=== PATIENT | male | born 1945 | race Caucasian/White ===

== ENCOUNTER 2016-09-12 12:54 | Inpatient (IN) | payer MEDICARE, OTHER ==
[~2016-09-12] VITALS: Ht 167.6 cm; Wt 75.3 kg
[~2016-09-12 12:54] MED LIST: AUGM500T7 PO; CHLO100T2 PO; CHLO50TA2 PO; CLOZ100 PO; CLOZ25 PO; DEPA500T3 PO; DIVA500T PO; FLUTI220I INH; IPRASOL NEB; OMEP20TA PO; SENN8.6T15 PO; SERT-129 PO
[2016-09-12 13:05] VITALS: BP 128/76; PULSE 91; PULSE 92; RESP 16; TEMP 97.9; O2SAT 95; O2SAT 96
[2016-09-12] MEDS ORDERED: RESP: ALBUTEROL 2.5 MG/IPRATROPIUM 0.5 MG NEB (SCH) INH ONE (13:30)
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
[2016-09-12 14:13] LABS: AUTOMATED NEUTROPHIL # 4.7 TH/MM3 (1.8-7.7); BASOPHIL % 0.6 % (0.0-2.0); EOSINOPHIL % 0.4 % (0.0-4.0); HEMATOCRIT 36.3 % (39.0-51.0); HEMO FLAGS DIFF FINAL; LYMPH % 24.7 % (9.0-44.0); LYMPHOCYTE # 1.7 TH/MM3 (1.0-4.8); MEAN CELL VOLUME 87.8 FL (80.0-100.0); MEAN CORPUSCULAR HEMOGLOBIN 29.3 PG (27.0-34.0); MEAN CORPUSCULAR HGB CONC 33.4 % (32.0-36.0); MONO % 6.7 % (0.0-8.0); NEUT % 67.6 % (16.0-70.0); PLATELET COUNT 219 TH/MM3 (150-450); RED BLOOD COUNT 4.13 MIL/MM3 (4.50-5.90); RED CELL DISTRIBUTION WIDTH 13.9 % (11.6-17.2); WHITE BLOOD COUNT 6.9 TH/MM3 (4.0-11.0)
--- NOTE | 2016-09-12 14:26 | RADRPT ---
EXAM DATE/TIME: 09/12/2016 13:21 [place] COMPARISON: CHEST PA & LAT, July 31, 2016, 15:48. CHEST SINGLE AP, July 21, 2016, 0:11. INDICATIONS : Cough, congestion. MEDICAL HISTORY : None. SURGICAL HISTORY : None. ENCOUNTER: Initial ACUITY: 1 day PAIN SCORE: Non-responsive. LOCATION: Bilateral chest FINDINGS: Portable AP view of the chest demonstrates a normal-sized cardiac silhouette. Lungs are underinflated and there is mild bibasilar opacity. No pleural effusion or pneumothorax is identified. Bones and so ft tissues demonstrate no acute finding. 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 CONCLUSION: 1. Underinflation with mild bibasilar airspace opacity representing either atelectasis or airspace co nsolidation. 2. 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 Derrick Almeida MD on September 12, 2016 at 14:23 Board Certified Radiologist. This report was verified electronically.
[2016-09-12 14:31] LABS: ALT (GPT) 14 U/L (12-78); ANION GAP 8 MEQ/L (5-15); AST (GOT) 13 U/L (15-37); BICARBONATE 29.2 MEQ/L (21.0-32.0); BLOOD UREA NITROGEN 20 MG/DL (7-18); CHLORIDE 104 MEQ/L (98-107); GLOMERULAR FILTRATION RATE 107 ML/MIN (>89); POTASSIUM 3.6 MEQ/L (3.5-5.1); SODIUM (NA) 141 MEQ/L (136-145)
[2016-09-12 14:33] LABS: ALKALINE PHOSPHATASE 64 U/L (45-117); TOTAL BILIRUBIN ADULT 0.2 MG/DL (0.2-1.0)
[2016-09-12] MEDS ORDERED: LORazepam 2 MG/ML VIAL IM ONE (15:30)
[2016-09-12] MEDS ORDERED: HALOPERIDOL LACTATE 5 MG/ML AMP IM ONE (15:30)
[2016-09-12 19:00] VITALS: BP 140/78; PULSE 75; RESP 14; O2SAT 95
[2016-09-12 22:35] VITALS: BP 121/57; PULSE 82; RESP 18; TEMP 97.4; O2SAT 96
[2016-09-13 02:18] VITALS: BP 144/70; PULSE 81; RESP 19; O2SAT 99
[2016-09-13] MEDS ORDERED: ACETAMINOPHEN 325 MG TAB PO PRN ×2 (02:45→12:00)
[2016-09-13] MEDS ORDERED: MAGNESIUM HYDROXIDE SUSP 30 ML CUP PO PRN (02:45)
[2016-09-13] MEDS ORDERED: ALUMINUM/MAGNESIUM/SIMETH 30 ML CUP PO PRN ×2 (02:45→12:00)
[2016-09-13] MEDS: RESP: ALBUTEROL 2.5 MG/IPRATROPIUM 0.5 MG NEB (SCH) NEB ×7 (04:00→20:28)
[2016-09-13 04:19] VITALS: BP 158/82; PULSE 86; RESP 18; TEMP 98.6; O2SAT 96
[2016-09-13] MEDS: FLUTICASONE PROPIONATE 220 MCG/ACT 12 GM INHALER INH SCH ×2 (09:00→20:53)
[2016-09-13] MEDS ORDERED: cloZAPine 25 MG TAB PO SCH (09:00)
[2016-09-13] MEDS ORDERED: SERTRALINE HCL 100 MG TAB PO SCH (09:00)
[2016-09-13] MEDS ORDERED: PANTOPRAZOLE SOD 20 MG DELAYED RELEASE TAB PO SCH (09:00)
[2016-09-13] MEDS: DIVALPROEX SODIUM E.R. 500 MG TAB PO SCH ×2 (09:00→20:53)
[2016-09-13] MEDS: NICOTINE 21 MG/24 HR PATCH T-DERMAL SCH (12:00)
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
[2016-09-13 13:40] LABS: AUTOMATED NEUTROPHIL # 3.4 TH/MM3 (1.8-7.7); BASOPHIL % 0.5 % (0.0-2.0); EOSINOPHIL % 0.6 % (0.0-4.0); HEMATOCRIT 33.3 % (39.0-51.0); HEMO FLAGS DIFF FINAL; LYMPHOCYTE # 1.8 TH/MM3 (1.0-4.8); MEAN CELL VOLUME 88.3 FL (80.0-100.0); MEAN CORPUSCULAR HEMOGLOBIN 29.3 PG (27.0-34.0); MEAN CORPUSCULAR HGB CONC 33.1 % (32.0-36.0); MONO % 9.7 % (0.0-8.0); NEUT % 58.2 % (16.0-70.0); PLATELET COUNT 194 TH/MM3 (150-450); RED BLOOD COUNT 3.77 MIL/MM3 (4.50-5.90); RED CELL DISTRIBUTION WIDTH 13.8 % (11.6-17.2); WHITE BLOOD COUNT 5.9 TH/MM3 (4.0-11.0)
--- NOTE | 2016-09-13 17:39 | PD.CONS ---
History of Present Illness Service FP Consult Requested By DR CRAIG Reason for Consult MED [facility] Primary Care Physician DR SANDOVAL Diagnoses: (1) GERD (gastroesophageal reflux disease) (2) Nutrition, metabolism, and development symptoms (3) DVT prophylaxis (4) Smoking history (5) Periaortic lymphadenopathy (6) Unexplained weight loss (7) Tobacco abuse (8) Acute psychosis (9) Schizoaffective disorder (10) Encephalopathy (11) Altered mental status (12) Medication side effect (13) Intellectual disability History of Present Illness 71 Y CM, OUTPATIENT OF [facility]. RECENT DISCHARGE FROM [facility]. PT READMITTED WITH PSYCHOTIC EXACERBATION, VEGA ACT. PT C/O SOB AND NOW RECEIVING NEB TREATMENT. COUGH AND CONGESTION PER PATIENT AND STAFF. PT COMBATIVE AND AGITATED. Review of Systems ROS Limitations: Uncooperative Constitutional: DENIES: Fever, Chills, Change in appetite Endocrine: DENIES: Heat/cold intolerance Eyes: DENIES: Blurred vision, Eye pain Ears, nose, mouth, throat: DENIES: Tinnitus, Hearing loss, Vertigo, Nasal discharge, Oral lesions, Throat pain, Hoarseness, Ear Pain, Running Nose, Epistaxis, Sinus Pain, Toothache, Odynophagia Respiratory: COMPLAINS OF: Cough, Wheezing, Sputum production, Shortness of breath Cardiovascular: COMPLAINS OF: Dyspnea on Exertion, DENIES: Chest pain, Palpitations, Syncope, PND, Lower Extremity Edema, Orthopnea, Claudication Gastrointestinal: DENIES: Abdominal pain, Black stools, Bloody stools, Constipation, Diarrhea, Nausea, Vomiting, Difficulty Swallowing, Anorexia Genitourinary: DENIES: Sexual dysfunction, Urinary frequency, Urinary incontinence, Urgency, Hematuria, Dysuria, Nocturia, Penile Discharge, Testicular Pain, Testicular Swelling Musculoskeletal: DENIES: Joint pain, Muscle aches, Stiffness, Joint Swelling, Back pain, Neck pain Integumentary: DENIES: Abnormal pigmentation, Nail changes, Pruritus, Rash Hematologic/lymphatic: DENIES: Bruising, Lymphadenopathy Immunologic/allergic: DENIES: Eczema, Urticaria Neurologic: COMPLAINS OF: Poor Balance, DENIES: Abnormal gait, Headache, Localized weakness, Paresthesias, Seizures, Speech Problems, Tremor Psychiatric: COMPLAINS OF: Anxiety, Confusion, Mood changes, Hallucinations, Agitation, Delusions Past Family Social History Allergies: Coded Allergies: No Known Allergies (Verified , 09/12/16) Past Medical History DYSPHAGIA BRONCHITIS, RECURRENT HCAP. RESOLVED. NEG REPEAT CXR. ASPIRATION COPD TACHYCARDIA/ARRHYTHMIA R OTITIS L HUMERUS FX, OLD HTN, URGENT SCHIZOAFFECTIVE SMOKER PERIAORTIC LYMPHADENOPATHY METABOLIC ENCEPHALOPATHY ETOH ABUSE Past Surgical History NC Reported Medications Current Medications Medications (Trade) Dose Ordered Sig/Alpesh Route Start Time Stop Time Status Last Admin (Ativan) 0.5 mg Q12H PRN PO 09/13/16 02:45 (Ativan Inj) 0.5 mg Q12H PRN IM 09/13/16 02:45 (Flovent Hfa 220 Mcg Inh) 1 puff BID INH 09/13/16 09:00 (Depakote Er) 500 mg DAILY PO 09/13/16 09:00 09/13/16 09:00 (Depakote Er) 1,500 mg HS PO 09/13/16 21:00 (Benadryl) 50 mg HS PRN PO 09/13/16 12:00 (Tylenol) 650 mg Q4H PRN PO 09/13/16 12:00 (Milk Of Magnesia Liq) 30 ml DAILY PRN PO 09/13/16 12:00 (Mag-Al Plus Susp Liq) 30 ml Q6H PRN PO 09/13/16 12:00 (Habitrol 21 Mg Patch.24 Hr) 1 patch DAILY T-DERMAL 09/13/16 12:00 09/13/16 12:00 (Thorazine) 100 mg QID PO 09/13/16 13:00 09/13/16 13:24 (Clozaril) 100 mg DAILY PO 09/14/16 09:00 (Protonix) 20 mg DAILY PO 09/14/16 09:00 (Senokot) 8.6 mg HS PO 09/13/16 21:00 (Zoloft) 100 mg DAILY PO 09/14/16 09:00 (Clozaril) 150 mg HS PO 09/13/16 21:00 Miscellaneous Information 1 DAILY TD 09/14/16 09:00 Family History NC Social History DISABLE, HX E/T/D, Physical Exam Vital Signs Vital Signs Date Time Temp Pulse Resp B/P Pulse Ox O2 Delivery O2 Flow Rate FiO2 09/13/16 04:19 98.6 86 18 158/82 96 09/13/16 02:18 81 19 144/70 99 Room Air 09/12/16 22:35 97.4 82 18 121/57 96 09/12/16 19:00 75 14 140/78 95 Room Air Physical Exam GENERAL: desheveled, coughing, short of breath, in moderate distress SKIN: No rashes, ecchymoses or lesions. Cool and dry. HEAD: Atraumatic. Normocephalic. No temporal or scalp tenderness. EYES: Pupils equal round and reactive. Extraocular motions intact. No scleral icterus. No injection or drainage. ENT: Nose without bleeding, purulent drainage or septal hematoma. Throat without erythema, tonsillar hypertrophy or exudate. Uvula midline. Airway patent. NECK: Trachea midline. No JVD or lymphadenopathy. Supple, nontender, no meningeal signs. CARDIOVASCULAR: Regular rate and rhythm without murmurs, gallops, or rubs. RESPIRATORY: B ronchi to apices, harsh congested cough GASTROINTESTINAL: Abdomen soft, non-tender, nondistended. No hepato-splenomegaly , or palpable masses. No guarding. MUSCULOSKELETAL: Extremities without clubbing, cyanosis, or edema. No joint tenderness, effusion, or edema noted. No calf tenderness. Negative Homans sign bilaterally. NEUROLOGICAL: Awake and alert. Cranial nerves II through XII intact. Motor and sensory grossly within normal limits. 2 out of 5 muscle strength in all muscle groups. Normal speech. Laboratory Laboratory Tests Test 09/12/16 09/13/16 17:45 13:19 Valproic Acid (Depakene) Level 85 White Blood Count 5.9 Red Blood Count 3.77 Hemoglobin 11.0 Hematocrit 33.3 Mean Corpuscular Volume 88.3 Mean Corpuscular Hemoglobin 29.3 Mean Corpuscular Hemoglobin 33.1 Concent Red Cell Distribution Width 13.8 Platelet Count 194 Mean Platelet Volume 7.6 Neutrophils (%) (Auto) 58.2 Lymphocytes (%) (Auto) 31.0 Monocytes (%) (Auto) 9.7 Eosinophils (%) (Auto) 0.6 Basophils (%) (Auto) 0.5 Neutrophils # (Auto) 3.4 Lymphocytes # (Auto) 1.8 Monocytes # (Auto) 0.6 Eosinophils # (Auto) 0.0 Basophils # (Auto) 0.0 CBC Comment DIFF FINAL Differential Comment Result Diagram: 09/13/16 1319 09/12/16 1400 Imaging Last 48 hours Impressions Chest X-Ray 09/12/16 0000 Signed Impressions: Service Date/Time: August 13:21 - CONCLUSION: 1. Underinflation with mild bibasilar airspace opacity representing either atelectasis or airspace consolidation. 2. 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 Derrick Almeida MD Assessment and Plan Assessment and Plan ACUTE PSYCHOSIS PNA VS BRONCHITIS DYSPHAGIA ASPIRATION COPD TACHYCARDIA/ARRHYTHMIA R OTITIS L HUMERUS FX, OLD HTN, URGENT SCHIZOAFFECTIVE SMOKER PERIAORTIC LYMPHADENOPATHY METABOLIC ENCEPHALOPATHY ETOH ABUSE PLAN- DUONEB BID DOXYCYCLINE BID UNTIL SEP 20 MONITOR HTN. MEDS OTHERWISE ABOVE. MEDICALLY CLEARED FOR INPATIENT PSYCHIATRY ADMISSION. Min Sandoval MD Sep 13, 2016 17:39
[2016-09-13 19:17] VITALS: BP 109/61; PULSE 79; RESP 16; TEMP 97.9; O2SAT 95
[2016-09-13] MEDS: cloZAPine 100 MG TAB PO SCH (20:54)
[2016-09-13] MEDS: DOXYCYCLINE HYCLATE 100 MG CAP PO SCH (20:54)
[2016-09-13] MEDS: SENNOSIDES 8.6 MG TAB PO SCH (20:55)
[2016-09-13] MEDS ORDERED: FLUTICASONE PROPIONATE 220 MCG/ACT 12 GM INHALER INH SCH (21:00)
[2016-09-13] MEDS ORDERED: cloZAPine 100 MG TAB PO SCH (21:00)
[2016-09-13] MEDS ORDERED: SENNOSIDES 8.6 MG TAB PO SCH (21:00)
[2016-09-14 06:42] VITALS: BP 153/92; PULSE 92; RESP 16; TEMP 98.3; O2SAT 95
[2016-09-14] MEDS: RESP: ALBUTEROL 2.5 MG/IPRATROPIUM 0.5 MG NEB (SCH) NEB ×2 (08:00→19:47)
[2016-09-14 08:46] LABS: ANION GAP 8 MEQ/L (5-15); BICARBONATE 31.3 MEQ/L (21.0-32.0); BLOOD UREA NITROGEN 15 MG/DL (7-18); CHLORIDE 103 MEQ/L (98-107); GLOMERULAR FILTRATION RATE 123 ML/MIN (>89); LDL CHOLESTEROL 66 MG/DL (0-99); POTASSIUM 3.9 MEQ/L (3.5-5.1); SODIUM (NA) 142 MEQ/L (136-145)
[2016-09-14] MEDS: REMOVE OLD PATCH TD SCH (09:00)
[2016-09-14] MEDS: DOXYCYCLINE HYCLATE 100 MG CAP PO SCH ×2 (09:29→21:23)
[2016-09-14] MEDS: SERTRALINE HCL 100 MG TAB PO SCH (09:29)
[2016-09-14] MEDS: cloZAPine 100 MG TAB PO SCH ×2 (09:29→21:23)
[2016-09-14] MEDS: DIVALPROEX SODIUM E.R. 500 MG TAB PO SCH ×2 (09:29→21:23)
[2016-09-14] MEDS: FLUTICASONE PROPIONATE 220 MCG/ACT 12 GM INHALER INH SCH ×2 (09:30→21:25)
[2016-09-14] MEDS: PANTOPRAZOLE SOD 20 MG DELAYED RELEASE TAB PO SCH (09:30)
[2016-09-14] MEDS: NICOTINE 21 MG/24 HR PATCH T-DERMAL SCH (09:30)
--- NOTE | 2016-09-14 09:50 | HHI.FPPN ---
Subjective Remarks AGITATED CURSING COUGHING WHEN TALKS Objective Vitals Vital Signs Date Time Temp Pulse Resp B/P Pulse Ox O2 Delivery O2 Flow Rate FiO2 09/14/16 06:42 98.3 92 16 153/92 95 09/13/16 19:17 97.9 79 16 109/61 95 I/O 09/13/16 09/13/16 09/13/16 09/14/16 09/14/16 09/14/16 07:00 15:00 23:00 07:00 15:00 23:00 Intake Total 360 ml 240 ml Balance 360 ml 240 ml Intake Oral 360 ml 240 ml # Voids 3 Result Diagram: 09/13/16 1319 09/14/16 0711 Objective Remarks GENERAL: SKIN: Warm and dry. HEAD: Atraumatic. Normocephalic. EYES: Pupils equal and round. No scleral icterus. No injection or drainage. ENT: No nasal bleeding or discharge. Mucous membranes pink and moist. NECK: Trachea midline. No JVD. CARDIOVASCULAR: Regular rate and rhythm. RESPIRATORY: No accessory muscle use. CENTRAL AND BASILAR RONCHI GASTROINTESTINAL: Abdomen soft, non-tender, nondistended. Hepatic and splenic margins not palpable. MUSCULOSKELETAL: Extremities without clubbing, cyanosis, or edema. No obvious deformities. NEUROLOGICAL: Awake and alert. No obvious cranial nerve deficits. Motor grossly within normal limits. 3 out of 5 muscle strength in the arms and legs. Normal speech. PSYCHIATRIC: PSYCHOTIC Medications and IVs Current Medications Medications (Trade) Dose Ordered Sig/Alpesh Route Start Time Stop Time Status Last Admin (Ativan) 0.5 mg Q12H PRN PO 09/13/16 02:45 (Ativan Inj) 0.5 mg Q12H PRN IM 09/13/16 02:45 (Flovent Hfa 220 Mcg Inh) 1 puff BID INH 09/13/16 09:00 09/14/16 09:30 (Depakote Er) 500 mg DAILY PO 09/13/16 09:00 09/14/16 09:29 (Depakote Er) 1,500 mg HS PO 09/13/16 21:00 09/13/16 20:53 (Benadryl) 50 mg HS PRN PO 09/13/16 12:00 (Tylenol) 650 mg Q4H PRN PO 12/16/16 12:00 (Milk Of Magnesia Liq) 30 ml DAILY PRN PO 09/13/16 12:00 (Mag-Al Plus Susp Liq) 30 ml Q6H PRN PO 09/13/16 12:00 (Habitrol 21 Mg Patch.24 Hr) 1 patch DAILY T-DERMAL 09/13/16 12:00 09/14/16 09:30 (Thorazine) 100 mg QID PO 09/13/16 13:00 09/14/16 09:29 (Clozaril) 100 mg DAILY PO 09/14/16 09:00 09/14/16 09:29 (Protonix) 20 mg DAILY PO 09/14/16 09:00 09/14/16 09:30 (Senokot) 8.6 mg HS PO 09/13/16 21:00 09/13/16 20:55 (Zoloft) 100 mg DAILY PO 09/14/16 09:00 09/14/16 09:29 (Clozaril) 150 mg HS PO 09/13/16 21:00 09/13/16 20:54 Miscellaneous Information 1 DAILY TD 09/14/16 09:00 09/14/16 09:00 (Vibramycin) 100 mg BID PO 09/13/16 21:00 09/20/16 20:59 09/14/16 09:29 A/P Assessment and Plan ACUTE PSYCHOSIS PNA VS BRONCHITIS DYSPHAGIA ASPIRATION COPD TACHYCARDIA/ARRHYTHMIA R OTITIS L HUMERUS FX, OLD HTN, URGENT SCHIZOAFFECTIVE SMOKER PERIAORTIC LYMPHADENOPATHY METABOLIC ENCEPHALOPATHY ETOH ABUSE PLAN- DUONEB BID DOXYCYCLINE BID UNTIL SEP 20 MONITOR HTN. MEDS OTHERWISE ABOVE. MEDICALLY CLEARED FOR INPATIENT PSYCHIATRY ADMISSION. Min Hebert MD Sep 14, 2016 09:50
--- NOTE | 2016-09-14 11:54 | HHI.PYPN ---
Subjective Remarks Patient was seen and case discussed with nursing. Patient is in behaving well on the unit. He has not been labile and aggressive. Thought process remains largely loose and nonsensical. Poor insight into his admission. His compliant with his medications. Denies auditory or visual hallucinations Objective Alert: Yes [place]: Person, Place Mood: Anxious Affect: Blunted Memory Intact: Remote (impaired) Hallucinations: Other (denies) Delusions: No Delusion Type: Paranoid Suicidal: Ideation (denies) Homicidal: Ideation (denies) Insight/Judgement poor Labs Test 09/13/16 09/14/16 13:19 07:11 White Blood Count 5.9 TH/MM3 Red Blood Count 3.77 MIL/MM3 Hemoglobin 11.0 GM/DL Hematocrit 33.3 % Mean Corpuscular Volume 88.3 FL Mean Corpuscular Hemoglobin 29.3 PG Mean Corpuscular Hemoglobin 33.1 % Concent Red Cell Distribution Width 13.8 % Platelet Count 194 TH/MM3 Mean Platelet Volume 7.6 FL Neutrophils (%) (Auto) 58.2 % Lymphocytes (%) (Auto) 31.0 % Monocytes (%) (Auto) 9.7 % Eosinophils (%) (Auto) 0.6 % Basophils (%) (Auto) 0.5 % Neutrophils # (Auto) 3.4 TH/MM3 Lymphocytes # (Auto) 1.8 TH/MM3 Monocytes # (Auto) 0.6 TH/MM3 Eosinophils # (Auto) 0.0 TH/MM3 Basophils # (Auto) 0.0 TH/MM3 CBC Comment DIFF FINAL Differential Comment Sodium Level 142 MEQ/L Potassium Level 3.9 MEQ/L Chloride Level 103 MEQ/L Carbon Dioxide Level 31.3 MEQ/L Anion Gap 8 MEQ/L Blood Urea Nitrogen 15 MG/DL Creatinine 0.64 MG/DL Estimat Glomerular Filtration 123 ML/MIN Rate Random Glucose 93 MG/DL Calcium Level 8.7 MG/DL Triglycerides Level 93 MG/DL Cholesterol Level 145 MG/DL LDL Cholesterol 66 MG/DL HDL Cholesterol 60.0 MG/DL Cholesterol/HDL Ratio 2.41 RATIO Vitals/IOs Vital Signs Date Time Temp Pulse Resp B/P Pulse Ox O2 Delivery O2 Flow Rate FiO2 09/14/16 06:42 98.3 92 16 153/92 95 09/13/16 02:18 Room Air Intake and Output 09/13/16 09/13/16 09/13/16 07:59 15:59 23:59 Intake Total 360 ml Balance 360 ml Assessment & Plan Problem List: (1) Schizoaffective disorder, bipolar type ICD Code: F25.0 Assessment & Plan Continue current treatment plan Justification for Cont. Inpt. Patient will decompensate in a less restrictive setting Request HC Surrog/Guard Advoc?: Yes Roge Rosario DO Sep 14, 2016 11:54
[2016-09-14] MEDS: LORazepam 2 MG/ML VIAL - age > 65 yrs IM PRN (11:59)
[2016-09-14 18:00] VITALS: BP 132/59; PULSE 79; RESP 22; TEMP 99.2; O2SAT 96
[2016-09-14] MEDS: SENNOSIDES 8.6 MG TAB PO SCH (21:24)
[2016-09-15 06:13] VITALS: BP 121/75; PULSE 89; RESP 16; TEMP 97.1; O2SAT 92
[2016-09-15] MEDS: RESP: ALBUTEROL 2.5 MG/IPRATROPIUM 0.5 MG NEB (SCH) NEB ×2 (08:00→21:25)
[2016-09-15] MEDS: DOXYCYCLINE HYCLATE 100 MG CAP PO SCH ×2 (08:30→21:06)
[2016-09-15] MEDS: FLUTICASONE PROPIONATE 220 MCG/ACT 12 GM INHALER INH SCH ×2 (08:30→21:04)
[2016-09-15] MEDS: PANTOPRAZOLE SOD 20 MG DELAYED RELEASE TAB PO SCH (08:30)
[2016-09-15] MEDS: SERTRALINE HCL 100 MG TAB PO SCH (08:31)
[2016-09-15] MEDS: cloZAPine 100 MG TAB PO SCH ×2 (08:31→21:04)
[2016-09-15] MEDS: NICOTINE 21 MG/24 HR PATCH T-DERMAL SCH (09:00)
[2016-09-15] MEDS: REMOVE OLD PATCH TD SCH (09:00)
[2016-09-15] MEDS: DIVALPROEX SODIUM E.R. 500 MG TAB PO SCH ×2 (09:00→21:05)
[2016-09-15 10:34] LABS: HEMOGLOBIN A1a 1.2 %; HEMOGLOBIN A1b 0.9 %; HEMOGLOBIN Ao 84.3 %; HEMOGLOBIN P3 5.6 %
--- NOTE | 2016-09-15 12:16 | HHI.PYPN ---
Subjective Remarks This is a request for second opinion for Dr. Hernandez. Patient was seen and case discussed with nursing. Patient remains disorganized with poor insight into his admission. Patient was agitated yesterday afternoon. However his behaviors improved today. His compliant with his medications. Says he wants to get a job here. Denies auditory visual hallucinations Objective Alert: Yes [place]: Person, Place Mood: Anxious Affect: Blunted Memory Intact: Remote (impaired) Hallucinations: Other (denies) Delusions: No Delusion Type: Paranoid Suicidal: Ideation (denies) Homicidal: Ideation (denies) Insight/Judgement Poor Labs Test 09/15/16 06:00 Valproic Acid (Depakene) Level 87 MCG/ML Vitals/IOs Vital Signs Date Time Temp Pulse Resp B/P Pulse Ox O2 Delivery O2 Flow Rate FiO2 09/15/16 06:13 97.1 89 16 121/75 92 09/13/16 02:18 Room Air Intake and Output 09/14/16 09/14/16 09/15/16 08:00 16:00 00:00 Intake Total 240 ml 840 ml 300 ml Balance 240 ml 840 ml 300 ml Assessment & Plan Problem List: (1) Schizoaffective disorder, bipolar type ICD Code: F25.0 Assessment & Plan I agree with the first opinion to continue his petition. Criteria include psychotic and disorganized behavior Justification for Cont. Inpt. Patient would decompensate in a less restrictive setting Request HC Surrog/Guard Advoc?: Yes Roge Rosario DO Sep 15, 2016 12:16
[2016-09-15] MEDS: LORazepam 2 MG/ML VIAL - age > 65 yrs IM PRN (13:32)
[2016-09-15 17:51] VITALS: BP 163/85; PULSE 92; RESP 17; TEMP 98; O2SAT 96
[2016-09-15] MEDS: diphenhydrAMINE HCL 50 MG CAP PO PRN (21:04)
[2016-09-15] MEDS: SENNOSIDES 8.6 MG TAB PO SCH (21:05)
[2016-09-16 05:52] VITALS: BP 147/85; PULSE 79; RESP 16; TEMP 97.4; O2SAT 94
[2016-09-16] MEDS: RESP: ALBUTEROL 2.5 MG/IPRATROPIUM 0.5 MG NEB (SCH) NEB ×2 (08:59→19:57)
[2016-09-16] MEDS: REMOVE OLD PATCH TD SCH (09:00)
[2016-09-16] MEDS: FLUTICASONE PROPIONATE 220 MCG/ACT 12 GM INHALER INH SCH ×2 (09:35→21:48)
[2016-09-16] MEDS: DIVALPROEX SODIUM E.R. 500 MG TAB PO SCH ×2 (09:36→21:47)
[2016-09-16] MEDS: DOXYCYCLINE HYCLATE 100 MG CAP PO SCH ×2 (09:37→21:48)
[2016-09-16] MEDS: cloZAPine 100 MG TAB PO SCH ×2 (09:37→21:48)
[2016-09-16] MEDS: PANTOPRAZOLE SOD 20 MG DELAYED RELEASE TAB PO SCH (09:37)
[2016-09-16] MEDS: SERTRALINE HCL 100 MG TAB PO SCH (09:37)
[2016-09-16] MEDS: NICOTINE 21 MG/24 HR PATCH T-DERMAL SCH (09:38)
--- NOTE | 2016-09-16 12:46 | HHI.PYPN ---
Subjective Remarks Patient discussed with treatment team patient's brother and [id number] and fact team compliance representative dealer Basia. We discussed the chronicity, medications, and overall deterioration patient's mental status along with his intellectual disability [place] progressed over many years. We did discuss medication also. Brother states he did fairly well on the Respinol injectable. We also discussed placement issues with it's time to look at some more restrictive safe placement then in the home considering the patient's increased wandering and aggressive behaviors. For now we will increase at bedtime Clazuril to 200 mg, will decrease the scheduled Thorazine from 100 mg 4 times a day to 50 mg 4 times a day in anticipation of admitting Respinol to the regimen in anticipation of perhaps an invega sustena injection Review of Systems Other No change since 09/13 Objective Alert: Yes [place]: Person, Place Mood: Anxious Affect: Blunted Memory Intact: Remote (impaired) Hallucinations: Other (denies) Delusions: No Delusion Type: Paranoid Suicidal: Ideation (denies) Homicidal: Ideation (denies) Insight/Judgement Very poor Vitals/IOs Vital Signs Date Time Temp Pulse Resp B/P Pulse Ox O2 Delivery O2 Flow Rate FiO2 09/16/16 05:52 97.4 79 16 147/85 94 09/13/16 02:18 Room Air Intake and Output 09/15/16 09/15/16 09/16/16 08:00 16:00 00:00 Intake Total 240 ml Balance 240 ml Assessment & Plan Problem List: (1) Schizoaffective disorder, bipolar type ICD Code: F25.0 Assessment & Plan Estimated LOS: days patient continue psychotic intrusive and profane. Compliant medications. See medication adjustments above Justification for Cont. Inpt. At this time the patient was severely decompensated a lower level of care or less restrictive setting Discharge Planning To be determined Request HC Surrog/Guard Advoc?: Yes Derrick Hernandez MD Sep 16, 2016 12:46
[2016-09-16 19:57] VITALS: BP 150/90; PULSE 98; RESP 16; TEMP 97.1; O2SAT 95
[2016-09-16] MEDS: SENNOSIDES 8.6 MG TAB PO SCH (21:47)
[2016-09-17 05:51] VITALS: BP 101/60; PULSE 88; RESP 16; TEMP 98.5; O2SAT 92
[2016-09-17] MEDS: PANTOPRAZOLE SOD 20 MG DELAYED RELEASE TAB PO SCH (08:46)
[2016-09-17] MEDS: DOXYCYCLINE HYCLATE 100 MG CAP PO SCH ×2 (08:46→21:18)
[2016-09-17] MEDS: NICOTINE 21 MG/24 HR PATCH T-DERMAL SCH (08:46)
[2016-09-17] MEDS: SERTRALINE HCL 100 MG TAB PO SCH (08:46)
[2016-09-17] MEDS: DIVALPROEX SODIUM E.R. 500 MG TAB PO SCH ×2 (08:46→21:17)
[2016-09-17] MEDS: cloZAPine 100 MG TAB PO SCH ×2 (08:46→21:18)
[2016-09-17] MEDS: RESP: ALBUTEROL 2.5 MG/IPRATROPIUM 0.5 MG NEB (SCH) NEB ×2 (08:52→19:26)
[2016-09-17] MEDS: REMOVE OLD PATCH TD SCH (09:00)
[2016-09-17] MEDS: FLUTICASONE PROPIONATE 220 MCG/ACT 12 GM INHALER INH SCH ×2 (09:00→21:18)
--- NOTE | 2016-09-17 12:36 | HHI.PYPN ---
Subjective Remarks Patient seen on unit with nurse Janel, chart reviewed, patient continues intrusive somewhat demanding, also continues somewhat confused silly and childlike. Compliant medications. He denies suicidality, denies voices Review of Systems Other No change since 09/13 Objective Alert: Yes [place]: Person, Place Mood: Anxious Affect: Blunted Memory Intact: Remote (impaired) Hallucinations: Other (denies) Delusions: No Delusion Type: Paranoid Suicidal: Ideation (denies) Homicidal: Ideation (denies) Insight/Judgement Very poor Vitals/IOs Vital Signs Date Time Temp Pulse Resp B/P Pulse Ox O2 Delivery O2 Flow Rate FiO2 09/17/16 05:51 98.5 88 16 101/60 92 Intake and Output 09/16/16 09/16/16 09/16/16 07:59 15:59 23:59 Intake Total 120 ml 1440 ml 1700 ml Balance 120 ml 1440 ml 1700 ml Assessment & Plan Problem List: (1) Schizoaffective disorder, bipolar type ICD Code: F25.0 Assessment & Plan Estimated LOS: days patient continues somewhat intrusive and irritable though redirectable. Compliant medications Justification for Cont. Inpt. At this time the patient with severely decompensated a lower level of care or less restrictive setting Discharge Planning To be determined Request HC Surrog/Guard Advoc?: Yes Derrick Hernandez MD Sep 17, 2016 12:36
[2016-09-17 19:44] VITALS: BP 154/85; PULSE 102; RESP 18; TEMP 98.2
[2016-09-17 19:45] VITALS: BP 154/85; PULSE 102; RESP 18; TEMP 98.2
[2016-09-17] MEDS: SENNOSIDES 8.6 MG TAB PO SCH (21:39)
[2016-09-18 06:08] VITALS: BP 134/75; PULSE 88; RESP 18; TEMP 97.5; O2SAT 94
[2016-09-18] MEDS: cloZAPine 100 MG TAB PO SCH ×2 (09:00→21:29)
[2016-09-18] MEDS: FLUTICASONE PROPIONATE 220 MCG/ACT 12 GM INHALER INH SCH ×2 (09:00→21:27)
[2016-09-18] MEDS: REMOVE OLD PATCH TD SCH (09:00)
[2016-09-18] MEDS: SERTRALINE HCL 100 MG TAB PO SCH (09:06)
[2016-09-18] MEDS: DIVALPROEX SODIUM E.R. 500 MG TAB PO SCH ×2 (09:06→21:29)
[2016-09-18] MEDS: NICOTINE 21 MG/24 HR PATCH T-DERMAL SCH ×2 (09:06→09:51)
[2016-09-18] MEDS: DOXYCYCLINE HYCLATE 100 MG CAP PO SCH ×2 (09:06→21:27)
[2016-09-18] MEDS: PANTOPRAZOLE SOD 20 MG DELAYED RELEASE TAB PO SCH (09:06)
--- NOTE | 2016-09-18 09:12 | HHI.PYPN ---
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 Patient compliant medication. For now continue treatment. Patient scheduled for [place] tomorrow Review of Systems Other No change since 09/13 Objective Alert: Yes [place]: Person, Place Mood: Anxious Affect: Blunted Memory Intact: Remote (impaired) Hallucinations: Other (denies) Delusions: No Delusion Type: Paranoid Suicidal: Ideation (denies) Homicidal: Ideation (denies) Insight/Judgement Very poor Vitals/IOs Vital Signs Date Time Temp Pulse Resp B/P Pulse Ox O2 Delivery O2 Flow Rate FiO2 09/18/16 06:08 97.5 88 18 134/75 94 Intake and Output 09/17/16 09/17/16 09/17/16 07:59 15:59 23:59 Intake Total 0 ml 1200 ml 600 ml Balance 0 ml 1200 ml 600 ml Assessment & Plan Problem List: (1) Schizoaffective disorder, bipolar type ICD Code: F25.0 Assessment & Plan Estimated LOS: days patient remains confused intrusive labile psychotic needing significant redirection Justification for Cont. Inpt. At this time patient was severely decompensate if placed at a lower level of care Discharge Planning To be determined Request HC Surrog/Guard Advoc?: Yes Derrick Hernandez MD Sep 18, 2016 09:12
[2016-09-18 18:00] VITALS: BP 129/63; PULSE 93; RESP 17; TEMP 98.5; O2SAT 94
[2016-09-18] MEDS: SENNOSIDES 8.6 MG TAB PO SCH (21:28)
[2016-09-19 06:00] VITALS: BP 151/92; PULSE 94; RESP 18; TEMP 98; O2SAT 94
[2016-09-19] MEDS: REMOVE OLD PATCH TD SCH (09:00)
[2016-09-19] MEDS: DOXYCYCLINE HYCLATE 100 MG CAP PO SCH ×2 (09:00→20:29)
[2016-09-19] MEDS: cloZAPine 100 MG TAB PO SCH ×2 (09:31→20:29)
[2016-09-19] MEDS: DIVALPROEX SODIUM E.R. 500 MG TAB PO SCH ×2 (09:31→20:29)
[2016-09-19] MEDS: SERTRALINE HCL 100 MG TAB PO SCH (09:32)
[2016-09-19] MEDS: PANTOPRAZOLE SOD 20 MG DELAYED RELEASE TAB PO SCH (09:32)
[2016-09-19] MEDS: NICOTINE 21 MG/24 HR PATCH T-DERMAL SCH (09:33)
[2016-09-19] MEDS: FLUTICASONE PROPIONATE 220 MCG/ACT 12 GM INHALER INH SCH ×2 (09:34→20:29)
--- NOTE | 2016-09-19 11:42 | HHI.FPPN ---
Subjective Remarks INCR BP AGITATED REPORTS PROBLEMS WITH COUGH GRABBING MY ARMS D/W RN Objective Vitals Vital Signs Date Time Temp Pulse Resp B/P Pulse Ox O2 Delivery O2 Flow Rate FiO2 09/19/16 06:00 98.0 94 18 151/92 94 09/18/16 18:00 98.5 93 17 129/63 94 I/O 09/18/16 09/18/16 09/18/16 09/19/16 09/19/16 09/19/16 07:00 15:00 23:00 07:00 15:00 23:00 Intake Total 120 ml 1080 ml 840 ml Balance 120 ml 1080 ml 840 ml Intake Oral 120 ml 1080 ml 840 ml # Voids 3 3 2 2 # Bowel Movements 1 Result Diagram: 09/14/16 07 Objective Remarks GENERAL: SKIN: Warm and dry. HEAD: Atraumatic. Normocephalic. EYES: Pupils equal and round. No scleral icterus. No injection or drainage. ENT: No nasal bleeding or discharge. Mucous membranes pink and moist. NECK: Trachea midline. No JVD. CARDIOVASCULAR: Regular rate and rhythm. RESPIRATORY: No accessory muscle use. CENTRAL AND BASILAR RONCHI GASTROINTESTINAL: Abdomen soft, non-tender, nondistended. Hepatic and splenic margins not palpable. MUSCULOSKELETAL: Extremities without clubbing, cyanosis, or edema. No obvious deformities. NEUROLOGICAL: Awake and alert. No obvious cranial nerve deficits. Motor grossly within normal limits. 3 out of 5 muscle strength in the arms and legs. Normal speech. PSYCHIATRIC: PSYCHOTIC Medications and IVs Current Medications Medications (Trade) Dose Ordered Sig/Alpesh Route Start Time Stop Time Status Last Admin (Ativan) 0.5 mg Q12H PRN PO 09/13/16 02:45 (Ativan Inj) 0.5 mg Q12H PRN IM 09/13/16 02:45 09/15/16 13:32 (Flovent Hfa 220 Mcg Inh) 1 puff BID INH 09/13/16 09:00 09/19/16 09:34 (Depakote Er) 500 mg DAILY PO 09/13/16 09:00 09/19/16 09:31 (Depakote Er) 1,500 mg HS PO 09/13/16 21:00 09/18/16 21:29 (Benadryl) 50 mg HS PRN PO 09/13/16 12:00 09/15/16 21:04 (Tylenol) 650 mg Q4H PRN PO 09/13/16 12:00 (Milk Of Magnesia Liq) 30 ml DAILY PRN PO 09/13/16 12:00 (Mag-Al Plus Susp Liq) 30 ml Q6H PRN PO 09/13/16 12:00 (Habitrol 21 Mg Patch.24 Hr) 1 patch DAILY T-DERMAL 09/13/16 12:00 09/19/16 09:33 (Clozaril) 100 mg DAILY PO 09/14/16 09:00 09/19/16 09:31 (Protonix) 20 mg DAILY PO 09/14/16 09:00 09/19/16 09:32 (Senokot) 8.6 mg HS PO 09/13/16 21:00 09/18/16 21:28 (Zoloft) 100 mg DAILY PO 09/14/16 09:00 09/19/16 09:32 Miscellaneous Information 1 DAILY TD 09/14/16 09:00 09/19/16 09:00 (Vibramycin) 100 mg BID PO 09/13/16 21:00 09/20/16 20:59 09/19/16 09:00 (Thorazine) 50 mg QID PO 09/16/16 14:00 09/19/16 09:32 (Clozaril) 200 mg HS PO 09/16/16 21:00 09/18/16 21:29 A/P Assessment and Plan ACUTE PSYCHOSIS PNA VS BRONCHITIS DYSPHAGIA ASPIRATION COPD TACHYCARDIA/ARRHYTHMIA R OTITIS L HUMERUS FX, OLD HTN, URGENT SCHIZOAFFECTIVE SMOKER PERIAORTIC LYMPHADENOPATHY METABOLIC ENCEPHALOPATHY ETOH ABUSE PLAN- DUONEB BID DOXYCYCLINE BID UNTIL SEP 20 MONITOR HTN. MEDS OTHERWISE ABOVE. MEDICALLY CLEARED FOR INPATIENT PSYCHIATRY ADMISSION. Min Hebert MD Sep 19, 2016 11:42
--- NOTE | 2016-09-19 12:38 | HHI.PYPN ---
Subjective Remarks Patient seen in [address] with brother and [id number], patient retained by Psychosocial Rehabilitation Counselor Shine. Patient continues loud intrusive with markedly disorganized speech, at times somewhat intimidating to other patients, he is compliant with medication. For now continue treatment Review of Systems Other No change since 09/13 Objective Alert: Yes [place]: Person, Place Mood: Anxious Affect: Blunted Memory Intact: Remote (impaired) Hallucinations: Other (denies) Delusions: No Delusion Type: Paranoid Suicidal: Ideation (denies) Homicidal: Ideation (denies) Insight/Judgement very poor Vitals/IOs Vital Signs Date Time Temp Pulse Resp B/P Pulse Ox O2 Delivery O2 Flow Rate FiO2 09/19/16 06:00 98.0 94 18 151/92 94 Intake and Output 09/18/16 09/18/16 09/19/16 08:00 16:00 00:00 Intake Total 120 ml 1080 ml 840 ml Balance 120 ml 1080 ml 840 ml Assessment & Plan Problem List: (1) Schizoaffective disorder, bipolar type ICD Code: F25.0 Assessment & Plan Estimated LOS: days patient continues disorganized loud and intrusive, has been retained by Psychosocial Rehabilitation Counselor Shine. Compliant medications. Justification for Cont. Inpt. At this time the patient would severely decompensated a lower level of care Discharge Planning To be determined Request HC Surrog/Guard Advoc?: Yes Derrick Hernandez MD Sep 19, 2016 12:38
[2016-09-19 18:27] VITALS: BP 149/68; PULSE 99; RESP 18; TEMP 97.8; O2SAT 97
[2016-09-19] MEDS: LORazepam 0.5 MG TAB age > 65 yrs PO PRN (20:28)
[2016-09-19] MEDS: SENNOSIDES 8.6 MG TAB PO SCH (20:29)
[2016-09-19] MEDS: diphenhydrAMINE HCL 50 MG CAP PO PRN (20:29)
[2016-09-20 05:54] VITALS: BP 136/56; PULSE 95; RESP 18; TEMP 97.2; O2SAT 91
[2016-09-20] MEDS: REMOVE OLD PATCH TD SCH (09:00)
[2016-09-20] MEDS: NICOTINE 21 MG/24 HR PATCH T-DERMAL SCH (09:00)
[2016-09-20] MEDS: DOXYCYCLINE HYCLATE 100 MG CAP PO SCH (09:06)
[2016-09-20] MEDS: LORazepam 0.5 MG TAB age > 65 yrs PO PRN (09:06)
[2016-09-20] MEDS: PANTOPRAZOLE SOD 20 MG DELAYED RELEASE TAB PO SCH (09:06)
[2016-09-20] MEDS: FLUTICASONE PROPIONATE 220 MCG/ACT 12 GM INHALER INH SCH ×2 (09:06→21:43)
[2016-09-20] MEDS: SERTRALINE HCL 100 MG TAB PO SCH (09:06)
[2016-09-20] MEDS: DIVALPROEX SODIUM E.R. 500 MG TAB PO SCH ×2 (09:06→21:44)
[2016-09-20] MEDS: cloZAPine 100 MG TAB PO SCH ×2 (09:06→21:44)
--- NOTE | 2016-09-20 14:16 | HHI.PYPN ---
Subjective Remarks Patient seen in day room with nurse Christi, chart review, all patient continues at times to be loud profane and intrusive the intensity frequency and duration have diminished somewhat. He is redirectable flow at times with encouragement. Compliant medications. Will decrease schedule Thorazine from 4 times a day to 3 times a day Review of Systems Other No change since 09/13 Objective Alert: Yes [place]: Person, Place Mood: Anxious Affect: Blunted Memory Intact: Remote (impaired) Hallucinations: Other (denies) Delusions: No Delusion Type: Paranoid Suicidal: Ideation (denies) Homicidal: Ideation (denies) Insight/Judgement Very poor Vitals/IOs Vital Signs Date Time Temp Pulse Resp B/P Pulse Ox O2 Delivery O2 Flow Rate FiO2 09/20/16 05:54 97.2 95 18 136/56 91 Intake and Output 09/19/16 09/19/16 09/20/16 08:00 16:00 00:00 Intake Total 960 ml 1560 ml Balance 960 ml 1560 ml Assessment & Plan Problem List: (1) Schizoaffective disorder, bipolar type ICD Code: F25.0 Assessment & Plan Estimated LOS: days patient continues with episodes of intrusiveness loudness profanity though frequency intensity and duration has somewhat lessened. For now will decrease schedule Thorazine to 3 times a day Justification for Cont. Inpt. At this time patient with severely decompensated a lower level of care Discharge Planning To be determined Request HC Surrog/Guard Advoc?: Yes Derrick Hernandez MD Sep 20, 2016 14:16
[2016-09-20 19:41] VITALS: BP 140/50; PULSE 96; RESP 16; TEMP 97.2; O2SAT 95
[2016-09-20] MEDS: SENNOSIDES 8.6 MG TAB PO SCH (21:43)
[2016-09-21 05:49] VITALS: BP 153/74; PULSE 88; RESP 17; TEMP 97.8; O2SAT 93
[2016-09-21] MEDS: REMOVE OLD PATCH TD SCH (09:00)
[2016-09-21] MEDS: FLUTICASONE PROPIONATE 220 MCG/ACT 12 GM INHALER INH SCH ×2 (09:30→21:02)
[2016-09-21] MEDS: DIVALPROEX SODIUM E.R. 500 MG TAB PO SCH ×2 (09:30→21:03)
[2016-09-21] MEDS: PANTOPRAZOLE SOD 20 MG DELAYED RELEASE TAB PO SCH (09:30)
[2016-09-21] MEDS: NICOTINE 21 MG/24 HR PATCH T-DERMAL SCH (09:30)
[2016-09-21] MEDS: SERTRALINE HCL 100 MG TAB PO SCH (09:31)
[2016-09-21] MEDS: cloZAPine 100 MG TAB PO SCH ×2 (09:31→21:03)
--- NOTE | 2016-09-21 16:53 | HHI.PYPN ---
Subjective Remarks Patient seen in dayroom with floor staff, chart reviewed, patient's intrusiveness loud voice and profanity somewhat diminished. Patient compliant medications. For now continue treatment no change Review of Systems Other No somatic complaints today Objective Alert: Yes [place]: Person, Place Mood: Anxious Affect: Blunted Memory Intact: Remote (impaired) Hallucinations: Other (denies) Delusions: No Delusion Type: Paranoid Suicidal: Ideation (denies) Homicidal: Ideation (denies) Insight/Judgement Poor Vitals/IOs Vital Signs Date Time Temp Pulse Resp B/P Pulse Ox O2 Delivery O2 Flow Rate FiO2 09/21/16 05:49 97.8 88 17 153/74 93 Intake and Output 09/20/16 09/20/16 09/21/16 08:00 16:00 00:00 Intake Total 600 ml 1080 ml 960 ml Balance 600 ml 1080 ml 960 ml Assessment & Plan Problem List: (1) Schizoaffective disorder, bipolar type ICD Code: F25.0 Assessment & Plan Estimated LOS: days patient continues confused intrusive loud, compliant medications. For now continue treatment Justification for Cont. Inpt. At this time patient would severely decompensated placed on a lower level of care Discharge Planning To be determined Request HC Surrog/Guard Advoc?: Yes Derrick Hernandez MD Sep 21, 2016 16:53
[2016-09-21 19:47] VITALS: BP 156/65; PULSE 93; RESP 17; TEMP 96.4; O2SAT 95
[2016-09-21] MEDS: SENNOSIDES 8.6 MG TAB PO SCH (21:03)
[2016-09-22] MEDS: diphenhydrAMINE HCL 50 MG CAP PO PRN ×2 (02:15→21:49)
[2016-09-22 06:30] VITALS: BP 103/57; PULSE 85; RESP 18; TEMP 96.9; O2SAT 94
[2016-09-22] MEDS: REMOVE OLD PATCH TD SCH (09:00)
[2016-09-22] MEDS: cloZAPine 100 MG TAB PO SCH ×2 (09:23→21:49)
[2016-09-22] MEDS: PANTOPRAZOLE SOD 20 MG DELAYED RELEASE TAB PO SCH (09:23)
[2016-09-22] MEDS: SERTRALINE HCL 100 MG TAB PO SCH (09:24)
[2016-09-22] MEDS: DIVALPROEX SODIUM E.R. 500 MG TAB PO SCH ×2 (09:24→21:50)
[2016-09-22] MEDS: NICOTINE 21 MG/24 HR PATCH T-DERMAL SCH (09:24)
[2016-09-22] MEDS: FLUTICASONE PROPIONATE 220 MCG/ACT 12 GM INHALER INH SCH ×2 (09:24→21:49)
--- NOTE | 2016-09-22 13:19 | HHI.PYPN ---
Subjective Remarks Patient was seen and case discussed with nursing. Patient has been behaving well today and the unit. His socializing with others has not been irritable or louder agitated. He is compliant with his medications. Denies auditory visual hallucinations Objective Alert: Yes [place]: Person, Place Mood: Anxious Affect: Blunted Memory Intact: Remote (impaired) Hallucinations: Other (denies) Delusions: No Delusion Type: Paranoid Suicidal: Ideation (denies) Homicidal: Ideation (denies) Insight/Judgement poor Vitals/IOs Vital Signs Date Time Temp Pulse Resp B/P Pulse Ox O2 Delivery O2 Flow Rate FiO2 09/22/16 06:30 96.9 85 18 103/57 94 Intake and Output 09/21/16 09/21/16 09/22/16 08:00 16:00 00:00 Intake Total 120 ml 480 ml 960 ml Output Total 2 ml Balance 118 ml 480 ml 960 ml Assessment & Plan Problem List: (1) Schizoaffective disorder, bipolar type ICD Code: F25.0 Assessment & Plan Continue current treatment plan Justification for Cont. Inpt. Patient will decompensate a less restrictive setting Request HC Surrog/Guard Advoc?: Yes Roge Rosario DO Sep 22, 2016 13:19
[2016-09-22 19:30] VITALS: BP 109/66; PULSE 91; RESP 18; TEMP 96.4
[2016-09-22] MEDS: LORazepam 0.5 MG TAB age > 65 yrs PO PRN (21:49)
[2016-09-22] MEDS: SENNOSIDES 8.6 MG TAB PO SCH (21:50)
[2016-09-23 06:19] VITALS: BP 146/80; PULSE 88; RESP 17; TEMP 97.5; O2SAT 96
[2016-09-23] MEDS: REMOVE OLD PATCH TD SCH (09:00)
[2016-09-23] MEDS: SERTRALINE HCL 100 MG TAB PO SCH ×2 (09:54→09:57)
[2016-09-23] MEDS: NICOTINE 21 MG/24 HR PATCH T-DERMAL SCH (09:54)
[2016-09-23] MEDS: DIVALPROEX SODIUM E.R. 500 MG TAB PO SCH ×2 (09:55→21:45)
[2016-09-23] MEDS: cloZAPine 100 MG TAB PO SCH ×2 (09:56→21:46)
[2016-09-23] MEDS: FLUTICASONE PROPIONATE 220 MCG/ACT 12 GM INHALER INH SCH ×2 (09:57→21:46)
[2016-09-23] MEDS: PANTOPRAZOLE SOD 20 MG DELAYED RELEASE TAB PO SCH (09:57)
--- NOTE | 2016-09-23 15:34 | HHI.PYPN ---
Subjective Remarks Patient discussed with treatment team, seen on unit, patient behaviors have calm down somewhat though still intrusive and loud it is not as intense or frequent, he is somewhat more easily redirected. Compliant medications. For now continue treatment no change Review of Systems Other No somatic complaints today Objective Alert: Yes [place]: Person, Place Mood: Anxious Affect: Blunted Memory Intact: Remote (impaired) Hallucinations: Other (denies) Delusions: No Delusion Type: Paranoid Suicidal: Ideation (denies) Homicidal: Ideation (denies) Insight/Judgement Very poor Vitals/IOs Vital Signs Date Time Temp Pulse Resp B/P Pulse Ox O2 Delivery O2 Flow Rate FiO2 09/23/16 06:19 97.5 88 17 146/80 96 Intake and Output 09/22/16 09/22/16 09/23/16 08:00 16:00 00:00 Intake Total 480 ml 720 ml Balance 480 ml 720 ml Assessment & Plan Problem List: (1) Schizoaffective disorder, bipolar type ICD Code: F25.0 Assessment & Plan Estimated LOS: days patient remains psychotic confused be with behavioral issues, compliant medications. For now continue treatment Justification for Cont. Inpt. At this time patient would severely decompensated placed in a lower level of care Discharge Planning To be determined Request HC Surrog/Guard Advoc?: Yes Derrick Hernandez MD Sep 23, 2016 15:33
[2016-09-23 19:56] VITALS: BP 139/81; PULSE 93; RESP 17; TEMP 97.5; O2SAT 96
[2016-09-23] MEDS: SENNOSIDES 8.6 MG TAB PO SCH (21:46)
[2016-09-24 06:01] VITALS: BP 137/83; PULSE 84; RESP 17; TEMP 97.4; O2SAT 94
[2016-09-24] MEDS: REMOVE OLD PATCH TD SCH (09:00)
[2016-09-24] MEDS: cloZAPine 100 MG TAB PO SCH ×2 (09:00→21:20)
[2016-09-24] MEDS: DIVALPROEX SODIUM E.R. 500 MG TAB PO SCH ×2 (09:00→21:20)
--- NOTE | 2016-09-24 09:14 | HHI.PYPN ---
Subjective Remarks Patient seen in day room with nurse [place], chart review, patient continues intrusive wandering focusing on his brother of returning home. Him marked level of disorganization noted. At times though remains somewhat childish with this. There is less intensity of his behaviors and he showing some decrease in the profanity of his speech. Compliant medications Review of Systems Other No somatic complaints today Objective Alert: Yes [place]: Person, Place Mood: Anxious Affect: Blunted Memory Intact: Remote (impaired) Hallucinations: Other (denies) Delusions: No Delusion Type: Paranoid Suicidal: Ideation (denies) Homicidal: Ideation (denies) Insight/Judgement Very poor Vitals/IOs Vital Signs Date Time Temp Pulse Resp B/P Pulse Ox O2 Delivery O2 Flow Rate FiO2 09/24/16 06:01 97.4 84 17 137/83 94 Intake and Output 09/23/16 09/23/16 09/24/16 08:00 16:00 00:00 Intake Total 120 ml 960 ml 1200 ml Balance 120 ml 960 ml 1200 ml Assessment & Plan Problem List: (1) Schizoaffective disorder, bipolar type ICD Code: F25.0 Assessment & Plan Estimated LOS: days patient remains markedly disorganized confused intrusive. Though compliant medications. Justification for Cont. Inpt. At this time patient would significantly decompensated placed less restrictive level of care Discharge Planning To be determined Request HC Surrog/Guard Advoc?: Yes Derrick Hernandez MD Sep 24, 2016 09:14
[2016-09-24] MEDS: FLUTICASONE PROPIONATE 220 MCG/ACT 12 GM INHALER INH SCH ×2 (09:31→21:19)
[2016-09-24] MEDS: LORazepam 0.5 MG TAB age > 65 yrs PO PRN (09:31)
[2016-09-24] MEDS: NICOTINE 21 MG/24 HR PATCH T-DERMAL SCH (09:31)
[2016-09-24] MEDS: PANTOPRAZOLE SOD 20 MG DELAYED RELEASE TAB PO SCH (09:32)
[2016-09-24 20:16] VITALS: BP 135/79; PULSE 64; RESP 18; TEMP 98.2; O2SAT 98
[2016-09-24] MEDS: SENNOSIDES 8.6 MG TAB PO SCH (21:20)
[2016-09-25 06:27] VITALS: BP 104/63; PULSE 83; RESP 18; TEMP 97.6; O2SAT 94
[2016-09-25] MEDS: NICOTINE 21 MG/24 HR PATCH T-DERMAL SCH (08:57)
[2016-09-25] MEDS: DIVALPROEX SODIUM E.R. 500 MG TAB PO SCH ×2 (08:58→22:34)
[2016-09-25] MEDS: SERTRALINE HCL 100 MG TAB PO SCH (08:58)
[2016-09-25] MEDS: cloZAPine 100 MG TAB PO SCH ×2 (08:58→22:33)
[2016-09-25] MEDS: PANTOPRAZOLE SOD 20 MG DELAYED RELEASE TAB PO SCH (08:59)
[2016-09-25] MEDS: REMOVE OLD PATCH TD SCH (09:00)
[2016-09-25] MEDS: FLUTICASONE PROPIONATE 220 MCG/ACT 12 GM INHALER INH SCH ×2 (09:09→22:33)
--- NOTE | 2016-09-25 09:18 | HHI.PYPN ---
Subjective Remarks Patient seen in day room, while continuing to be intrusive loud at times profane it is softer. However staff is noted 9 noticed also some increased salivation noted. Will add Cogentin 1 mg twice a day to the regimen. Otherwise patient compliant medications. For now continue treatment Review of Systems Other No somatic complaints today Objective Alert: Yes [place]: Person, Place Mood: Anxious Affect: Blunted Memory Intact: Remote (impaired) Hallucinations: Other (denies) Delusions: No Delusion Type: Paranoid Suicidal: Ideation (denies) Homicidal: Ideation (denies) Insight/Judgement Poor Vitals/IOs Vital Signs Date Time Temp Pulse Resp B/P Pulse Ox O2 Delivery O2 Flow Rate FiO2 09/25/16 06:27 97.6 83 18 104/63 94 Intake and Output 09/24/16 09/24/16 09/25/16 08:00 16:00 00:00 Intake Total 120 ml 840 ml 840 ml Balance 120 ml 840 ml 840 ml Assessment & Plan Problem List: (1) Schizoaffective disorder, bipolar type ICD Code: F25.0 Assessment & Plan Estimated LOS: days patient continues intrusive and loud, with psychotic features, also some mild confusion. See medication adjustment above due to patient's increased salivation Justification for Cont. Inpt. At this time patient would severely decompensated placed in a lower level of care Discharge Planning To be determined Request HC Surrog/Guard Advoc?: Yes Derrick Hernandez MD Sep 25, 2016 09:18
[2016-09-25] MEDS: MAGNESIUM HYDROXIDE SUSP 30 ML CUP PO PRN ×2 (11:37→11:39)
[2016-09-25] MEDS: BENZTROPINE MESYLATE 1 MG TAB PO SCH ×2 (12:14→22:33)
[2016-09-25 19:50] VITALS: BP 151/83; PULSE 88; RESP 18; TEMP 97.3; O2SAT 97
[2016-09-25] MEDS: SENNOSIDES 8.6 MG TAB PO SCH (22:33)
[2016-09-26] MEDS: REMOVE OLD PATCH TD SCH (09:00)
[2016-09-26] MEDS: SERTRALINE HCL 100 MG TAB PO SCH (09:15)
[2016-09-26] MEDS: DIVALPROEX SODIUM E.R. 500 MG TAB PO SCH ×2 (09:15→20:40)
[2016-09-26] MEDS: BENZTROPINE MESYLATE 1 MG TAB PO SCH ×2 (09:15→20:40)
[2016-09-26] MEDS: PANTOPRAZOLE SOD 20 MG DELAYED RELEASE TAB PO SCH (09:15)
[2016-09-26] MEDS: FLUTICASONE PROPIONATE 220 MCG/ACT 12 GM INHALER INH SCH ×2 (09:16→20:40)
[2016-09-26] MEDS: NICOTINE 21 MG/24 HR PATCH T-DERMAL SCH (09:16)
[2016-09-26] MEDS: cloZAPine 100 MG TAB PO SCH ×2 (09:17→20:40)
--- NOTE | 2016-09-26 12:49 | HHI.PYPN ---
Subjective Remarks Patient seen in [place] floor staff, patient continues intrusive somewhat disorganized labile but the intensity is softened somewhat. Compliant medications. For now continue treatment Review of Systems Other No somatic complaints today Objective Alert: Yes [place]: Person, Place Mood: Anxious Affect: Blunted Memory Intact: Remote (impaired) Hallucinations: Other (denies) Delusions: No Delusion Type: Paranoid Suicidal: Ideation (denies) Homicidal: Ideation (denies) Insight/Judgement Very poor Vitals/IOs Vital Signs Date Time Temp Pulse Resp B/P Pulse Ox O2 Delivery O2 Flow Rate FiO2 09/25/16 19:50 97.3 88 18 151/83 97 Intake and Output 09/25/16 09/25/16 09/26/16 08:00 16:00 00:00 Intake Total 0 ml 1080 ml 1800 ml Balance 0 ml 1080 ml 1800 ml Assessment & Plan Problem List: (1) Schizoaffective disorder, bipolar type ICD Code: F25.0 Assessment & Plan Estimated LOS: days patient continues disorganized intrusive labile but with decreased affect, compliant medications. Justification for Cont. Inpt. At this time patient would significantly decompensated at a lower level of care Discharge Planning To be determined Request HC Surrog/Guard Advoc?: Yes Derrick Hernandez MD Sep 26, 2016 12:48
[2016-09-26] MEDS: LORazepam 0.5 MG TAB age > 65 yrs PO PRN (17:47)
[2016-09-26] MEDS: SENNOSIDES 8.6 MG TAB PO SCH (20:40)
[2016-09-26 20:47] VITALS: BP 130/66; PULSE 90; RESP 18; TEMP 97.8; O2SAT 98
[2016-09-27 05:52] VITALS: BP 136/62; PULSE 80; RESP 18; TEMP 98.1; O2SAT 99
[2016-09-27] MEDS: REMOVE OLD PATCH TD SCH (09:00)
[2016-09-27] MEDS: SERTRALINE HCL 100 MG TAB PO SCH (10:04)
[2016-09-27] MEDS: DIVALPROEX SODIUM E.R. 500 MG TAB PO SCH ×2 (10:04→20:45)
[2016-09-27] MEDS: BENZTROPINE MESYLATE 1 MG TAB PO SCH ×2 (10:04→20:45)
[2016-09-27] MEDS: PANTOPRAZOLE SOD 20 MG DELAYED RELEASE TAB PO SCH (10:04)
[2016-09-27] MEDS: cloZAPine 100 MG TAB PO SCH ×2 (10:04→20:45)
[2016-09-27] MEDS: FLUTICASONE PROPIONATE 220 MCG/ACT 12 GM INHALER INH SCH ×2 (10:07→20:45)
[2016-09-27] MEDS: NICOTINE 21 MG/24 HR PATCH T-DERMAL SCH (10:08)
--- NOTE | 2016-09-27 14:28 | HHI.PYPN ---
Subjective Remarks Patient seen in day room with forceps, patient walking with walker continues intrusive into my personal face is loud markedly and diffusely confused. Though it appears she is making statements that he is somewhat aware of the fact that he may not be returning home going to some type of a half-way or more restrictive setting Review of Systems Other No somatic complaints today Objective Alert: Yes [place]: Person, Place Mood: Anxious Affect: Blunted Memory Intact: Remote (impaired) Hallucinations: Other (denies) Delusions: No Delusion Type: Paranoid Suicidal: Ideation (denies) Homicidal: Ideation (denies) Insight/Judgement Very poor Vitals/IOs Vital Signs Date Time Temp Pulse Resp B/P Pulse Ox O2 Delivery O2 Flow Rate FiO2 09/27/16 05:52 98.1 80 18 136/62 99 Intake and Output 09/26/16 09/26/16 09/27/16 08:00 16:00 00:00 Intake Total 120 ml 720 ml 240 ml Balance 120 ml 720 ml 240 ml Assessment & Plan Problem List: (1) Schizoaffective disorder, bipolar type ICD Code: F25.0 Assessment & Plan Estimated LOS: days patient continues markedly disorganized confused labile intrusive though he is redirectable Justification for Cont. Inpt. At this time patient would severely decompensate if placed in the lower level of care Discharge Planning To be determined Request HC Surrog/Guard Advoc?: Yes Derrick Hernandez MD Sep 27, 2016 14:28
[2016-09-27 19:41] VITALS: BP 145/93; PULSE 93; RESP 17; TEMP 97.2; O2SAT 98
[2016-09-27] MEDS: SENNOSIDES 8.6 MG TAB PO SCH (20:44)
[2016-09-28 06:04] VITALS: BP 121/73; PULSE 85; RESP 17; TEMP 97.9; O2SAT 98
[2016-09-28] MEDS: REMOVE OLD PATCH TD SCH (09:00)
[2016-09-28] MEDS: DIVALPROEX SODIUM E.R. 500 MG TAB PO SCH ×2 (09:42→21:55)
[2016-09-28] MEDS: NICOTINE 21 MG/24 HR PATCH T-DERMAL SCH (09:42)
[2016-09-28] MEDS: SERTRALINE HCL 100 MG TAB PO SCH (09:42)
[2016-09-28] MEDS: PANTOPRAZOLE SOD 20 MG DELAYED RELEASE TAB PO SCH (09:43)
[2016-09-28] MEDS: BENZTROPINE MESYLATE 1 MG TAB PO SCH ×2 (09:43→21:55)
[2016-09-28] MEDS: cloZAPine 100 MG TAB PO SCH ×2 (09:43→21:55)
[2016-09-28] MEDS: FLUTICASONE PROPIONATE 220 MCG/ACT 12 GM INHALER INH SCH ×2 (09:43→21:55)
--- NOTE | 2016-09-28 10:12 | HHI.PYPN ---
Subjective Remarks Patient seen and examined with nursing staff. Chart reviewed. Case discussed with nursing who reports that the patient has been in good behavioral control. On my examination today, patient is ambulating around the unit with his walker. His speech is garbled as at baseline for this patient. He is calm and pleasant in my interaction with him. No evident side effects from medications. No other issues noted. Review of Systems Other No reported physical complaints Objective Alert: Yes [place]: Person (at least) Mood: Calm Affect: Blunted Memory Intact: Comment (not formally assessed) Hallucinations: Other (no AVH) Delusions: No Delusion Type: Other (no bhupinder delusions) Suicidal: Ideation (no SI voiced) Homicidal: Ideation (no HI voiced) Insight/Judgement Poor Remarks No motoric abnormalities noted Labs Labs reviewed. No new labs. Vitals/IOs Vital Signs Date Time Temp Pulse Resp B/P Pulse Ox O2 Delivery O2 Flow Rate FiO2 09/28/16 06:04 97.9 85 17 121/73 98 Intake and Output 09/27/16 09/27/16 09/28/16 08:00 16:00 00:00 Intake Total 480 ml 1200 ml 720 ml Output Total 1000 ml Balance -520 ml 1200 ml 720 ml Assessment & Plan Problem List: (1) Schizoaffective disorder, bipolar type ICD Code: F25.0 Assessment & Plan Continue current psychotropics as ordered. Continue other medications and care as ordered. Justification for Cont. Inpt. Risk for decompensation Discharge Planning Per Dr. Hernandez Request HC Surrog/Guard Advoc?: Yes Ford Kelly MD Sep 28, 2016 10:12
[2016-09-28 19:11] VITALS: BP 137/82; PULSE 87; RESP 16; TEMP 98.9; O2SAT 98
[2016-09-28] MEDS: SENNOSIDES 8.6 MG TAB PO SCH (21:55)
[2016-09-29 05:26] VITALS: BP 144/88; PULSE 92; RESP 17; TEMP 97.6; O2SAT 100
[2016-09-29] MEDS: cloZAPine 100 MG TAB PO SCH ×2 (09:00→21:00)
[2016-09-29] MEDS: PANTOPRAZOLE SOD 20 MG DELAYED RELEASE TAB PO SCH (09:00)
[2016-09-29] MEDS: FLUTICASONE PROPIONATE 220 MCG/ACT 12 GM INHALER INH SCH ×2 (09:00→21:00)
[2016-09-29] MEDS: REMOVE OLD PATCH TD SCH (09:00)
[2016-09-29] MEDS: DIVALPROEX SODIUM E.R. 500 MG TAB PO SCH ×2 (09:00→21:30)
[2016-09-29] MEDS: SERTRALINE HCL 100 MG TAB PO SCH (09:00)
[2016-09-29] MEDS: BENZTROPINE MESYLATE 1 MG TAB PO SCH ×2 (09:00→21:30)
[2016-09-29] MEDS: NICOTINE 21 MG/24 HR PATCH T-DERMAL SCH (09:00)
--- NOTE | 2016-09-29 11:14 | HHI.PYPN ---
Subjective Remarks Patient seen and examined with nursing staff. Chart reviewed. Case discussed with nursing staff. No behaviors to report. On my examination today, patient is in good spirits. No SI or HI voiced. No evident side effects from medications. Review of Systems ROS Limitations: Poor Historian Other No somatic complaints today. Objective Alert: Yes [place]: Person Mood: Calm Affect: Euthymic Memory Intact: Comment (not formally assessed) Hallucinations: Other (no AVH) Delusions: No Delusion Type: Other (no evident delusions) Suicidal: Ideation (No SI) Homicidal: Ideation (No HI) Insight/Judgement Poor Remarks Thought process somewhat disorganized as at baseline. Labs Labs reviewed. No new labs. Vitals/IOs Vital Signs Date Time Temp Pulse Resp B/P Pulse Ox O2 Delivery O2 Flow Rate FiO2 09/29/16 05:26 97.6 92 17 144/88 100 Intake and Output 09/28/16 09/28/16 09/28/16 07:59 15:59 23:59 Intake Total 360 ml 1080 ml 1460 ml Balance 360 ml 1080 ml 1460 ml Assessment & Plan Problem List: (1) Schizoaffective disorder, bipolar type ICD Code: F25.0 Assessment & Plan Patient appears to be doing well on current regimen. Continue current psychotropics as ordered. Continue other medications and care as ordered. Justification for Cont. Inpt. Risk for decompensation Discharge Planning Per Dr. Hernandez Request HC Surrog/Guard Advoc?: Yes Ford Kelly MD Sep 29, 2016 11:14
[2016-09-29 20:50] VITALS: BP 132/58; PULSE 61; RESP 17; TEMP 98.3; O2SAT 99
[2016-09-29] MEDS: SENNOSIDES 8.6 MG TAB PO SCH (21:30)
[2016-09-30 06:00] VITALS: BP 130/61; PULSE 78; RESP 16; TEMP 98.5; O2SAT 96
[2016-09-30] MEDS: SERTRALINE HCL 100 MG TAB PO SCH (09:00)
[2016-09-30] MEDS: BENZTROPINE MESYLATE 1 MG TAB PO SCH ×2 (09:00→20:47)
[2016-09-30] MEDS: PANTOPRAZOLE SOD 20 MG DELAYED RELEASE TAB PO SCH (09:00)
[2016-09-30] MEDS: cloZAPine 100 MG TAB PO SCH ×2 (09:00→20:48)
[2016-09-30] MEDS: FLUTICASONE PROPIONATE 220 MCG/ACT 12 GM INHALER INH SCH ×2 (09:00→20:48)
[2016-09-30] MEDS: REMOVE OLD PATCH TD SCH (09:00)
[2016-09-30] MEDS: DIVALPROEX SODIUM E.R. 500 MG TAB PO SCH ×2 (09:00→20:48)
[2016-09-30] MEDS: NICOTINE 21 MG/24 HR PATCH T-DERMAL SCH (09:00)
--- NOTE | 2016-09-30 15:57 | HHI.PYPN ---
Subjective Remarks Patient discussed with treatment team, chart reviewed, patient is in any event, patient continues intrusive labile focusing on his brother and not talking about possible placement in a [place] [facility] type setting. Compliant medications. For now continue treatment Review of Systems Except as stated in HPI: all other systems reviewed are Neg Objective Alert: Yes [place]: Person Mood: Calm Affect: Euthymic Memory Intact: Comment (not formally assessed) Hallucinations: Other (no AVH) Delusions: No Delusion Type: Other (no evident delusions) Suicidal: Ideation (No SI) Homicidal: Ideation (No HI) Insight/Judgement Very poor Vitals/IOs Vital Signs Date Time Temp Pulse Resp B/P Pulse Ox O2 Delivery O2 Flow Rate FiO2 09/30/16 06:00 98.5 78 16 130/61 96 Intake and Output 09/29/16 09/29/16 09/30/16 08:00 16:00 00:00 Intake Total 720 ml 960 ml 1040 ml Balance 720 ml 960 ml 1040 ml Assessment & Plan Problem List: (1) Schizoaffective disorder, bipolar type ICD Code: F25.0 Assessment & Plan Estimated LOS: days patient continues intrusive loud at times profane but continues also being redirectable, compliant medications Justification for Cont. Inpt. At this time patient with severely decompensated placed in the lower level of care Discharge Planning To be determined Request HC Surrog/Guard Advoc?: Yes Derrick Hernandez MD Sep 30, 2016 15:57
[2016-09-30 19:31] VITALS: BP 133/66; PULSE 88; RESP 18; TEMP 98.3
[2016-09-30] MEDS: SENNOSIDES 8.6 MG TAB PO SCH (20:47)
[2016-10-01 05:31] VITALS: BP 129/81; PULSE 83; RESP 17; TEMP 98.2; O2SAT 92
[2016-10-01] MEDS: FLUTICASONE PROPIONATE 220 MCG/ACT 12 GM INHALER INH SCH ×2 (09:00→20:13)
[2016-10-01] MEDS: PANTOPRAZOLE SOD 20 MG DELAYED RELEASE TAB PO SCH (09:00)
[2016-10-01] MEDS: BENZTROPINE MESYLATE 1 MG TAB PO SCH ×2 (09:00→20:13)
[2016-10-01] MEDS: cloZAPine 100 MG TAB PO SCH ×2 (09:00→20:13)
[2016-10-01] MEDS: NICOTINE 21 MG/24 HR PATCH T-DERMAL SCH (09:00)
[2016-10-01] MEDS: REMOVE OLD PATCH TD SCH (09:00)
[2016-10-01] MEDS: DIVALPROEX SODIUM E.R. 500 MG TAB PO SCH ×2 (09:00→20:14)
[2016-10-01] MEDS: SERTRALINE HCL 100 MG TAB PO SCH (09:00)
--- NOTE | 2016-10-01 10:27 | HHI.FPPN ---
Subjective Remarks VARIABLE BP'S D/W DR CRAIG PSYCHOSIS CONTINUES APPEARS MORE CALM PT LOOKS BETTER EDEMA OF LEGS AMS NOTED Objective Vitals Vital Signs Date Time Temp Pulse Resp B/P Pulse Ox O2 Delivery O2 Flow Rate FiO2 10/01/16 05:31 98.2 83 17 129/81 92 09/30/16 19:31 98.3 88 18 133/66 I/O 09/30/16 09/30/16 09/30/16 10/01/16 10/01/16 10/01/16 07:00 15:00 23:00 07:00 15:00 23:00 Intake Total 1080 ml 480 ml Balance 1080 ml 480 ml Intake Oral 1080 ml 480 ml # Voids 3 2 6 # Bowel Movements 2 Objective Remarks GENERAL: SKIN: Warm and dry. HEAD: Atraumatic. Normocephalic. EYES: Pupils equal and round. No scleral icterus. No injection or drainage. ENT: No nasal bleeding or discharge. Mucous membranes pink and moist. NECK: Trachea midline. No JVD. CARDIOVASCULAR: Regular rate and rhythm. RESPIRATORY: No accessory muscle use. CTAB GASTROINTESTINAL: Abdomen soft, non-tender, nondistended. Hepatic and splenic margins not palpable. MUSCULOSKELETAL: Extremities without clubbing, cyanosis. 1 edema ANKLES B. NEUROLOGICAL: Awake and alert. No obvious cranial nerve deficits. Motor grossly within normal limits. 3 out of 5 muscle strength in the arms and legs. Normal speech. PSYCHIATRIC: PSYCHOTIC Medications and IVs Current Medications Medications (Trade) Dose Ordered Sig/Alpesh Route Start Time Stop Time Status Last Admin (Ativan) 0.5 mg Q12H PRN PO 09/13/16 02:45 09/26/16 17:47 (Ativan Inj) 0.5 mg Q12H PRN IM 09/13/16 02:45 09/15/16 13:32 (Flovent Hfa 220 Mcg Inh) 1 puff BID INH 09/13/16 09:00 10/01/16 09:00 (Depakote Er) 500 mg DAILY PO 09/13/16 09:00 10/01/16 09:00 (Depakote Er) 1,500 mg HS PO 09/13/16 21:00 09/30/16 20:48 (Benadryl) 50 mg HS PRN PO 09/13/16 12:00 09/22/16 21:49 (Tylenol) 650 mg Q4H PRN PO 09/13/16 12:00 (Milk Of Magnesia Liq) 30 ml DAILY PRN PO 09/13/16 12:00 09/25/16 11:39 (Mag-Al Plus Susp Liq) 30 ml Q6H PRN PO 09/13/16 12:00 (Habitrol 21 Mg Patch.24 Hr) 1 patch DAILY T-DERMAL 09/13/16 12:00 10/01/16 09:00 (Clozaril) 100 mg DAILY PO 09/14/16 09:00 10/01/16 09:00 (Protonix) 20 mg DAILY PO 09/14/16 09:00 10/01/16 09:00 (Senokot) 8.6 mg HS PO 09/13/16 21:00 09/30/16 20:47 (Zoloft) 100 mg DAILY PO 09/14/16 09:00 10/01/16 09:00 Miscellaneous Information 1 DAILY TD 09/14/16 09:00 10/01/16 09:00 (Clozaril) 200 mg HS PO 09/16/16 21:00 09/30/16 20:48 (Thorazine) 50 mg TID PO 09/20/16 18:00 10/01/16 09:00 (Cogentin) 1 mg Q12HR PO 09/25/16 09:15 10/01/16 09:00 Urinary Catheter: No Vascular Central Line Catheter: No A/P Assessment and Plan ACUTE PSYCHOSIS AMS PNA, RESOLVED DYSPHAGIA ASPIRATION COPD EDEMA TACHYCARDIA/ARRHYTHMIA R OTITIS L HUMERUS FX, OLD HTN, URGENT SCHIZOAFFECTIVE SMOKER PERIAORTIC LYMPHADENOPATHY METABOLIC ENCEPHALOPATHY ETOH ABUSE PLAN- MONITOR EDEMA UA C/S MONITOR HTN. MEDS OTHERWISE ABOVE. MEDICALLY CLEARED FOR INPATIENT PSYCHIATRY ADMISSION. Min Hebert MD Oct 01, 2016 10:27
--- NOTE | 2016-10-01 11:33 | HHI.PYPN ---
Subjective Remarks Patient seen in his room with nurse hodan, chart review, patient resting though arousable continues loud and intrusive, focusing on his brother, no appears to be also focusing on wanting a placement and not returning to his room and the [place] which. Review of Systems Except as stated in HPI: all other systems reviewed are Neg Objective Alert: Yes [place]: Person Mood: Calm Affect: Euthymic Memory Intact: Comment (not formally assessed) Hallucinations: Other (no AVH) Delusions: No Delusion Type: Other (no evident delusions) Suicidal: Ideation (No SI) Homicidal: Ideation (No HI) Insight/Judgement Very poor Vitals/IOs Vital Signs Date Time Temp Pulse Resp B/P Pulse Ox O2 Delivery O2 Flow Rate FiO2 10/01/16 05:31 98.2 83 17 129/81 92 Intake and Output 09/30/16 09/30/16 09/30/16 07:59 15:59 23:59 Intake Total 1080 ml Balance 1080 ml Assessment & Plan Problem List: (1) Schizoaffective disorder, bipolar type ICD Code: F25.0 Assessment & Plan Estimated LOS: days patient continues confused and intrusive, compliant medications, Justification for Cont. Inpt. At this time patient was severely decompensate if placed in lower level of care Discharge Planning To be determined Request HC Surrog/Guard Advoc?: Yes Derrick Hernandez MD Oct 01, 2016 11:33
[2016-10-01 11:41] LABS: BASOPHIL % 0.5 % (0.0-2.0); EOSINOPHIL # 0.2 TH/MM3 (0-0.4); EOSINOPHIL % 2.3 % (0.0-4.0); HEMATOCRIT 31.4 % (39.0-51.0); HEMO FLAGS DIFF FINAL; LYMPH % 29.3 % (9.0-44.0); LYMPHOCYTE # 2.3 TH/MM3 (1.0-4.8); MEAN CELL VOLUME 89.1 FL (80.0-100.0); MEAN CORPUSCULAR HEMOGLOBIN 30.1 PG (27.0-34.0); MEAN CORPUSCULAR HGB CONC 33.7 % (32.0-36.0); MONO % 5.2 % (0.0-8.0); NEUT % 62.7 % (16.0-70.0); PLATELET COUNT 155 TH/MM3 (150-450); RED BLOOD COUNT 3.53 MIL/MM3 (4.50-5.90)
[2016-10-01 12:05] LABS: POTASSIUM 4.5 MEQ/L (3.5-5.1)
[2016-10-01] MEDS: LORazepam 0.5 MG TAB age > 65 yrs PO PRN (13:46)
[2016-10-01 18:43] VITALS: BP 144/95; PULSE 82; RESP 18; TEMP 98.8; O2SAT 98
[2016-10-01] MEDS: SENNOSIDES 8.6 MG TAB PO SCH (20:13)
[2016-10-02 05:17] VITALS: BP 139/79; PULSE 90; RESP 16; TEMP 98.4; O2SAT 93
[2016-10-02] MEDS: cloZAPine 100 MG TAB PO SCH ×2 (08:51→20:43)
[2016-10-02] MEDS: SERTRALINE HCL 100 MG TAB PO SCH (08:51)
[2016-10-02] MEDS: FLUTICASONE PROPIONATE 220 MCG/ACT 12 GM INHALER INH SCH ×2 (08:51→20:42)
[2016-10-02] MEDS: DIVALPROEX SODIUM E.R. 500 MG TAB PO SCH ×2 (08:51→20:43)
[2016-10-02] MEDS: PANTOPRAZOLE SOD 20 MG DELAYED RELEASE TAB PO SCH (08:51)
[2016-10-02] MEDS: BENZTROPINE MESYLATE 1 MG TAB PO SCH ×2 (08:51→20:43)
[2016-10-02] MEDS: NICOTINE 21 MG/24 HR PATCH T-DERMAL SCH (08:55)
[2016-10-02] MEDS: REMOVE OLD PATCH TD SCH (09:00)
--- NOTE | 2016-10-02 10:58 | HHI.PYPN ---
Subjective Remarks Patient seen in dayroom with floor staff, patient continues intrusive loud demanding today focusing on whether he should return home go to [place], focusing on the availability of nicotine and caffeine wherever he is placed. He should compliant medications Review of Systems Except as stated in HPI: all other systems reviewed are Neg Objective Alert: Yes [place]: Person Mood: Calm Affect: Euthymic Memory Intact: Comment (not formally assessed) Hallucinations: Other (no AVH) Delusions: No Delusion Type: Other (no evident delusions) Suicidal: Ideation (No SI) Homicidal: Ideation (No HI) Insight/Judgement Very poor Labs Test 10/01/16 11:23 White Blood Count 8.0 TH/MM3 Red Blood Count 3.53 MIL/MM3 Hemoglobin 10.6 GM/DL Hematocrit 31.4 % Mean Corpuscular Volume 89.1 FL Mean Corpuscular Hemoglobin 30.1 PG Mean Corpuscular Hemoglobin 33.7 % Concent Red Cell Distribution Width 15.0 % Platelet Count 155 TH/MM3 Mean Platelet Volume 8.3 FL Neutrophils (%) (Auto) 62.7 % Lymphocytes (%) (Auto) 29.3 % Monocytes (%) (Auto) 5.2 % Eosinophils (%) (Auto) 2.3 % Basophils (%) (Auto) 0.5 % Neutrophils # (Auto) 5.0 TH/MM3 Lymphocytes # (Auto) 2.3 TH/MM3 Monocytes # (Auto) 0.4 TH/MM3 Eosinophils # (Auto) 0.2 TH/MM3 Basophils # (Auto) 0.0 TH/MM3 CBC Comment DIFF FINAL Differential Comment Sodium Level 133 MEQ/L Potassium Level 4.5 MEQ/L Chloride Level 95 MEQ/L Carbon Dioxide Level 31.0 MEQ/L Anion Gap 7 MEQ/L Blood Urea Nitrogen 18 MG/DL Creatinine 0.77 MG/DL Estimat Glomerular Filtration 99 ML/MIN Rate Random Glucose 115 MG/DL Calcium Level 8.4 MG/DL Vitals/IOs Vital Signs Date Time Temp Pulse Resp B/P Pulse Ox O2 Delivery O2 Flow Rate FiO2 10/02/16 05:17 98.4 90 16 139/79 93 Intake and Output 10/01/16 10/01/16 10/01/16 07:59 15:59 23:59 Intake Total 480 ml 1680 ml 600 ml Balance 480 ml 1680 ml 600 ml Assessment & Plan Problem List: (1) Schizoaffective disorder, bipolar type ICD Code: F25.0 Assessment & Plan Estimated LOS: days patient continues intrusive demanding with no insight Justification for Cont. Inpt. At this time patient with severely decompensated placed in the lower level of care Discharge Planning To be determined Request HC Surrog/Guard Advoc?: Yes Derrick Hernandez MD Oct 02, 2016 10:58
[2016-10-02 18:00] VITALS: BP 149/79; PULSE 92; RESP 18; TEMP 98.3; O2SAT 96
[2016-10-02] MEDS: SENNOSIDES 8.6 MG TAB PO SCH (20:45)
[2016-10-03 06:06] VITALS: BP 128/60; PULSE 83; RESP 18; TEMP 97.5
[2016-10-03] MEDS: REMOVE OLD PATCH TD SCH (09:00)
[2016-10-03] MEDS: NICOTINE 21 MG/24 HR PATCH T-DERMAL SCH (09:00)
[2016-10-03] MEDS: BENZTROPINE MESYLATE 1 MG TAB PO SCH ×2 (09:29→20:34)
[2016-10-03] MEDS: DIVALPROEX SODIUM E.R. 500 MG TAB PO SCH ×2 (09:29→20:34)
[2016-10-03] MEDS: cloZAPine 100 MG TAB PO SCH ×2 (09:29→20:34)
[2016-10-03] MEDS: SERTRALINE HCL 100 MG TAB PO SCH (09:29)
[2016-10-03] MEDS: PANTOPRAZOLE SOD 20 MG DELAYED RELEASE TAB PO SCH (09:29)
[2016-10-03] MEDS: FLUTICASONE PROPIONATE 220 MCG/ACT 12 GM INHALER INH SCH ×2 (09:32→20:34)
[2016-10-03] MEDS: LORazepam 0.5 MG TAB age > 65 yrs PO PRN ×2 (09:35→20:34)
--- NOTE | 2016-10-03 10:22 | HHI.PYPN ---
Subjective Remarks Patient seen in [place] with nurse Janel, patient continues loud, intrusive, perseverating on placement mother be with his brother on an [place] and the accessibility of the containing caffeine. Otherwise compliant medications no other behavioral problems Review of Systems Except as stated in HPI: all other systems reviewed are Neg Objective Alert: Yes [place]: Person Mood: Calm Affect: Euthymic Memory Intact: Comment (not formally assessed) Hallucinations: Other (no AVH) Delusions: No Delusion Type: Other (no evident delusions) Suicidal: Ideation (No SI) Homicidal: Ideation (No HI) Insight/Judgement Very poor Labs Test 10/01/16 11:23 White Blood Count 8.0 TH/MM3 Red Blood Count 3.53 MIL/MM3 Hemoglobin 10.6 GM/DL Hematocrit 31.4 % Mean Corpuscular Volume 89.1 FL Mean Corpuscular Hemoglobin 30.1 PG Mean Corpuscular Hemoglobin 33.7 % Concent Red Cell Distribution Width 15.0 % Platelet Count 155 TH/MM3 Mean Platelet Volume 8.3 FL Neutrophils (%) (Auto) 62.7 % Lymphocytes (%) (Auto) 29.3 % Monocytes (%) (Auto) 5.2 % Eosinophils (%) (Auto) 2.3 % Basophils (%) (Auto) 0.5 % Neutrophils # (Auto) 5.0 TH/MM3 Lymphocytes # (Auto) 2.3 TH/MM3 Monocytes # (Auto) 0.4 TH/MM3 Eosinophils # (Auto) 0.2 TH/MM3 Basophils # (Auto) 0.0 TH/MM3 CBC Comment DIFF FINAL Differential Comment Sodium Level 133 MEQ/L Potassium Level 4.5 MEQ/L Chloride Level 95 MEQ/L Carbon Dioxide Level 31.0 MEQ/L Anion Gap 7 MEQ/L Blood Urea Nitrogen 18 MG/DL Creatinine 0.77 MG/DL Estimat Glomerular Filtration 99 ML/MIN Rate Random Glucose 115 MG/DL Calcium Level 8.4 MG/DL Vitals/IOs Vital Signs Date Time Temp Pulse Resp B/P Pulse Ox O2 Delivery O2 Flow Rate FiO2 10/02/16 05:17 98.4 90 16 139/79 93 Intake and Output 10/01/16 10/01/16 10/02/16 08:00 16:00 00:00 Intake Total 480 ml 1680 ml 600 ml Balance 480 ml 1680 ml 600 ml Assessment & Plan Problem List: (1) Schizoaffective disorder, bipolar type ICD Code: F25.0 Assessment & Plan Estimated LOS: days patient continues intrusive demanding though it appears he is starting to process placement options Justification for Cont. Inpt. At this time patient would decompensated placed in a lower level of care Discharge Planning To be determined Request HC Surrog/Guard Advoc?: Yes Derrick Hernandez MD Oct 02, 2016 11:43
--- NOTE | 2016-10-03 10:25 | HHI.PYPN ---
Subjective Remarks Patient seen today in day room, continues loud intrusive today focusing more on availability of nicotine and caffeine if he gets to a placement. His compliant with medications and is redirectable Review of Systems Except as stated in HPI: all other systems reviewed are Neg Objective Alert: Yes [place]: Person Mood: Calm Affect: Euthymic Memory Intact: Comment (not formally assessed) Hallucinations: Other (no AVH) Delusions: No Delusion Type: Other (no evident delusions) Suicidal: Ideation (No SI) Homicidal: Ideation (No HI) Insight/Judgement Poor Vitals/IOs Vital Signs Date Time Temp Pulse Resp B/P Pulse Ox O2 Delivery O2 Flow Rate FiO2 10/03/16 06:06 97.5 83 18 128/60 10/02/16 18:00 96 Intake and Output 10/02/16 10/02/16 10/02/16 07:59 15:59 23:59 Intake Total 1080 ml 600 ml Balance 1080 ml 600 ml Assessment & Plan Problem List: (1) Schizoaffective disorder, bipolar type ICD Code: F25.0 Assessment & Plan Estimated LOS: days he should continues intrusive somewhat loud demanding but redirectable. Compliant medications Justification for Cont. Inpt. At this time patient decompensated of placed in a lower level of care Discharge Planning To be determined Request HC Surrog/Guard Advoc?: Yes Derrick Hernandez MD Oct 03, 2016 10:25
[2016-10-03 18:43] VITALS: BP 125/73; PULSE 91; RESP 16; TEMP 98; O2SAT 94
[2016-10-03] MEDS: SENNOSIDES 8.6 MG TAB PO SCH (20:34)
[2016-10-04 05:19] VITALS: BP 124/69; PULSE 94; RESP 16; TEMP 98; O2SAT 94
[2016-10-04] MEDS: FLUTICASONE PROPIONATE 220 MCG/ACT 12 GM INHALER INH SCH ×2 (09:00→20:23)
[2016-10-04] MEDS: REMOVE OLD PATCH TD SCH (09:00)
[2016-10-04] MEDS: cloZAPine 100 MG TAB PO SCH ×2 (09:32→20:23)
[2016-10-04] MEDS: DIVALPROEX SODIUM E.R. 500 MG TAB PO SCH ×2 (09:33→20:23)
[2016-10-04] MEDS: SERTRALINE HCL 100 MG TAB PO SCH (09:33)
[2016-10-04] MEDS: BENZTROPINE MESYLATE 1 MG TAB PO SCH ×2 (09:33→20:23)
[2016-10-04] MEDS: PANTOPRAZOLE SOD 20 MG DELAYED RELEASE TAB PO SCH (09:33)
[2016-10-04] MEDS: NICOTINE 21 MG/24 HR PATCH T-DERMAL SCH (09:34)
[2016-10-04] MEDS: LORazepam 0.5 MG TAB age > 65 yrs PO PRN ×2 (09:51→22:33)
--- NOTE | 2016-10-04 10:53 | HHI.PYPN ---
Subjective Remarks Patient seen in [place] with floor staff, chart review, patient showing some slight increase of processing the fact that he will probably be placed in [facility]IST[facility]/ shelter. He seems to be responding fairly well to that helpful that he may be able to have his coffee and cigarettes. Otherwise patient remains intrusive loudly at times somewhat profane but able to be redirected, compliant medications. Review of Systems Except as stated in HPI: all other systems reviewed are Neg Objective Alert: Yes [place]: Person Mood: Calm Affect: Euthymic Memory Intact: Comment (not formally assessed) Hallucinations: Other (no AVH) Delusions: No Delusion Type: Other (no evident delusions) Suicidal: Ideation (No SI) Homicidal: Ideation (No HI) Insight/Judgement Very poor Vitals/IOs Vital Signs Date Time Temp Pulse Resp B/P Pulse Ox O2 Delivery O2 Flow Rate FiO2 10/04/16 05:19 98.0 94 16 124/69 94 Intake and Output 10/03/16 10/03/16 10/04/16 08:00 16:00 00:00 Intake Total 2040 ml 1080 ml Balance 2040 ml 1080 ml Assessment & Plan Problem List: (1) Schizoaffective disorder, bipolar type ICD Code: F25.0 Assessment & Plan Estimated LOS: days patient showing some slight increase in processing possible placement outside of his brother's home where he lives in room number throughout session. Compliant medications. Justification for Cont. Inpt. At this time patient would decompensated if placed in the lower level of care Discharge Planning To be determined Request HC Surrog/Guard Advoc?: Yes Derrick Hernandez MD Oct 04, 2016 10:52
[2016-10-04 20:00] VITALS: BP 120/69; PULSE 89; RESP 18; TEMP 97.5
[2016-10-04] MEDS: SENNOSIDES 8.6 MG TAB PO SCH (20:24)
[2016-10-05 06:41] VITALS: BP 120/63; PULSE 80; RESP 18; TEMP 97.5; O2SAT 94
[2016-10-05] MEDS: REMOVE OLD PATCH TD SCH (09:00)
[2016-10-05] MEDS: FLUTICASONE PROPIONATE 220 MCG/ACT 12 GM INHALER INH SCH ×2 (09:16→20:59)
[2016-10-05] MEDS: DIVALPROEX SODIUM E.R. 500 MG TAB PO SCH ×2 (09:17→20:59)
[2016-10-05] MEDS: BENZTROPINE MESYLATE 1 MG TAB PO SCH ×2 (09:17→20:59)
[2016-10-05] MEDS: SERTRALINE HCL 100 MG TAB PO SCH (09:17)
[2016-10-05] MEDS: cloZAPine 100 MG TAB PO SCH ×2 (09:19→20:59)
[2016-10-05] MEDS: PANTOPRAZOLE SOD 20 MG DELAYED RELEASE TAB PO SCH (09:19)
[2016-10-05] MEDS: NICOTINE 21 MG/24 HR PATCH T-DERMAL SCH (09:21)
[2016-10-05 19:30] VITALS: BP 136/72; PULSE 89; RESP 19; TEMP 98.7; O2SAT 96
--- NOTE | 2016-10-05 19:55 | HHI.PYPN ---
Subjective Remarks Pt seen and discussed with staff. Pt has been cooperative with treatment. Less agitated and more easily re-directed. He is somewhat perseverative in thought process. No SI/HI. Objective Alert: Yes [place]: Person Mood: Calm Affect: Restricted Memory Intact: Comment (fair) Hallucinations: Other (no AVH) Delusions: No Delusion Type: Other (no evident delusions) Suicidal: Ideation (No SI) Homicidal: Ideation (No HI) Insight/Judgement limited Vitals/IOs Vital Signs Date Time Temp Pulse Resp B/P Pulse Ox O2 Delivery O2 Flow Rate FiO2 10/05/16 19:30 98.7 89 19 136/72 96 Intake and Output 10/04/16 10/04/16 10/05/16 08:00 16:00 00:00 Intake Total 360 ml 720 ml Balance 360 ml 720 ml Assessment & Plan Problem List: (1) Schizoaffective disorder, bipolar type ICD Code: F25.0 Assessment & Plan Continue current tx plan. Estimated LOS: days Justification for Cont. Inpt. Risk of decompensating Request HC Surrog/Guard Advoc?: Yes Ramonita Waldrop MD Oct 05, 2016 19:55
[2016-10-05] MEDS: SENNOSIDES 8.6 MG TAB PO SCH (20:59)
[2016-10-06 05:39] VITALS: BP 132/72; PULSE 94; RESP 20; TEMP 98.4; O2SAT 96
[2016-10-06] MEDS: FLUTICASONE PROPIONATE 220 MCG/ACT 12 GM INHALER INH SCH ×2 (08:47→20:20)
[2016-10-06] MEDS: SERTRALINE HCL 100 MG TAB PO SCH (08:47)
[2016-10-06] MEDS: DIVALPROEX SODIUM E.R. 500 MG TAB PO SCH ×2 (08:47→20:21)
[2016-10-06] MEDS: NICOTINE 21 MG/24 HR PATCH T-DERMAL SCH (08:47)
[2016-10-06] MEDS: cloZAPine 100 MG TAB PO SCH ×2 (08:47→20:20)
[2016-10-06] MEDS: PANTOPRAZOLE SOD 20 MG DELAYED RELEASE TAB PO SCH (08:47)
[2016-10-06] MEDS: BENZTROPINE MESYLATE 1 MG TAB PO SCH ×2 (08:48→20:21)
[2016-10-06] MEDS: REMOVE OLD PATCH TD SCH (08:49)
--- NOTE | 2016-10-06 13:22 | HHI.PYPN ---
Subjective Remarks Pt seen and discussed with staff. No behavioral problems overnight. During interview he is fixated on whether or not MD has ever smoked cigarettes and talks about taking 3 shots of whiskey. No agitation. Cooperative with care. Objective Alert: Yes [place]: Person Mood: Calm Affect: Restricted Memory Intact: Comment (fair) Hallucinations: Other (no AVH) Delusions: No Delusion Type: Other (no evident delusions) Suicidal: Ideation (No SI) Homicidal: Ideation (No HI) Insight/Judgement poor Vitals/IOs Vital Signs Date Time Temp Pulse Resp B/P Pulse Ox O2 Delivery O2 Flow Rate FiO2 10/06/16 05:39 98.4 94 20 132/72 96 Intake and Output 10/05/16 10/05/16 10/06/16 08:00 16:00 00:00 Intake Total 0 ml 240 ml Balance 0 ml 240 ml Assessment & Plan Problem List: (1) Schizoaffective disorder, bipolar type ICD Code: F25.0 Assessment & Plan Continue current tx plan. Estimated LOS: days Justification for Cont. Inpt. risk of decompensation Request HC Surrog/Guard Advoc?: Yes Ramonita Waldrop MD Oct 06, 2016 13:22
[2016-10-06 18:48] VITALS: BP 135/74; PULSE 86; RESP 18; TEMP 98.1; O2SAT 97
[2016-10-06] MEDS: LORazepam 0.5 MG TAB age > 65 yrs PO PRN (20:21)
[2016-10-06] MEDS: SENNOSIDES 8.6 MG TAB PO SCH (20:21)
[2016-10-07 06:49] VITALS: BP 128/77; PULSE 90; RESP 18; TEMP 97.5; O2SAT 99
[2016-10-07] MEDS: BENZTROPINE MESYLATE 1 MG TAB PO SCH ×2 (08:50→20:36)
[2016-10-07] MEDS: FLUTICASONE PROPIONATE 220 MCG/ACT 12 GM INHALER INH SCH ×2 (08:50→20:37)
[2016-10-07] MEDS: SERTRALINE HCL 100 MG TAB PO SCH (08:50)
[2016-10-07] MEDS: DIVALPROEX SODIUM E.R. 500 MG TAB PO SCH ×2 (08:50→20:37)
[2016-10-07] MEDS: PANTOPRAZOLE SOD 20 MG DELAYED RELEASE TAB PO SCH (08:51)
[2016-10-07] MEDS: REMOVE OLD PATCH TD SCH (08:51)
[2016-10-07] MEDS: NICOTINE 21 MG/24 HR PATCH T-DERMAL SCH (08:51)
[2016-10-07] MEDS: cloZAPine 100 MG TAB PO SCH ×2 (08:51→20:37)
[2016-10-07] MEDS: LORazepam 0.5 MG TAB age > 65 yrs PO PRN (13:26)
--- NOTE | 2016-10-07 15:07 | HHI.PYPN ---
Subjective Remarks Patient discussed with treatment team, seen on unit, chart reviewed. Patient continues intrusive perseverative loud at times somewhat profane. But now seems to be accepting referral from placement in a intermediate/JAIL. This was discussed with treatment team and we agree though that should be some JAIL that has limited egressed. This is also discussed with Basia from the fact team who agreed Review of Systems Except as stated in HPI: all other systems reviewed are Neg Objective Alert: Yes [place]: Person Mood: Calm Affect: Restricted Memory Intact: Comment (fair) Hallucinations: Other (no AVH) Delusions: No Delusion Type: Other (no evident delusions) Suicidal: Ideation (No SI) Homicidal: Ideation (No HI) Insight/Judgement Very poor Vitals/IOs Vital Signs Date Time Temp Pulse Resp B/P Pulse Ox O2 Delivery O2 Flow Rate FiO2 10/07/16 06:49 97.5 90 18 128/77 99 Intake and Output 10/06/16 10/06/16 10/07/16 08:00 16:00 00:00 Intake Total 360 ml 440 ml Balance 360 ml 440 ml Assessment & Plan Problem List: (1) Schizoaffective disorder, bipolar type ICD Code: F25.0 Assessment & Plan Estimated LOS: days patient continues intrusive loud somewhat psychotic, compliant medications for now continue treatment Justification for Cont. Inpt. At this time patient would significantly decompensated of placed on lower level of care Discharge Planning To be determined Request HC Surrog/Guard Advoc?: Yes Derrick Hernandez MD Oct 07, 2016 15:07
[2016-10-07 18:42] VITALS: BP 112/57; PULSE 90; RESP 18; TEMP 97.8; O2SAT 95
[2016-10-07] MEDS: SENNOSIDES 8.6 MG TAB PO SCH (20:37)
[2016-10-08 05:33] VITALS: BP 107/61; PULSE 81; RESP 16; TEMP 98.4; O2SAT 94
[2016-10-08] MEDS: REMOVE OLD PATCH TD SCH (09:00)
[2016-10-08] MEDS: FLUTICASONE PROPIONATE 220 MCG/ACT 12 GM INHALER INH SCH ×2 (09:16→20:52)
[2016-10-08] MEDS: cloZAPine 100 MG TAB PO SCH ×2 (09:17→20:53)
[2016-10-08] MEDS: NICOTINE 21 MG/24 HR PATCH T-DERMAL SCH (09:17)
[2016-10-08] MEDS: SERTRALINE HCL 100 MG TAB PO SCH (09:17)
[2016-10-08] MEDS: BENZTROPINE MESYLATE 1 MG TAB PO SCH ×2 (09:17→20:52)
[2016-10-08] MEDS: DIVALPROEX SODIUM E.R. 500 MG TAB PO SCH ×2 (09:17→20:52)
[2016-10-08] MEDS: PANTOPRAZOLE SOD 20 MG DELAYED RELEASE TAB PO SCH (09:17)
--- NOTE | 2016-10-08 11:26 | HHI.PYPN ---
Subjective Remarks Patient seen in day room with nurse Michelle, chart review, all patient remains intrusive loud and at times perseverative is able to be redirected. He continues to show agreement with placement and some type of facility as opposed to going back to the "garage" Review of Systems Except as stated in HPI: all other systems reviewed are Neg Objective Alert: Yes [place]: Person Mood: Calm Affect: Restricted Memory Intact: Comment (fair) Hallucinations: Other (no AVH) Delusions: No Delusion Type: Other (no evident delusions) Suicidal: Ideation (No SI) Homicidal: Ideation (No HI) Insight/Judgement Very poor Vitals/IOs Vital Signs Date Time Temp Pulse Resp B/P Pulse Ox O2 Delivery O2 Flow Rate FiO2 10/08/16 05:33 98.4 81 16 107/61 94 Intake and Output 10/07/16 10/07/16 10/08/16 08:00 16:00 00:00 Intake Total 1800 ml 990 ml Balance 1800 ml 990 ml Assessment & Plan Problem List: (1) Schizoaffective disorder, bipolar type ICD Code: F25.0 Assessment & Plan Estimated LOS: days patient continues intrusive loud but able to be redirected. Placement remains problematic Justification for Cont. Inpt. 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
--- NOTE | 2016-10-08 14:06 | HHI.FPPN ---
Subjective Remarks AGITATED PACING LOOKS BETTER ASKING FOR CIGS C/O LOW BACK PAIN C/O SOB AND OLMOS D/W RN Objective Vitals Vital Signs Date Time Temp Pulse Resp B/P Pulse Ox O2 Delivery O2 Flow Rate FiO2 10/08/16 05:33 98.4 81 16 107/61 94 10/07/16 18:42 97.8 90 18 112/57 95 I/O 10/07/16 10/07/16 10/07/16 10/08/16 10/08/16 10/08/16 07:00 15:00 23:00 07:00 15:00 23:00 Intake Total 1800 ml 990 ml Balance 1800 ml 990 ml Intake Oral 1800 ml 990 ml # Voids 1 2 2 # Bowel Movements 0 Objective Remarks GENERAL: SKIN: Warm and dry. HEAD: Atraumatic. Normocephalic. EYES: Pupils equal and round. No scleral icterus. No injection or drainage. ENT: No nasal bleeding or discharge. Mucous membranes pink and moist. NECK: Trachea midline. No JVD. CARDIOVASCULAR: Regular rate and rhythm. RESPIRATORY: No accessory muscle use. CTAB GASTROINTESTINAL: Abdomen soft, non-tender, nondistended. Hepatic and splenic margins not palpable. MUSCULOSKELETAL: Extremities without clubbing, cyanosis. 1 edema ANKLES B. NEUROLOGICAL: Awake and alert. No obvious cranial nerve deficits. Motor grossly within normal limits. 3 out of 5 muscle strength in the arms and legs. Normal speech. PSYCHIATRIC: PSYCHOTIC Medications and IVs Current Medications Medications (Trade) Dose Ordered Sig/Alpesh Route Start Time Stop Time Status Last Admin (Ativan) 0.5 mg Q12H PRN PO 09/13/16 02:45 10/07/16 13:26 (Ativan Inj) 0.5 mg Q12H PRN IM 09/13/16 02:45 09/15/16 13:32 (Flovent Hfa 220 Mcg Inh) 1 puff BID INH 09/13/16 09:00 10/08/16 09:16 (Depakote Er) 500 mg DAILY PO 09/13/16 09:00 10/08/16 09:17 (Depakote Er) 1,500 mg HS PO 09/13/16 21:00 10/07/16 20:37 (Benadryl) 50 mg HS PRN PO 09/13/16 12:00 09/22/16 21:49 (Tylenol) 650 mg Q4H PRN PO 09/13/16 12:00 (Milk Of Magnesia Liq) 30 ml DAILY PRN PO 09/13/16 12:00 09/25/16 11:39 (Mag-Al Plus Susp Liq) 30 ml Q6H PRN PO 09/13/16 12:00 (Habitrol 21 Mg Patch.24 Hr) 1 patch DAILY T-DERMAL 09/13/16 12:00 10/08/16 09:17 (Clozaril) 100 mg DAILY PO 09/14/16 09:00 10/08/16 09:17 (Protonix) 20 mg DAILY PO 09/14/16 09:00 10/08/16 09:17 (Senokot) 8.6 mg HS PO 09/13/16 21:00 10/07/16 20:37 (Zoloft) 100 mg DAILY PO 09/14/16 09:00 10/08/16 09:17 Miscellaneous Information 1 DAILY TD 09/14/16 09:00 10/06/16 08:49 (Clozaril) 200 mg HS PO 09/16/16 21:00 10/07/16 20:37 (Thorazine) 50 mg TID PO 09/20/16 18:00 10/08/16 09:17 (Cogentin) 1 mg Q12HR PO 09/25/16 09:15 10/08/16 09:17 A/P Assessment and Plan ACUTE PSYCHOSIS AMS COPD HYPONATREMIA ANEMIA CHRONIC DZ HYPERGLYCEMIA, NORMAL A1C HYPOCALCEMIA PNA, RESOLVED DYSPHAGIA ASPIRATION EDEMA TACHYCARDIA/ARRHYTHMIA R OTITIS L HUMERUS FX, OLD HTN, URGENT SCHIZOAFFECTIVE SMOKER PERIAORTIC LYMPHADENOPATHY METABOLIC ENCEPHALOPATHY ETOH ABUSE PLAN- REPEAT CBC, BMP MONITOR EDEMA MONITOR HTN. MEDS OTHERWISE ABOVE. MEDICALLY CLEARED FOR INPATIENT PSYCHIATRY ADMISSION. Min Hebert MD Oct 08, 2016 14:06
[2016-10-08 16:36] LABS: AUTOMATED NEUTROPHIL # 4.2 TH/MM3 (1.8-7.7); BASOPHIL # 0.1 TH/MM3 (0-0.2); BASOPHIL % 0.6 % (0.0-2.0); EOSINOPHIL # 0.5 TH/MM3 (0-0.4); EOSINOPHIL % 5.3 % (0.0-4.0); HEMATOCRIT 34.3 % (39.0-51.0); HEMO FLAGS DIFF FINAL; LYMPH % 37.1 % (9.0-44.0); LYMPHOCYTE # 3.3 TH/MM3 (1.0-4.8); MEAN CELL VOLUME 89.4 FL (80.0-100.0); MEAN CORPUSCULAR HEMOGLOBIN 29.6 PG (27.0-34.0); MEAN CORPUSCULAR HGB CONC 33.1 % (32.0-36.0); MONO % 8.9 % (0.0-8.0); NEUT % 48.1 % (16.0-70.0); PLATELET COUNT 205 TH/MM3 (150-450); RED BLOOD COUNT 3.84 MIL/MM3 (4.50-5.90); WHITE BLOOD COUNT 8.8 TH/MM3 (4.0-11.0)
[2016-10-08 16:56] LABS: BICARBONATE 31.6 MEQ/L (21.0-32.0); POTASSIUM 4.5 MEQ/L (3.5-5.1)
[2016-10-08 19:30] VITALS: BP 142/70; PULSE 90; RESP 20; TEMP 98; O2SAT 100
[2016-10-08 19:53] VITALS: BP 142/86; PULSE 84; RESP 16; TEMP 98.8; O2SAT 98
--- NOTE | 2016-10-08 20:08 | RADRPT ---
EXAM DATE/TIME: 10/08/2016 19:54 [facility] COMPARISON: CT BRAIN W/O CONTRAST, July 20, 2014, 12:35. INDICATIONS : Status-post fall; cephalgia. RADIATION DOSE: 42.01 CTDIvol (mGy) MEDICAL HISTORY : Cerebrovascular disease. SURGICAL HISTORY : None. ENCOUNTER: Initial ACUITY: 1 day PAIN SCALE: 3/10 LOCATION: cranial TECHNIQUE: Multiple contiguous axial images were obtained of the head. Using automated exposure control and adj ustment of the mA and/or kV according to patient size, radiation dose was kept as low as reasonably a chievable to obtain optimal diagnostic quality images. FINDINGS: CEREBRUM: The ventricles are normal for age. No evidence of midline shift, mass lesion, hemorrhage or acute in farction. No extra-axial fluid collections are seen. POSTERIOR FOSSA: The cerebellum and brainstem are intact. The 4th ventricle is midline. The cerebellopontine angle i s unremarkable. EXTRACRANIAL: The visualized portion of the orbits is intact. SKULL: The calvaria is intact. No evidence of skull fracture. CONCLUSION: No acute disease. Ac Ramirez MD on October 08, 2016 at 20:06 Board Certified Radiologist. This report was verified electronically.
[2016-10-08 20:15] VITALS: BP 124/68; PULSE 90; RESP 18; O2SAT 95
--- NOTE | 2016-10-08 20:23 | RADRPT ---
EXAM DATE/TIME: 10/08/2016 19:58 [facility] COMPARISON: CT CERVICAL SPINE W/O CONTRAST, July 20, 2014, 12:35. SPINE THORACIC AP/LAT/SW (3VW), October 08, 2016, 20:00. INDICATIONS : Neck pain after falling tonight. MEDICAL HISTORY : Cerebrovascular disease. SURGICAL HISTORY : None. ENCOUNTER: Initial ACUITY: 1 day PAIN SCORE: 3/10 LOCATION: Cervical. FINDINGS: Significant limitation by positioning. No prevertebral soft tissue swelling is seen. No compression d eformity. Normal alignment. The odontoid process is intact. CONCLUSION: No obvious fractures. Limited study. Ac Ramirez MD on October 08, 2016 at 20:21 Board Certified Radiologist. This report was verified electronically.
--- NOTE | 2016-10-08 20:24 | RADRPT ---
EXAM DATE/TIME: 10/08/2016 20:00 [facility] COMPARISON: CHEST PA & LAT, July 31, 2016, 15:48. SPINE LUMBAR LTD (AP & LAT), October 08, 2016, 20:00. SPI NE CERVICAL LTD (AP&LAT), October 08, 2016, 19:58. INDICATIONS : Mid back pain after falling tonight. MEDICAL HISTORY : Cerebrovascular disease. SURGICAL HISTORY : None. ENCOUNTER: Initial ACUITY: 1 day PAIN SCORE: 3/10 LOCATION: Mid thoracic. FINDINGS: Multilevel osteophytosis. Slight wedging of T5 and T6 identified, nonacute. Decreased bone density. CONCLUSION: No acute disease. Ac Ramirez MD on October 08, 2016 at 20:22 Board Certified Radiologist. This report was verified electronically.
--- NOTE | 2016-10-08 20:24 | RADRPT ---
EXAM DATE/TIME: 10/08/2016 20:00 [facility] COMPARISON: SPINE THORACIC AP/LAT/SW (3VW), October 08, 2016, 20:00. INDICATIONS : Lower back pain after falling today. MEDICAL HISTORY : Cerebrovascular disease. SURGICAL HISTORY : None. ENCOUNTER: Initial ACUITY: 1 day PAIN SCORE: 3/10 LOCATION: Lumbar. FINDINGS: Two view examination was performed. There are five non-rib bearing vertebral bodies. The vertebral bodies are in normal alignment without evidence of subluxation or scoliosis. The disc spaces are david ntained. The pedicles are intact. Bony mineralization is normal. No fracture is identified. Mild a nterior osteophytosis. Aortic and iliac artery calcifications. CONCLUSION: 1. Mild anterior osteophytosis and aortic and iliac artery calcifications. Ac Ramirez MD on October 08, 2016 at 20:22 Board Certified Radiologist. This report was verified electronically.
[2016-10-08] MEDS: SENNOSIDES 8.6 MG TAB PO SCH (20:53)
[2016-10-09 00:15] VITALS: BP 123/68; PULSE 88; RESP 18; TEMP 97.4; O2SAT 95
[2016-10-09 04:15] VITALS: BP 108/53; PULSE 88; RESP 17; TEMP 98; O2SAT 92
[2016-10-09 08:15] VITALS: BP 129/66; PULSE 88; RESP 16
[2016-10-09] MEDS: PANTOPRAZOLE SOD 20 MG DELAYED RELEASE TAB PO SCH (08:36)
[2016-10-09] MEDS: SERTRALINE HCL 100 MG TAB PO SCH (08:37)
[2016-10-09] MEDS: NICOTINE 21 MG/24 HR PATCH T-DERMAL SCH (08:37)
[2016-10-09] MEDS: FLUTICASONE PROPIONATE 220 MCG/ACT 12 GM INHALER INH SCH ×2 (08:37→20:49)
[2016-10-09] MEDS: DIVALPROEX SODIUM E.R. 500 MG TAB PO SCH ×2 (08:37→20:48)
[2016-10-09] MEDS: cloZAPine 100 MG TAB PO SCH ×2 (08:37→20:49)
[2016-10-09] MEDS: BENZTROPINE MESYLATE 1 MG TAB PO SCH ×2 (08:37→20:48)
[2016-10-09] MEDS: REMOVE OLD PATCH TD SCH (08:38)
--- NOTE | 2016-10-09 11:01 | HHI.PYPN ---
Subjective Remarks Patient seen in day room with nurse Janel, patient continues intrusive though there is some focusing today on placement asking where he is going to be going, wanting verification that he will not be returning to [place] and the [facility]. Patient compliant medications. For now continue treatment Review of Systems Except as stated in HPI: all other systems reviewed are Neg Objective Alert: Yes [place]: Person Mood: Calm Affect: Restricted Memory Intact: Comment (fair) Hallucinations: Other (no AVH) Delusions: No Delusion Type: Other (no evident delusions) Suicidal: Ideation (No SI) Homicidal: Ideation (No HI) Insight/Judgement Very poor Labs Test 10/08/16 16:00 White Blood Count 8.8 TH/MM3 Red Blood Count 3.84 MIL/MM3 Hemoglobin 11.4 GM/DL Hematocrit 34.3 % Mean Corpuscular Volume 89.4 FL Mean Corpuscular Hemoglobin 29.6 PG Mean Corpuscular Hemoglobin 33.1 % Concent Red Cell Distribution Width 15.0 % Platelet Count 205 TH/MM3 Mean Platelet Volume 7.9 FL Neutrophils (%) (Auto) 48.1 % Lymphocytes (%) (Auto) 37.1 % Monocytes (%) (Auto) 8.9 % Eosinophils (%) (Auto) 5.3 % Basophils (%) (Auto) 0.6 % Neutrophils # (Auto) 4.2 TH/MM3 Lymphocytes # (Auto) 3.3 TH/MM3 Monocytes # (Auto) 0.8 TH/MM3 Eosinophils # (Auto) 0.5 TH/MM3 Basophils # (Auto) 0.1 TH/MM3 CBC Comment DIFF FINAL Differential Comment Sodium Level 133 MEQ/L Potassium Level 4.5 MEQ/L Chloride Level 94 MEQ/L Carbon Dioxide Level 31.6 MEQ/L Anion Gap 7 MEQ/L Blood Urea Nitrogen 19 MG/DL Creatinine 0.83 MG/DL Estimat Glomerular Filtration 91 ML/MIN Rate Random Glucose 96 MG/DL Calcium Level 9.1 MG/DL Vitals/IOs Vital Signs Date Time Temp Pulse Resp B/P Pulse Ox O2 Delivery O2 Flow Rate FiO2 10/09/16 08:15 88 16 129/66 10/09/16 04:15 98.0 92 Intake and Output 10/08/16 10/08/16 10/09/16 08:00 16:00 00:00 Intake Total 1080 ml 150 ml Balance 1080 ml 150 ml Assessment & Plan Problem List: (1) Schizoaffective disorder, bipolar type ICD Code: F25.0 Assessment & Plan Estimated LOS: days patient continues intrusive loud demanding somewhat psychotic, though redirectable. Compliant medications Justification for Cont. Inpt. At this time patient would significantly decompensate if placed in the lower level of care Discharge Planning To be determined Request HC Surrog/Guard Advoc?: Yes Derrick Hernandez MD Oct 09, 2016 11:01
[2016-10-09 12:15] VITALS: BP 141/68; PULSE 88; O2SAT 96
[2016-10-09 19:44] VITALS: BP 139/80; PULSE 85; RESP 18; TEMP 98; O2SAT 99
[2016-10-09] MEDS: SENNOSIDES 8.6 MG TAB PO SCH (20:49)
[2016-10-10 06:38] VITALS: BP 128/79; PULSE 82; RESP 16; TEMP 98; O2SAT 94
[2016-10-10] MEDS: REMOVE OLD PATCH TD SCH (09:00)
[2016-10-10] MEDS: NICOTINE 21 MG/24 HR PATCH T-DERMAL SCH (09:38)
[2016-10-10] MEDS: SERTRALINE HCL 100 MG TAB PO SCH (09:39)
[2016-10-10] MEDS: PANTOPRAZOLE SOD 20 MG DELAYED RELEASE TAB PO SCH (09:39)
[2016-10-10] MEDS: cloZAPine 100 MG TAB PO SCH ×2 (09:39→21:00)
[2016-10-10] MEDS: FLUTICASONE PROPIONATE 220 MCG/ACT 12 GM INHALER INH SCH ×2 (09:39→21:07)
[2016-10-10] MEDS: DIVALPROEX SODIUM E.R. 500 MG TAB PO SCH ×2 (09:39→21:08)
[2016-10-10] MEDS: BENZTROPINE MESYLATE 1 MG TAB PO SCH ×2 (09:39→21:08)
--- NOTE | 2016-10-10 12:24 | HHI.PYPN ---
Subjective Remarks Patient seen in dayroom with forced of, continue somewhat loud and intrusive but not as intense(frequent. Continues to focus now on placement and if his brother approves of it Review of Systems Except as stated in HPI: all other systems reviewed are Neg Objective Alert: Yes [place]: Person Mood: Calm Affect: Restricted Memory Intact: Comment (fair) Hallucinations: Other (no AVH) Delusions: No Delusion Type: Other (no evident delusions) Suicidal: Ideation (No SI) Homicidal: Ideation (No HI) Insight/Judgement Very poor Vitals/IOs Vital Signs Date Time Temp Pulse Resp B/P Pulse Ox O2 Delivery O2 Flow Rate FiO2 10/10/16 06:38 98.0 82 16 128/79 94 Intake and Output 10/09/16 10/09/16 10/10/16 08:00 16:00 00:00 Intake Total 1220 ml 840 ml Balance 1220 ml 840 ml Assessment & Plan Problem List: (1) Schizoaffective disorder, bipolar type ICD Code: F25.0 Assessment & Plan Estimated LOS: days patient continues somewhat loud intrusive no softening somewhat, compliant medications. Justification for Cont. Inpt. At this time patient will decompensate if placed in a lower level of care Discharge Planning To be determined Request HC Surrog/Guard Advoc?: Yes Derrick Hernandez MD Oct 10, 2016 12:24
[2016-10-10 19:30] VITALS: BP 95/51; PULSE 82; RESP 19; TEMP 97.8; O2SAT 96
[2016-10-10] MEDS: SENNOSIDES 8.6 MG TAB PO SCH (21:08)
[2016-10-11 06:00] VITALS: BP 109/56; PULSE 77; RESP 17; TEMP 97.4; O2SAT 95
[2016-10-11] MEDS: REMOVE OLD PATCH TD SCH (09:00)
[2016-10-11] MEDS: PANTOPRAZOLE SOD 20 MG DELAYED RELEASE TAB PO SCH (09:05)
[2016-10-11] MEDS: DIVALPROEX SODIUM E.R. 500 MG TAB PO SCH ×2 (09:05→20:08)
[2016-10-11] MEDS: BENZTROPINE MESYLATE 1 MG TAB PO SCH ×2 (09:05→20:09)
[2016-10-11] MEDS: cloZAPine 100 MG TAB PO SCH ×2 (09:05→20:08)
[2016-10-11] MEDS: FLUTICASONE PROPIONATE 220 MCG/ACT 12 GM INHALER INH SCH ×2 (09:06→20:08)
[2016-10-11] MEDS: SERTRALINE HCL 100 MG TAB PO SCH (09:06)
[2016-10-11] MEDS: NICOTINE 21 MG/24 HR PATCH T-DERMAL SCH (09:07)
--- NOTE | 2016-10-11 12:41 | HHI.PYPN ---
Subjective Remarks Patient seen in day room with medical student Micheline, chart review, patient continues intrusive loud disorganized though somewhat softer today. He also continues to appear to be willing to go to when [facility]ILL[facility] NURSING placement. Compliant medications. Review of Systems Except as stated in HPI: all other systems reviewed are Neg Objective Alert: Yes [place]: Person Mood: Calm Affect: Restricted Memory Intact: Comment (fair) Hallucinations: Other (no AVH) Delusions: No Delusion Type: Other (no evident delusions) Suicidal: Ideation (No SI) Homicidal: Ideation (No HI) Insight/Judgement Very poor Vitals/IOs Vital Signs Date Time Temp Pulse Resp B/P Pulse Ox O2 Delivery O2 Flow Rate FiO2 10/11/16 06:00 97.4 77 17 109/56 95 Intake and Output 10/10/16 10/10/16 10/11/16 08:00 16:00 00:00 Intake Total 240 ml 720 ml Balance 240 ml 720 ml Assessment & Plan Problem List: (1) Schizoaffective disorder, bipolar type ICD Code: F25.0 Assessment & Plan Estimated LOS: days patient continues intrusive loud with psychotic features. Compliant medications. Placement continues problematic Justification for Cont. Inpt. At this time patient would significantly decompensate if placed in a lower level of care Discharge Planning To be determined Request HC Surrog/Guard Advoc?: Yes Derrick Hernandez MD Oct 11, 2016 12:41
[2016-10-11 19:38] VITALS: BP 125/76; PULSE 92; RESP 18; TEMP 97.5; O2SAT 93
[2016-10-11] MEDS: LORazepam 0.5 MG TAB age > 65 yrs PO PRN (20:08)
[2016-10-11] MEDS: SENNOSIDES 8.6 MG TAB PO SCH (20:08)
[2016-10-11] MEDS: diphenhydrAMINE HCL 50 MG CAP PO PRN (20:08)
[2016-10-12 06:16] VITALS: BP 97/55; PULSE 78; RESP 18; TEMP 97; O2SAT 95
[2016-10-12] MEDS: BENZTROPINE MESYLATE 1 MG TAB PO SCH ×2 (09:00→20:46)
[2016-10-12] MEDS: REMOVE OLD PATCH TD SCH (09:00)
[2016-10-12] MEDS: LORazepam 0.5 MG TAB age > 65 yrs PO PRN (09:53)
[2016-10-12] MEDS: PANTOPRAZOLE SOD 20 MG DELAYED RELEASE TAB PO SCH (09:54)
[2016-10-12] MEDS: DIVALPROEX SODIUM E.R. 500 MG TAB PO SCH ×2 (09:54→20:47)
[2016-10-12] MEDS: NICOTINE 21 MG/24 HR PATCH T-DERMAL SCH (09:54)
[2016-10-12] MEDS: FLUTICASONE PROPIONATE 220 MCG/ACT 12 GM INHALER INH SCH ×2 (09:54→20:47)
[2016-10-12] MEDS: cloZAPine 100 MG TAB PO SCH ×2 (09:54→20:46)
[2016-10-12] MEDS: SERTRALINE HCL 100 MG TAB PO SCH (09:54)
--- NOTE | 2016-10-12 12:45 | HHI.PYPN ---
Subjective Remarks Patient was seen and case discussed with nursing. Patient is pleasant and cooperative with exam. This was interviewed in his bed. Patient appears more blunted. Mood is depressed. His compliant with his medications. No outbursts. Objective Alert: Yes [place]: Person Mood: Calm Affect: Restricted Memory Intact: Comment (fair) Hallucinations: Other (no AVH) Delusions: No Delusion Type: Other (no evident delusions) Suicidal: Ideation (No SI) Homicidal: Ideation (No HI) Insight/Judgement Poor Vitals/IOs Vital Signs Date Time Temp Pulse Resp B/P Pulse Ox O2 Delivery O2 Flow Rate FiO2 10/12/16 06:16 97.0 78 18 97/55 95 Intake and Output 10/11/16 10/11/16 10/12/16 08:00 16:00 00:00 Intake Total 480 ml 840 ml Balance 480 ml 840 ml Assessment & Plan Problem List: (1) Schizoaffective disorder, bipolar type ICD Code: F25.0 Assessment & Plan Continue current treatment plan Justification for Cont. Inpt. Patient will decompensate in a less restrictive setting Request HC Surrog/Guard Advoc?: Yes Roge Rosario DO Oct 12, 2016 12:45
[2016-10-12 18:00] VITALS: BP 122/76; PULSE 80; RESP 18; TEMP 97.5; O2SAT 95
[2016-10-12] MEDS: diphenhydrAMINE HCL 50 MG CAP PO PRN (20:46)
[2016-10-12] MEDS: SENNOSIDES 8.6 MG TAB PO SCH (20:47)
[2016-10-13 05:57] VITALS: BP 140/84; PULSE 80; RESP 16; TEMP 98.2; O2SAT 95
[2016-10-13] MEDS: NICOTINE 21 MG/24 HR PATCH T-DERMAL SCH (09:00)
[2016-10-13] MEDS: REMOVE OLD PATCH TD SCH (09:00)
[2016-10-13] MEDS: BENZTROPINE MESYLATE 1 MG TAB PO SCH ×2 (09:00→21:20)
[2016-10-13] MEDS: FLUTICASONE PROPIONATE 220 MCG/ACT 12 GM INHALER INH SCH ×2 (09:00→21:20)
[2016-10-13] MEDS: cloZAPine 100 MG TAB PO SCH ×2 (09:00→21:20)
[2016-10-13] MEDS: SERTRALINE HCL 100 MG TAB PO SCH (09:00)
[2016-10-13] MEDS: DIVALPROEX SODIUM E.R. 500 MG TAB PO SCH ×2 (09:00→21:20)
[2016-10-13] MEDS: PANTOPRAZOLE SOD 20 MG DELAYED RELEASE TAB PO SCH (09:00)
--- NOTE | 2016-10-13 12:45 | HHI.PYPN ---
Subjective Remarks Patient was seen and case discussed with nursing. Patient is pleasant and cooperative with exam. He was again interviewed in bed but staff says he is not bed and more animated. Mood is "better." Patient is difficult to understand or the interview. Denies feeling sad or suicidal ideations Objective Alert: Yes [place]: Person Mood: Calm Affect: Restricted Memory Intact: Comment (fair) Hallucinations: Other (no AVH) Delusions: No Delusion Type: Other (no evident delusions) Suicidal: Ideation (No SI) Homicidal: Ideation (No HI) Insight/Judgement Poor Vitals/IOs Vital Signs Date Time Temp Pulse Resp B/P Pulse Ox O2 Delivery O2 Flow Rate FiO2 10/13/16 05:57 98.2 80 16 140/84 95 Intake and Output 10/12/16 10/12/16 10/13/16 08:00 16:00 00:00 Intake Total 0 ml 1320 ml 360 ml Balance 0 ml 1320 ml 360 ml Assessment & Plan Problem List: (1) Schizoaffective disorder, bipolar type ICD Code: F25.0 Assessment & Plan Continue current treatment plan Justification for Cont. Inpt. Patient will decompensate in a less restrictive setting Request HC Surrog/Guard Advoc?: Yes Roge Rosario DO Oct 13, 2016 12:45
[2016-10-13 18:00] VITALS: BP 136/75; PULSE 84; RESP 16; TEMP 98.3; O2SAT 96
[2016-10-13] MEDS: SENNOSIDES 8.6 MG TAB PO SCH (21:20)
[2016-10-14 05:48] VITALS: BP 128/59; PULSE 78; RESP 16; TEMP 98.1; O2SAT 98
[2016-10-14] MEDS: FLUTICASONE PROPIONATE 220 MCG/ACT 12 GM INHALER INH SCH ×2 (08:36→20:42)
[2016-10-14] MEDS: cloZAPine 100 MG TAB PO SCH ×2 (08:36→20:43)
[2016-10-14] MEDS: BENZTROPINE MESYLATE 1 MG TAB PO SCH ×2 (08:36→20:43)
[2016-10-14] MEDS: PANTOPRAZOLE SOD 20 MG DELAYED RELEASE TAB PO SCH (08:36)
[2016-10-14] MEDS: DIVALPROEX SODIUM E.R. 500 MG TAB PO SCH ×2 (08:36→20:43)
[2016-10-14] MEDS: SERTRALINE HCL 100 MG TAB PO SCH (08:37)
[2016-10-14] MEDS: REMOVE OLD PATCH TD SCH (08:37)
[2016-10-14] MEDS: NICOTINE 21 MG/24 HR PATCH T-DERMAL SCH (08:37)
--- NOTE | 2016-10-14 15:47 | HHI.PYPN ---
Subjective Remarks Patient discussed with treatment team and medical student Gabriela, chart review , patient seen on unit. Patient continues intrusive perseverative, related to patches placement [facility]. Though he still appears willing to look at long-term placement. Compliant medications. Review of Systems Except as stated in HPI: all other systems reviewed are Neg Objective Alert: Yes [place]: Person Mood: Calm Affect: Restricted Memory Intact: Comment (fair) Hallucinations: Other (no AVH) Delusions: No Delusion Type: Other (no evident delusions) Suicidal: Ideation (No SI) Homicidal: Ideation (No HI) Insight/Judgement Poor Vitals/IOs Vital Signs Date Time Temp Pulse Resp B/P Pulse Ox O2 Delivery O2 Flow Rate FiO2 10/14/16 05:48 98.1 78 16 128/59 98 Intake and Output 10/13/16 10/13/16 10/14/16 08:00 16:00 00:00 Intake Total 0 ml 1320 ml 720 ml Balance 0 ml 1320 ml 720 ml Assessment & Plan Problem List: (1) Schizoaffective disorder, bipolar type ICD Code: F25.0 Assessment & Plan Estimated LOS: days patient continues disorganized irritable though showing some acknowledgment of placement issues Justification for Cont. Inpt. At this time the patient would decompensate placed in a lower level of care Discharge Planning To be determined Request HC Surrog/Guard Advoc?: Yes Derrick Hernandez MD Oct 14, 2016 15:47
[2016-10-14 18:38] VITALS: BP 109/74; PULSE 76; RESP 16; TEMP 97.7; O2SAT 95
[2016-10-14] MEDS: SENNOSIDES 8.6 MG TAB PO SCH (20:43)
[2016-10-15 06:23] VITALS: BP 106/56; PULSE 73; RESP 18; TEMP 96.1; O2SAT 99
[2016-10-15] MEDS: PANTOPRAZOLE SOD 20 MG DELAYED RELEASE TAB PO SCH (09:00)
[2016-10-15] MEDS: REMOVE OLD PATCH TD SCH (09:00)
[2016-10-15] MEDS: BENZTROPINE MESYLATE 1 MG TAB PO SCH ×2 (09:00→21:00)
[2016-10-15] MEDS: SERTRALINE HCL 100 MG TAB PO SCH (09:00)
[2016-10-15] MEDS: cloZAPine 100 MG TAB PO SCH ×2 (09:00→21:26)
[2016-10-15] MEDS: FLUTICASONE PROPIONATE 220 MCG/ACT 12 GM INHALER INH SCH (09:00)
[2016-10-15] MEDS: NICOTINE 21 MG/24 HR PATCH T-DERMAL SCH (09:00)
[2016-10-15] MEDS: DIVALPROEX SODIUM E.R. 500 MG TAB PO SCH ×2 (09:00→21:27)
[2016-10-15] MEDS: LORazepam 0.5 MG TAB age > 65 yrs PO PRN (09:21)
--- NOTE | 2016-10-15 10:27 | HHI.FPPN ---
Subjective Remarks HARSH COUGH AGITATED SLEEPING, AROUSES TO VOICE AND SITS UP D/W RN Objective Vitals Vital Signs Date Time Temp Pulse Resp B/P Pulse Ox O2 Delivery O2 Flow Rate FiO2 10/15/16 06:23 96.1 73 18 106/56 99 10/14/16 18:38 97.7 76 16 109/74 95 I/O 10/14/16 10/14/16 10/14/16 10/15/16 10/15/16 10/15/16 07:00 15:00 23:00 07:00 15:00 23:00 Intake Total 0 ml 720 ml 720 ml 240 ml Balance 0 ml 720 ml 720 ml 240 ml Intake Oral 0 ml 720 ml 720 ml 240 ml # Voids 2 2 3 2 # Bowel Movements 1 Objective Remarks GENERAL: SKIN: Warm and dry. HEAD: Atraumatic. Normocephalic. EYES: Pupils equal and round. No scleral icterus. No injection or drainage. ENT: No nasal bleeding or discharge. Mucous membranes pink and moist. NECK: Trachea midline. No JVD. CARDIOVASCULAR: Regular rate and rhythm. RESPIRATORY: No accessory muscle use. CTAB GASTROINTESTINAL: Abdomen soft, non-tender, nondistended. Hepatic and splenic margins not palpable. MUSCULOSKELETAL: Extremities without clubbing, cyanosis. 1 edema ANKLES B. NEUROLOGICAL: Awake and alert. No obvious cranial nerve deficits. Motor grossly within normal limits. 3 out of 5 muscle strength in the arms and legs. Normal speech. PSYCHIATRIC: PSYCHOTIC Medications and IVs Current Medications Medications (Trade) Dose Ordered Sig/Alpesh Route Start Time Stop Time Status Last Admin (Ativan) 0.5 mg Q12H PRN PO 09/13/16 02:45 10/15/16 09:21 (Ativan Inj) 0.5 mg Q12H PRN IM 09/13/16 02:45 09/15/16 13:32 (Flovent Hfa 220 Mcg Inh) 1 puff BID INH 09/13/16 09:00 10/15/16 09:00 (Depakote Er) 500 mg DAILY PO 09/13/16 09:00 10/15/16 09:00 (Depakote Er) 1,500 mg HS PO 09/13/16 21:00 10/14/16 20:43 (Benadryl) 50 mg HS PRN PO 09/13/16 12:00 10/12/16 20:46 (Tylenol) 650 mg Q4H PRN PO 09/13/16 12:00 (Milk Of Magnesia Liq) 30 ml DAILY PRN PO 09/13/16 12:00 09/25/16 11:39 (Mag-Al Plus Susp Liq) 30 ml Q6H PRN PO 09/13/16 12:00 (Habitrol 21 Mg Patch.24 Hr) 1 patch DAILY T-DERMAL 09/13/16 12:00 10/15/16 09:00 (Clozaril) 100 mg DAILY PO 09/14/16 09:00 10/15/16 09:00 (Protonix) 20 mg DAILY PO 09/14/16 09:00 10/15/16 09:00 (Senokot) 8.6 mg HS PO 09/13/16 21:00 10/14/16 20:43 (Zoloft) 100 mg DAILY PO 09/14/16 09:00 10/15/16 09:00 Miscellaneous Information 1 DAILY TD 09/14/16 09:00 10/15/16 09:00 (Clozaril) 200 mg HS PO 09/16/16 21:00 10/14/16 20:43 (Thorazine) 50 mg TID PO 09/20/16 18:00 10/15/16 09:00 (Cogentin) 1 mg Q12HR PO 09/25/16 09:15 10/15/16 09:00 A/P Assessment and Plan ACUTE PSYCHOSIS AMS COPD HYPONATREMIA ANEMIA CHRONIC DZ HYPERGLYCEMIA, NORMAL A1C HYPOCALCEMIA PNA, RESOLVED DYSPHAGIA ASPIRATION EDEMA TACHYCARDIA/ARRHYTHMIA R OTITIS L HUMERUS FX, OLD HTN, URGENT SCHIZOAFFECTIVE SMOKER PERIAORTIC LYMPHADENOPATHY METABOLIC ENCEPHALOPATHY ETOH ABUSE PLAN- CHANGE TO SYMBICORT REVIEWED REPEAT CBC, BMP MONITOR EDEMA MONITOR HTN. MEDS OTHERWISE ABOVE. MEDICALLY CLEARED FOR INPATIENT PSYCHIATRY ADMISSION. Min Hebert MD Oct 15, 2016 10:27
[2016-10-15] MEDS: BUDESONIDE-FORMOTEROL 160/4.5 MCG INHALER INH SCH ×2 (11:00→21:26)
--- NOTE | 2016-10-15 14:31 | HHI.PYPN ---
Subjective Remarks Patient seen in day room with floor staff, patient continues somewhat intrusive and labile asking about placement whether be home or with Michael. It appears as but a further conversation with his brother. The brothers 100 have a trial with the patient home with them. Patient is willing to do this also. We will then consider discharge tomorrow to his brother's home with follow-up through the fact team Review of Systems Except as stated in HPI: all other systems reviewed are Neg Objective Alert: Yes [place]: Person Mood: Calm Affect: Restricted Memory Intact: Comment (fair) Hallucinations: Other (no AVH) Delusions: No Delusion Type: Other (no evident delusions) Suicidal: Ideation (No SI) Homicidal: Ideation (No HI) Insight/Judgement Poor Vitals/IOs Vital Signs Date Time Temp Pulse Resp B/P Pulse Ox O2 Delivery O2 Flow Rate FiO2 10/15/16 06:23 96.1 73 18 106/56 99 Intake and Output 10/14/16 10/14/16 10/15/16 08:00 16:00 00:00 Intake Total 0 ml 720 ml 720 ml Balance 0 ml 720 ml 720 ml Assessment & Plan Problem List: (1) Schizoaffective disorder, bipolar type ICD Code: F25.0 Assessment & Plan Estimated LOS: days will consider discharge tomorrow to brothers home Justification for Cont. Inpt. At this time patient will decompensate to place a lower level of care Discharge Planning To be determined consider discharge tomorrow to brother Request HC Surrog/Guard Advoc?: Yes Derrick Hernandez MD Oct 15, 2016 14:31
[2016-10-15] MEDS ORDERED: CLOZ100 PO (14:40)
[2016-10-15] MEDS ORDERED: SYMB160A INH (14:40)
[2016-10-15] MEDS ORDERED: ZOLO100T PO (14:40)
[2016-10-15] MEDS ORDERED: CHLO50TA2 PO (14:40)
[2016-10-15] MEDS ORDERED: BENZ1TAB PO (14:40)
[2016-10-15] MEDS ORDERED: DEPA500T3 PO (14:40)
[2016-10-15] MEDS ORDERED: PANT20 PO (14:40)
[2016-10-15 17:49] LABS: AUTOMATED NEUTROPHIL # 5.4 TH/MM3 (1.8-7.7); BASOPHIL % 0.4 % (0.0-2.0); EOSINOPHIL # 0.3 TH/MM3 (0-0.4); EOSINOPHIL % 3.9 % (0.0-4.0); HEMATOCRIT 35.9 % (39.0-51.0); HEMO FLAGS DIFF FINAL; LYMPH % 28.5 % (9.0-44.0); LYMPHOCYTE # 2.5 TH/MM3 (1.0-4.8); MEAN CELL VOLUME 89.6 FL (80.0-100.0); MEAN CORPUSCULAR HEMOGLOBIN 29.3 PG (27.0-34.0); MEAN CORPUSCULAR HGB CONC 32.7 % (32.0-36.0); MONO % 5.7 % (0.0-8.0); NEUT % 61.5 % (16.0-70.0); PLATELET COUNT 198 TH/MM3 (150-450); RED BLOOD COUNT 4.01 MIL/MM3 (4.50-5.90); RED CELL DISTRIBUTION WIDTH 15.1 % (11.6-17.2); WHITE BLOOD COUNT 8.8 TH/MM3 (4.0-11.0)
[2016-10-15 19:38] VITALS: BP 113/57; PULSE 80; RESP 18; TEMP 97.4; O2SAT 96
[2016-10-15] MEDS: SENNOSIDES 8.6 MG TAB PO SCH (21:26)
[2016-10-16 06:06] VITALS: BP 105/64; PULSE 80; RESP 16; TEMP 98.3
[2016-10-16] MEDS: REMOVE OLD PATCH TD SCH (09:00)
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
[2016-10-16] MEDS: BUDESONIDE-FORMOTEROL 160/4.5 MCG INHALER INH SCH (09:38)
[2016-10-16] MEDS: BENZTROPINE MESYLATE 1 MG TAB PO SCH (09:38)
[2016-10-16] MEDS: DIVALPROEX SODIUM E.R. 500 MG TAB PO SCH (09:38)
[2016-10-16] MEDS: cloZAPine 100 MG TAB PO SCH (09:39)
[2016-10-16] MEDS: NICOTINE 21 MG/24 HR PATCH T-DERMAL SCH (09:39)
[2016-10-16] MEDS: SERTRALINE HCL 100 MG TAB PO SCH (09:39)
[2016-10-16] MEDS: PANTOPRAZOLE SOD 20 MG DELAYED RELEASE TAB PO SCH (09:39)
[2016-11-18] MEDS ORDERED: FLUTI220I INH (10:32)
[2016-11-18] MEDS ORDERED: SYMB160A INH (10:32)
[2016-11-18] MEDS ORDERED: CARA1SUS3 PO (10:43)
[2017-02-04] MEDS ORDERED: ATOR40TA16 PO (10:07)
[2017-02-04] MEDS ORDERED: ASPI81CH CHEW (10:10)
[2017-02-04] MEDS ORDERED: PNEU13P IM (10:13)
== END 2016-10-16 11:00 | disposition home or self-care (01) | DRG 885 ==
LOC: NEPC 12:54 → NEDA 09-13 02:19 → H250 09-13 04:15
PROVIDERS: ADMIT Psychiatry & Neurology Psychiatry; ATTEND Psychiatry & Neurology Psychiatry
DX: F25.0 Schizoaffective disorder, bipolar type (principal); G93.41 Metabolic encephalopathy; J18.9 Pneumonia, unspecified organism; R13.10 Dysphagia, unspecified; E87.1 Hypo-osmolality and hyponatremia; J44.0 Chronic obstructive pulmonary disease with (acute) lower respiratory infection; K74.60 Unspecified cirrhosis of liver; E83.51 Hypocalcemia; F79 Unspecified intellectual disabilities; I10 Essential (primary) hypertension; K21.9 Gastro-esophageal reflux disease without esophagitis; R59.1 Generalized enlarged lymph nodes; R63.4 Abnormal weight loss; H66.91 Otitis media, unspecified, right ear; F10.10 Alcohol abuse, uncomplicated; Y90.0 Blood alcohol level of less than 20 mg/100 ml; F17.200 Nicotine dependence, unspecified, uncomplicated; D64.9 Anemia, unspecified; R73.9 Hyperglycemia, unspecified; M54.5 Low back pain; Z86.73 Personal history of transient ischemic attack (TIA), and cerebral infarction without residual deficits
CPT/HCPCS: 70450; 71010; 72040; 72072; 72100; 80048; 80053; 80061; 80164; 80320; 83036; 85025; 94640; 94664; 96372; G0479; J1630; J2060; Q0163

== ENCOUNTER 2017-02-22 11:33 | Emergency (ER) | payer MEDICARE, OTHER ==
[~2017-02-22] VITALS: Ht 177.8 cm; Wt 100.0 kg
[~2017-02-22 11:33] MED LIST changes: +ASPI81CH CHEW; +ATOR40TA16 PO; -AUGM500T7 PO; +BENZ1TAB PO; +CARA1SUS3 PO; -CHLO100T2 PO; -CLOZ25 PO; -DIVA500T PO; -IPRASOL NEB; -OMEP20TA PO; +PANT20 PO; -SERT-129 PO; +SYMB160A INH; +ZOLO100T PO
[2017-02-22 11:42] VITALS: BP 123/86; PULSE 102; RESP 18; TEMP 98.1; O2SAT 93
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
[2017-02-22 12:17] LABS: AUTOMATED NEUTROPHIL # 4.7 TH/MM3 (1.8-7.7); BASOPHIL # 0.1 TH/MM3 (0-0.2); BASOPHIL % 0.9 % (0.0-2.0); EOSINOPHIL # 0.1 TH/MM3 (0-0.4); EOSINOPHIL % 1.3 % (0.0-4.0); HEMATOCRIT 35.1 % (39.0-51.0); HEMO FLAGS DIFF FINAL; LYMPH % 42.8 % (9.0-44.0); LYMPHOCYTE # 4.1 TH/MM3 (1.0-4.8); MEAN CELL VOLUME 89.6 FL (80.0-100.0); MEAN CORPUSCULAR HEMOGLOBIN 29.6 PG (27.0-34.0); MEAN CORPUSCULAR HGB CONC 33.1 % (32.0-36.0); MONO % 6.7 % (0.0-8.0); NEUT % 48.3 % (16.0-70.0); PLATELET COUNT 153 TH/MM3 (150-450); RED BLOOD COUNT 3.92 MIL/MM3 (4.50-5.90); RED CELL DISTRIBUTION WIDTH 15.7 % (11.6-17.2); WHITE BLOOD COUNT 9.6 TH/MM3 (4.0-11.0)
[2017-02-22 12:33] LABS: APTT (PATIENT) 20.8 SEC (24.3-30.1); PROTHROMBIN TIME - PATIENT 10.8 SEC (9.8-11.6)
[2017-02-22 12:39] LABS: ANION GAP 10 MEQ/L (5-15); BICARBONATE 26.6 MEQ/L (21.0-32.0); BLOOD UREA NITROGEN 15 MG/DL (7-18); CHLORIDE 105 MEQ/L (98-107); GLOMERULAR FILTRATION RATE 86 ML/MIN (>89); POTASSIUM 3.6 MEQ/L (3.5-5.1); SODIUM (NA) 142 MEQ/L (136-145)
--- NOTE | 2017-02-22 12:43 | RADRPT ---
EXAM DATE/TIME: 02/22/2017 12:22 [facility] COMPARISON: HUMERUS LEFT (MIN 2VWS), August 01, 2016, 20:04. CT BRAIN W/O CONTRAST, October 08, 2016, 19:54. INDICATIONS : Trauma; fall, facial abrasions. RADIATION DOSE: 50.61 CTDIvol (mGy) MEDICAL HISTORY : Seizures. SURGICAL HISTORY : None. ENCOUNTER: Initial ACUITY: 1 day PAIN SCALE: 5/10 LOCATION: Left cranial TECHNIQUE: Multiple contiguous axial images were obtained of the head. Using automated exposure control and adj ustment of the mA and/or kV according to patient size, radiation dose was kept as low as reasonably a chievable to obtain optimal diagnostic quality images. FINDINGS: CEREBRUM: There is mild cerebral atrophy. Ventricles are normal in size. There is mild periventricular white ma tter low-attenuation. No evidence of midline shift, mass lesion, hemorrhage or acute infarction. No extra-axial fluid collections are seen. POSTERIOR FOSSA: The cerebellum and brainstem are intact. The 4th ventricle is midline. The cerebellopontine angle i s unremarkable. EXTRACRANIAL: The visualized portion of the orbits is intact. SKULL: The calvaria is intact. No evidence of skull fracture. CONCLUSION: 1. Stable noncontrast head CT. No acute finding is identified. 2. Chronic changes include generalized atrophy and periventricular white matter low attenuation joann cteristic of chronic microvascular ischemia. 3. Pipe Smoking Machine Offbearer view demonstrates a chronic ununited left proximal humerus fracture. Derrick Almeida MD on February 22, 2017 at 12:37 Board Certified Radiologist. This report was verified electronically.
--- NOTE | 2017-02-22 13:08 | RADRPT ---
EXAM DATE/TIME: 02/22/2017 12:25 [facility] COMPARISON: CT CERVICAL SPINE W/O CONTRAST, July 20, 2014, 12:35. INDICATIONS : Trauma; fall, neck pain. RADIATION DOSE: 38.36 CTDIvol (mGy) MEDICAL HISTORY : Seizures. SURGICAL HISTORY : None. ENCOUNTER: Initial ACUITY: 1 day PAIN SCALE: 3/10 LOCATION: neck TECHNIQUE: Volumetric scanning of the cervical spine was performed. Multiplanar reconstructions in the sagittal, coronal and oblique axial planes were performed. Using automated exposure control and adjustment o f the mA and/or kV according to patient size, radiation dose was kept as low as reasonably achievable to obtain optimal diagnostic quality images. FINDINGS: There is normal sagittal spine alignment of the cervical spine. No anterolisthesis or retrolisthesis is present. The atlantoaxial relationship is within normal limits. There is no prevertebral soft tiss ue swelling present. No fracture or dislocation is identified. There is degenerative disc disease at C5-C6. The visualized portions of the posterior fossa, paraspinous soft tissues, and upper lung zones demons trate no acute abnormality. CONCLUSION: No acute cervical spine abnormality is identified. Derrick Almeida MD on February 22, 2017 at 13:03 Board Certified Radiologist. This report was verified electronically.
[2017-02-22 14:17] VITALS: BP 138/76
== END 2017-02-22 14:20 | disposition home or self-care (01) ==
LOC: NEPC 11:33
DX: S09.90XA Unspecified injury of head, initial encounter (principal); S00.81XA Abrasion of other part of head, initial encounter; F25.9 Schizoaffective disorder, unspecified; W01.10XA Fall on same level from slipping, tripping and stumbling with subsequent striking against unspecified object, initial encounter; Y93.01 Activity, walking, marching and hiking; Y92.9 Unspecified place or not applicable; J45.909 Unspecified asthma, uncomplicated
CPT/HCPCS: 70450; 72125; 80048; 80307; 85025; 85610; 85730; 99285

== ENCOUNTER 2017-03-03 12:14 | Emergency (ER) | payer MEDICARE, OTHER ==
[~2017-03-03] VITALS: Ht 165.1 cm; Wt 76.0 kg
[~2017-03-03 12:14] MED LIST changes: -BENZ1TAB PO; -CHLO50TA2 PO
[2017-03-03 12:20] VITALS: PULSE 95; RESP 16; TEMP 97.9; O2SAT 95
[2017-03-03] MEDS ORDERED: BENZ0.5T PO (12:36)
[2017-03-03] MEDS ORDERED: CHLO25TA38 PO (12:36)
[2017-03-03] MEDS ORDERED: SODIUM CHLORIDE 0.9% FLUSH 10 ML FLUSH IVF PRN (12:45)
[2017-03-03] MEDS ORDERED: RESP: ALBUTEROL 2.5 MG/IPRATROPIUM 0.5 MG NEB (SCH) INH ONE (12:45)
[2017-03-03 12:59] VITALS: O2SAT 92
[2017-03-03 13:04] VITALS: O2SAT 96
--- NOTE | 2017-03-03 13:05 | PD ---
HPI Chief Complaint: Respiratory Symptoms Time Seen by Provider: 12:25 Travel History International Travel<30 days: No Contact w/Intl Traveler<30days: No Traveled to known affect area: No History of Present Illness HPI 72 old male with a history of cognitive delay and schizoaffective disorder presents emergent arm brought in by his brother for altered mental status. Patient normally walks regularly, is fairly independent. Brother reports that he had a fall about 10 days ago. He was in the middle of the street, as details are unclear. Unclear. The syncopal episode of trip and fall. Patient was seen emergency Department a CT scan that was negative of his head and neck. Since that time brother noticed decreased functional level. Patient cannot really care for himself, dress himself, or stay awake during the day. He went to his psychiatrist's office today and was given a decrease of his psychiatric medications including his Thorazine and Depakote. Brother also noted decreased oxygen numbers at 90%. Patient also has a known left lower lobe lung mass that is not been fully evaluated, first from last year. He is going for a PET scan for that later next week. Review systems is positive for some diarrhea on and off. No other complaints. No known injuries. History Past Medical History Narrative Medical Cognitive delay Schizoaffective disorder, bipolar type History of tobacco abuse Treated for COPD, prescribed 2 inhalers, Brother states he's taking one but not sure which one Mass in the left lower lung Social History Alcohol Use: Yes (In the past. ) Tobacco Use: No Allergies-Medications (Allergen,Severity, Reaction): Coded Allergies: No Known Allergies (Verified , 03/03/17) Reported Meds & Prescriptions Reported Meds & Active Scripts Active Symbicort Inh (Budesonide/Formoterol Fumarate) 160-4.5 Mcg/Act Aero 1 Puff INH Q12HR Flovent Hfa 12 GM Inh (Fluticasone Propionate) 220 Mcg/Act Inh 1 Puff INH BID Zoloft (Sertraline HCl) 100 Mg Tab 100 Mg PO DAILY Depakote ER (Divalproex Sodium) 500 Mg Waldo 500 Mg PO 1 AM 3HS Clozaril (Clozapine) 100 Mg Tab 200 Mg PO 1 AM 2 HS Reported Chlorpromazine (Chlorpromazine HCl) 25 Mg Tab 50 Mg PO TID PRN Review of Systems ROS Limitations: Clinical Condition Physical Exam Narrative GENERAL: 72-year-old man, no acute distress. Somnolent, falls asleep mid conversation. SKIN: Focused skin assessment warm/dry. HEAD: Atraumatic. Normocephalic. EYES: Pupils equal and round. No scleral icterus. No injection or drainage. ENT: No nasal bleeding or discharge. Mucous membranes pink and moist. Some abrasions to the left face are well-healing. NECK: Trachea midline. No JVD. CARDIOVASCULAR: Regular rate and rhythm. No murmur appreciated. RESPIRATORY: No accessory muscle use. Clear to auscultation. Breath sounds equal bilaterally. GASTROINTESTINAL: Abdomen soft, non-tender, nondistended. Hepatic and splenic margins not palpable. MUSCULOSKELETAL: No obvious deformities. No clubbing. No cyanosis. No edema. NEUROLOGICAL: Decreased alertness. No obvious facial asymmetry or cranial nerve deficits. Moves all 4 extremities. Speech is somewhat garbled and difficult to understand. PSYCHIATRIC: Flat affect. Insight and judgment appears poor. Data Data Last Documented VS Vital Signs Date Time Temp Pulse Resp B/P Pulse Ox O2 Delivery O2 Flow Rate FiO2 03/03/17 13:04 96 Nasal Cannula 2.00 03/03/17 12:20 97.9 95 16 Orders Complete Blood Count With Diff (03/03/17 12:40) Comprehensive Metabolic Panel (03/03/17 12:40) B-Type Natriuretic Peptide (03/03/17 12:40) Troponin I (03/03/17 12:40) Arterial Blood Gas (Abg) (03/03/17 12:40) Urinalysis - C+S If Indicated (03/03/17 12:40) Iv Access Insert/Monitor (03/03/17 12:40) Ecg Monitoring (03/03/17 12:40) Oximetry (03/03/17 12:40) Oxygen Administration (03/03/17 12:40) Chest, Single Ap (03/03/17 12:40) Cath For Specimen (03/03/17 12:40) Sodium Chloride 0.9% Flush (Ns Flush) (03/03/17 12:45) Albuterol-Ipratropium Neb (Duoneb Neb) (03/03/17 12:45) Valproic Acid (Depakene) (03/03/17 12:43) Creatine Kinase (Cpk) (03/03/17 12:40) Drug Screen, Random Urine (03/03/17 13:05) Alcohol (Ethanol) (03/03/17 12:55) Labs Laboratory Tests Test 03/03/17 03/03/17 03/03/17 03/03/17 12:55 13:05 13:25 14:10 Sodium Level 139 MEQ/L Potassium Level 4.0 MEQ/L Chloride Level 103 MEQ/L Carbon Dioxide Level 28.2 MEQ/L Anion Gap 8 MEQ/L Blood Urea Nitrogen 15 MG/DL Creatinine 0.75 MG/DL Estimat Glomerular Filtration 102 ML/MIN Rate Random Glucose 129 MG/DL Calcium Level 8.4 MG/DL Total Bilirubin 0.4 MG/DL Aspartate Amino Transf 20 U/L (AST/SGOT) Alanine Aminotransferase 20 U/L (ALT/SGPT) Alkaline Phosphatase 66 U/L Total Creatine Kinase 80 U/L Troponin I LESS THAN 0.02 NG/ML B-Type Natriuretic Peptide 24 PG/ML Total Protein 6.4 GM/DL Albumin 3.0 GM/DL Valproic Acid (Depakene) Level 85 MCG/ML Ethyl Alcohol Level LESS THAN 3 MG/DL Blood Gas Puncture Site LT RADIAL Blood Gas Patient Temperature 98.6 Blood Gas HCO3 27 mmol/L Blood Gas Base Excess 3.6 mmol/L Blood Gas Oxygen Saturation 87 % Arterial Blood pH 7.45 Arterial Blood Partial 41 mmHG Pressure CO2 Arterial Blood Partial 59 mmHG Pressure O2 Arterial Blood Oxygen Content 14.0 Vol % Arterial Blood 1.8 % Carboxyhemoglobin Arterial Blood Methemoglobin 1.0 % Blood Gas Hemoglobin 11.4 G/DL Oxygen Delivery Device ROOM AIR Blood Gas Inspired Oxygen 21 % Urine Color DARK YELLOW Urine Turbidity CLEAR Urine pH 6.0 Urine Specific [place] 1.021 Urine Protein NEG mg/dL Urine Glucose (UA) NEG mg/dL Urine Ketones NEG mg/dL Urine Occult Blood TRACE Urine Nitrite NEG Urine Bilirubin SMALL Urine Leukocyte Esterase NEG Urine RBC 4-9 /hpf Urine WBC 0-2 /hpf Urine Bacteria OCC /hpf Urine Mucus OCC /lpf Microscopic Urinalysis Comment CULT NOT INDICATED Urine Opiates Screen NEG Urine Barbiturates Screen NEG Urine Amphetamines Screen NEG Urine Benzodiazepines Screen POS Urine Cocaine Screen NEG Urine Cannabinoids Screen NEG White Blood Count 13.9 TH/MM3 Red Blood Count 3.93 MIL/MM3 Hemoglobin 12.2 GM/DL Hematocrit 35.4 % Mean Corpuscular Volume 90.2 FL Mean Corpuscular Hemoglobin 31.0 PG Mean Corpuscular Hemoglobin 34.4 % Concent Red Cell Distribution Width 15.5 % Platelet Count 157 TH/MM3 Mean Platelet Volume 8.5 FL Neutrophils (%) (Auto) 50.9 % Lymphocytes (%) (Auto) 36.6 % Monocytes (%) (Auto) 7.5 % Eosinophils (%) (Auto) 0.9 % Basophils (%) (Auto) 4.1 % Neutrophils # (Auto) 7.1 TH/MM3 Lymphocytes # (Auto) 5.1 TH/MM3 Monocytes # (Auto) 1.0 TH/MM3 Eosinophils # (Auto) 0.1 TH/MM3 Basophils # (Auto) 0.6 TH/MM3 CBC Comment AUTO DIFF MDM Medical Decision Making Medical Screen Exam Complete: Yes Emergency Medical Condition: Yes Interpretation(s) LABS: CBC remarkable for mild leukocytosis, mild anemia CMP is unremarkable Troponin negative BNP is 24 UA generally unremarkable Urine drug screen positive for benzodiazepines ABG 7.45/41/59/27, base excess 3.6 Differential Diagnosis Renal failure, adverse effect of medications, weakness, dehydration, electrolyte abnormality, hypercarbia, pneumonia, other Narrative Course Medical decision making INITIAL: 72-year-old man who presents to the emergency Department with altered mental status, sluggish responsiveness, unclear etiology. Possibly medication effect of those medications have really change the past month or so. Check labs , Depakote level, chest x-ray, urine, reassess. FINAL: Labs are unremarkable. Patient with some infiltrate in the left lower lung. The areas as masses well. Difficulty completely exclude pneumonia. Brother was specifically worried about it based on patient's breathing in behavior. Given his mild leukocytosis, patient breathing changes, extensive smoking history, will place on antibiotics. Given QT prolonging effects with clozaril, and azithromycin, will do doxycycline. Procedures Procedure Narrative Ultrasound-guided peripheral IV: Nursing staff unable to establish IV access. Using real-time ultrasound guidance, 2 attempts were made in the left arm one attempt in the right arm for IV access. Initial 2 tabs the left arm unsuccessful however was able to place a 20-gauge Angiocath under real-time ultrasound guidance in the right before meals using standard technique. Patient tolerated well. Blood samples were obtained for analysis. Diagnosis Primary Impression: Weakness Additional Impressions: Pneumonia Qualified Code: J18.1 - Pneumonia of left lower lobe due to infectious organism Schizoaffective disorder Additional Instructions: Follow-up with her psychiatrist today as discussed. Take azithromycin as prescribed. Return to the emergency department for any new or worsening symptoms. Med/Other Pt SpecificInfo: Prescription(s) given Scripts Doxycycline Hyclate 100 Mg [id number] Mg PO BID 7 Days Ref 0 Prov:Josue Olivas MD 03/03/17 Disposition: 01 DISCHARGE HOME Condition: Stable Josue Olivas MD Mar 03, 2017 13:05
[2017-03-03 13:09] LABS: BLOOD GAS BASE EXCESS 3.6 mmol/L (-2-2); BLOOD GAS CARBOXYHEMOGLOBIN 1.8 % (0-4); BLOOD GAS HCO3 27 mmol/L (22-26); BLOOD GAS O2 HGB SATURATION 87 % (90-100); BLOOD GAS PCO2 41 mmHG (38-42); BLOOD GAS PO2 59 mmHG (61-120); BLOOD GAS TOTAL HGB 11.4 G/DL (12.0-16.0); CRITICAL VALUE YES; FIO2 21 %; OXYGEN DEVICE ROOM AIR; TEMP CORR TO 98.6
[2017-03-03 13:10] LABS: DRAW SITE LT RADIAL; NUMBER OF ARTERIAL PUNCTURES 1; STAT YES; ULNAR PULSE PRESENT
[2017-03-03 13:15] LABS: CHLORIDE 103 MEQ/L (98-107); SODIUM (NA) 139 MEQ/L (136-145)
[2017-03-03 13:19] LABS: ANION GAP 8 MEQ/L (5-15); BICARBONATE 28.2 MEQ/L (21.0-32.0); BLOOD UREA NITROGEN 15 MG/DL (7-18)
[2017-03-03 13:22] LABS: ALT (GPT) 20 U/L (12-78); AST (GOT) 20 U/L (15-37); GLOMERULAR FILTRATION RATE 102 ML/MIN (>89)
[2017-03-03 13:23] LABS: TOTAL BILIRUBIN ADULT 0.4 MG/DL (0.2-1.0)
[2017-03-03 13:24] LABS: ALKALINE PHOSPHATASE 66 U/L (45-117)
[2017-03-03 13:25] LABS: CREATINE KINASE 80 U/L (39-308)
--- NOTE | 2017-03-03 13:25 | RADHPO ---
EXAM DATE/TIME: 03/03/2017 13:08 [facility] COMPARISON: CHEST SINGLE AP, September 12, 2016, 13:21. INDICATIONS : Short of breath MEDICAL HISTORY : None. SURGICAL HISTORY : None. ENCOUNTER: Initial ACUITY: 1 day PAIN SCORE: Non-responsive. LOCATION: Bilateral chest FINDINGS: Lungs are hypoaerated with mild lower lobe air space disease bilaterally, left greater than right. Ca rdiomediastinal contours are stable given differences in technique. Redemonstration of old left proxi mal humeral fracture. CONCLUSION: 1. Underinflation with bilateral, left greater right, lower lobe airspace disease likely reflecting a telectasis. Developing airspace infection or aspiration cannot be excluded in the appropriate clinica l setting. Yohan Ponce MD on March 03, 2017 at 13:20 Board Certified Radiologist. This report was verified electronically.
[2017-03-03 13:47] LABS: BLOOD, URINE TRACE (NEG); GLUCOSE,URINE NEG (NEG); KETONE, URINE NEG (NEG); NITRITE,URINE NEG (NEG)
[2017-03-03 13:52] LABS: URINE COLOR DARK YELLOW (YELLW/STRAW)
[2017-03-03 13:53] LABS: BACTERIA, URINE OCC /hpf; COMMENT (UR) CULT NOT INDICATED; CULTURE IF INDICATED CULT NOT INDICATED; MUCUS URINE OCC /lpf (OCC); WBC, URINE 0-2 /hpf (0-5)
[2017-03-03 13:55] LABS: AMPHETAMINE, URINE NEG (NEG); COCAINE, URINE NEG (NEG)
[2017-03-03 14:04] LABS: BARBITURATES, URINE NEG (NEG)
[2017-03-03 14:33] LABS: AUTOMATED NEUTROPHIL # 7.1 TH/MM3 (1.8-7.7); BASOPHIL # 0.6 TH/MM3 (0-0.2); BASOPHIL % 4.1 % (0.0-2.0); EOSINOPHIL # 0.1 TH/MM3 (0-0.4); EOSINOPHIL % 0.9 % (0.0-4.0); HEMATOCRIT 35.4 % (39.0-51.0); LYMPH % 36.6 % (9.0-44.0); LYMPHOCYTE # 5.1 TH/MM3 (1.0-4.8); MEAN CELL VOLUME 90.2 FL (80.0-100.0); MEAN CORPUSCULAR HGB CONC 34.4 % (32.0-36.0); MONO % 7.5 % (0.0-8.0); NEUT % 50.9 % (16.0-70.0); PLATELET COUNT 157 TH/MM3 (150-450); RED BLOOD COUNT 3.93 MIL/MM3 (4.50-5.90); RED CELL DISTRIBUTION WIDTH 15.5 % (11.6-17.2); WHITE BLOOD COUNT 13.9 TH/MM3 (4.0-11.0)
[2017-03-03 14:41] LABS: HEMO FLAGS AUTO DIFF
[2017-03-03] MEDS ORDERED: AZIT250T3 PO (15:06)
[2017-03-03] MEDS ORDERED: DOXY100C PO (15:09)
[2017-03-03] MEDS ORDERED: DOXYCYCLINE HYCLATE 100 MG CAP PO ONE (15:15)
[2017-03-03 15:26] VITALS: BP 143/89; PULSE 85; RESP 16; O2SAT 95
[2017-03-03 15:43] LABS: EOSINOPHILS 3 % (0-4); NEUTROPHIL # MANUAL DIFF 6.3 TH/MM3 (1.8-7.7); POLYS (SEG NEUTROPHILS) 45 % (16-70); WBC DIFF SAMPLE 100
[2017-03-03 15:44] LABS: PLATELET ESTIMATE SMEAR NORMAL (NORMAL); PLATELET MORPHOLOGY NORMAL (NORMAL); SCAN/DIFF FINAL DIFF MANUAL
== END 2017-03-03 15:33 | disposition home or self-care (01) ==
LOC: PHED 12:14
DX: J18.1 Lobar pneumonia, unspecified organism (principal); R53.1 Weakness; F25.9 Schizoaffective disorder, unspecified; R55 Syncope and collapse; D72.829 Elevated white blood cell count, unspecified; R91.8 Other nonspecific abnormal finding of lung field; J44.9 Chronic obstructive pulmonary disease, unspecified; R06.02 Shortness of breath; Z87.891 Personal history of nicotine dependence
CPT/HCPCS: 36600; 71010; 80053; 80164; 80307; 81001; 82550; 82805; 83880; 84484; 85007; 85027; 94664; 99284

== ENCOUNTER 2017-06-21 13:24 | Emergency (ER) | payer MEDICARE, OTHER ==
[~2017-06-21] VITALS: Ht 177.8 cm; Wt 80.0 kg
[~2017-06-21 13:24] MED LIST changes: -ASPI81CH CHEW; -ATOR40TA16 PO; +BENZ0.5T PO; -CARA1SUS3 PO; +CHLO25TA38 PO; +DOXY100C PO; -PANT20 PO; -SENN8.6T15 PO
[2017-06-21 13:27] VITALS: BP 130/70; PULSE 90; RESP 18; TEMP 98.2; O2SAT 98
[2017-06-21] MEDS ORDERED: SODIUM CHLORIDE 0.9% FLUSH 5 ML FLUSH IV FLUSH PRN (13:30)
[2017-06-21 13:50] VITALS: BP 110/71; O2SAT 98
[2017-06-21 13:52] LABS: AUTOMATED NEUTROPHIL # 3.9 TH/MM3 (1.8-7.7); BASOPHIL # 0.1 TH/MM3 (0-0.2); BASOPHIL % 1.2 % (0.0-2.0); EOSINOPHIL # 0.1 TH/MM3 (0-0.4); EOSINOPHIL % 1.6 % (0.0-4.0); HEMO FLAGS DIFF FINAL; LYMPH % 43.4 % (9.0-44.0); LYMPHOCYTE # 3.4 TH/MM3 (1.0-4.8); MEAN CELL VOLUME 92.1 FL (80.0-100.0); MEAN CORPUSCULAR HEMOGLOBIN 29.7 PG (27.0-34.0); MEAN CORPUSCULAR HGB CONC 32.2 % (32.0-36.0); MONO % 5.6 % (0.0-8.0); NEUT % 48.2 % (16.0-70.0); PLATELET COUNT 160 TH/MM3 (150-450); RED BLOOD COUNT 3.91 MIL/MM3 (4.50-5.90); RED CELL DISTRIBUTION WIDTH 13.7 % (11.6-17.2); WHITE BLOOD COUNT 7.9 TH/MM3 (4.0-11.0)
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
--- NOTE | 2017-06-21 14:03 | RADRPT ---
EXAM DATE/TIME: 06/21/2017 13:55 [facility] COMPARISON: CHEST SINGLE AP, March 03, 2017, 13:08. INDICATIONS : Syncope. Weakness. MEDICAL HISTORY : None. SURGICAL HISTORY : None. ENCOUNTER: Initial ACUITY: 1 day PAIN SCORE: 5/10 LOCATION: Bilateral chest FINDINGS: A single view of the chest demonstrates the lungs to be symmetrically aerated without evidence of mas s, infiltrate or effusion. The cardiomediastinal contours are unremarkable. . Atherosclerotic calci fications are present in the aorta. There is a remote fracture deformity of the proximal left humerus . CONCLUSION: 1. No acute cardiopulmonary disease. 2. Remote stable fracture deformity of the proximal left humerus. Avelino Mcgowan MD on June 21, 2017 at 14:00 Board Certified Radiologist. This report was verified electronically.
[2017-06-21 14:08] LABS: APTT (PATIENT) 25.7 SEC (24.3-30.1); PROTHROMBIN TIME - PATIENT 11.4 SEC (9.8-11.6)
[2017-06-21 14:19] LABS: BLOOD UREA NITROGEN 27 MG/DL (7-18)
[2017-06-21 14:20] LABS: ALKALINE PHOSPHATASE 66 U/L (45-117); ALT (GPT) 20 U/L (12-78); ANION GAP 8 MEQ/L (5-15); AST (GOT) 24 U/L (15-37); BICARBONATE 27.6 MEQ/L (21.0-32.0); CHLORIDE 98 MEQ/L (98-107); GLOMERULAR FILTRATION RATE 73 ML/MIN (>89); POTASSIUM 3.1 MEQ/L (3.5-5.1); SODIUM (NA) 134 MEQ/L (136-145); TOTAL BILIRUBIN ADULT 0.4 MG/DL (0.2-1.0)
--- NOTE | 2017-06-21 14:34 | RADRPT ---
EXAM DATE/TIME: 06/21/2017 13:56 [facility] COMPARISON: CT BRAIN W/O CONTRAST, February 22, 2017, 12:22. INDICATIONS : Possible fall, altered mental status. RADIATION DOSE: 68.35 CTDIvol (mGy) MEDICAL HISTORY : Cirrhosis. Prior head trauma. SURGICAL HISTORY : None. ENCOUNTER: Initial ACUITY: 1 day PAIN SCALE: 0/10 LOCATION: cranial TECHNIQUE: Multiple contiguous axial images were obtained of the head. Using automated exposure control and adj ustment of the mA and/or kV according to patient size, radiation dose was kept as low as reasonably a chievable to obtain optimal diagnostic quality images. DICOM format image data is available electro nically for review and comparison. FINDINGS: CEREBRUM: The ventricles are normal for age. No evidence of midline shift, mass lesion, hemorrhage or acute in farction. No extra-axial fluid collections are seen. POSTERIOR FOSSA: The cerebellum and brainstem are intact. The 4th ventricle is midline. The cerebellopontine angle i s unremarkable. EXTRACRANIAL: The visualized portion of the orbits is intact. SKULL: The calvaria is intact. No evidence of skull fracture. CONCLUSION: Negative noncontrast CT. Avelino Mcgowan MD on June 21, 2017 at 14:21 Board Certified Radiologist. This report was verified electronically.
--- NOTE | 2017-06-21 14:44 | RADRPT ---
EXAM DATE/TIME: 06/21/2017 13:56 [facility] COMPARISON: CT CERVICAL SPINE W/O CONTRAST, February 22, 2017, 12:25. INDICATIONS : Possible fall, altered mental status. RADIATION DOSE: 26.33 CTDIvol (mGy) MEDICAL HISTORY : Cirrhosis. SURGICAL HISTORY : None. ENCOUNTER: Initial ACUITY: 1 day PAIN SCALE: 3/10 LOCATION: neck TECHNIQUE: Volumetric scanning of the cervical spine was performed. Multiplanar reconstructions i n the sagittal, coronal and oblique axial planes were performed. Using automated exposure control a nd adjustment of the mA and/or kV according to patient size, radiation dose was kept as low as reason ably achievable to obtain optimal diagnostic quality images. DICOM format image data is available e lectronically for review and comparison. FINDINGS: The sagittal reconstructions demonstrate normal alignment and normal prevertebral soft tissues. The d ens is intact and there is a normal atlantoaxial relationship. The axial images demonstrate that the vertebral bodies and posterior elements are intact. The soft ti ssues are within normal limits. There is no evidence of acute fracture or Malalignment. Multiple scat tered lymph nodes are again noted without significant change. CONCLUSION: Negative trauma CT. Avelino Mcgowan MD on June 21, 2017 at 14:33 Board Certified Radiologist. This report was verified electronically.
[2017-06-21] MEDS ORDERED: LORazepam 2 MG/ML VIAL IV PUSH ONE (14:45)
[2017-06-21 14:53] VITALS: BP 106/66; PULSE 78; RESP 18; O2SAT 97
--- NOTE | 2017-06-22 13:43 | EKG ---
Date Performed: 06/21/2017 Time Performed: 13:36:30 PTAGE: 72 years EKG: Sinus rhythm NORMAL ECG PREVIOUS TRACING : 07/31/2016 19.55 Since previous tracing, no significant change. DOCTOR: Min Martinez Interpretating Date/Time 06/22/2017 13:42:13
== END 2017-06-21 16:06 | disposition home or self-care (01) ==
LOC: PHED 13:24
DX: F79 Unspecified intellectual disabilities (principal); S80.212A Abrasion, left knee, initial encounter; F20.9 Schizophrenia, unspecified; K74.60 Unspecified cirrhosis of liver; R55 Syncope and collapse; W19.XXXA Unspecified fall, initial encounter; Z72.0 Tobacco use; Z79.899 Other long term (current) drug therapy
CPT/HCPCS: 70450; 71010; 72125; 80053; 80307; 85025; 85610; 85730; 93005; 96374; 99285; J2060

== ENCOUNTER 2017-07-10 11:15 | Inpatient (IN) | payer MEDICARE, OTHER ==
[2017-07-10] VITALS (9 sets, daily range): BP systolic 99–141; BP diastolic 56–75; PULSE 74–89; RESP 16–22; TEMP 97.3–98.6; O2SAT 89–96
[~2017-07-10] VITALS: Ht 165.1 cm; Wt 68.2 kg
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
[2017-07-10] MEDS ORDERED: SODIUM CHLORIDE 0.9% FLUSH 5 ML FLUSH IV FLUSH PRN (12:00)
[2017-07-10] MEDS ORDERED: SODIUM CHLORID 0.9% 500 ML INJ 500 ML IV ONE (12:00)
[2017-07-10 12:12] LABS: BLOOD GAS BASE EXCESS 7.8 mmol/L (-2-2); BLOOD GAS CARBOXYHEMOGLOBIN 1.4 % (0-4); BLOOD GAS HCO3 32 mmol/L (22-26); BLOOD GAS METHEMOGLOBIN 0.6 % (0-2); BLOOD GAS O2 HGB SATURATION 84 % (90-100); BLOOD GAS OXYGEN CONTENT 12.3 Vol % (12.0-20.0); BLOOD GAS PCO2 49 mmHg (38-42); BLOOD GAS PO2 53 mmHG (61-120); BLOOD GAS TOTAL HGB 10.4 G/DL (12.0-16.0); CRITICAL VALUE YES; TEMP CORR TO 98.6
[2017-07-10 12:13] LABS: DRAW SITE RT RADIAL; FIO2 21 %; NUMBER OF ARTERIAL PUNCTURES 1; OXYGEN DEVICE ROOM AIR; STAT YES; ULNAR PULSE Y
--- NOTE | 2017-07-10 12:35 | RADRPT ---
EXAM DATE/TIME: 07/10/2017 12:01 [facility] COMPARISON: CHEST SINGLE AP, June 21, 2017, 13:55. INDICATIONS : Shortness of breath. MEDICAL HISTORY : Seizures. SURGICAL HISTORY : None. ENCOUNTER: Initial ACUITY: 1 day PAIN SCORE: Non-responsive. LOCATION: Bilateral chest FINDINGS: A single portable frontal view the chest shows a patchy parenchymal consolidation involving the left lung base. This is new. Right lung is clear. Heart is normal size. No effusions. Degenerative spine. Old trauma involving the left shoulder. CONCLUSION: Left lower lobe infiltrate. Arias Mclean Jr., MD on July 10, 2017 at 12:33 Board Certified Radiologist. This report was verified electronically.
[2017-07-10 12:49] LABS: AUTOMATED NEUTROPHIL # 7.1 TH/MM3 (1.8-7.7); BASOPHIL % 0.2 % (0.0-2.0); EOSINOPHIL % 0.4 % (0.0-4.0); HEMATOCRIT 33.3 % (39.0-51.0); HEMO FLAGS DIFF FINAL; LYMPHOCYTE # 2.5 TH/MM3 (1.0-4.8); MEAN CELL VOLUME 94.4 FL (80.0-100.0); MEAN CORPUSCULAR HEMOGLOBIN 31.6 PG (27.0-34.0); MEAN CORPUSCULAR HGB CONC 33.5 % (32.0-36.0); MONO % 7.6 % (0.0-8.0); NEUT % 67.8 % (16.0-70.0); PLATELET COUNT 140 TH/MM3 (150-450); RED BLOOD COUNT 3.53 MIL/MM3 (4.50-5.90); RED CELL DISTRIBUTION WIDTH 14.4 % (11.6-17.2); WHITE BLOOD COUNT 10.5 TH/MM3 (4.0-11.0)
[2017-07-10 12:58] LABS: APTT (PATIENT) 27.6 SEC (24.3-30.1); PROTHROMBIN TIME - PATIENT 11.1 SEC (9.8-11.6)
[2017-07-10] MEDS ORDERED: SODIUM CHLOR 0.9% 1000 ML INJ 1,000 ML IV ONE ×2 (13:00→14:45)
[2017-07-10] MEDS ORDERED: PIPERACIL-TAZO 4.5 GM PREMIX 100 ML IV ONE (13:00)
[2017-07-10] MEDS ORDERED: VANCOMYCIN INJ 1,750 MG in SODIUM CHLORID 0.9% 500 ML INJ 500 ML IV ONE (13:00)
[2017-07-10 13:09] LABS: ALT (GPT) 78 U/L (12-78); ANION GAP 5 MEQ/L (5-15); AST (GOT) 250 U/L (15-37); BICARBONATE 33.3 MEQ/L (21.0-32.0); BLOOD UREA NITROGEN 16 MG/DL (7-18); CHLORIDE 95 MEQ/L (98-107); GLOMERULAR FILTRATION RATE 118 ML/MIN (>89); POTASSIUM 3.2 MEQ/L (3.5-5.1); SODIUM (NA) 133 MEQ/L (136-145)
[2017-07-10 13:11] LABS: ALCOHOL LESS THAN 3 MG/DL (0-5)
--- NOTE | 2017-07-10 13:25 | RADRPT ---
EXAM DATE/TIME: 07/10/2017 13:05 [facility] COMPARISON: CT BRAIN W/O CONTRAST, June 21, 2017, 13:56. INDICATIONS : Slurred speech. Multiple falls. RADIATION DOSE: 39.23 CTDIvol (mGy) MEDICAL HISTORY : None SURGICAL HISTORY : None. ENCOUNTER: Initial ACUITY: 1 day PAIN SCALE: 0/10 LOCATION: cranial TECHNIQUE: Multiple contiguous axial images were obtained of the head. Using automated exposure control and adj ustment of the mA and/or kV according to patient size, radiation dose was kept as low as reasonably a chievable to obtain optimal diagnostic quality images. DICOM format image data is available electro nically for review and comparison. FINDINGS: CEREBRUM: The ventricles are normal for age. No evidence of midline shift, mass lesion, hemorrhage or acute in farction. No extra-axial fluid collections are seen. POSTERIOR FOSSA: The cerebellum and brainstem are intact. The 4th ventricle is midline. The cerebellopontine angle i s unremarkable. EXTRACRANIAL: The visualized portion of the orbits is intact. Mucosal thickening without air-fluid levels involving ethmoid air cells and maxillary sinuses bilaterally. SKULL: The calvaria is intact. No evidence of skull fracture. CONCLUSION: 1. No acute intracranial abnormality. 2. Chronic paranasal sinus disease. Arias Mclean Jr., MD on July 10, 2017 at 13:22 Board Certified Radiologist. This report was verified electronically.
[2017-07-10 13:27] LABS: BLOOD, URINE NEG (NEG); GLUCOSE,URINE NEG (NEG); KETONE, URINE NEG (NEG); NITRITE,URINE NEG (NEG); PH, URINE 6.5 (5.0-8.5); URINE COLOR YELLOW (YELLW/STRAW)
[2017-07-10 13:33] LABS: ALKALINE PHOSPHATASE 64 U/L (45-117); CREATINE KINASE 8035 U/L (39-308); TOTAL BILIRUBIN ADULT 0.3 MG/DL (0.2-1.0)
[2017-07-10 13:36] LABS: COMMENT (UR) CATH-CULT NOT IND; CULTURE IF INDICATED CATH CULTURE NOT IND
[2017-07-10 13:46] LABS: CKMB 6.2 NG/ML (0.5-3.6)
--- NOTE | 2017-07-10 14:00 | RADRPT ---
EXAM DATE/TIME: 07/10/2017 13:33 [facility] COMPARISON: No previous studies available for comparison. INDICATIONS : Right knee pain, multiple falls. MEDICAL HISTORY : None. SURGICAL HISTORY : None. ENCOUNTER: Sequela ACUITY: 1 day PAIN SCORE: Non-responsive. LOCATION: Right knee FINDINGS: Two view examination of the right knee demonstrates no evidence of fracture or dislocation. Bony min eralization is normal. Prepatellar soft tissue swelling is noted. There is no evidence of joint effus ion. CONCLUSION: Soft tissue swelling without evidence of acute bony abnormality. Fred Waller MD on July 10, 2017 at 13:56 Board Certified Radiologist. This report was verified electronically.
--- NOTE | 2017-07-10 14:07 | RADRPT ---
EXAM DATE/TIME: 07/10/2017 13:05 [facility] COMPARISON: CT CERVICAL SPINE W/O CONTRAST, February 22, 2017, 12:25. CT CERVICAL SPINE W/O CONTRAST, June 21 017, 13:56. INDICATIONS : Slurred speech. Mulitple falls. RADIATION DOSE: 21.96 CTDIvol (mGy) MEDICAL HISTORY : None SURGICAL HISTORY : None. ENCOUNTER: Initial ACUITY: 1 day PAIN SCALE: 0/10 LOCATION: neck TECHNIQUE: Volumetric scanning of the cervical spine was performed. Multiplanar reconstructions in the sagittal, coronal and oblique axial planes were performed. Using automated exposure control and adjustment o f the mA and/or kV according to patient size, radiation dose was kept as low as reasonably achievable to obtain optimal diagnostic quality images. DICOM format image data is available electronically f or review and comparison. FINDINGS: Sagittal images demonstrate normal vertebral body alignment and curvature. The odontoid is intact. Th e occipital condyles and lateral masses of C1 are intact. Axial images were performed from C2-C3 to C7-T1. There is nonunion of the posterior arch of C1 which can be seen as a normal variation. There is osteorathritis involving the atlantoaxial joint with sclerosis and osteophyte formation. There are numerous enlarged lymph nodes throughout digastric chain. Malignancy is not excluded. In addition th ere is a possible nodule involving the left lung apex. ET scan of the neck and chest is recommended. C2-C3: No significant abnormalities identified. C3-C4: No significant abnormalities identified. C4-C5: No significant abnormalities identified. C5-C6: There is uncovertebral joint hypertrophy on the right side. There is mild right sided neural foramina l narrowing. There is mild facet arthritis bilaterally. C6-C7: No significant abnormalities identified. C7-T1: No significant abnormalities identified. CONCLUSION: 1. There is no evidence of acute fracture. 2. Extensive cervical adenopathy which can be seen with lymphoma. Possible nodule left lung apex 3. CT scan of the neck and chest with contrast is recommended Ford Darling MD on July 10, 2017 at 13:42 Board Certified Radiologist. This report was verified electronically.
--- NOTE | 2017-07-10 14:19 | RADRPT ---
EXAM DATE/TIME: 07/10/2017 13:34 [facility] COMPARISON: No previous studies available for comparison. INDICATIONS : Left knee pain, multiple falls. MEDICAL HISTORY : None. SURGICAL HISTORY : None. ENCOUNTER: Sequela ACUITY: 1 day PAIN SCORE: Non-responsive. LOCATION: Left knee FINDINGS: Two view examination of the left knee demonstrates no evidence of fracture or dislocation. Bony mine ralization is normal. The suprapatellar soft tissues have a normal configuration. CONCLUSION: No acute bony abnormality or joint effusion. Fred Waller MD on July 10, 2017 at 14:17 Board Certified Radiologist. This report was verified electronically.
--- NOTE | 2017-07-10 14:23 | RADRPT ---
EXAM DATE/TIME: 07/10/2017 13:42 [facility] COMPARISON: No previous studies available for comparison. INDICATIONS : Left hand pain. MEDICAL HISTORY : None. SURGICAL HISTORY : None. ENCOUNTER: Sequela ACUITY: 1 day PAIN SCORE: Non-responsive. LOCATION: Left hand FINDINGS: Mildly comminuted fracture is seen through the base of the fifth metacarpal. There is adjacent soft t issue swelling. Bony structures are otherwise intact. CONCLUSION: Comminuted fracture involving the base of the left fifth metacarpal. Fred Waller MD on July 10, 2017 at 14:20 Board Certified Radiologist. This report was verified electronically.
[2017-07-10] MEDS ORDERED: LACTULOSE SYRUP 20 GM/30 ML CUP PO ONE (14:30)
[2017-07-10] MEDS ORDERED: POTASSIUM CHLORIDE 20 MEQ CONTROLLED RELEASE TAB PO ONE (14:30)
--- NOTE | 2017-07-10 14:43 | PD ---
Physical Exam Date Seen by Provider: Jul 10, 2017 Time Seen by Provider: 14:39 Narrative 72-year-old male who has been falling frequently was brought to the emergency room after he was found down and altered mental status by EMS. Patient is confused and unable to give a reliable history. He is disheveled and covered in new and old abrasions and scabs. He has been seen by the PA and I'm supervising her. Vital signs are stable. Blood test results of come back and there are significant for elevated CPK and pneumonia. Sodium, chloride and potassium are mildly low. Patient has received 2.5 L of IV fluid bolus and another liter has been ordered. By mouth potassium, as well as lactulose has been ordered as well. Patient has been admitted to Dr. Hebert. Patient also has a comminuted fracture of the left base of the fifth metacarpal. Patient will get an ulnar gutter splint and the PA will consult hand surgeon. Data Data Last Documented VS Vital Signs Date Time Temp Pulse Resp B/P (MAP) Pulse Ox O2 Delivery O2 Flow Rate FiO2 07/10/17 13:58 74 20 107/66 (80) 96 Nasal Cannula 2.00 07/10/17 11:33 98.6 Orders Orders Electrocardiogram (07/10/17 11:47) Ammonia (07/10/17 11:47) Complete Blood Count With Diff (07/10/17 11:47) Comprehensive Metabolic Panel (07/10/17 11:47) Creatine Kinase (Cpk) (07/10/17 11:47) Prothrombin Time / Inr (Pt) (07/10/17 11:47) Act Partial Throm Time (Ptt) (07/10/17 11:47) Troponin I (07/10/17 11:47) Urinalysis - C+S If Indicated (07/10/17 11:47) Arterial Blood Gas (Abg) (07/10/17 11:47) Blood Culture (07/10/17 11:47) Chest, Single Ap (07/10/17 11:47) Ct Brain W/O Iv Contrast(Rout) (07/10/17 11:47) Blood Glucose (07/10/17 11:47) Ecg Monitoring (07/10/17 11:47) Iv Access Insert/Monitor (07/10/17 11:47) Oximetry (07/10/17 11:47) Sodium Chloride 0.9% Flush (Ns Flush) (07/10/17 12:00) Drug Screen, Random Urine (07/10/17 11:47) Alcohol (Ethanol) (07/10/17 11:47) Ct Cerv Spine W/O Contrast (07/10/17 ) Sodium Chlorid 0.9% 500 Ml Inj (Ns 500 M (07/10/17 12:00) Hand, Complete ([id number]) (07/10/17 ) Knee, Ltd (1 Or 2vws) (07/10/17 ) Knee, Ltd (1 Or 2vws) (07/10/17 ) Lactic Acid Sepsis Protocol (07/10/17 11:59) Sodium Chlor 0.9% 1000 Ml Inj (Ns 1000 M (07/10/17 13:00) Vancomycin Inj (Vancomycin Inj) (07/10/17 13:00) Piperacil-Tazo 4.5 Gm Premix (Zosyn 4.5 (07/10/17 13:00) CKMB (07/10/17 11:55) CKMB% (07/10/17 11:55) Westergren Sedimentation Rate (07/10/17 13:54) C-Reactive Protein (Crp) (07/10/17 13:54) Myoglobin, Urine (07/10/17 14:00) Admit Order (Ed Use Only) (07/10/17 ) Labs Laboratory Tests Test 07/10/17 11:55 07/10/17 12:10 07/10/17 12:45 White Blood Count 10.5 TH/MM3 Red Blood Count 3.53 MIL/MM3 Hemoglobin 11.2 GM/DL Hematocrit 33.3 % Mean Corpuscular Volume 94.4 FL Mean Corpuscular Hemoglobin 31.6 PG Mean Corpuscular Hemoglobin Concent 33.5 % Red Cell Distribution Width 14.4 % Platelet Count 140 TH/MM3 Mean Platelet Volume 9.4 FL Neutrophils (%) (Auto) 67.8 % Lymphocytes (%) (Auto) 24.0 % Monocytes (%) (Auto) 7.6 % Eosinophils (%) (Auto) 0.4 % Basophils (%) (Auto) 0.2 % Neutrophils # (Auto) 7.1 TH/MM3 Lymphocytes # (Auto) 2.5 TH/MM3 Monocytes # (Auto) 0.8 TH/MM3 Eosinophils # (Auto) 0.0 TH/MM3 Basophils # (Auto) 0.0 TH/MM3 CBC Comment DIFF FINAL Differential Comment Erythrocyte Sedimentation Rate 16 mm/hr Prothrombin Time 11.1 SEC Prothromb Time International Ratio 1.0 RATIO Activated Partial Thromboplast Time 27.6 SEC Blood Urea Nitrogen 16 MG/DL Creatinine 0.66 MG/DL Random Glucose 145 MG/DL Total Protein 5.9 GM/DL Albumin 2.6 GM/DL Calcium Level 7.9 MG/DL Alkaline Phosphatase 64 U/L Aspartate Amino Transf (AST/SGOT) 250 U/L Alanine Aminotransferase (ALT/SGPT) 78 U/L Total Bilirubin 0.3 MG/DL Sodium Level 133 MEQ/L Potassium Level 3.2 MEQ/L Chloride Level 95 MEQ/L Carbon Dioxide Level 33.3 MEQ/L Anion Gap 5 MEQ/L Estimat Glomerular Filtration Rate 118 ML/MIN Lactic Acid Level 1.9 mmol/L Ammonia 114 MCMOL/L Total Creatine Kinase 8035 U/L Creatine Kinase MB 6.2 NG/ML Creatine Kinase MB % 0.1 % Troponin I 0.02 NG/ML C-Reactive Protein 6.90 MG/DL Ethyl Alcohol Level LESS THAN 3 MG/DL Blood Gas Puncture Site RT RADIAL Blood Gas Patient Temperature 98.6 Blood Gas HCO3 32 mmol/L Blood Gas Base Excess 7.8 mmol/L Blood Gas Oxygen Saturation 84 % Arterial Blood pH 7.43 Arterial Blood Partial Pressure CO2 49 mmHg Arterial Blood Partial Pressure O2 53 mmHG Arterial Blood Oxygen Content 12.3 Vol % Arterial Blood Carboxyhemoglobin 1.4 % Arterial Blood Methemoglobin 0.6 % Blood Gas Hemoglobin 10.4 G/DL Oxygen Delivery Device ROOM AIR Blood Gas Inspired Oxygen 21 % Urine Color YELLOW Urine Turbidity CLEAR Urine pH 6.5 Urine Specific [place] 1.011 Urine Protein NEG mg/dL Urine Glucose (UA) NEG mg/dL Urine Ketones NEG mg/dL Urine Occult Blood NEG Urine Nitrite NEG Urine Bilirubin NEG Urine Urobilinogen LESS THAN 2.0 MG/DL Urine Leukocyte Esterase NEG Urine RBC 1 /hpf Urine WBC LESS THAN 1 /hpf Microscopic Urinalysis Comment CATH-CULT NOT IND Urine Opiates Screen NEG Urine Barbiturates Screen NEG Urine Amphetamines Screen NEG Urine Benzodiazepines Screen NEG Urine Cocaine Screen NEG Urine Cannabinoids Screen NEG MDM Supervised Visit with MANDIE: Yes Critical Care Narrative Aggregate critical care time was 30 minutes. Time to perform other separately billable procedures was not included in the critical care time. My time did not include minutes spent treating any other patients simultaneously or on activities that did not directly contribute to the patient's treatment. The services I provided to this patient were to treat and/or prevent clinically significant deterioration that could result in: Dehydration, fluid resuscitation, rhabdomyolysis, hyperammonemia, altered mental status I provided critical care services requiring my management, as noted below: Chart data review, documentation time, medication orders and management, vital sign assessments/reviewing monitor data, ordering and reviewing lab tests, ordering and interpreting/reviewing x-rays and diagnostic studies, care of the patient and discussion of the patient with the admitting physicians. Diagnosis Primary Impression: Altered mental status Qualified Codes: R40.0 - Somnolence Additional Impressions: Community acquired pneumonia Qualified Codes: J18.1 - Lobar pneumonia, unspecified organism Rhabdomyolysis Qualified Codes: M62.82 - Rhabdomyolysis Hyperammonemia Hypokalemia Condition: Stable Yael Sanchez MD Jul 10, 2017 14:43
--- NOTE | 2017-07-10 14:52 | EKG ---
Date Performed: 07/10/2017 Time Performed: 12:18:56 PTAGE: 72 years EKG: Sinus rhythm NORMAL ECG PREVIOUS TRACING : 06/21/2017 13.36 No significant change from previous tracing noted. DOCTOR: Taran Killian Interpretating Date/Time 07/10/2017 14:51:27
[2017-07-10] MEDS ORDERED: MORPHINE SULFATE 8 MG/ML INJ IV PUSH PRN (15:30)
[2017-07-10] MEDS ORDERED: BISACODYL 10 MG SUPP RECTAL PRN (15:30)
[2017-07-10] MEDS ORDERED: ACETAMINOPHEN 325 MG TAB PO PRN (15:30)
[2017-07-10] MEDS ORDERED: cloNIDine HCL 0.1 MG TAB PO PRN (15:30)
[2017-07-10] MEDS ORDERED: LACTULOSE SYRUP 20 GM/30 ML CUP PO PRN (15:30)
[2017-07-10] MEDS ORDERED: MAGNESIUM HYDROXIDE SUSP 30 ML CUP PO PRN (15:30)
[2017-07-10] MEDS ORDERED: SENNOSIDES 8.6 MG TAB PO PRN (15:30)
[2017-07-10] MEDS ORDERED: NALOXONE HCL 0.4 MG/ML AMP IV PUSH PRN (15:30)
[2017-07-10] MEDS ORDERED: ONDANSETRON HCL 4 MG/2 ML VIAL IVP PRN (15:30)
[2017-07-10] MEDS ORDERED: SODIUM CHLORIDE 0.9% FLUSH 10 ML FLUSH IV FLUSH PRN (15:30)
[2017-07-10] MEDS: RESP: ALBUTEROL 2.5 MG/IPRATROPIUM 0.5 MG NEB (SCH) NEB ×2 (16:08→21:33)
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
[2017-07-10] MEDS ORDERED: POTASSIUM BICARBONATE 25 MEQ EFFERVESCENT TAB PO ONE (16:45)
[2017-07-10] MEDS: PANTOPRAZOLE SODIUM 40 MG VIAL IV PUSH SCH (16:47)
[2017-07-10] MEDS: HEPARIN SODIUM - SQ 10,000 UNITS/ML VIAL SQ SCH (16:48)
[2017-07-10] MEDS: LEVOFLOXACIN 750 MG PREMIX INJ 150 ML IV SCH (17:15)
[2017-07-10] MEDS: SERTRALINE HCL 100 MG TAB PO SCH (20:50)
[2017-07-10] MEDS: DOCUSATE SODIUM 50 MG/SENNA 8.6 MG TAB PO SCH (20:50)
[2017-07-10] MEDS: LORazepam 2 MG/ML VIAL IV PUSH PRN (20:50)
[2017-07-10] MEDS: D5-NS + KCL 20 MEQ INJ 1,000 ML IV SCH (20:50)
[2017-07-10] MEDS: SODIUM CHLORIDE 0.9% FLUSH 10 ML FLUSH IV FLUSH SCH (20:51)
[2017-07-10] MEDS: BENZTROPINE MESYLATE 1 MG TAB PO SCH (21:29)
[2017-07-10] MEDS: DIVALPROEX SODIUM E.R. 500 MG TAB PO SCH (21:29)
[2017-07-10] MEDS: cloZAPine 100 MG TAB PO SCH (21:29)
[2017-07-10] MEDS: BUDESONIDE-FORMOTEROL 160/4.5 MCG INHALER INH SCH (21:29)
[2017-07-10] MEDS: TEMAZEPAM 15 MG CAP PO PRN (23:00)
[2017-07-11] VITALS (11 sets, daily range): BP systolic 113–163; BP diastolic 6–74; PULSE 82–102; RESP 18–20; TEMP 96.4–99.4; O2SAT 92–97
[2017-07-11] MEDS: HEPARIN SODIUM - SQ 10,000 UNITS/ML VIAL SQ SCH ×2 (04:20→15:48)
[2017-07-11] MEDS: LORazepam 2 MG/ML VIAL IV PUSH PRN ×2 (04:21→20:23)
[2017-07-11] MEDS: D5-NS + KCL 20 MEQ INJ 1,000 ML IV SCH ×3 (05:48→22:41)
[2017-07-11 08:14] LABS: AUTOMATED NEUTROPHIL # 5.9 TH/MM3 (1.8-7.7); BASOPHIL % 0.2 % (0.0-2.0); EOSINOPHIL # 0.1 TH/MM3 (0-0.4); EOSINOPHIL % 0.8 % (0.0-4.0); HEMATOCRIT 37.3 % (39.0-51.0); HEMO FLAGS DIFF FINAL; LYMPHOCYTE # 1.9 TH/MM3 (1.0-4.8); MEAN CELL VOLUME 94.9 FL (80.0-100.0); MEAN CORPUSCULAR HEMOGLOBIN 31.1 PG (27.0-34.0); MEAN CORPUSCULAR HGB CONC 32.7 % (32.0-36.0); MONO % 9.9 % (0.0-8.0); NEUT % 67.1 % (16.0-70.0); PLATELET COUNT 153 TH/MM3 (150-450); RED BLOOD COUNT 3.93 MIL/MM3 (4.50-5.90); RED CELL DISTRIBUTION WIDTH 14.8 % (11.6-17.2); WHITE BLOOD COUNT 8.9 TH/MM3 (4.0-11.0)
[2017-07-11] MEDS: RESP: ALBUTEROL 2.5 MG/IPRATROPIUM 0.5 MG NEB (SCH) NEB ×3 (08:32→15:34)
[2017-07-11] MEDS: DIVALPROEX SODIUM E.R. 500 MG TAB PO SCH ×2 (09:00→12:38)
[2017-07-11] MEDS: BENZTROPINE MESYLATE 1 MG TAB PO SCH ×3 (09:00→20:23)
[2017-07-11] MEDS: cloZAPine 100 MG TAB PO SCH ×2 (09:00→12:39)
[2017-07-11] MEDS: SODIUM CHLORIDE 0.9% FLUSH 10 ML FLUSH IV FLUSH SCH ×2 (09:00→20:26)
[2017-07-11] MEDS: DOCUSATE SODIUM 50 MG/SENNA 8.6 MG TAB PO SCH ×2 (09:00→20:23)
[2017-07-11] MEDS: SERTRALINE HCL 100 MG TAB PO SCH ×2 (09:00→12:39)
[2017-07-11] MEDS: BUDESONIDE-FORMOTEROL 160/4.5 MCG INHALER INH SCH ×2 (09:12→20:26)
[2017-07-11 09:16] LABS: BLOOD UREA NITROGEN 11 MG/DL (7-18)
[2017-07-11 09:17] LABS: ALKALINE PHOSPHATASE 65 U/L (45-117); ALT (GPT) 73 U/L (12-78); ANION GAP 5 MEQ/L (5-15); AST (GOT) 180 U/L (15-37); BICARBONATE 30.3 MEQ/L (21.0-32.0); CHLORIDE 105 MEQ/L (98-107); GLOMERULAR FILTRATION RATE 163 ML/MIN (>89); SODIUM (NA) 140 MEQ/L (136-145); TOTAL BILIRUBIN ADULT 0.3 MG/DL (0.2-1.0)
[2017-07-11] MEDS: FUROSEMIDE 40 MG/4 ML VIAL IV PUSH SCH ×2 (10:25→20:23)
[2017-07-11] MEDS ORDERED: RESP: ALBUTEROL 2.5 MG/IPRATROPIUM 0.5 MG NEB (SCH) NEB ONE (10:30)
--- NOTE | 2017-07-11 10:35 | HHI.FPPN ---
Subjective Remarks AMS NOT SWALLOWING D/W RN NUMEROUS PHONE CALLS Objective Vitals Vital Signs Date Time Temp Pulse Resp B/P (MAP) Pulse Ox O2 Delivery O2 Flow Rate FiO2 07/11/17 09:08 96.4 95 20 133/72 (92) 93 07/11/17 08:34 96 Nasal Cannula 3.00 07/11/17 04:00 97.9 89 20 134/74 (94) 97 07/11/17 04:00 Nasal Cannula 2.00 07/11/17 00:00 Nasal Cannula 2.00 07/11/17 00:00 97.5 82 18 129/65 (86) 97 07/10/17 21:36 90 2.00 07/10/17 20:00 98.4 83 18 114/70 (85) 95 07/10/17 20:00 Nasal Cannula 2.00 07/10/17 19:57 89 07/10/17 18:03 07/10/17 17:50 97.3 85 20 141/75 (97) 92 07/10/17 16:00 77 16 121/66 (84) 93 Nasal Cannula 2.00 07/10/17 13:58 74 20 107/66 (80) 96 Nasal Cannula 2.00 07/10/17 12:36 80 19 106/65 (79) 94 Nasal Cannula 2.00 07/10/17 12:02 92 Nasal Cannula 2.00 07/10/17 11:45 79 92 Nasal Cannula 2.00 07/10/17 11:33 98.6 81 22 99/56 (70) 89 I/O 07/10/17 07/10/17 07/10/17 07/11/17 07/11/17 07/11/17 07:00 15:00 23:00 07:00 15:00 23:00 Intake Total 500 ml 1617 ml 1270 ml Output Total 800 ml Balance 500 ml 1617 ml 470 ml Intake Oral 120 ml IV Total 500 ml 1617 ml 1150 ml Output Urine Total 800 ml # Bowel Movements 1 Result Diagram: 07/11/1734 07/11/17733 Objective Remarks GENERAL: SKIN: Warm and dry. numerous abrasions. HEAD: Atraumatic. Normocephalic. EYES: Pupils equal and round. No scleral icterus. No injection or drainage. ENT: No nasal bleeding or discharge. Mucous membranes pink and moist. NECK: Trachea midline. No JVD. CARDIOVASCULAR: Regular rate and rhythm. RESPIRATORY: No accessory muscle use. Clear to auscultation. Breath sounds equal bilaterally. GASTROINTESTINAL: Abdomen soft, non-tender, nondistended. Hepatic and splenic margins not palpable. MUSCULOSKELETAL: Extremities without clubbing, cyanosis, or edema. No obvious deformities. NEUROLOGICAL: Awake and alert. No obvious cranial nerve deficits. Motor grossly within normal limits. 1 out of 5 muscle strength in the arms and legs. Normal speech. PSYCHIATRIC: Appropriate mood and affect; insight and judgment normal. Medications and IVs Current Medications Medications (Trade) Dose Ordered Sig/Alpesh Route Start Time Stop Time Status Last Admin (Cogentin) 1 mg BID PO 07/10/17 21:00 07/11/17 12:40 (Symbicort 160-4.5 Inh) 1 puff Q12HR INH 07/10/17 21:00 07/11/17 09:12 (Clozaril) 200 mg DAILY PO 07/10/17 15:30 07/11/17 12:39 (Depakote Er) 500 mg DAILY PO 07/10/17 15:30 07/11/17 12:38 (Zoloft) 100 mg DAILY PO 07/10/17 15:30 07/11/17 12:39 (NS Flush) 2 ml UNSCH PRN IV FLUSH 07/10/17 15:30 (NS Flush) 2 ml BID IV FLUSH 07/10/17 21:00 07/10/17 20:51 (Tylenol) 650 mg Q4H PRN PO 07/10/17 15:30 (Zofran Inj) 4 mg Q6H PRN IVP 07/10/17 15:30 (Restoril) 15 mg HS PRN PO 07/10/17 15:30 07/10/17 23:00 (Heparin Inj) 5,000 units Q12H SQ 07/10/17 15:30 07/11/17 15:48 (Narcan Inj) 0.4 mg UNSCH PRN IV PUSH 07/10/17 15:30 (Vanita-Colace) 1 tab BID PO 07/10/17 21:00 07/10/17 20:50 (Milk Of Magnesia Liq) 30 ml Q12H PRN PO 07/10/17 15:30 (Senokot) 17.2 mg Q12H PRN PO 07/10/17 15:30 (Dulcolax Supp) 10 mg DAILY PRN RECTAL 07/10/17 15:30 (Lactulose Liq) 30 ml DAILY PRN PO 07/10/17 15:30 Potassium Chloride/Dextrose/ Sod Cl 1,000 ml @ 84 mls/hr [id number] IV 07/10/17 16:00 07/11/17 15:58 (Ativan Inj) 0.5 mg Q6H PRN IV PUSH 07/10/17 15:30 07/11/17 04:21 (Duoneb Neb) 1 ampule QID NEB NEB 07/10/17 16:00 07/11/17 15:34 (Catapres) 0.1 mg Q6H PRN PO 07/10/17 15:30 Levofloxacin/ Dextrose 150 ml @ 100 mls/hr Q24H IV 07/10/17 17:00 07/11/17 16:01 (Morphine Inj) 5 mg Q4H PRN IV PUSH 07/10/17 15:30 (Protonix Inj) 40 mg Q24H IV PUSH 07/10/17 15:30 07/11/17 15:47 (Lasix Inj) 40 mg BID IV PUSH 07/11/17 11:00 07/11/17 10:25 (Lactulose Liq) 30 ml BID PO 07/11/17 21:00 A/P Problem List: (1) Altered mental status ICD Codes: R41.82 - Altered mental status, unspecified Status: Acute (2) Hyperammonemia ICD Codes: E72.20 - Disorder of urea cycle metabolism, unspecified Status: Acute (3) Hypokalemia ICD Codes: E87.6 - Hypokalemia Status: Acute (4) Community acquired pneumonia ICD Codes: J18.9 - Pneumonia, unspecified organism Status: Acute (5) Rhabdomyolysis ICD Codes: M62.82 - Rhabdomyolysis Status: Acute (6) Fracture ICD Codes: T14.8XXA - Other injury of unspecified body region, initial encounter Status: Acute (7) Intellectual disability ICD Codes: F79 - Unspecified intellectual disabilities Status: Acute (8) Fall ICD Codes: W19.XXXA - Fall Status: Acute (9) Schizoaffective disorder ICD Codes: F25.9 - Schizoaffective disorder, unspecified Status: Acute (10) Pneumonia ICD Codes: J18.9 - Pneumonia, unspecified organism Status: Acute (11) Weakness ICD Codes: R53.1 - Weakness Status: Acute (12) Facial abrasion ICD Codes: S00.81XA - Facial abrasion Status: Acute (13) Head injury due to trauma ICD Codes: S09.90XA - Unspecified injury of head, initial encounter Status: Acute (14) Abnormal CT scan, lung ICD Codes: R91.8 - Abnormal computed tomography of lung Status: Acute (15) Schizoaffective disorder, bipolar type ICD Codes: F25.0 - Schizoaffective disorder, bipolar type Status: Acute Plan: ASSESSMENT 1. Altered mental status. 2. Falls. 3. Pneumonia. 4. Cirrhosis. 5. Neck lymphadenopathy. 6. Lung mass. 7. Asthma. 8. Schizophrenia. 9. Mental retardation. 10. Rhabdomyolysis. 11. Hypokalemia. 12. Hypernatremia. 13. Hyperglycemia. PLAN- STAT ABG HOLD IVF START LASIX IV BID AM AMMONIA, CBC, CMP LACTULOSE BID D5 normal saline plus 20 of KCL. IV fluids for rhabdomyolysis. Levaquin IV for pneumonia. HOLD Depakote 500 mg ER daily. DVT prophylaxis, heparin 5000 units b.i.d. Lactulose 30 mL daily. GI PROPHYLAXIS- IV PROTONIX Ativan q. 6 p.r.n. for withdrawals or anxiety. PT OT ST Hand surgery consult. CM CONSULT DISPO: [facility] Problem Qualifiers (1) Altered mental status: Qualified Codes: R40.0 - Somnolence (2) Community acquired pneumonia: Qualified Codes: J18.1 - Lobar pneumonia, unspecified organism (3) Rhabdomyolysis: Qualified Codes: M62.82 - Rhabdomyolysis Min Hebert MD Jul 11, 2017 10:35
[2017-07-11] MEDS: PANTOPRAZOLE SODIUM 40 MG VIAL IV PUSH SCH (15:47)
[2017-07-11] MEDS: LEVOFLOXACIN 750 MG PREMIX INJ 150 ML IV SCH (16:01)
[2017-07-11] MEDS: LACTULOSE SYRUP 20 GM/30 ML CUP PO SCH (20:23)
[2017-07-11] MEDS: TEMAZEPAM 15 MG CAP PO PRN (22:59)
[2017-07-12] VITALS (11 sets, daily range): BP systolic 92–143; BP diastolic 54–69; PULSE 65–114; RESP 17–28; TEMP 95.9–99.7; O2SAT 90–99
[2017-07-12] MEDS: HEPARIN SODIUM - SQ 10,000 UNITS/ML VIAL SQ SCH ×2 (03:39→17:38)
[2017-07-12 08:22] LABS: AUTOMATED NEUTROPHIL # 7.9 TH/MM3 (1.8-7.7); BASOPHIL % 0.1 % (0.0-2.0); HEMATOCRIT 36.8 % (39.0-51.0); LYMPH % 11.8 % (9.0-44.0); LYMPHOCYTE # 1.1 TH/MM3 (1.0-4.8); MEAN CELL VOLUME 95.4 FL (80.0-100.0); MEAN CORPUSCULAR HEMOGLOBIN 31.1 PG (27.0-34.0); MEAN CORPUSCULAR HGB CONC 32.6 % (32.0-36.0); NEUT % 82.1 % (16.0-70.0); PLATELET COUNT 153 TH/MM3 (150-450); RED BLOOD COUNT 3.85 MIL/MM3 (4.50-5.90); RED CELL DISTRIBUTION WIDTH 14.7 % (11.6-17.2); WHITE BLOOD COUNT 9.6 TH/MM3 (4.0-11.0)
[2017-07-12 08:26] LABS: HEMO FLAGS AUTO DIFF
[2017-07-12] MEDS: RESP: ALBUTEROL 2.5 MG/IPRATROPIUM 0.5 MG NEB (SCH) NEB ×4 (08:26→21:15)
[2017-07-12 08:31] LABS: BLOOD GAS BASE EXCESS 11.8 mmol/L (-2-2); BLOOD GAS CARBOXYHEMOGLOBIN 0.8 % (0-4); BLOOD GAS HCO3 40 mmol/L (22-26); BLOOD GAS O2 HGB SATURATION 95 % (90-100); BLOOD GAS OXYGEN CONTENT 15.7 Vol % (12.0-20.0); BLOOD GAS PCO2 107 mmHg (38-42); BLOOD GAS PO2 101 mmHg (61-120); BLOOD GAS TOTAL HGB 11.7 G/DL (12.0-16.0); TEMP CORR TO 98.6
[2017-07-12 08:32] LABS: CRITICAL VALUE YES; DRAW SITE RT RADIAL; LITER FLOW 6 L/M; NUMBER OF ARTERIAL PUNCTURES 2; OXYGEN DEVICE SIMPLE MASK; STAT YES; ULNAR PULSE PRESENT
--- NOTE | 2017-07-12 08:40 | HHI.PR ---
Addendum to Inpatient Note Addendum Reason: Additional Documentation Additional Information S: Medical Team paged for HALICAT at approximately 0810. Per nursing report HALICAT cold for unresponsiveness. Patient admitted for pneumonia, altered mental status likely secondary to alcoholic hepatic encephalopathy, hand fracture, and rhabdomyolysis. Per brief chart review patient was noncommunicative at admission and has a history of schizophrenia with mental retardation. O: VITALS: 98.6, 109 bpm, 98/67 mmHg, respiratory rate 22, 97% on 6 L via mask GENERAL: Elderly gentleman lying in bed unresponsive with multiple abrasions throughout his body. SKIN: Warm and dry. Multiple skin abrasions with eschar throughout the body likely secondary to suspected trauma. EYES: Mild scleral icterus. No injection or drainage. Extraocular motions not intact. Pupils miotic and fixed, not responsive to light. HENT: Normocephalic, atraumatic. Mucous membranes dry. Multiple skin abrasions as above. NECK: Supple, trachea midline. No JVD or lymphadenopathy appreciated. CARDIOVASCULAR: Tachycardic with regular rhythm. No MGR appreciated. 2+ pulses in all 4 extremities RESPIRATORY: Mild tachypnea with accessory muscle use. Equal breath sounds bilaterally with mild wheezing. No C,R. GASTROINTESTINAL: Abdomen soft, non-tender, nondistended with hypoactive bowel sounds. No masses or hepatosplenomegaly appreciated. MUSCULOSKELETAL: No cyanosis or edema. Strength grossly WNL. Left upper extremity: Left hand and forearm wrapped with Colt bandage. Hand with significant edema. Capillary refill within normal limits. Unable to evaluate sensation and motor strength. NEURO/PSYCH: Awake, alert, and oriented x0. Sasha coma scale: 6 (E1V2M3) A: Mr. Spencer is a 72 y/o M admitted for pneumonia, altered mental status likely secondary to alcoholic hepatic encephalopathy, hand fracture, and rhabdomyolysis currently unresponsive likely secondary to Severe Sepsis. P: 1. Severe Sepsis -Severe Sepsis (Tachypnea and Tachycardia, PNA as source of infection, Hypotensive to 90/60s) -Lactic acid sepsis protocol order placed -EKG: Sinus tachycardia per medical team read -Stat CXR ordered -CBC, BMP, Ammonia pending 2. Respiratory Acidosis with distress -AB.2/107/101/40 Primary team contacted and communicated service will resume care at this time. Bagel Maker consult placed and patient to be transferred to the ICU for further management. Beto Mckeon MD R2 Jul 12, 2017 08:40
[2017-07-12] MEDS: SODIUM CHLORIDE 0.9% FLUSH 10 ML FLUSH IV FLUSH SCH ×2 (09:00→21:00)
[2017-07-12] MEDS: FUROSEMIDE 40 MG/4 ML VIAL IV PUSH SCH ×2 (09:00→21:00)
[2017-07-12] MEDS: BUDESONIDE-FORMOTEROL 160/4.5 MCG INHALER INH SCH ×2 (09:00→21:00)
[2017-07-12 09:02] LABS: BICARBONATE 38.1 MEQ/L (21.0-32.0); POTASSIUM 4.5 MEQ/L (3.5-5.1)
--- NOTE | 2017-07-12 09:14 | RADRPT ---
EXAM DATE/TIME: 07/12/2017 08:49 [facility] COMPARISON: CHEST SINGLE AP, July 10, 2017, 12:01. INDICATIONS : Shortness of breath MEDICAL HISTORY : None. SURGICAL HISTORY : None. ENCOUNTER: Initial ACUITY: 1 day PAIN SCORE: Non-responsive. LOCATION: Bilateral chest FINDINGS: A single view of the chest demonstrates a mild infiltrate in the left lung base which appears to be i mproving. The right lung remains clear. No new infiltrates are seen. There is some mild pulmonary jaci ous congestion bilaterally. The heart size is mildly enlarged. There are no pleural effusions. The [place] structures are stable.. Otherwise, no other significant changes compared to the prior study. CONCLUSION: 1. Mild improving left lower lung infiltrate. 2. Mild bilateral pulmonary venous congestion. Rodney Bender MD on July 12, 2017 at 9:12 Board Certified Radiologist. This report was verified electronically.
[2017-07-12 09:24] LABS: BANDS 10 % (0-6); NEUTROPHIL # MANUAL DIFF 8.3 TH/MM3 (1.8-7.7); POLYS (SEG NEUTROPHILS) 76 % (16-70); WBC DIFF SAMPLE 100
[2017-07-12 09:25] LABS: SCAN/DIFF FINAL DIFF MANUAL
[2017-07-12 09:36] LABS: CKMB 1.9 NG/ML (0.5-3.6)
[2017-07-12] MEDS: SERTRALINE HCL 100 MG TAB PO SCH (09:53)
[2017-07-12] MEDS: DOCUSATE SODIUM 50 MG/SENNA 8.6 MG TAB PO SCH ×2 (09:53→21:00)
[2017-07-12] MEDS: LACTULOSE SYRUP 20 GM/30 ML CUP PO SCH ×2 (09:53→22:36)
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
--- NOTE | 2017-07-12 12:06 | EKG ---
Date Performed: 07/12/2017 Time Performed: 08:15:40 PTAGE: 72 years EKG: Sinus tachycardia. Normal ECG except for rate Compared to prior electrocardiogram, rate has increased PREVIOUS TRACING : 07/10/2017 12.18 DOCTOR: Kunal Olmstead Interpretating Date/Time 07/12/2017 12:04:28
[2017-07-12] MEDS: BENZTROPINE MESYLATE 1 MG TAB PO SCH ×2 (12:48→21:00)
[2017-07-12] MEDS: cloZAPine 100 MG TAB PO SCH (12:48)
[2017-07-12] MEDS: DIVALPROEX SODIUM E.R. 500 MG TAB PO SCH (12:48)
[2017-07-12] MEDS: D5-NS + KCL 20 MEQ INJ 1,000 ML IV SCH (17:32)
[2017-07-12] MEDS: LEVOFLOXACIN 750 MG PREMIX INJ 150 ML IV SCH (17:36)
[2017-07-12] MEDS: PANTOPRAZOLE SODIUM 40 MG VIAL IV PUSH SCH (17:36)
[2017-07-12 17:38] LABS: BLOOD GAS BASE EXCESS 7.3 mmol/L (-2-2); BLOOD GAS CARBOXYHEMOGLOBIN 0.9 % (0-4); BLOOD GAS HCO3 34 mmol/L (22-26); BLOOD GAS O2 HGB SATURATION 93 % (90-100); BLOOD GAS OXYGEN CONTENT 15.6 Vol % (12.0-20.0); BLOOD GAS PCO2 78 mmHg (38-42); BLOOD GAS PO2 80 mmHg (61-120); BLOOD GAS TOTAL HGB 11.9 G/DL (12.0-16.0); TEMP CORR TO 98.6
[2017-07-12 17:39] LABS: CRITICAL VALUE YES; DRAW SITE RT RADIAL; LITER FLOW 6 L/M; NUMBER OF ARTERIAL PUNCTURES 1; OXYGEN DEVICE SIMPLE MASK; STAT YES; ULNAR PULSE PRESENT
--- NOTE | 2017-07-12 20:08 | MB ---
cc: Sobeida BARILLAS M.D. DATE OF CONSULTATION 07/12/17 REASON FOR CONSULTATION Respiratory failure, COPD. HISTORY OF PRESENT ILLNESS This is a 72-year-old white male who was initially admitted with altered mental status, encephalopathy and respiratory failure. 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 His ammonia level was elevated upon admission and initially, he was started on antibiotic coverage for pneumonia. He subsequently was placed in the surgical intensive care unit and noted to be obtunded at the time and neurologic evaluation was conducted. He was placed on oxygen supplementation as well as aspiration precautions and antibiotics and was kept n.p.o. with an NG tube in place. He did improve some over the next 2 days and the patient was then transferred to the sixth floor and initially he was on oxygen via nasal cannula at 4 liters but his condition deteriorated and he became somewhat obtunded and had to be placed on a simple mask for oxygenation. A HELICAT was called and a blood gas study was done and it demonstrated a pCO2 of 78, pH of 7.28 and a pO2 of 75. The patient now is being transferred back to the surgical intensive care unit. He is poorly responsive but arouses when called out loudly and does not move his extremities well, still has healing abrasions of his face, forehead and extremities and mild leg manner PAST HISTORY Past history is mostly taken from the chart and apparently is significant for schizophrenia, cirrhosis of the liver, previous strokes and previous pneumonia. ALLERGIES No drug allergies. HABITS The patient apparently a history of alcohol use regularly and history of smoking as well, quantity unknown. MEDICATIONS List included: 1. Zoloft. 2. Flovent. 3. Symbicort. 4. Depakote. 5. Clozaril. 6. Chlorpromazine. 7. Benztropine. FAMILY HISTORY Unknown. REVIEW OF SYSTEMS The patient is unable to respond to questions. PHYSICAL EXAMINATION GENERAL: This averagely built elderly man who is lying flat. VITAL SIGNS: He is on a mask with oxygen at 10 liters. Blood pressure 142/70, pulse is 105, respirations 22, temperature 98.2. HEENT: Head normocephalic. Pupils are reactive. Sclerae are injected. Throat is dry. Tongue was coated. There are abrasions on his face and cheeks. NECK: Supple without venous distension. No thyromegaly or lymphadenopathy. CHEST: Decreased breath sounds at the periphery. Expiratory wheezes in the upper chest with occasional crackles in the right base. HEART: The heart sounds are regular S1-S2 with no murmur. No S3, gallop. ABDOMEN: The abdomen is soft and protuberant without masses or organomegaly or tenderness. Bowel sounds active. EXTREMITIES: Mild peripheral edema, has decreased peripheral pulses. NEURO: Reflexes 1+. The patient does withdraw to stimuli. Babinski negative. Cranial nerves not tested. SKIN: Skin was dry and cool. IMPRESSION 1. Acute respiratory failure. 2. Metabolic encephalopathy and hepatic encephalopathy. 3. Dehydration. 4. Possible sepsis. 5. Left basilar pneumonia. 6. COPD. 7. Cirrhosis. PLAN The patient will be placed on BiPap at 15/5 and 40% FIO2. Blood gases to be repeated. Will start him on IV fluids for hydration, nebulized DuoNeb solution added q.i.d. and follow up chest x-ray and blood gases to be done. The patient has been transferred back to the surgical intensive care unit and ammonia level to be monitored as well and aspiration precautions to be taken. Antibiotic therapy will be continued as previously ordered and we will continue with Symbicort 160/4.5 2 puffs twice a day. Electrolytes and CBC will be repeated tonight. Hold on any sedation. Thank you Dr. Amos for this consultation. Derrick Barillas MD JEBER/ABRAHAN /7:04 PM /7:44 PM
[2017-07-12] MEDS: LORazepam 2 MG/ML VIAL IV PUSH PRN (21:37)
[2017-07-12] MEDS: methylPREDNISolone SOD SUCC 40 MG/1 ML VIAL IV PUSH SCH (22:36)
[2017-07-12 23:32] LABS: BLOOD GAS BASE EXCESS 7.3 mmol/L (-2-2); BLOOD GAS CARBOXYHEMOGLOBIN 1.1 % (0-4); BLOOD GAS HCO3 33 mmol/L (22-26); BLOOD GAS METHEMOGLOBIN 0.8 % (0-2); BLOOD GAS O2 HGB SATURATION 91 % (90-100); BLOOD GAS OXYGEN CONTENT 15.4 Vol % (12.0-20.0); BLOOD GAS PCO2 60 mmHg (38-42); BLOOD GAS PO2 65 mmHg (61-120); BLOOD GAS TOTAL HGB 12.1 G/DL (12.0-16.0); TEMP CORR TO 98.6
[2017-07-12 23:33] LABS: CRITICAL VALUE YES; DRAW SITE RT BRACHIAL; FIO2 45 %; NUMBER OF ARTERIAL PUNCTURES 1; OXYGEN DEVICE BiPAP; STAT NO; VENT SETTINGS 10IPAP/5EPAP
[2017-07-13] VITALS (19 sets, daily range): BP systolic 102–116; BP diastolic 57–71; PULSE 86–113; RESP 24–28; TEMP 98.2–98.8; O2SAT 87–96
[2017-07-13] MEDS: HEPARIN SODIUM - SQ 10,000 UNITS/ML VIAL SQ SCH ×2 (02:45→15:41)
[2017-07-13] MEDS: metroNIDAZOLE 500 MG INJ 100 ML IV SCH ×3 (03:00→19:55)
[2017-07-13] MEDS: LORazepam 2 MG/ML VIAL IV PUSH PRN ×2 (03:45→14:18)
[2017-07-13 05:15] LABS: AUTOMATED NEUTROPHIL # 11.5 TH/MM3 (1.8-7.7); BASOPHIL % 0.1 % (0.0-2.0); HEMATOCRIT 33.6 % (39.0-51.0); LYMPH % 9.5 % (9.0-44.0); LYMPHOCYTE # 1.3 TH/MM3 (1.0-4.8); MEAN CELL VOLUME 94.5 FL (80.0-100.0); MEAN CORPUSCULAR HEMOGLOBIN 31.1 PG (27.0-34.0); MEAN CORPUSCULAR HGB CONC 32.9 % (32.0-36.0); MONO % 6.4 % (0.0-8.0); PLATELET COUNT 187 TH/MM3 (150-450); RED BLOOD COUNT 3.56 MIL/MM3 (4.50-5.90); RED CELL DISTRIBUTION WIDTH 14.2 % (11.6-17.2); WHITE BLOOD COUNT 13.7 TH/MM3 (4.0-11.0)
[2017-07-13 05:30] LABS: HEMO FLAGS AUTO DIFF
[2017-07-13 05:52] LABS: BICARBONATE 31.9 MEQ/L (21.0-32.0); POTASSIUM 3.5 MEQ/L (3.5-5.1)
[2017-07-13 06:50] LABS: BANDS 10 % (0-6); NEUTROPHIL # MANUAL DIFF 12.2 TH/MM3 (1.8-7.7); POLYS (SEG NEUTROPHILS) 78 % (16-70); PROMYELOCYTES 1 % (0-0); WBC DIFF SAMPLE 100
[2017-07-13 06:51] LABS: PLATELET ESTIMATE SMEAR NORMAL (NORMAL); PLATELET MORPHOLOGY NORMAL (NORMAL); SCAN/DIFF FINAL DIFF MANUAL
--- NOTE | 2017-07-13 07:22 | HHI.CCPN ---
Subjective Remarks/Hospital Course 72 y/o homeless man arrived disheveled with numerous abrasions of various ages. Came to ICU as Halicat after worsening encephalopathy associated with elevated ammonia and PCO2. I have elected to not reverse his narcotic or benzo for fear of inciting untoward other events - seizures, vomiting, etc. 07/13: Confused and agitated. Ammonia 90. Bandemia, continue abx coverage. Generalized edema. Worsening respiratory failure with increased secretions. Required intubation and mechanical ventilation today for deteriorating lung function. Objective Vital Signs Date Time Temp Pulse Resp B/P (MAP) Pulse Ox O2 Delivery O2 Flow Rate FiO2 07/13/17 06:00 98 07/13/17 04:00 98.8 27 102/57 (72) 93 07/13/17 02:15 Venturi Mask 7.00 50 Intake and Output 07/13/17 07/13/17 07/14/17 08:00 16:00 00:00 Intake Total 1409 ml Output Total 700 ml Balance 709 ml Result Diagram: 07/13/17 0452 07/13/17 0452 Other Results Laboratory Tests Test 07/12/17 08:15 07/12/17 17:22 07/12/17 23:15 Blood Gas Puncture Site RT RADIAL RT RADIAL RT BRACHIAL Blood Gas Patient Temperature 98.6 98.6 98.6 Blood Gas HCO3 40 mmol/L (22-26) 34 mmol/L (22-26) 33 mmol/L (22-26) Blood Gas Base Excess 11.8 mmol/L (-2-2) 7.3 mmol/L (-2-2) 7.3 mmol/L (-2-2) Blood Gas Oxygen Saturation 95 % (90-100) 93 % (90-100) 91 % (90-100) Arterial Blood pH 7.20 (7.380-7.420) 7.26 (7.380-7.420) 7.36 (7.380-7.420) Arterial Blood Partial Pressure CO2 107 mmHg (38-42) 78 mmHg (38-42) 60 mmHg (38-42) Arterial Blood Partial Pressure O2 101 mmHg (61-120) 80 mmHg (61-120) 65 mmHg (61-120) Arterial Blood Oxygen Content 15.7 Vol % (12.0-20.0) 15.6 Vol % (12.0-20.0) 15.4 Vol % (12.0-20.0) Arterial Blood Carboxyhemoglobin 0.8 % (0-4) 0.9 % (0-4) 1.1 % (0-4) Arterial Blood Methemoglobin 1.0 % (0-2) 1.0 % (0-2) 0.8 % (0-2) Blood Gas Hemoglobin 11.7 G/DL (12.0-16.0) 11.9 G/DL (12.0-16.0) 12.1 G/DL (12.0-16.0) Oxygen Delivery Device SIMPLE MASK SIMPLE MASK BiPAP Blood Gas Liter Flow 6 L/M 6 L/M Blood Gas Ventilator Setting 10IPAP/5EPAP Blood Gas Inspired Oxygen 45 % Objective Remarks Head: Numerous old abrasions forehead. Dry, clean. Neck: Supple, protects airway. Lungs: Clear, no stridor. Rate 16, deep excursions. Heart: NL S1S2, RRR, no m,r. Neck veins are full. Abdomen: Soft, no guarding. BS present. No tenderness. Extremities: Trace edema all 4 limbs. Cast left arm. Well perfused. Neuro: Pupils 2 mm, react. Moves 4 limbs to stimulation. Cough, gag intact. Agitated. A/P Assessment and Plan Assessment: 1. Toxic encephalopathy. 2. Metabolic encephalopathy. 3. Rhabdomyolysis. 4. Hepatic failure with elevated ammonia. 5. Fluid overload. 6. Pneumonia, left lung 7. Hypoxemic respiratory failure. Plan: 1. HOB up 30 degrees. 2. Suppl O2 to keep sats 88 - 92% 3. D/C iv fluid. 4. Continue diuretics. 5. Continue ABX coverage. 6. NPO. 7. Low protein diet.. 8. NG tube. 9. Follow ABG. 10. Increase lactulose. 11. PRVC vent mode, PEEP 10. Overall impression: Patient has become critically ill with severe encephalopathy caused by advanced cirrhosis, elevated ammonia, and CO2 retention and hypercapneic/hypoxemic respiratory failure. Cirrhosis and hepatic failure manifesting as elevated ammonia. Multiple recent falls and inability to care for himself. Required intubation for deteriorating respiratory function. Critical Care 38 mins aside from procedures. Sandor Pascual MD Jul 13, 2017 07:22
[2017-07-13] MEDS: RESP: ALBUTEROL 2.5 MG/IPRATROPIUM 0.5 MG NEB (SCH) NEB ×4 (08:28→20:01)
[2017-07-13] MEDS: SODIUM CHLORIDE 0.9% FLUSH 10 ML FLUSH IV FLUSH SCH ×2 (09:00→22:34)
[2017-07-13] MEDS: FUROSEMIDE 40 MG/4 ML VIAL IV PUSH SCH ×2 (09:06→19:55)
[2017-07-13] MEDS: BENZTROPINE MESYLATE 1 MG TAB PO SCH ×2 (09:06→19:55)
[2017-07-13] MEDS: methylPREDNISolone SOD SUCC 40 MG/1 ML VIAL IV PUSH SCH ×2 (09:06→19:54)
[2017-07-13] MEDS: DOCUSATE SODIUM 50 MG/SENNA 8.6 MG TAB PO SCH ×2 (09:07→19:55)
[2017-07-13] MEDS: VALPROIC ACID SYRUP 250 MG/5 ML UDC PO SCH ×2 (09:07→19:55)
[2017-07-13] MEDS: SERTRALINE HCL 100 MG TAB PO SCH (09:07)
[2017-07-13] MEDS: LACTULOSE SYRUP 20 GM/30 ML CUP PO SCH ×4 (09:07→19:54)
[2017-07-13] MEDS: cloZAPine 100 MG TAB PO SCH (09:07)
[2017-07-13] MEDS: BUDESONIDE-FORMOTEROL 160/4.5 MCG INHALER INH SCH ×2 (09:08→21:00)
[2017-07-13] MEDS ORDERED: MIDAZOLAM HCL 5 MG/ML VIAL (1 ML) ONE (12:02)
[2017-07-13] MEDS ORDERED: ROCURONIUM INJ 50 MG/5 ML VIAL ONE (12:02)
[2017-07-13] MEDS: PROPOFOL 1000 MG/100 ML INJ 100 ML IV PRN (12:19)
--- NOTE | 2017-07-13 12:21 | PD.PROCEDR ---
Procedure Note Procedure DX: Hypoxemic Respiratory Failure (J96.01) OP: Orotracheal Intubation (91644) Procedure: Time out. Bag mask ventilation. Versed 5 mg and rocuronium 50 mg iv. Intubated orally with 8.5 tube. Position confirmed with CO2 detection, breath sounds, sats 100%. CXR ordered, will review. Sandor Pascual MD Jul 13, 2017 12:21
[2017-07-13] MEDS: RIFAXIMIN 200 MG TAB PO SCH ×2 (13:52→22:53)
[2017-07-13 15:02] LABS: BLOOD GAS CARBOXYHEMOGLOBIN 1.1 % (0-4); BLOOD GAS HCO3 33 mmol/L (22-26); BLOOD GAS METHEMOGLOBIN 0.8 % (0-2); BLOOD GAS O2 HGB SATURATION 88 % (90-100); BLOOD GAS OXYGEN CONTENT 14.6 Vol % (12.0-20.0); BLOOD GAS PCO2 50 mmHg (38-42); BLOOD GAS PO2 56 mmHg (61-120); BLOOD GAS TOTAL HGB 11.8 G/DL (12.0-16.0); CRITICAL VALUE YES; DRAW SITE RT RADIAL; FIO2 60 %; NUMBER OF ARTERIAL PUNCTURES 2; OXYGEN DEVICE VENTILATOR; STAT NO; TEMP CORR TO 98.6; ULNAR PULSE PRESENT; VENT SETTINGS PRVC24/500/0.8/+8
--- NOTE | 2017-07-13 15:04 | RADRPT ---
EXAM DATE/TIME: 07/13/2017 12:49 [facility] COMPARISON: CHEST SINGLE AP, July 12, 2017, 8:49. INDICATIONS : Post ET tube placement. MEDICAL HISTORY : None. SURGICAL HISTORY : None. ENCOUNTER: Initial ACUITY: 1 day PAIN SCORE: Non-responsive. LOCATION: Bilateral chest FINDINGS: The cardiac silhouette is normal in transverse diameter. There is prominence of the aortic knob is wi th calcification characteristic of atherosclerotic vascular disease. There is left lower lobe atelect asis versus pneumonia. The right lung is free of acute parenchymal opacity. Endotracheal tube is in g ood position above the [place]. CONCLUSION: 1. Left lower lobe atelectasis versus pneumonia. There has been no significant change when compared t o the prior exam. 2. Satisfactory position of endotracheal tube as above. Ford Darling MD on July 13, 2017 at 15:01 Board Certified Radiologist. This report was verified electronically.
[2017-07-13] MEDS ORDERED: NOREPINEPHRINE-DEXTROSE DRIP 250 ML IV ONE (15:21)
[2017-07-13] MEDS: PANTOPRAZOLE SODIUM 40 MG VIAL IV PUSH SCH (15:41)
[2017-07-13] MEDS: LEVOFLOXACIN 750 MG PREMIX INJ 150 ML IV SCH (16:37)
--- NOTE | 2017-07-13 16:47 | HHI.PR ---
Subjective Remarks he was intubated today. ammonia level was high. ABG's were poor. Now sedated and on Levophed. CXR shows mild effusions Objective Vital Signs Date Time Temp Pulse Resp B/P (MAP) Pulse Ox O2 Delivery O2 Flow Rate FiO2 07/13/17 16:00 109 07/13/17 16:00 98.7 109 24 105/65 (78) 94 07/13/17 15:29 92 60 07/13/17 15:21 106 88/63 07/13/17 14:23 91 60 07/13/17 14:00 105 07/13/17 13:52 90 60 07/13/17 12:00 98.7 101 24 111/62 (78) 87 07/13/17 12:00 101 07/13/17 10:00 107 07/13/17 08:21 91 Venturi Mask 6.00 50 07/13/17 08:00 98.2 96 26 104/58 (73) 91 07/13/17 08:00 96 07/13/17 07:00 Venturi Mask 7.00 50 07/13/17 06:00 98 07/13/17 04:00 86 07/13/17 04:00 98.8 86 27 102/57 (72) 93 07/13/17 02:15 93 Venturi Mask 7.00 50 07/13/17 02:00 88 07/13/17 01:15 96 45 07/13/17 00:20 95 Venturi Mask 50 07/13/17 00:00 98.4 102 28 103/59 (74) 94 07/13/17 00:00 102 07/12/17 22:00 114 07/12/17 21:30 95 Bi-Pap 45 07/12/17 21:20 93 45 07/12/17 21:00 Simple Mask 6.00 07/12/17 20:25 90 35 07/12/17 20:00 98.6 68 22 92/54 (67) 96 07/12/17 17:17 93 Simple Mask 6.00 07/12/17 17:15 95.9 91 28 96/55 (69) 96 07/12/17 16:52 95.9 95 21 105/59 (74) 95 I/O 07/12/17 07/12/17 07/12/17 07/13/17 07/13/17 10/15/17 07:00 15:00 23:00 07:00 15:00 23:00 Intake Total 0 ml 1409 ml Output Total 700 ml Balance 0 ml 709 ml Intake Oral 0 ml IV Total 1409 ml Output Urine Total 400 ml Gastric Drainage Total 300 ml # Voids 6 # Bowel Movements 0 Result Diagram: 07/13/17 0452 07/13/17 045 Objective Remarks GENERAL: This averagely built elderly man who is lying flat.Intubated HEENT: Head normocephalic. Pupils are reactive. Sclerae are injected. Throat is dry. Tongue was coated. There are abrasions on his face and cheeks. NECK: Supple without venous distension. No thyromegaly or lymphadenopathy. CHEST: Decreased breath sounds at the periphery. Expiratory wheezes in the upper chest with occasional crackles in the right base. HEART: The heart sounds are regular S1-S2 with no murmur. No S3, gallop. ABDOMEN: The abdomen is soft and protuberant without masses or organomegaly or tenderness. Bowel sounds active. EXTREMITIES: Mild peripheral edema, has decreased peripheral pulses. NEURO: Reflexes 1+. The patient does withdraw to stimuli. Babinski negative. Cranial nerves not tested. SKIN: Skin was dry and cool. Assessment and Plan Assessment and Plan IMPRESSION 1. Acute respiratory failure. 2. Metabolic encephalopathy and hepatic encephalopathy. 3. Dehydration. 4. Possible sepsis. 5. Left basilar pneumonia. 6. COPD. 7. Cirrhosis. Plan: 1. Will keep sedated. 2. Wean FIO2 and vent rates. 3. CPAP trial in am. 4. Continue antibiotics as ordered. 5. CXR,ABG,CBC in am 6. Ng with feeds at 40CC if stable today. 7. Nebs qid , Duoneb. Sobeida Barillas MD Jul 13, 2017 16:47
[2017-07-13] MEDS ORDERED: NOREPINEPHRINE-DEXTROSE DRIP 250 ML IV PRN (17:30)
[2017-07-13] MEDS ORDERED: TERBUTALINE INJ 1 MG/ML AMP SQ PRN (17:30)
[2017-07-13] MEDS: CHLORHEXIDINE 0.12% (ORAL KIT) 15 ML CUP MT SCH (19:55)
[2017-07-14] VITALS (18 sets, daily range): BP systolic 98–112; BP diastolic 59–69; PULSE 75–119; RESP 19–25; TEMP 97.8–99.3; O2SAT 94–100
[2017-07-14] MEDS: PROPOFOL 1000 MG/100 ML INJ 100 ML IV PRN ×3 (02:13→19:28)
[2017-07-14] MEDS: HEPARIN SODIUM - SQ 10,000 UNITS/ML VIAL SQ SCH ×2 (03:29→14:13)
[2017-07-14] MEDS: metroNIDAZOLE 500 MG INJ 100 ML IV SCH ×3 (03:30→19:29)
[2017-07-14 04:33] LABS: AUTOMATED NEUTROPHIL # 8.7 TH/MM3 (1.8-7.7); BASOPHIL % 0.3 % (0.0-2.0); HEMATOCRIT 37.6 % (39.0-51.0); LYMPH % 16.6 % (9.0-44.0); LYMPHOCYTE # 1.9 TH/MM3 (1.0-4.8); MEAN CELL VOLUME 94.9 FL (80.0-100.0); MEAN CORPUSCULAR HEMOGLOBIN 31.3 PG (27.0-34.0); MONO % 6.1 % (0.0-8.0); PLATELET COUNT 251 TH/MM3 (150-450); RED BLOOD COUNT 3.96 MIL/MM3 (4.50-5.90); RED CELL DISTRIBUTION WIDTH 14.2 % (11.6-17.2); WHITE BLOOD COUNT 11.3 TH/MM3 (4.0-11.0)
[2017-07-14 04:37] LABS: HEMO FLAGS AUTO DIFF
[2017-07-14 05:05] LABS: BICARBONATE 33.3 MEQ/L (21.0-32.0); POTASSIUM 3.5 MEQ/L (3.5-5.1)
[2017-07-14 05:17] LABS: BLOOD GAS BASE EXCESS 7.5 mmol/L (-2-2); BLOOD GAS CARBOXYHEMOGLOBIN 1.1 % (0-4); BLOOD GAS HCO3 31 mmol/L (22-26); BLOOD GAS METHEMOGLOBIN 0.8 % (0-2); BLOOD GAS O2 HGB SATURATION 92 % (90-100); BLOOD GAS OXYGEN CONTENT 15.1 Vol % (12.0-20.0); BLOOD GAS PCO2 43 mmHg (38-42); BLOOD GAS PO2 68 mmHg (61-120); BLOOD GAS TOTAL HGB 11.7 G/DL (12.0-16.0); CRITICAL VALUE NO; DRAW SITE RT RADIAL; FIO2 50 %; NUMBER OF ARTERIAL PUNCTURES 1; OXYGEN DEVICE VENTILATOR; STAT NO; TEMP CORR TO 98.6; ULNAR PULSE PRESENT; VENT SETTINGS 24/500/IT0.8/10PEEP
[2017-07-14 05:28] LABS: BANDS 1 % (0-6); METAMYELOCYTES 3 % (0-1); NEUTROPHIL # MANUAL DIFF 8.7 TH/MM3 (1.8-7.7); POLYS (SEG NEUTROPHILS) 73 % (16-70); WBC DIFF SAMPLE 100
[2017-07-14 05:29] LABS: PLATELET ESTIMATE SMEAR NORMAL (NORMAL); PLATELET MORPHOLOGY NORMAL (NORMAL); SCAN/DIFF FINAL DIFF MANUAL
[2017-07-14] MEDS: RIFAXIMIN 200 MG TAB PO SCH ×3 (05:44→23:46)
--- NOTE | 2017-07-14 07:43 | HHI.CCPN ---
Subjective Remarks/Hospital Course 72 y/o homeless man arrived disheveled with numerous abrasions of various ages. Came to ICU as Halicat after worsening encephalopathy associated with elevated ammonia and PCO2. I have elected to not reverse his narcotic or benzo for fear of inciting untoward other events - seizures, vomiting, etc. 07/13: Confused and agitated. Ammonia 90. Bandemia, continue abx coverage. Generalized edema. Worsening respiratory failure with increased secretions. Required intubation and mechanical ventilation today for deteriorating lung function. 07/14: His psychiatric illness complicates medical care. Will ask Psychiatry, who know him well, to consult after he is extubated. [facility] visited today, know him well. His POA is brother Jc in [place] (age 83). They called him today and started talk about end-of-life issues. He called me and explained that he is not ready to make him DNR status yet. He says he called [facility] in [place] and the man told him about a man who was in the morgue at another hospital with a toe tag on but then awakened and was normal. Jc has a son who is an alcoholic in [place] who he cares for and another family member who is addicted to opioid drugs. It will take him awhile to get here because [place] But he says he will come in a day or two. Objective Vital Signs Date Time Temp Pulse Resp B/P (MAP) Pulse Ox O2 Delivery O2 Flow Rate FiO2 07/14/17 06:00 89 07/14/17 04:00 97.8 24 112/69 (83) 96 07/14/17 04:00 50 07/13/17 08:21 Venturi Mask 6.00 Intake and Output 07/14/17 07/14/17 07/15/17 08:00 16:00 00:00 Intake Total 393 ml Output Total 575 ml Balance -182 ml Result Diagram: 07/14/17 0419 07/14/17 0419 Other Results Laboratory Tests Test 07/13/17 14:55 07/14/17 05:05 Blood Gas Puncture Site RT RADIAL RT RADIAL Blood Gas Patient Temperature 98.6 98.6 Blood Gas HCO3 33 mmol/L (22-26) 31 mmol/L (22-26) Blood Gas Base Excess 8.0 mmol/L (-2-2) 7.5 mmol/L (-2-2) Blood Gas Oxygen Saturation 88 % (90-100) 92 % (90-100) Arterial Blood pH 7.43 (7.380-7.420) 7.48 (7.380-7.420) Arterial Blood Partial Pressure CO2 50 mmHg (38-42) 43 mmHg (38-42) Arterial Blood Partial Pressure O2 56 mmHg (61-120) 68 mmHg (61-120) Arterial Blood Oxygen Content 14.6 Vol % (12.0-20.0) 15.1 Vol % (12.0-20.0) Arterial Blood Carboxyhemoglobin 1.1 % (0-4) 1.1 % (0-4) Arterial Blood Methemoglobin 0.8 % (0-2) 0.8 % (0-2) Blood Gas Hemoglobin 11.8 G/DL (12.0-16.0) 11.7 G/DL (12.0-16.0) Oxygen Delivery Device VENTILATOR VENTILATOR Blood Gas Ventilator Setting PRVC24/500/0.8/+8 24/500/IT0.8/10PEEP Blood Gas Inspired Oxygen 60 % 50 % Objective Remarks Head: Numerous old abrasions forehead. Dry, clean. Neck: Supple, protects airway. Lungs: Light wheezes, good mely air entry. Rate 22, deep excursions. Heart: NL S1S2, RRR, no m,r. Neck veins are full. Abdomen: Soft, no guarding. BS present. No tenderness. Extremities: Trace edema all 4 limbs. Cast left arm. Well perfused. Neuro: Pupils 2 mm, react. Moves 4 limbs to stimulation. Cough, gag intact. Agitated. A/P Assessment and Plan Assessment: 1. Toxic encephalopathy (Multiple sedatives) 2. Metabolic encephalopathy (Elevated ammonia). 3. Rhabdomyolysis. 4. Hepatic failure with elevated ammonia. 5. Fluid overload. 6. Pneumonia, left lung 7. Hypoxemic respiratory failure. Plan: 1. HOB up 30 degrees. 2. PRVC vent mode. 3. D/C iv fluid. 4. Decrease diuretics. 5. Continue ABX coverage. 6. NPO -> start TFs. 7. Low protein diet.. 8. NG tube. 9. Follow ABG. 10. Increase lactulose. 11. PRVC vent mode, PEEP 10. Overall impression: Patient has become critically ill with severe encephalopathy caused by advanced cirrhosis, elevated ammonia, and CO2 retention and hypercapneic/hypoxemic respiratory failure. Multiple recent falls and inability to care for himself. Required intubation for deteriorating respiratory function. Unable to wean ventilator. Critical Care 35 mins Sandor Pascual MD Jul 14, 2017 07:43
[2017-07-14] MEDS: RESP: ALBUTEROL 2.5 MG/IPRATROPIUM 0.5 MG NEB (SCH) NEB ×3 (07:53→15:05)
[2017-07-14] MEDS: BUDESONIDE-FORMOTEROL 160/4.5 MCG INHALER INH SCH ×2 (07:59→19:29)
[2017-07-14] MEDS: SODIUM CHLORIDE 0.9% FLUSH 10 ML FLUSH IV FLUSH SCH ×2 (08:37→19:29)
[2017-07-14] MEDS: CHLORHEXIDINE 0.12% (ORAL KIT) 15 ML CUP MT SCH ×2 (08:49→19:31)
[2017-07-14] MEDS: NS + KCL 20 MEQ INJ 1,000 ML IV SCH (08:49)
[2017-07-14] MEDS: methylPREDNISolone SOD SUCC 40 MG/1 ML VIAL IV PUSH SCH ×2 (08:51→19:28)
[2017-07-14] MEDS: FUROSEMIDE 20 MG/2 ML VIAL IV PUSH SCH (08:51)
[2017-07-14] MEDS: cloZAPine 100 MG TAB PO SCH (08:54)
[2017-07-14] MEDS: LACTULOSE SYRUP 20 GM/30 ML CUP PO SCH ×4 (08:54→19:27)
[2017-07-14] MEDS: VALPROIC ACID SYRUP 250 MG/5 ML UDC PO SCH ×2 (08:55→19:28)
[2017-07-14] MEDS: SERTRALINE HCL 100 MG TAB PO SCH (08:55)
[2017-07-14] MEDS: DOCUSATE SODIUM 50 MG/SENNA 8.6 MG TAB PO SCH ×2 (08:55→19:31)
[2017-07-14] MEDS: BENZTROPINE MESYLATE 1 MG TAB PO SCH ×2 (08:55→19:28)
--- NOTE | 2017-07-14 10:33 | HHI.FPPN ---
Subjective Remarks ON VENT ALERT D/W PHARMACY TECHNICIAN ASSISTANT REVIEWED CONSULT REPORTS REVIEWED Objective Vitals Vital Signs Date Time Temp Pulse Resp B/P (MAP) Pulse Ox O2 Delivery O2 Flow Rate FiO2 07/14/17 08:00 98.6 75 24 99/64 (76) 98 07/14/17 07:54 94 50 07/14/17 06:00 89 07/14/17 04:00 96 07/14/17 04:00 97.8 96 24 112/69 (83) 96 07/14/17 04:00 50 07/14/17 03:15 99 50 07/14/17 02:00 96 07/14/17 00:10 98 50 07/14/17 00:00 89 07/14/17 00:00 50 07/14/17 00:00 98.7 89 24 100/66 (77) 100 07/13/17 22:00 101 07/13/17 20:02 95 60 07/13/17 20:00 98.6 107 24 116/71 (86) 95 07/13/17 20:00 107 07/13/17 20:00 60 07/13/17 19:15 110 07/13/17 18:00 113 07/13/17 16:00 109 07/13/17 16:00 98.7 109 24 105/65 (78) 94 07/13/17 15:29 92 60 07/13/17 15:21 106 88/63 07/13/17 14:23 91 60 07/13/17 14:00 105 07/13/17 13:52 90 60 07/13/17 12:00 98.7 101 24 111/62 (78) 87 07/13/17 12:00 101 I/O 07/13/17 07/13/17 07/13/17 07/14/17 07/14/17 07/14/17 06:59 14:59 22:59 06:59 14:59 22:59 Intake Total 1409 ml 100 ml 338 ml 493 ml 52 ml Output Total 700 ml 800 ml 575 ml Balance 709 ml 100 ml -462 ml -82 ml 52 ml IV Total 1409 ml 100 ml 338 ml 493 ml 52 ml Output Urine Total 400 ml 700 ml 350 ml Gastric Drainage Total 300 ml 100 ml 225 ml # Bowel Movements 1 0 Result Diagram: 07/14/1741807/14/17418 Objective Remarks GENERAL: ON VENT, ALERT SKIN: Warm and dry. numerous abrasions. HEAD: Atraumatic. Normocephalic. EYES: Pupils equal and round. No scleral icterus. No injection or drainage. ENT: No nasal bleeding or discharge. Mucous membranes pink and moist. NECK: Trachea midline. No JVD. CARDIOVASCULAR: Regular rate and rhythm. RESPIRATORY: No accessory muscle use. Clear to auscultation. Breath sounds equal bilaterally. GASTROINTESTINAL: Abdomen soft, non-tender, nondistended. Hepatic and splenic margins not palpable. MUSCULOSKELETAL: Extremities without clubbing, cyanosis, or edema. No obvious deformities. NEUROLOGICAL: Awake and alert. No obvious cranial nerve deficits. Motor grossly within normal limits. 1 out of 5 muscle strength in the arms and legs. PSYCHIATRIC: Medications and IVs Current Medications Medications (Trade) Dose Ordered Sig/Alpesh Route Start Time Stop Time Status Last Admin (Cogentin) 1 mg BID PO 07/10/17 21:00 07/14/17 08:55 (Symbicort 160-4.5 Inh) 1 puff Q12HR INH 07/10/17 21:00 07/13/17 09:08 (Clozaril) 200 mg DAILY PO 07/10/17 15:30 07/14/17 08:54 (Zoloft) 100 mg DAILY PO 07/10/17 15:30 07/14/17 08:55 (NS Flush) 2 ml UNSCH PRN IV FLUSH 07/10/17 15:30 (NS Flush) 2 ml BID IV FLUSH 07/10/17 21:00 07/14/17 08:37 (Tylenol) 650 mg Q4H PRN PO 07/10/17 15:30 (Zofran Inj) 4 mg Q6H PRN IVP 07/10/17 15:30 07/13/17 20:32 (Heparin Inj) 5,000 units Q12H SQ 07/10/17 15:30 07/14/17 03:29 (Narcan Inj) 0.4 mg UNSCH PRN IV PUSH 07/10/17 15:30 (Vanita-Colace) 1 tab BID PO 07/10/17 21:00 07/14/17 08:55 (Milk Of Magnesia Liq) 30 ml Q12H PRN PO 07/10/17 15:30 (Senokot) 17.2 mg Q12H PRN PO 07/10/17 15:30 (Dulcolax Supp) 10 mg DAILY PRN RECTAL 07/10/17 15:30 (Lactulose Liq) 30 ml DAILY PRN PO 07/10/17 15:30 (Ativan Inj) 0.5 mg Q6H PRN IV PUSH 07/10/17 15:30 07/13/17 14:18 (Duoneb Neb) 1 ampule QID NEB NEB 07/10/17 16:00 07/14/17 07:53 (Catapres) 0.1 mg Q6H PRN PO 07/10/17 15:30 Levofloxacin/ Dextrose 150 ml @ 100 mls/hr Q24H IV 07/10/17 17:00 07/13/17 16:37 (Morphine Inj) 5 mg Q4H PRN IV PUSH 07/10/17 15:30 (Protonix Inj) 40 mg Q24H IV PUSH 07/10/17 15:30 07/13/17 15:41 (SoluMEDROL INJ) 40 mg Q12HR IV PUSH 07/12/17 21:00 07/14/17 08:51 Metronidazole 100 ml @ 100 mls/hr Q8H IV 07/12/17 20:00 07/14/17 03:30 (Lactulose Liq) 30 ml QID PO 07/13/17 09:00 07/14/17 08:54 (Depakene Liq) 250 mg BID PO 07/13/17 09:00 07/14/17 08:55 (Peridex 0.12% Liq) 15 ml BID@08,20 MT 07/13/17 20:00 07/14/17 08:49 Propofol 100 ml @ 2.013 mls/ hr TITRATE PRN IV 07/13/17 12:15 07/14/17 09:39 (Xifaxan) 400 mg Q8HR PO 07/13/17 14:00 07/14/17 05:44 Norepinephrine Bitartrate 250 ml @ 7.5 mls/hr TITRATE PRN IV 07/13/17 17:30 07/13/17 19:15 (Brethine Inj) 1 mg UNSCH PRN SQ 07/13/17 17:30 (Lasix Inj) 20 mg DAILY IV PUSH 07/14/17 09:00 07/14/17 08:51 Potassium Chloride/Sodium Chloride 1,000 ml @ 42 mls/hr [id number] IV 07/14/17 08:00 07/14/17 08:49 A/P Problem List: (1) Altered mental status ICD Codes: R41.82 - Altered mental status, unspecified Status: Acute (2) Hyperammonemia ICD Codes: E72.20 - Disorder of urea cycle metabolism, unspecified Status: Acute (3) Hypokalemia ICD Codes: E87.6 - Hypokalemia Status: Acute (4) Community acquired pneumonia ICD Codes: J18.9 - Pneumonia, unspecified organism Status: Acute (5) Rhabdomyolysis ICD Codes: M62.82 - Rhabdomyolysis Status: Acute (6) Fracture ICD Codes: T14.8XXA - Other injury of unspecified body region, initial encounter Status: Acute (7) Intellectual disability ICD Codes: F79 - Unspecified intellectual disabilities Status: Acute (8) Fall ICD Codes: W19.XXXA - Fall Status: Acute (9) Schizoaffective disorder ICD Codes: F25.9 - Schizoaffective disorder, unspecified Status: Acute (10) Pneumonia ICD Codes: J18.9 - Pneumonia, unspecified organism Status: Acute (11) Weakness ICD Codes: R53.1 - Weakness Status: Acute (12) Facial abrasion ICD Codes: S00.81XA - Facial abrasion Status: Acute (13) Head injury due to trauma ICD Codes: S09.90XA - Unspecified injury of head, initial encounter Status: Acute (14) Abnormal CT scan, lung ICD Codes: R91.8 - Abnormal computed tomography of lung Status: Acute (15) Schizoaffective disorder, bipolar type ICD Codes: F25.0 - Schizoaffective disorder, bipolar type Status: Acute Plan: A/P: AMS VDRF: VENT PER CCM, TF'S PNA: IV ABX HEPATIC ENCEPH CIRRHOSIS: LACTULOSE PNGT FALLS Neck lymphadenopathy. Lung mass. Asthma. Schizophrenia. Mental retardation. Rhabdomyolysis. Hypokalemia. Hypernatremia. Hyperglycemia. DVT prophylaxis, heparin 5000 units b.i.d. GI PROPHYLAXIS- IV PROTONIX Problem Qualifiers (1) Altered mental status: Qualified Codes: R40.0 - Somnolence (2) Community acquired pneumonia: Qualified Codes: J18.1 - Lobar pneumonia, unspecified organism (3) Rhabdomyolysis: Qualified Codes: M62.82 - Rhabdomyolysis Min Hebert MD Jul 14, 2017 10:33
[2017-07-14] MEDS ORDERED: SODIUM CHLOR 0.9% 250 ML INJ 250 ML IV ONE (12:00)
[2017-07-14] MEDS: PANTOPRAZOLE SODIUM 40 MG VIAL IV PUSH SCH (14:13)
[2017-07-14] MEDS: LEVOFLOXACIN 750 MG PREMIX INJ 150 ML IV SCH (16:24)
--- NOTE | 2017-07-14 16:40 | PD.CONS ---
Consult Service Palliative Care Consult Requested By Dr. Pascual . Primary Care Physician Unknown Reason for Consultation a. To assist with evaluation and management of symptoms including: Altered mental status, weakness, dyspnea, pain, edema b. To assist medical decision maker(s) with: better understanding of current medical conditions; weighing benefits/burdens of medical treatment options; making medical treatment decisions. . HPI History of Present Illness Mr. Spencer is a 72-year-old male who was living in a garage apartment by himself. He has a history of paranoid schizophrenia, CVA, mental retardation and is followed by a supervisor braiding. When picked up by [facility] 07/10/17 it was reported that he has had frequent falls with an increasingly altered mental status. Clinical evaluation showed hypoxia, hyponatremia, hypokalemia, rhabdomyolysis, left lower lobe infiltrate, elevated ammonia level and left fifth metacarpal fracture. Electrolytes were repleted and rehydration was initiated. On 07/12 Mary PAREDES was called due to unresponsiveness and the reclamation kettle tender service was consulted for further management. He was found to be in hypercapnic respiratory failure requiring intubation on 07/13. Due to his history of paranoid schizophrenia, he is followed by a supervisor braiding for Roe Wheat/Mar MORRISON , with whom I spoke at length regarding the dynamics of his admission. ED course: * Laboratory - WBC 10.5, hemoglobin 11.2, hematocrit 33.3, platelets 140, sodium 133, potassium 3.2, chloride 95, carbon dioxide 33.3, BUN 16, creatinine 0.66, total protein 5.9, albumin 2.6, alkaline phosphatase 64, AST 250, ALT 78, total creatinine kinase 8035, creatinine kinase MB 6.2, troponin 0.02, C- reactive protein 6.90, ethyl alcohol less than 3, ABG pH 7.43, PCO2 49, PO2 53, HCO3 32, Colt excess +7.8, oxygen saturation 84% on room air urinalysis was negative, urine toxicology was negative. * Radiology- hand x-ray showed comminuted fracture involving the base of the left fifth metacarpal. Knee x-ray showed soft tissue swelling with no bony abnormality. C-spine CT showed no evidence of acute fracture with extensive cervical adenopathy which can be seen with lymphoma, possible nodule left lung apex. Chest x-ray showed left lower lobe infiltrate. Head CT showed chronic sinusitis otherwise negative. He is seen in ICU, intubated, sedated, not responsive to noxious stimuli. Low- dose Levophed required to maintain hemodynamic stability. Left hand seen in soft splint with 2+ edema. . Function/Cognitive Trajectory He has since had a low cognitive function and was considered to have some mental retardation, later diagnosed with paranoid schizophrenia and bipolar disorder. He has been dependent for care for much of his life, first being cared for by his father and after his father passed been fell into the care of his brother. He does require continual assistance and supervision for activities of daily living. Review of Systems ROS Limitations: Clinical Condition, Intubated, Altered Mental Status Past Family Social History Coded Allergies: No Known Allergies (Verified , 07/10/17) Past Medical History Paranoid schizophrenia Bipolar disorder COPD Hypertension Pneumonia Cirrhosis of the liver Tachyarrhythmia Mental retardation Anemia . Past Surgical History Left arm surgery . Reported Medications Reported Meds & Active Scripts Active Doxycycline Hyclate 100 Mg Cap 100 Mg PO BID 7 Days Symbicort Inh (Budesonide/Formoterol Fumarate) 160-4.5 Mcg/Act Aero 1 Puff INH Q12HR Flovent Hfa 12 GM Inh (Fluticasone Propionate) 220 Mcg/Act Inh 1 Puff INH BID Zoloft (Sertraline HCl) 100 Mg Tab 100 Mg PO DAILY Depakote ER (Divalproex Sodium) 500 Mg Waldo 500 Mg PO 1 AM 3HS Clozaril (Clozapine) 100 Mg Tab 200 Mg PO 1 AM 2 HS Reported Chlorpromazine (Chlorpromazine HCl) 25 Mg Tab 50 Mg PO TID PRN Benztropine (Benztropine Mesylate) 0.5 Mg Tab 1 Mg PO BID . Current Medications Medications (Trade) Dose Ordered Sig/Alpesh Route Start Time Stop Time Status Last Admin (Cogentin) 1 mg BID PO 07/10/17 21:00 07/14/17 08:55 (Symbicort 160-4.5 Inh) 1 puff Q12HR INH 07/10/17 21:00 07/13/17 09:08 (Clozaril) 200 mg DAILY PO 07/10/17 15:30 07/14/17 08:54 (Zoloft) 100 mg DAILY PO 07/10/17 15:30 07/14/17 08:55 (NS Flush) 2 ml UNSCH PRN IV FLUSH 07/10/17 15:30 (NS Flush) 2 ml BID IV FLUSH 07/10/17 21:00 07/14/17 08:37 (Tylenol) 650 mg Q4H PRN PO 07/10/17 15:30 (Zofran Inj) 4 mg Q6H PRN IVP 07/10/17 15:30 07/13/17 20:32 (Heparin Inj) 5,000 units Q12H SQ 07/10/17 15:30 07/14/17 14:13 (Narcan Inj) 0.4 mg UNSCH PRN IV PUSH 07/10/17 15:30 (Vanita-Colace) 1 tab BID PO 07/10/17 21:00 07/14/17 08:55 (Milk Of Magnesia Liq) 30 ml Q12H PRN PO 07/10/17 15:30 (Senokot) 17.2 mg Q12H PRN PO 07/10/17 15:30 (Dulcolax Supp) 10 mg DAILY PRN RECTAL 07/10/17 15:30 (Lactulose Liq) 30 ml DAILY PRN PO 07/10/17 15:30 (Ativan Inj) 0.5 mg Q6H PRN IV PUSH 07/10/17 15:30 07/13/17 14:18 (Duoneb Neb) 1 ampule QID NEB NEB 07/10/17 16:00 07/14/17 11:56 (Catapres) 0.1 mg Q6H PRN PO 07/10/17 15:30 Levofloxacin/ Dextrose 150 ml @ 100 mls/hr Q24H IV 07/10/17 17:00 07/13/17 16:37 (Morphine Inj) 5 mg Q4H PRN IV PUSH 07/10/17 15:30 (Protonix Inj) 40 mg Q24H IV PUSH 07/10/17 15:30 07/14/17 14:13 (SoluMEDROL INJ) 40 mg Q12HR IV PUSH 07/12/17 21:00 07/14/17 08:51 Metronidazole 100 ml @ 100 mls/hr Q8H IV 07/12/17 20:00 07/14/17 11:12 (Lactulose Liq) 30 ml QID PO 07/13/17 09:00 07/14/17 12:33 (Depakene Liq) 250 mg BID PO 07/13/17 09:00 07/14/17 08:55 (Peridex 0.12% Liq) 15 ml BID@08,20 MT 07/13/17 20:00 07/14/17 08:49 Propofol 100 ml @ 2.013 mls/ hr TITRATE PRN IV 07/13/17 12:15 07/14/17 09:39 (Xifaxan) 400 mg Q8HR PO 07/13/17 14:00 07/14/17 12:33 Norepinephrine Bitartrate 250 ml @ 7.5 mls/hr TITRATE PRN IV 07/13/17 17:30 07/13/17 19:15 (Brethine Inj) 1 mg UNSCH PRN SQ 07/13/17 17:30 (Lasix Inj) 20 mg DAILY IV PUSH 07/14/17 09:00 07/14/17 08:51 Potassium Chloride/Sodium Chloride 1,000 ml @ 42 mls/hr [id number] IV 07/14/17 08:00 07/14/17 08:49 . Family History Father at age 67 of pneumonia after suffering a brain aneurysm which left him paralyzed. Mother at age 58 of kidney disease. . Substance Use Tobacco: Has smoked approximately 1 pack per day for most of his life. He quit when there was suspicion of lung cancer however when that was ruled out he was told by the physician that he could "smoke 1-2 cigarettes a day" and had recently resumed. Alcohol: His brother denies any alcohol use in the last 35-40 years and he has been caring for him. All alcohol toxicology screens have been negative during his past admissions. Prescription med abuse: Denied per his brother. Illicits: Denied per his brother. . Psychosocial History Born in [place] where he lived most of his life and was institutionalized several times for mental illness. Per his brother, Michael, he had a very difficult life. 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 He was never in the . His brother states that he once told him "he is not afraid to ". He denies any spiritual tendencies or beliefs in his brother. . Spiritual/Cultural Factors Spirituality was not important to him. He told his brother "he knows [facility] to [facility]". . Living Will: Never completed Health Care Surrogate: Never completed Durable Power of Environmental Designer: Never completed Physical Exam Vital Signs Date Time Temp Pulse Resp B/P (MAP) Pulse Ox O2 Delivery O2 Flow Rate FiO2 07/14/17 14:00 119 07/14/17 12:00 99.3 97 24 98/59 (72) 94 07/14/17 12:00 97 07/14/17 12:00 50 07/14/17 11:56 100 50 07/14/17 10:00 104 07/14/17 08:00 98.6 75 24 99/64 (76) 98 07/14/17 08:00 50 07/14/17 08:00 88 07/14/17 07:54 94 50 07/14/17 06:00 89 07/14/17 04:00 96 07/14/17 04:00 97.8 96 24 112/69 (83) 96 07/14/17 04:00 50 07/14/17 03:15 99 50 07/14/17 02:00 96 07/14/17 00:10 98 50 07/14/17 00:00 89 07/14/17 00:00 50 07/14/17 00:00 98.7 89 24 100/66 (77) 100 07/13/17 22:00 101 07/13/17 20:02 95 60 07/13/17 20:00 98.6 107 24 116/71 (86) 95 07/13/17 20:00 107 07/13/17 20:00 60 07/13/17 19:15 110 07/13/17 18:00 113 07/13/17 16:00 109 07/13/17 16:00 98.7 109 24 105/65 (78) 94 07/13/17 15:29 92 60 07/13/17 15:21 106 88/63 07/14/17 07/15/17 19:00 07:00 Intake Total 302 ml Balance 302 ml IV Total 302 ml Exam CONSTITUTIONAL/GENERAL: This is an adequately nourished patient, intubated, sedated, in no apparent distress. TUBES/LINES/DRAINS: PIV right forearm, SKIN: Multiple abrasions, scrapes and wounds in various stages of healing on arms legs and face. EYES: Pupils equal and round and reactive. No scleral icterus. No injection or drainage. Fundi not examined. ENT: Nose without bleeding or purulent drainage. NG tube intact infusing tube feeding. NECK: Trachea midline. Supple, nontender. No palpable thyroid enlargement or nodularity. CARDIOVASCULAR: Regular rate and rhythm without murmurs, gallops, or rubs. No JVD. Peripheral pulses symmetric. RESPIRATORY/CHEST: Mechanically ventilated, breath sounds equal, coarse. GASTROINTESTINAL: Abdomen soft, nondistended. No hepato-splenomegaly, or palpable masses. Bowel sounds present. GENITOURINARY: Without palpable bladder distension. Vale catheter in place. MUSCULOSKELETAL: Extremities without clubbing or cyanosis. 2+ edema left hand, trace right hand. No mottling or clubbing. LYMPHATICS: No palpable cervical or supraclavicular adenopathy. NEUROLOGICAL: Intubated, sedated. PSYCHIATRIC: Intubated, sedated. . Diagnostic Tests Laboratory Laboratory Tests Test 07/12/17 08:06 07/12/17 08:15 07/12/17 10:15 07/12/17 10:20 White Blood Count 9.6 TH/MM3 (4.0-11.0) Red Blood Count 3.85 MIL/MM3 (4.50-5.90) Hemoglobin 12.0 GM/DL (13.0-17.0) Hematocrit 36.8 % (39.0-51.0) Mean Corpuscular Volume 95.4 FL (80.0-100.0) Mean Corpuscular Hemoglobin 31.1 PG (27.0-34.0) Mean Corpuscular Hemoglobin Concent 32.6 % (32.0-36.0) Red Cell Distribution Width 14.7 % (11.6-17.2) Platelet Count 153 TH/MM3 (150-450) Mean Platelet Volume 8.4 FL (7.0-11.0) Neutrophils (%) (Auto) 82.1 % (16.0-70.0) Lymphocytes (%) (Auto) 11.8 % (9.0-44.0) Monocytes (%) (Auto) 6.0 % (0.0-8.0) Eosinophils (%) (Auto) 0.0 % (0.0-4.0) Basophils (%) (Auto) 0.1 % (0.0-2.0) Neutrophils # (Auto) 7.9 TH/MM3 (1.8-7.7) Lymphocytes # (Auto) 1.1 TH/MM3 (1.0-4.8) Monocytes # (Auto) 0.6 TH/MM3 (0-0.9) Eosinophils # (Auto) 0.0 TH/MM3 (0-0.4) Basophils # (Auto) 0.0 TH/MM3 (0-0.2) CBC Comment AUTO DIFF Differential Total Cells Counted 100 Neutrophils % (Manual) 76 % (16-70) Band Neutrophils % 10 % (0-6) Lymphocytes % 12 % (9-44) Monocytes % 2 % (0-8) Neutrophils # (Manual) 8.3 TH/MM3 (1.8-7.7) Differential Comment FINAL DIFF MANUAL Ovalocytes (NORMAL) Blood Urea Nitrogen 13 MG/DL (7-18) Creatinine 0.45 MG/DL (0.60-1.30) Random Glucose 174 MG/DL (74-106) Calcium Level 8.8 MG/DL (8.5-10.1) Sodium Level 139 MEQ/L (136-145) Potassium Level 4.5 MEQ/L (3.5-5.1) Chloride Level 99 MEQ/L (98-107) Carbon Dioxide Level 38.1 MEQ/L (21.0-32.0) Anion Gap 2 MEQ/L (5-15) Estimat Glomerular Filtration Rate 184 ML/MIN (>89) Ammonia 93 MCMOL/L (11-32) Total Creatine Kinase 1155 U/L (39-308) Creatine Kinase MB 1.9 NG/ML (0.5-3.6) Creatine Kinase MB % 0.2 % (0.0-4.0) Blood Gas Puncture Site RT RADIAL Blood Gas Patient Temperature 98.6 Blood Gas HCO3 40 mmol/L (22-26) Blood Gas Base Excess 11.8 mmol/L (-2-2) Blood Gas Oxygen Saturation 95 % (90-100) Arterial Blood pH 7.20 (7.380-7.420) Arterial Blood Partial Pressure CO2 107 mmHg (38-42) Arterial Blood Partial Pressure O2 101 mmHg (61-120) Arterial Blood Oxygen Content 15.7 Vol % (12.0-20.0) Arterial Blood Carboxyhemoglobin 0.8 % (0-4) Arterial Blood Methemoglobin 1.0 % (0-2) Blood Gas Hemoglobin 11.7 G/DL (12.0-16.0) Oxygen Delivery Device SIMPLE MASK Blood Gas Liter Flow 6 L/M Lactic Acid Level 1.2 mmol/L (0.4-2.0) Nasal Screen MRSA (PCR) MRSA NOT DETECTED (NOT Test 07/12/17 17:22 07/12/17 23:15 07/13/17 04:52 07/13/17 14:55 Blood Gas Puncture Site RT RADIAL RT BRACHIAL RT RADIAL Blood Gas Patient Temperature 98.6 98.6 98.6 Blood Gas HCO3 34 mmol/L (22-26) 33 mmol/L (22-26) 33 mmol/L (22-26) Blood Gas Base Excess 7.3 mmol/L (-2-2) 7.3 mmol/L (-2-2) 8.0 mmol/L (-2-2) Blood Gas Oxygen Saturation 93 % (90-100) 91 % (90-100) 88 % (90-100) Arterial Blood pH 7.26 (7.380-7.420) 7.36 (7.380-7.420) 7.43 (7.380-7.420) Arterial Blood Partial Pressure CO2 78 mmHg (38-42) 60 mmHg (38-42) 50 mmHg (38-42) Arterial Blood Partial Pressure O2 80 mmHg (61-120) 65 mmHg (61-120) 56 mmHg (61-120) Arterial Blood Oxygen Content 15.6 Vol % (12.0-20.0) 15.4 Vol % (12.0-20.0) 14.6 Vol % (12.0-20.0) Arterial Blood Carboxyhemoglobin 0.9 % (0-4) 1.1 % (0-4) 1.1 % (0-4) Arterial Blood Methemoglobin 1.0 % (0-2) 0.8 % (0-2) 0.8 % (0-2) Blood Gas Hemoglobin 11.9 G/DL (12.0-16.0) 12.1 G/DL (12.0-16.0) 11.8 G/DL (12.0-16.0) Oxygen Delivery Device SIMPLE MASK BiPAP VENTILATOR Blood Gas Liter Flow 6 L/M Blood Gas Ventilator Setting 10IPAP/5EPAP PRVC24/500/0.8/+8 Blood Gas Inspired Oxygen 45 % 60 % White Blood Count 13.7 TH/MM3 (4.0-11.0) Red Blood Count 3.56 MIL/MM3 (4.50-5.90) Hemoglobin 11.1 GM/DL (13.0-17.0) Hematocrit 33.6 % (39.0-51.0) Mean Corpuscular Volume 94.5 FL (80.0-100.0) Mean Corpuscular Hemoglobin 31.1 PG (27.0-34.0) Mean Corpuscular Hemoglobin Concent 32.9 % (32.0-36.0) Red Cell Distribution Width 14.2 % (11.6-17.2) Platelet Count 187 TH/MM3 (150-450) Mean Platelet Volume 8.1 FL (7.0-11.0) Neutrophils (%) (Auto) 84.0 % (16.0-70.0) Lymphocytes (%) (Auto) 9.5 % (9.0-44.0) Monocytes (%) (Auto) 6.4 % (0.0-8.0) Eosinophils (%) (Auto) 0.0 % (0.0-4.0) Basophils (%) (Auto) 0.1 % (0.0-2.0) Neutrophils # (Auto) 11.5 TH/MM3 (1.8-7.7) Lymphocytes # (Auto) 1.3 TH/MM3 (1.0-4.8) Monocytes # (Auto) 0.9 TH/MM3 (0-0.9) Eosinophils # (Auto) 0.0 TH/MM3 (0-0.4) Basophils # (Auto) 0.0 TH/MM3 (0-0.2) CBC Comment AUTO DIFF Differential Total Cells Counted 100 Neutrophils % (Manual) 78 % (16-70) Band Neutrophils % 10 % (0-6) Lymphocytes % 6 % (9-44) Monocytes % 5 % (0-8) Neutrophils # (Manual) 12.2 TH/MM3 (1.8-7.7) Promyelocytes 1 % (0-0) Differential Comment FINAL DIFF MANUAL Platelet Estimate NORMAL (NORMAL) Platelet Morphology Comment NORMAL (NORMAL) Red Cell Morphology Comment NORMAL (NORMAL) Blood Urea Nitrogen 21 MG/DL (7-18) Creatinine 0.60 MG/DL (0.60-1.30) Random Glucose 149 MG/DL (74-106) Calcium Level 8.5 MG/DL (8.5-10.1) Sodium Level 141 MEQ/L (136-145) Potassium Level 3.5 MEQ/L (3.5-5.1) Chloride Level 102 MEQ/L (98-107) Carbon Dioxide Level 31.9 MEQ/L (21.0-32.0) Anion Gap 7 MEQ/L (5-15) Estimat Glomerular Filtration Rate 132 ML/MIN (>89) Ammonia 90 MCMOL/L (11-32) Test 07/14/17 04:19 07/14/17 05:05 07/14/17 09:50 White Blood Count 11.3 TH/MM3 (4.0-11.0) Red Blood Count 3.96 MIL/MM3 (4.50-5.90) Hemoglobin 12.4 GM/DL (13.0-17.0) Hematocrit 37.6 % (39.0-51.0) Mean Corpuscular Volume 94.9 FL (80.0-100.0) Mean Corpuscular Hemoglobin 31.3 PG (27.0-34.0) Mean Corpuscular Hemoglobin Concent 33.0 % (32.0-36.0) Red Cell Distribution Width 14.2 % (11.6-17.2) Platelet Count 251 TH/MM3 (150-450) Mean Platelet Volume 8.3 FL (7.0-11.0) Neutrophils (%) (Auto) 77.0 % (16.0-70.0) Lymphocytes (%) (Auto) 16.6 % (9.0-44.0) Monocytes (%) (Auto) 6.1 % (0.0-8.0) Eosinophils (%) (Auto) 0.0 % (0.0-4.0) Basophils (%) (Auto) 0.3 % (0.0-2.0) Neutrophils # (Auto) 8.7 TH/MM3 (1.8-7.7) Lymphocytes # (Auto) 1.9 TH/MM3 (1.0-4.8) Monocytes # (Auto) 0.7 TH/MM3 (0-0.9) Eosinophils # (Auto) 0.0 TH/MM3 (0-0.4) Basophils # (Auto) 0.0 TH/MM3 (0-0.2) CBC Comment AUTO DIFF Differential Total Cells Counted 100 Neutrophils % (Manual) 73 % (16-70) Band Neutrophils % 1 % (0-6) Lymphocytes % 17 % (9-44) Monocytes % 6 % (0-8) Neutrophils # (Manual) 8.7 TH/MM3 (1.8-7.7) Metamyelocytes 3 % (0-1) Differential Comment FINAL DIFF MANUAL Platelet Estimate NORMAL (NORMAL) Platelet Morphology Comment NORMAL (NORMAL) Blood Urea Nitrogen 44 MG/DL (7-18) Creatinine 1.00 MG/DL (0.60-1.30) Random Glucose 131 MG/DL (74-106) Calcium Level 9.1 MG/DL (8.5-10.1) Sodium Level 139 MEQ/L (136-145) Potassium Level 3.5 MEQ/L (3.5-5.1) Chloride Level 99 MEQ/L (98-107) Carbon Dioxide Level 33.3 MEQ/L (21.0-32.0) Anion Gap 7 MEQ/L (5-15) Estimat Glomerular Filtration Rate 73 ML/MIN (>89) Ammonia LESS THAN 10 MCMOL/L Blood Gas Puncture Site RT RADIAL Blood Gas Patient Temperature 98.6 Blood Gas HCO3 31 mmol/L (22-26) Blood Gas Base Excess 7.5 mmol/L (-2-2) Blood Gas Oxygen Saturation 92 % (90-100) Arterial Blood pH 7.48 (7.380-7.420) Arterial Blood Partial Pressure CO2 43 mmHg (38-42) Arterial Blood Partial Pressure O2 68 mmHg (61-120) Arterial Blood Oxygen Content 15.1 Vol % (12.0-20.0) Arterial Blood Carboxyhemoglobin 1.1 % (0-4) Arterial Blood Methemoglobin 0.8 % (0-2) Blood Gas Hemoglobin 11.7 G/DL (12.0-16.0) Oxygen Delivery Device VENTILATOR Blood Gas Ventilator Setting 24/500/IT0.8/10PEEP Blood Gas Inspired Oxygen 50 % . Result Diagram: 07/14/17 0419 07/14/17 0419 Microbiology Microbiology Date/Time Source Procedure Growth Status 07/13/17 12:30 Sputum Endotracheal Gram Stain - Final Resulted 07/13/17 12:30 Sputum Endotracheal Sputum Culture - Preliminary HEAVY GROWTH NORMAL RESPIRATORY AMANDA... Resulted Imaging Last Impressions Chest X-Ray 07/13/17 0000 Signed Impressions: Service Date/Time: Thursday, July 13, 2017 12:49 - CONCLUSION: 1. Left lower lobe atelectasis versus pneumonia. There has been no significant change when compared to the prior exam. 2. Satisfactory position of endotracheal tube as above. Ford Darling MD Head CT 07/10/17 1147 Signed Impressions: Service Date/Time: , July 10, 2017 13:05 - CONCLUSION: 1. No acute intracranial abnormality. 2. Chronic paranasal sinus disease. Arias Mclean Jr., MD Knee X-Ray 07/10/17 0000 Signed Impressions: Service Date/Time: , July 10, 2017 13:33 - CONCLUSION: Soft tissue swelling without evidence of acute bony abnormality. Fred Waller MD Hand X-Ray 07/10/17 0000 Signed Impressions: Service Date/Time: , July 10, 2017 13:42 - CONCLUSION: Comminuted fracture involving the base of the left fifth metacarpal. Fred Waller MD Cervical Spine CT 07/10/17 0000 Signed Impressions: Service Date/Time: , July 10, 2017 13:05 - CONCLUSION: 1. There is no evidence of acute fracture. 2. Extensive cervical adenopathy which can be seen with lymphoma. Possible nodule left lung apex 3. CT scan of the neck and chest with contrast is recommended Ford Darling MD . Procedures 07/13/17- endotracheal intubation. Patient/Family Conference Present at Family Conference: Spoke with brother, Michael Spencer, via telephone and [facility] correctional case manager, Mar Redd regarding below listed items, patient condition and goals of care. . Family Conference Location: Telephone Issues Discussed: * Palliative care role, purpose, approach * Additional medical, psychosocial, and spiritual history * Patients general health, functional status, and cognitive changes in the months leading up to the current hospitalization * Patient/family understanding of the current medical problems * Patient/family understanding of prognosis * Patients goals of care as best understood from advance directives and/or conversations and/or values * Current medical treatment options and benefits/burdens of those options * Likely scenarios comparing ongoing aggressive care with a transition to comfort measures only * Questions answered to the best of my ability * Palliative care contact information provided Per my discussion with Michael Spencer, he wishes to discuss his brother Tyson' s condition with his family prior to making any decisions regarding CODE STATUS. At this time the patient will remain a FULL CODE. Michael states that he believes in miracle healing but does not wish to put his brother through any discomfort that he would not wish to induce work. Contact information was provided for any further questions or decisions. . Assessment and Plan Disease Oriented Problem List: (1) Hypercapnia (2) Leukocytosis (3) Sepsis (4) Schizophrenia (5) Encephalopathy (6) Nutrition, metabolism, and development symptoms (7) Rhabdomyolysis (8) Altered mental status (9) Weakness (10) Pneumonia (11) Fall (12) Facial abrasion Symptom Scale: (1) Edema 0-10 Scale: Unable to quantify (2) Pain, generalized 0-10 Scale: Unable to quantify (3) Dyspnea and respiratory abnormalities 0-10 Scale: Unable to quantify (4) Altered mental status 0-10 Scale: Unable to quantify (5) Weakness 0-10 Scale: Unable to quantify Pertinent Non-Medical Issues Psychosocial:Born in [place] where he lived most of his life and was institutionalized several times for mental illness. Per his brother, Michael, he had a very difficult life. 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 He was never in the . His brother states that he once told him "he is not afraid to ". He denies any spiritual tendencies or beliefs in his brother. Spiritual: No spiritual affiliations. Legal: He is not capacitated at this time to make decisions for himself and has been previously noted to be incapacitated to make decisions. His brother Michael is his decision maker. He was never and has no children. Michael 's his only sibling. Ethical issues impacting care: Patient has a long history of paranoid schizophrenia and bipolar disorder complicated by mental retardation. His brother Michael is his decision maker. . Important Contacts Brother - Michael Spencer [phone] [facility]/ - Mar Redd [phone] Niece - Dasia Spencer [phone] . Prognosis His prognosis is guarded. He had fallen multiple times. He was admitted with rhabdomyolysis, elevated ammonia and pneumonia. He declined after admission and required intubation for deteriorating lung function. He requires monitoring for care and will likely need rehabilitation if he survives this hospitalization. He is at risk for recurrent hospitalizations. . Code Status: Full Code Plan PLAN: Legal decision maker: His brother, Michael Spencer is his legal decision maker. Goals: At this time, goals are aggressive. CODE STATUS: FULL CODE SYMPTOMS: * Altered mental status - likely secondary to elevated ammonia, hypoxia, baseline mental illness and rhabdomyolysis. He is currently intubated and sedated in this cannot be further assessed. Will likely need input from psychiatry who has seen him multiple times if he can be weaned from sedation. * Weakness - likely complicated by rhabdomyolysis elevated ammonia. Will likely need physical therapy if he can be weaned from the ventilator. * Pain - multifactorial, intubation, restraints, bedbound status, fractured left finger, multiple abrasions from frequent falls. Morphine available as needed. None used in the last 24 hours. * Edema - primarily present in left hand secondary to fracture and need for restraints due to intubation. Receiving Lasix 20 mg IV daily. Will likely need therapy once fracture is healed. Summary: This is a 72-year-old mentally disabled male with multiple psychiatric admissions and a history of paranoid schizophrenia, bipolar disorder and mental retardation. He will likely need a higher level of care if he survives this hospitalization. He was admitted with severe dehydration, rhabdomyolysis and pneumonia after several falls resulting in multiple abrasions and lacerations. Per his brother he is unable to care for himself. Goals of care are being discussed with the family, however at this time they do remain aggressive. Palliative care will continue to follow the patient during hospital course as condition evolves, to assist patient/decision-maker with understanding of their medical conditions, weighing benefits/burdens of treatment options, for clarification of goals of treatment. Additionally will assist with any symptoms of palliative concern. . Thank you for the opportunity to participate in the care of Mr. Spencer. Attestation To help prompt me to consider important information that might be impacting today's encounter and assessment, information from prior notes written by myself or my colleagues may have been "brought forward" into today's note. My signature on this note, however, is an attestation that I personally performed the exam, history, and/or decision-making noted today, and, unless otherwise indicated, the interactions with patient, family, and staff as well as the review of records all occurred today. I also attest that the listed assessment and stated plan reflect my best clinical judgment today based on the combination of historical information, prior notes, and today's exam/ interactions. When time spent is documented, it refers only to time spent today by the signer, or if indicated, combined time spent today by collaborating physician/nurse practitioner. . Alondra Mooney Jul 14, 2017 15:46
--- NOTE | 2017-07-14 19:42 | HHI.PR ---
Subjective Remarks On the vent and FIO2 at 40 %.PEEP of 10 CM. ammonia level was high. ABG's were poor. Now sedated . Tolerates feeds. .CXR shows mild effusions Objective Vital Signs Date Time Temp Pulse Resp B/P (MAP) Pulse Ox O2 Delivery O2 Flow Rate FiO2 07/14/17 18:00 91 07/14/17 16:00 99.3 106 19 106/63 (77) 98 07/14/17 16:00 45 07/14/17 16:00 106 07/14/17 15:06 98 45 07/14/17 14:00 119 07/14/17 12:00 99.3 97 24 98/59 (72) 94 07/14/17 12:00 97 07/14/17 12:00 50 07/14/17 11:56 100 50 07/14/17 10:00 104 07/14/17 08:00 98.6 75 24 99/64 (76) 98 07/14/17 08:00 50 07/14/17 08:00 88 07/14/17 07:54 94 50 07/14/17 06:00 89 07/14/17 04:00 96 07/14/17 04:00 97.8 96 24 112/69 (83) 96 07/14/17 04:00 50 07/14/17 03:15 99 50 07/14/17 02:00 96 07/14/17 00:10 98 50 07/14/17 00:00 89 07/14/17 00:00 50 07/14/17 00:00 98.7 89 24 100/66 (77) 100 07/13/17 22:00 101 07/13/17 20:02 95 60 07/13/17 20:00 98.6 107 24 116/71 (86) 95 07/13/17 20:00 107 07/13/17 20:00 60 I/O 07/13/17 07/13/17 07/13/17 07/14/17 07/14/17 07/14/17 07:00 15:00 23:00 07:00 15:00 23:00 Intake Total 1409 ml 100 ml 438 ml 393 ml 402 ml 868 ml Output Total 700 ml 800 ml 575 ml 375 ml Balance 709 ml 100 ml -362 ml -182 ml 402 ml 493 ml IV Total 1409 ml 100 ml 438 ml 393 ml 402 ml 514 ml Tube Feeding 54 ml Other 300 ml Output Urine Total 400 ml 700 ml 350 ml 375 ml Gastric Drainage Total 300 ml 100 ml 225 ml 0 ml # Bowel Movements 1 0 0 Result Diagram: 07/14/1741807/14/17418 Objective Remarks GENERAL: This averagely built elderly man who is lying flat.Intubated HEENT: Head normocephalic. Pupils are reactive. Sclerae are clear Throat is dry. Tongue was moist. Neck: No thyromegaly or lymphadenopathy. CHEST: Decreased breath sounds at the periphery. Expiratory wheezes in the upper chest with occasional crackles in the right base. HEART: The heart sounds are regular S1-S2 with no murmur. No S3, gallop. ABDOMEN: The abdomen is soft and protuberant without masses or organomegaly or tenderness. Bowel sounds active. EXTREMITIES: Mild peripheral edema, has decreased peripheral pulses. NEURO: Reflexes 1+. The patient does withdraw to stimuli. Babinski negative. SKIN: Skin was dry and cool. Assessment and Plan Assessment and Plan IMPRESSION 1. Acute respiratory failure. 2. Metabolic encephalopathy and hepatic encephalopathy. 3. Dehydration. 4. Possible sepsis. 5. Left basilar pneumonia. 6. COPD. 7. Cirrhosis. Plan: 1. Will keep sedated. 2. Wean FIO2 , PEEP and vent rates. 3. CPAP trial in am if stable 4. Continue antibiotics as ordered. 5. CXR ,BMP,CBC in am 6. Ng with feeds at 40CC/HR 7. Nebs qid , Duoneb. Sobeida Barillas MD Jul 14, 2017 19:42
[2017-07-15] VITALS (17 sets, daily range): BP systolic 90–124; BP diastolic 55–64; PULSE 64–109; RESP 18–27; TEMP 97.2–99.6; O2SAT 94–100
[2017-07-15] MEDS: HEPARIN SODIUM - SQ 10,000 UNITS/ML VIAL SQ SCH ×2 (03:41→15:37)
[2017-07-15] MEDS: PROPOFOL 1000 MG/100 ML INJ 100 ML IV PRN (03:42)
[2017-07-15] MEDS: metroNIDAZOLE 500 MG INJ 100 ML IV SCH ×3 (03:44→20:00)
[2017-07-15 04:29] LABS: AUTOMATED NEUTROPHIL # 7.6 TH/MM3 (1.8-7.7); BASOPHIL % 0.3 % (0.0-2.0); HEMATOCRIT 33.5 % (39.0-51.0); LYMPH % 23.1 % (9.0-44.0); LYMPHOCYTE # 2.6 TH/MM3 (1.0-4.8); MEAN CELL VOLUME 93.6 FL (80.0-100.0); MEAN CORPUSCULAR HEMOGLOBIN 30.9 PG (27.0-34.0); MONO % 8.1 % (0.0-8.0); NEUT % 68.5 % (16.0-70.0); PLATELET COUNT 265 TH/MM3 (150-450); RED BLOOD COUNT 3.58 MIL/MM3 (4.50-5.90); RED CELL DISTRIBUTION WIDTH 14.3 % (11.6-17.2); WHITE BLOOD COUNT 11.1 TH/MM3 (4.0-11.0)
[2017-07-15 04:39] LABS: HEMO FLAGS AUTO DIFF
[2017-07-15 05:01] LABS: BICARBONATE 31.7 MEQ/L (21.0-32.0); POTASSIUM 3.6 MEQ/L (3.5-5.1)
[2017-07-15] MEDS: RIFAXIMIN 200 MG TAB PO SCH ×3 (05:43→20:01)
[2017-07-15 07:05] LABS: BANDS 13 % (0-6); MYELOCYTES 1 % (0-0); NEUTROPHIL # MANUAL DIFF 8.5 TH/MM3 (1.8-7.7); PLATELET ESTIMATE SMEAR NORMAL (NORMAL); POLYS (SEG NEUTROPHILS) 63 % (16-70); SCAN/DIFF FINAL DIFF MANUAL; WBC DIFF SAMPLE 100
[2017-07-15 07:06] LABS: PLATELET MORPHOLOGY NORMAL (NORMAL)
[2017-07-15] MEDS: SODIUM CHLORIDE 0.9% FLUSH 10 ML FLUSH IV FLUSH SCH ×2 (08:18→20:00)
[2017-07-15] MEDS: CHLORHEXIDINE 0.12% (ORAL KIT) 15 ML CUP MT SCH ×2 (08:18→20:00)
[2017-07-15] MEDS: BUDESONIDE-FORMOTEROL 160/4.5 MCG INHALER INH SCH ×2 (08:18→21:00)
[2017-07-15] MEDS: LACTULOSE SYRUP 20 GM/30 ML CUP PO SCH ×4 (08:19→20:01)
[2017-07-15] MEDS: SERTRALINE HCL 100 MG TAB PO SCH (08:19)
[2017-07-15] MEDS: FUROSEMIDE 20 MG/2 ML VIAL IV PUSH SCH (08:19)
[2017-07-15] MEDS: cloZAPine 100 MG TAB PO SCH (08:19)
[2017-07-15] MEDS: VALPROIC ACID SYRUP 250 MG/5 ML UDC PO SCH ×2 (08:20→20:00)
[2017-07-15] MEDS: DOCUSATE SODIUM 50 MG/SENNA 8.6 MG TAB PO SCH ×2 (08:20→20:01)
[2017-07-15] MEDS: BENZTROPINE MESYLATE 1 MG TAB PO SCH ×2 (08:20→20:00)
[2017-07-15] MEDS: methylPREDNISolone SOD SUCC 40 MG/1 ML VIAL IV PUSH SCH ×2 (08:20→20:00)
--- NOTE | 2017-07-15 10:28 | HHI.FPPN ---
Subjective Remarks sedated on vent d/w RN k protocol Objective Vitals Vital Signs Date Time Temp Pulse Resp B/P (MAP) Pulse Ox O2 Delivery O2 Flow Rate FiO2 07/15/17 10:02 35 07/15/17 10:00 95 35 07/15/17 10:00 76 07/15/17 08:57 96 35 07/15/17 08:00 97.7 69 18 105/57 (73) 97 07/15/17 08:00 69 07/15/17 06:00 79 07/15/17 04:00 81 07/15/17 04:00 97.2 81 19 99/59 (72) 99 07/15/17 03:49 96 35 07/15/17 02:00 64 07/15/17 00:11 100 35 07/15/17 00:00 97.5 65 18 90/55 (67) 99 07/15/17 00:00 65 07/14/17 22:00 84 07/14/17 21:18 99 35 07/14/17 20:00 98.4 84 25 112/63 (79) 95 07/14/17 20:00 87 07/14/17 18:00 91 07/14/17 16:00 99.3 106 19 106/63 (77) 98 07/14/17 16:00 45 07/14/17 16:00 106 07/14/17 15:06 98 45 07/14/17 14:00 119 07/14/17 12:00 99.3 97 24 98/59 (72) 94 07/14/17 12:00 97 07/14/17 12:00 50 07/14/17 11:56 100 50 I/O 07/14/17 07/14/17 07/14/17 07/15/17 07/15/17 07/15/17 06:59 14:59 22:59 06:59 14:59 22:59 Intake Total 493 ml 402 ml 1125 ml 391 ml Output Total 575 ml 525 ml Balance -82 ml 402 ml 600 ml 391 ml IV Total 493 ml 402 ml 514 ml Tube Feeding 191 ml 331 ml Other 420 ml 60 ml Output Urine Total 350 ml 525 ml Gastric Drainage Total 225 ml 0 ml # Bowel Movements 0 0 1 Result Diagram: 07/15/1740907/15/17409 Objective Remarks GENERAL: ON VENT, ALERT SKIN: Warm and dry. numerous abrasions. HEAD: Atraumatic. Normocephalic. EYES: Pupils equal and round. No scleral icterus. No injection or drainage. ENT: No nasal bleeding or discharge. Mucous membranes pink and moist. NECK: Trachea midline. No JVD. CARDIOVASCULAR: Regular rate and rhythm. RESPIRATORY: No accessory muscle use. Clear to auscultation. Breath sounds equal bilaterally. GASTROINTESTINAL: Abdomen soft, non-tender, nondistended. Hepatic and splenic margins not palpable. MUSCULOSKELETAL: Extremities without clubbing, cyanosis, or edema. No obvious deformities. NEUROLOGICAL: Awake and alert. No obvious cranial nerve deficits. Motor grossly within normal limits. 1 out of 5 muscle strength in the arms and legs. PSYCHIATRIC: A/P Problem List: (1) Altered mental status ICD Codes: R41.82 - Altered mental status, unspecified Status: Acute (2) Hyperammonemia ICD Codes: E72.20 - Disorder of urea cycle metabolism, unspecified Status: Acute (3) Hypokalemia ICD Codes: E87.6 - Hypokalemia Status: Acute (4) Community acquired pneumonia ICD Codes: J18.9 - Pneumonia, unspecified organism Status: Acute (5) Rhabdomyolysis ICD Codes: M62.82 - Rhabdomyolysis Status: Acute (6) Fracture ICD Codes: T14.8XXA - Other injury of unspecified body region, initial encounter Status: Acute (7) Intellectual disability ICD Codes: F79 - Unspecified intellectual disabilities Status: Acute (8) Fall ICD Codes: W19.XXXA - Fall Status: Acute (9) Schizoaffective disorder ICD Codes: F25.9 - Schizoaffective disorder, unspecified Status: Acute (10) Pneumonia ICD Codes: J18.9 - Pneumonia, unspecified organism Status: Acute (11) Weakness ICD Codes: R53.1 - Weakness Status: Acute (12) Facial abrasion ICD Codes: S00.81XA - Facial abrasion Status: Acute (13) Head injury due to trauma ICD Codes: S09.90XA - Unspecified injury of head, initial encounter Status: Acute (14) Abnormal CT scan, lung ICD Codes: R91.8 - Abnormal computed tomography of lung Status: Acute (15) Schizoaffective disorder, bipolar type ICD Codes: F25.0 - Schizoaffective disorder, bipolar type Status: Acute Plan: A/P: AMS VDRF: VENT PER CCM, TF'S PNA: IV ABX HEPATIC ENCEPH CIRRHOSIS: LACTULOSE PNGT FALLS Neck lymphadenopathy. Lung mass. Asthma. Schizophrenia. Mental retardation. Rhabdomyolysis. Hypokalemia. Hypernatremia. Hyperglycemia. DVT prophylaxis, heparin 5000 units b.i.d. GI PROPHYLAXIS- IV PROTONIX Problem Qualifiers (1) Altered mental status: Qualified Codes: R40.0 - Somnolence (2) Community acquired pneumonia: Qualified Codes: J18.1 - Lobar pneumonia, unspecified organism (3) Rhabdomyolysis: Qualified Codes: M62.82 - Rhabdomyolysis Min Hebert MD Jul 15, 2017 10:28
--- NOTE | 2017-07-15 10:39 | HHI.CCPN ---
Subjective Remarks/Hospital Course 72 y/o homeless man arrived disheveled with numerous abrasions of various ages. Came to ICU as Halicat after worsening encephalopathy associated with elevated ammonia and PCO2. I have elected to not reverse his narcotic or benzo for fear of inciting untoward other events - seizures, vomiting, etc. 07/13: Confused and agitated. Ammonia 90. Bandemia, continue abx coverage. Generalized edema. Worsening respiratory failure with increased secretions. Required intubation and mechanical ventilation today for deteriorating lung function. 07/14: His psychiatric illness complicates medical care. Will ask Psychiatry, who know him well, to consult after he is extubated. [facility] visited today, know him well. His POA is brother Jc in [place] (age 83). They called him today and started talk about end-of-life issues. He called me and explained that he is not ready to make him DNR status yet. He says he called [facility] in [place] and the man told him about a man who was in the morgue at another hospital with a toe tag on but then awakened and was normal. Jc has a son who is an alcoholic in [place] who he cares for and another family member who is addicted to opioid drugs. It will take him awhile to get here because [place] But he says he will come in a day or two. 07/15: Meets criteria for extubation today. Will ask [facility] to assist us with suitable medications for his agitation. Objective Vital Signs Date Time Temp Pulse Resp B/P (MAP) Pulse Ox O2 Delivery O2 Flow Rate FiO2 07/15/17 10:02 35 07/15/17 10:00 95 07/15/17 10:00 76 07/15/17 08:00 97.7 18 105/57 (73) 07/13/17 08:21 Venturi Mask 6.00 Intake and Output 07/15/17 07/15/17 07/16/17 08:00 16:00 00:00 Intake Total 391 ml Balance 391 ml Result Diagram: 07/15/17 0410 07/15/17 0410 Other Results Microbiology Date/Time Source Procedure Growth Status 07/13/17 12:30 Sputum Endotracheal Gram Stain - Final Complete 07/13/17 12:30 Sputum Endotracheal Sputum Culture - Final HEAVY GROWTH NORMAL RESPIRATORY AMANDA Complete Objective Remarks Head: Numerous old abrasions forehead. Dry, clean. Neck: Supple, orally intubated. Lungs: Light wheezes, good mely air entry. Rate 22, deep excursions. Heart: NL S1S2, RRR, no m,r. No JVD. Abdomen: Soft, no guarding. BS present. No tenderness. Extremities: Trace edema all 4 limbs. Cast left arm. Well perfused. Neuro: Pupils 2 mm, react. Moves 4 limbs to stimulation. Cough, gag intact. Active, confused. A/P Assessment and Plan Assessment: 1. Toxic encephalopathy (Multiple sedatives) 2. Metabolic encephalopathy (Elevated ammonia). 3. Rhabdomyolysis. 4. Hepatic failure with elevated ammonia. 5. Fluid overload. 6. Pneumonia, left lung 7. Hypoxemic respiratory failure. Plan: 1. HOB up 30 degrees. 2. PRVC vent mode. 3. D/C iv fluid. 4. Decrease diuretics. 5. Continue ABX coverage. 6. NPO -> start TFs. 7. Low protein diet.. 8. NG tube. 9. Follow ABG. 10. Increase lactulose. 11. Extubate. Overall impression: Patient has become critically ill with severe encephalopathy caused by advanced cirrhosis, elevated ammonia, and CO2 retention and hypercapneic/hypoxemic respiratory failure. Multiple recent falls and inability to care for himself. Required intubation for deteriorating respiratory function. Extubated today. Sadnor Pascual MD Jul 15, 2017 10:39
[2017-07-15] MEDS ORDERED: RESP: RACEPINEPHRINE 2.25% 0.5 ML NEB ONE ×4 (12:12→12:13)
[2017-07-15] MEDS: NS + KCL 20 MEQ INJ 1,000 ML IV SCH (13:46)
--- NOTE | 2017-07-15 14:45 | HHI.HCPN ---
Reason for visit a. To assist with evaluation and management of symptoms including: Altered mental status, weakness, dyspnea, pain, edema b. To assist medical decision maker(s) with: better understanding of current medical conditions; weighing benefits/burdens of medical treatment options; making medical treatment decisions. . Subjective/Interval History Patient seen in ICU. He was successfully medically extubated earlier today. Patient is alert to self, verbal. Asking for water. Following some simple commands. Intermittently anxious, agitated. Remains on bilateral soft wrist restraints. Patient denies pain, shortness of breath or abdominal pain. Endorsing being "very hungry" and asking for food. Patient remains afebrile, stable hemodynamically. Currently tolerating O2 via nasal cannula 3 L. Oxygen saturation in the high 90s. Laboratory work Today revealing WBC 11.1, Hgb 11.1 , platelet count 265. Sodium 142, potassium 3.6, BUN/creatinine 55/0.72. Ammonia as of yesterday less than 10. Pending psych evaluation for medication management -history of bipolar, schizophrenia. Telephone conversation with patient's brother Michael Spencer. He tells me that he is still in [place], unable to transfer to [place] at this time. Medical update provided. Discuss CODE STATUS given that patient is now medically extubated. Reviewed risks, benefits and limitations of CPR, intubation and mechanical ventilation. Patient's brother acting as healthcare proxy decision maker electing to continue full aggressive management to include full code. As per family, Goal is to discharge patient to ad terminal makeup operator care facility. Family is no longer able to care for patient at home. . Family/friend interactions See interval none. . Advance Directives Living Will: Never completed Health Care Surrogate: Never completed Durable Power of Metal Checker: Never completed Advance Directive Specifics Health Care Surrogate(s): No advance directives completed. As per [place] law, healthcare proxy decision maker falls to patient's only brother Michael Spencer. Patient is single, no children. Parents are . . Significant change in goals: Full code. Continue current aggressive management. . Objective Vital Signs Date Time Temp Pulse Resp B/P (MAP) Pulse Ox O2 Delivery O2 Flow Rate FiO2 07/15/17 14:03 100 Nasal Cannula 3.00 07/15/17 14:00 76 07/15/17 12:00 98.2 107 24 107/59 (75) 95 07/15/17 12:00 107 07/15/17 11:00 96 6.00 07/15/17 11:00 96 Nasal Cannula 6 07/15/17 11:00 95 Nasal Cannula 5.00 07/15/17 10:02 35 07/15/17 10:00 95 35 07/15/17 10:00 76 07/15/17 08:57 96 35 07/15/17 08:00 35 07/15/17 08:00 97 Mechanical Ventilator 35 07/15/17 08:00 97.7 69 18 105/57 (73) 97 07/15/17 08:00 69 07/15/17 06:00 79 07/15/17 04:00 81 07/15/17 04:00 97.2 81 19 99/59 (72) 99 07/15/17 03:49 96 35 07/15/17 02:00 64 07/15/17 00:11 100 35 07/15/17 00:00 97.5 65 18 90/55 (67) 99 07/15/17 00:00 65 07/14/17 22:00 84 07/14/17 21:18 99 35 07/14/17 20:00 98.4 84 25 112/63 (79) 95 07/14/17 20:00 87 07/14/17 18:00 91 07/14/17 16:00 99.3 106 19 106/63 (77) 98 07/14/17 16:00 45 07/14/17 16:00 106 07/14/17 15:06 98 45 Intake & Output 07/15/17 07/15/17 07:00 19:00 Intake Total 648 ml 839 ml Output Total 150 ml Balance 498 ml 839 ml IV Total 839 ml Tube Feeding 468 ml Other 180 ml Output Urine Total 150 ml # Bowel Movements 1 Physical Exam CONSTITUTIONAL/GENERAL: This is an adequately nourished patient worsening bed in moderate distress, anxious. TUBES/LINES/DRAINS: Nasal cannula, PIV's, Vale catheter, SCDs, bilateral soft wrist restraints. SKIN: Multiple abrasions, scrapes and wounds in various stages of healing on arms legs and face. EYES: Pupils equal and round and reactive. No scleral icterus. No injection or drainage. ENT: Nose without bleeding or purulent drainage. Dry lips. Poor dentition. NECK: Trachea midline. Supple, nontender. CARDIOVASCULAR: Regular rate and rhythm without murmurs, gallops, or rubs. No JVD. Peripheral pulses symmetric. RESPIRATORY/CHEST: Clear, diminished breath sounds bilaterally. GASTROINTESTINAL: Abdomen soft, nondistended. Bowel sounds present. GENITOURINARY: Without palpable bladder distension. Vale catheter in place. MUSCULOSKELETAL: Extremities without clubbing or cyanosis. 2+ edema left hand, trace right hand. No mottling or clubbing. NEUROLOGICAL: Alert and oriented times self. PSYCHIATRIC: Anxious, agitated. . Diagnostic Tests Laboratory Laboratory Tests Test 07/12/17 17:22 07/12/17 23:15 07/13/17 04:52 07/13/17 14:55 Blood Gas Puncture Site RT RADIAL RT BRACHIAL RT RADIAL Blood Gas Patient Temperature 98.6 98.6 98.6 Blood Gas HCO3 34 mmol/L (22-26) 33 mmol/L (22-26) 33 mmol/L (22-26) Blood Gas Base Excess 7.3 mmol/L (-2-2) 7.3 mmol/L (-2-2) 8.0 mmol/L (-2-2) Blood Gas Oxygen Saturation 93 % (90-100) 91 % (90-100) 88 % (90-100) Arterial Blood pH 7.26 (7.380-7.420) 7.36 (7.380-7.420) 7.43 (7.380-7.420) Arterial Blood Partial Pressure CO2 78 mmHg (38-42) 60 mmHg (38-42) 50 mmHg (38-42) Arterial Blood Partial Pressure O2 80 mmHg (61-120) 65 mmHg (61-120) 56 mmHg (61-120) Arterial Blood Oxygen Content 15.6 Vol % (12.0-20.0) 15.4 Vol % (12.0-20.0) 14.6 Vol % (12.0-20.0) Arterial Blood Carboxyhemoglobin 0.9 % (0-4) 1.1 % (0-4) 1.1 % (0-4) Arterial Blood Methemoglobin 1.0 % (0-2) 0.8 % (0-2) 0.8 % (0-2) Blood Gas Hemoglobin 11.9 G/DL (12.0-16.0) 12.1 G/DL (12.0-16.0) 11.8 G/DL (12.0-16.0) Oxygen Delivery Device SIMPLE MASK BiPAP VENTILATOR Blood Gas Liter Flow 6 L/M Blood Gas Ventilator Setting 10IPAP/5EPAP PRVC24/500/0.8/+8 Blood Gas Inspired Oxygen 45 % 60 % White Blood Count 13.7 TH/MM3 (4.0-11.0) Red Blood Count 3.56 MIL/MM3 (4.50-5.90) Hemoglobin 11.1 GM/DL (13.0-17.0) Hematocrit 33.6 % (39.0-51.0) Mean Corpuscular Volume 94.5 FL (80.0-100.0) Mean Corpuscular Hemoglobin 31.1 PG (27.0-34.0) Mean Corpuscular Hemoglobin Concent 32.9 % (32.0-36.0) Red Cell Distribution Width 14.2 % (11.6-17.2) Platelet Count 187 TH/MM3 (150-450) Mean Platelet Volume 8.1 FL (7.0-11.0) Neutrophils (%) (Auto) 84.0 % (16.0-70.0) Lymphocytes (%) (Auto) 9.5 % (9.0-44.0) Monocytes (%) (Auto) 6.4 % (0.0-8.0) Eosinophils (%) (Auto) 0.0 % (0.0-4.0) Basophils (%) (Auto) 0.1 % (0.0-2.0) Neutrophils # (Auto) 11.5 TH/MM3 (1.8-7.7) Lymphocytes # (Auto) 1.3 TH/MM3 (1.0-4.8) Monocytes # (Auto) 0.9 TH/MM3 (0-0.9) Eosinophils # (Auto) 0.0 TH/MM3 (0-0.4) Basophils # (Auto) 0.0 TH/MM3 (0-0.2) CBC Comment AUTO DIFF Differential Total Cells Counted 100 Neutrophils % (Manual) 78 % (16-70) Band Neutrophils % 10 % (0-6) Lymphocytes % 6 % (9-44) Monocytes % 5 % (0-8) Neutrophils # (Manual) 12.2 TH/MM3 (1.8-7.7) Promyelocytes 1 % (0-0) Differential Comment FINAL DIFF MANUAL Platelet Estimate NORMAL (NORMAL) Platelet Morphology Comment NORMAL (NORMAL) Red Cell Morphology Comment NORMAL (NORMAL) Blood Urea Nitrogen 21 MG/DL (7-18) Creatinine 0.60 MG/DL (0.60-1.30) Random Glucose 149 MG/DL (74-106) Calcium Level 8.5 MG/DL (8.5-10.1) Sodium Level 141 MEQ/L (136-145) Potassium Level 3.5 MEQ/L (3.5-5.1) Chloride Level 102 MEQ/L (98-107) Carbon Dioxide Level 31.9 MEQ/L (21.0-32.0) Anion Gap 7 MEQ/L (5-15) Estimat Glomerular Filtration Rate 132 ML/MIN (>89) Ammonia 90 MCMOL/L (11-32) Test 07/14/17 04:19 07/14/17 05:05 07/14/17 09:50 07/15/17 04:10 White Blood Count 11.3 TH/MM3 (4.0-11.0) 11.1 TH/MM3 (4.0-11.0) Red Blood Count 3.96 MIL/MM3 (4.50-5.90) 3.58 MIL/MM3 (4.50-5.90) Hemoglobin 12.4 GM/DL (13.0-17.0) 11.1 GM/DL (13.0-17.0) Hematocrit 37.6 % (39.0-51.0) 33.5 % (39.0-51.0) Mean Corpuscular Volume 94.9 FL (80.0-100.0) 93.6 FL (80.0-100.0) Mean Corpuscular Hemoglobin 31.3 PG (27.0-34.0) 30.9 PG (27.0-34.0) Mean Corpuscular Hemoglobin Concent 33.0 % (32.0-36.0) 33.0 % (32.0-36.0) Red Cell Distribution Width 14.2 % (11.6-17.2) 14.3 % (11.6-17.2) Platelet Count 251 TH/MM3 (150-450) 265 TH/MM3 (150-450) Mean Platelet Volume 8.3 FL (7.0-11.0) 8.5 FL (7.0-11.0) Neutrophils (%) (Auto) 77.0 % (16.0-70.0) 68.5 % (16.0-70.0) Lymphocytes (%) (Auto) 16.6 % (9.0-44.0) 23.1 % (9.0-44.0) Monocytes (%) (Auto) 6.1 % (0.0-8.0) 8.1 % (0.0-8.0) Eosinophils (%) (Auto) 0.0 % (0.0-4.0) 0.0 % (0.0-4.0) Basophils (%) (Auto) 0.3 % (0.0-2.0) 0.3 % (0.0-2.0) Neutrophils # (Auto) 8.7 TH/MM3 (1.8-7.7) 7.6 TH/MM3 (1.8-7.7) Lymphocytes # (Auto) 1.9 TH/MM3 (1.0-4.8) 2.6 TH/MM3 (1.0-4.8) Monocytes # (Auto) 0.7 TH/MM3 (0-0.9) 0.9 TH/MM3 (0-0.9) Eosinophils # (Auto) 0.0 TH/MM3 (0-0.4) 0.0 TH/MM3 (0-0.4) Basophils # (Auto) 0.0 TH/MM3 (0-0.2) 0.0 TH/MM3 (0-0.2) CBC Comment AUTO DIFF AUTO DIFF Differential Total Cells Counted 100 100 Neutrophils % (Manual) 73 % (16-70) 63 % (16-70) Band Neutrophils % 1 % (0-6) 13 % (0-6) Lymphocytes % 17 % (9-44) 17 % (9-44) Monocytes % 6 % (0-8) 6 % (0-8) Neutrophils # (Manual) 8.7 TH/MM3 (1.8-7.7) 8.5 TH/MM3 (1.8-7.7) Metamyelocytes 3 % (0-1) Differential Comment FINAL DIFF MANUAL FINAL DIFF MANUAL Platelet Estimate NORMAL (NORMAL) NORMAL (NORMAL) Platelet Morphology Comment NORMAL (NORMAL) NORMAL (NORMAL) Blood Urea Nitrogen 44 MG/DL (7-18) 55 MG/DL (7-18) Creatinine 1.00 MG/DL (0.60-1.30) 0.74 MG/DL (0.60-1.30) Random Glucose 131 MG/DL (74-106) 142 MG/DL (74-106) Calcium Level 9.1 MG/DL (8.5-10.1) 8.9 MG/DL (8.5-10.1) Sodium Level 139 MEQ/L (136-145) 142 MEQ/L (136-145) Potassium Level 3.5 MEQ/L (3.5-5.1) 3.6 MEQ/L (3.5-5.1) Chloride Level 99 MEQ/L (98-107) 103 MEQ/L (98-107) Carbon Dioxide Level 33.3 MEQ/L (21.0-32.0) 31.7 MEQ/L (21.0-32.0) Anion Gap 7 MEQ/L (5-15) 7 MEQ/L (5-15) Estimat Glomerular Filtration Rate 73 ML/MIN (>89) 104 ML/MIN (>89) Ammonia LESS THAN 10 MCMOL/L Blood Gas Puncture Site RT RADIAL Blood Gas Patient Temperature 98.6 Blood Gas HCO3 31 mmol/L (22-26) Blood Gas Base Excess 7.5 mmol/L (-2-2) Blood Gas Oxygen Saturation 92 % (90-100) Arterial Blood pH 7.48 (7.380-7.420) Arterial Blood Partial Pressure CO2 43 mmHg (38-42) Arterial Blood Partial Pressure O2 68 mmHg (61-120) Arterial Blood Oxygen Content 15.1 Vol % (12.0-20.0) Arterial Blood Carboxyhemoglobin 1.1 % (0-4) Arterial Blood Methemoglobin 0.8 % (0-2) Blood Gas Hemoglobin 11.7 G/DL (12.0-16.0) Oxygen Delivery Device VENTILATOR Blood Gas Ventilator Setting 24/500/IT0.8/10PEEP Blood Gas Inspired Oxygen 50 % Urine Myoglobin LESS THAN 15 mcg/L (<=21) Myelocytes 1 % (0-0) Result Diagram: 07/15/17 0410 07/15/17 0410 Microbiology Microbiology Date/Time Source Procedure Growth Status 07/13/17 12:30 Sputum Endotracheal Gram Stain - Final Complete 07/13/17 12:30 Sputum Endotracheal Sputum Culture - Final HEAVY GROWTH NORMAL RESPIRATORY AMANDA Complete Procedures 07/15/17 -medical extubation 07/13/17- endotracheal intubation . Assessment and Plan Disease Oriented Problem List: (1) Hypercapnia (2) Leukocytosis (3) Sepsis (4) Schizophrenia (5) Encephalopathy (6) Nutrition, metabolism, and development symptoms (7) Rhabdomyolysis (8) Altered mental status (9) Weakness (10) Pneumonia (11) Fall (12) Facial abrasion Symptom Scale: (1) Edema 0-10 Scale: Unable to quantify (2) Pain, generalized 0-10 Scale: Unable to quantify (3) Dyspnea and respiratory abnormalities 0-10 Scale: Unable to quantify (4) Altered mental status 0-10 Scale: Unable to quantify (5) Weakness 0-10 Scale: Unable to quantify Pertinent Non-Medical Issues Psychosocial:Born in [place] where he lived most of his life and was institutionalized several times for mental illness. Per his brother, Michael, he had a very difficult life. 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 He was never in the . His brother states that he once told him "he is not afraid to ". He denies any spiritual tendencies or beliefs in his brother. Spiritual: No spiritual affiliations. Legal: He is not capacitated at this time to make decisions for himself and has been previously noted to be incapacitated to make decisions. His brother Michael is his decision maker. He was never and has no children. Michael 's his only sibling. Ethical issues impacting care: Patient has a long history of paranoid schizophrenia and bipolar disorder complicated by mental retardation. His brother Michael is his decision maker. . Important Contacts Brother - Michael Spencer [phone] ACT/CM - Mar Redd [phone] Niece - Dasia Spencer [phone] . Prognosis Mr. Spencer is a 72-year-old male with a medical history significant for schizophrenia, bipolar, mental retardation, prior CVA, cirrhosis. Patient arrived to ED on 07/10/17 for evaluation of weakness and multiple falls. Clinical course complicated by acute respiratory failure required in intubation and mechanical ventilation, rhabdomyolysis, pneumonia and metabolic/hepatic encephalopathy. Patient has been medically extubated, he remains a high risk for further complications, continue decline and . . Code Status: Full Code Plan * CODE STATUS: Full code. Risks, benefits and limitations of CPR, intubation and mechanical ventilation discussed today with patient's brother Michael Spencer. Brother electing to continue full CODE STATUS. * HEALTHCARE DECISION-MAKING: Patient incapacitated for medical decision-making given mental retardation, schizophrenia, bipolar disorder. No advance directives previously completed. As per [place] statute, healthcare proxy decision making falls to patient's only brother Michael Spencer. Patient is single, no children, both parents are . Brother Michael Spencer has accepted this role. * GOALS OF CARE: Patient's brother Michael Spencer acting as healthcare proxy decision maker electing to continue aggressive care to include FULL code. As per patient's brother, goal of treatment is to discharge patient to longterm for long-term care. Brother verbalized that he is no longer able to care for patient at home, brother is elderly with many health issues. * SYMPTOMS: = Altered mental status/anxiety/agitation: Multifactorial, likely secondary to elevated ammonia, hypoxia, baseline mental illness and rhabdomyolysis. Pending psych evaluation for further recommendations. = Weakness - likely complicated by rhabdomyolysis elevated ammonia. This has been progressive, likely to continue to worsen. =Pain - multifactorial secondary to bedbound status, fractured left finger, multiple abrasions from frequent falls. Morphine available as needed. None used in the last 24 hour. * Palliative care contact information has been provided to patient's family. * Palliative care will continue to follow-up as needed for further clarifications of goals of care as patient's clinical course continues to evolve. . Time Spent Total Floor Time (mins): 42 (Total time to include review medical records, physical exam, telephone conversation with patient's brother Michael to discuss goals of care, case discussion with bedside RN.) >50% Counseling/Coord of Care: Yes Attestation To help prompt me to consider important information that might be impacting today's encounter and assessment, information from prior notes written by myself or my colleagues may have been "brought forward" into today's note. My signature on this note, however, is an attestation that I personally performed the exam, history, and/or decision-making noted today, and, unless otherwise indicated, the interactions with patient, family, and staff as well as the review of records all occurred today. I also attest that the listed assessment and stated plan reflect my best clinical judgment today based on the combination of historical information, prior notes, and today's exam/ interactions. When time spent is documented, it refers only to time spent today by the signer, or if indicated, combined time spent today by collaborating physician/nurse practitioner. Madeline Pineda Jul 15, 2017 14:45
--- NOTE | 2017-07-15 15:07 | PD.PSY.CON ---
Provisional Diagnosis Admission Date Jul 10, 2017 at 14:17 [place]. Schizoaffective disorder History of Present Illness Service Psychiatry Consult Requested By Reason for Consult Psychiatric history of schizoaffective disorder Primary Care Physician Unknown HPI Patient is a 72-year-old man, with psychiatric history of schizoaffective disorder, previous psychiatric hospitalizations, he is known by this service, he had a previous psychiatric hospitalizations here at [facility] at the beginning of the year under the care of Dr. Hernandez, documentation review, as per medication reconciliation patient is in Clozaril 200 mg, Depakote 500 mg , Zoloft 100 mg, medical history of liver cirrhosis, who presents emergency Department by [facility] with altered mental status, multiple abrasions to body, and unknown time down. Patient was seen today for psychiatric evaluation, he was agitated, restrained in 4 points, disorganized, unable to provide any meaningful information for the psychiatric assessment. Patient denies pain, shortness of breath or abdominal pain. Endorsing being "very hungry" and asking for food. Patient remains afebrile, stable hemodynamically. Currently tolerating O2 via nasal cannula 3 L. Oxygen saturation in the high 90s. Laboratory work Today revealing WBC 11.1, Hgb 11.1, platelet count 265. Sodium 142, potassium 3.6, BUN/creatinine 55/0.72. Ammonia as of yesterday less than 10. . Review of Systems ROS Limitations: Uncooperative Past Family Social History Coded Allergies: No Known Allergies (Verified , 07/10/17) Active Scripts Doxycycline Hyclate (Doxycycline Hyclate) 100 Mg Cap, 100 MG PO BID for Infection for 7 Days, CAP 0 Refills Prov:Josue Olivas MD 03/03/17 Budesonide-Formoterol Inh (Symbicort Inh) 160-4.5 Mcg/Act Aero, 1 PUFF INH Q12HR for health, #1 INHALER 0 Refills Prov:Nitin España MD R3 11/18/16 Fluticasone 12 GM Inh (Flovent Hfa 12 GM Inh) 220 Mcg/Act Inh, 1 PUFF INH BID for health, #1 INHALER 0 Refills Prov:Nitin España MD R3 11/18/16 Sertraline (Zoloft) 100 Mg Tab, 100 MG PO DAILY for health, #30 TAB 0 Refills Prov:Derrick Hernandez MD 10/15/16 Divalproex ER (Depakote ER) 500 Mg Waldo, 500 MG PO 1 am 3hs for health, #120 TAB 0 Refills Prov:Derrick Hernandez MD 10/15/16 Clozapine (Clozaril) 100 Mg Tab, 200 MG PO 1 am 2 hs for health, #90 TAB 0 Refills Prov:Derrick Hernandez MD 10/15/16 Reported Medications Chlorpromazine (Chlorpromazine) 25 Mg Tab, 50 MG PO TID Y for NAUSEA OR VOMITING , TAB 0 Refills 03/03/17 Benztropine (Benztropine) 0.5 Mg Tab, 1 MG PO BID, #60 TAB 0 Refills 03/03/17 Current Medications Medications (Trade) Dose Ordered Sig/Alpesh Route Start Time Stop Time Status Last Admin (Cogentin) 1 mg BID PO 07/10/17 21:00 07/15/17 08:20 (Symbicort 160-4.5 Inh) 1 puff Q12HR INH 07/10/17 21:00 07/13/17 09:08 (Clozaril) 200 mg DAILY PO 07/10/17 15:30 07/15/17 08:19 (Zoloft) 100 mg DAILY PO 07/10/17 15:30 07/15/17 08:19 (NS Flush) 2 ml UNSCH PRN IV FLUSH 07/10/17 15:30 (NS Flush) 2 ml BID IV FLUSH 07/10/17 21:00 07/15/17 08:18 (Tylenol) 650 mg Q4H PRN PO 07/10/17 15:30 (Zofran Inj) 4 mg Q6H PRN IVP 07/10/17 15:30 07/13/17 20:32 (Heparin Inj) 5,000 units Q12H SQ 07/10/17 15:30 07/15/17 03:41 (Narcan Inj) 0.4 mg UNSCH PRN IV PUSH 07/10/17 15:30 (Vanita-Colace) 1 tab BID PO 07/10/17 21:00 07/15/17 08:20 (Milk Of Magnesia Liq) 30 ml Q12H PRN PO 07/10/17 15:30 (Senokot) 17.2 mg Q12H PRN PO 07/10/17 15:30 (Dulcolax Supp) 10 mg DAILY PRN RECTAL 07/10/17 15:30 (Lactulose Liq) 30 ml DAILY PRN PO 07/10/17 15:30 (Ativan Inj) 0.5 mg Q6H PRN IV PUSH 07/10/17 15:30 07/13/17 14:18 (Catapres) 0.1 mg Q6H PRN PO 07/10/17 15:30 Levofloxacin/ Dextrose 150 ml @ 100 mls/hr Q24H IV 07/10/17 17:00 07/14/17 16:24 (Morphine Inj) 5 mg Q4H PRN IV PUSH 07/10/17 15:30 (Protonix Inj) 40 mg Q24H IV PUSH 07/10/17 15:30 07/14/17 14:13 (SoluMEDROL INJ) 40 mg Q12HR IV PUSH 07/12/17 21:00 07/15/17 08:20 Metronidazole 100 ml @ 100 mls/hr Q8H IV 07/12/17 20:00 07/15/17 11:36 (Lactulose Liq) 30 ml QID PO 07/13/17 09:00 07/15/17 08:19 (Depakene Liq) 250 mg BID PO 07/13/17 09:00 07/15/17 08:20 (Peridex 0.12% Liq) 15 ml BID@08,20 MT 07/13/17 20:00 07/15/17 08:18 Propofol 100 ml @ 2.013 mls/ hr TITRATE PRN IV 07/13/17 12:15 07/15/17 03:42 (Xifaxan) 400 mg Q8HR PO 07/13/17 14:00 07/15/17 05:43 Norepinephrine Bitartrate 250 ml @ 7.5 mls/hr TITRATE PRN IV 07/13/17 17:30 07/13/17 19:15 (Brethine Inj) 1 mg UNSCH PRN SQ 07/13/17 17:30 (Lasix Inj) 20 mg DAILY IV PUSH 07/14/17 09:00 07/15/17 08:19 Potassium Chloride/Sodium Chloride 1,000 ml @ 42 mls/hr [id number] IV 07/14/17 08:00 07/15/17 13:46 Physical Exam Vital Signs Vital Signs Date Time Temp Pulse Resp B/P (MAP) Pulse Ox O2 Delivery O2 Flow Rate FiO2 07/15/17 14:03 100 Nasal Cannula 3.00 07/15/17 14:00 76 07/15/17 12:00 98.2 24 107/59 (75) 07/15/17 10:02 35 I/O 07/15/17 07/15/17 07/16/17 08:00 16:00 00:00 Intake Total 391 ml 839 ml Balance 391 ml 839 ml Lab Results Test 07/15/17 04:10 White Blood Count 11.1 TH/MM3 Red Blood Count 3.58 MIL/MM3 Hemoglobin 11.1 GM/DL Hematocrit 33.5 % Mean Corpuscular Volume 93.6 FL Mean Corpuscular Hemoglobin 30.9 PG Mean Corpuscular Hemoglobin Concent 33.0 % Red Cell Distribution Width 14.3 % Platelet Count 265 TH/MM3 Mean Platelet Volume 8.5 FL Neutrophils (%) (Auto) 68.5 % Lymphocytes (%) (Auto) 23.1 % Monocytes (%) (Auto) 8.1 % Eosinophils (%) (Auto) 0.0 % Basophils (%) (Auto) 0.3 % Neutrophils # (Auto) 7.6 TH/MM3 Lymphocytes # (Auto) 2.6 TH/MM3 Monocytes # (Auto) 0.9 TH/MM3 Eosinophils # (Auto) 0.0 TH/MM3 Basophils # (Auto) 0.0 TH/MM3 CBC Comment AUTO DIFF Differential Total Cells Counted 100 Neutrophils % (Manual) 63 % Band Neutrophils % 13 % Lymphocytes % 17 % Monocytes % 6 % Neutrophils # (Manual) 8.5 TH/MM3 Myelocytes 1 % Differential Comment FINAL DIFF MANUAL Platelet Estimate NORMAL Platelet Morphology Comment NORMAL Blood Urea Nitrogen 55 MG/DL Creatinine 0.74 MG/DL Random Glucose 142 MG/DL Calcium Level 8.9 MG/DL Sodium Level 142 MEQ/L Potassium Level 3.6 MEQ/L Chloride Level 103 MEQ/L Carbon Dioxide Level 31.7 MEQ/L Anion Gap 7 MEQ/L Estimat Glomerular Filtration Rate 104 ML/MIN Date/Time Source Procedure Growth Status 07/10/17 11:55 Blood Peripheral Aerobic Blood Culture - Final NO GROWTH IN 5 DAYS Complete 07/10/17 11:55 Blood Peripheral Anaerobic Blood Culture - Final NO GROWTH IN 5 DAYS Complete 07/13/17 12:30 Sputum Endotracheal Gram Stain - Final Complete 07/13/17 12:30 Sputum Endotracheal Sputum Culture - Final HEAVY GROWTH NORMAL RESPIRATORY AMANDA Complete Mental Status Examination Mental Status Exam Remarks Mental status limited due to lack of cooperation. Assessment & Plan Problem List: (1) Schizoaffective disorder Status: Chronic Assessment & Plan: Patient is non-cooperative, disorganized, delirious, unable to provide any meaningful information for the psychiatric assessment. He needs to continue aggressive medical treatment. Agree with continue current psychotropic regimen. Will add Haldol 2 mg IM every 8 hours when necessary aggressive behavior and agitations. Will discontinue anticholinergic drugs to avoid more cognitive impairment. Circumstances behind this hospitalizations are unknown. Psychiatric decompensation remains highly suspicious. I will follow-up. Patient most probably will benefit of being transferred to the med psych unit. Assessment & Plan Estimated LOS: Jason Lea MD Jul 15, 2017 15:07
[2017-07-15] MEDS ORDERED: ICU - MAGNESIUM SULFATE 2 GM/NS 100 ML IV PRN ×2 (15:30)
[2017-07-15] MEDS ORDERED: ICU - MAGNESIUM OXIDE 400 MG TAB PO PRN (15:30)
[2017-07-15] MEDS ORDERED: ICU - D/C ICU ELECTROLYTE ORDERS PRN (15:30)
[2017-07-15] MEDS ORDERED: ICU - SODIUM PHOSPHATE 30 MMOL/NS 250 ML IV PRN ×2 (15:30)
[2017-07-15] MEDS ORDERED: ICU - CALL ORDERING PHYSICIAN PRN (15:30)
[2017-07-15] MEDS ORDERED: ICU - MAGNESIUM SULFATE 4 GM/NS 100 ML IV PRN ×2 (15:30)
[2017-07-15] MEDS ORDERED: POTASSIUM CHLORIDE 25 MEQ EFFERVESCENT TAB PO PRN (15:30)
[2017-07-15] MEDS ORDERED: ICU - POTASSIUM PHOSPHATE MONOBASIC 500 MG TAB PO PRN (15:30)
[2017-07-15] MEDS ORDERED: ICU - POTASSIUM CHLORIDE/AQUEOUS SOLN 20 MEQ/100 ML IVPB IV PRN (15:30)
[2017-07-15] MEDS ORDERED: ICU - POTASSIUM CHLORIDE/AQUEOUS SOLN 40 MEQ/100 ML IVPB IV PRN (15:30)
[2017-07-15] MEDS ORDERED: ICU - POTASSIUM PHOSPHATE 30 MMOL/NS 250 ML IV PRN ×2 (15:30)
[2017-07-15] MEDS: PANTOPRAZOLE SODIUM 40 MG VIAL IV PUSH SCH (15:37)
[2017-07-15] MEDS: HALOPERIDOL LACTATE 5 MG/ML AMP IM PRN ×2 (15:45→20:00)
[2017-07-15] MEDS: LEVOFLOXACIN 750 MG PREMIX INJ 150 ML IV SCH (17:56)
[2017-07-15] MEDS: LORazepam 2 MG/ML VIAL IV PUSH PRN ×2 (18:08→19:59)
--- NOTE | 2017-07-15 19:41 | HHI.PR ---
Subjective Remarks Off the vent and on N/C 5 L. Confused and moaning. Tolerates feeds. Needs Psych eval. .CXR shows mild effusions Objective Vital Signs Date Time Temp Pulse Resp B/P (MAP) Pulse Ox O2 Delivery O2 Flow Rate FiO2 07/15/17 18:00 102 07/15/17 16:00 100 07/15/17 16:00 98.3 100 18 124/63 (83) 96 07/15/17 15:14 97 Nasal Cannula 2.00 07/15/17 14:03 100 Nasal Cannula 3.00 07/15/17 14:00 76 07/15/17 12:00 98.2 107 24 107/59 (75) 95 07/15/17 12:00 107 07/15/17 11:00 96 6.00 07/15/17 11:00 96 Nasal Cannula 6 07/15/17 11:00 95 Nasal Cannula 5.00 07/15/17 10:02 35 07/15/17 10:00 95 35 07/15/17 10:00 76 07/15/17 08:57 96 35 07/15/17 08:00 35 07/15/17 08:00 97 Mechanical Ventilator 35 07/15/17 08:00 97.7 69 18 105/57 (73) 97 07/15/17 08:00 69 07/15/17 06:00 79 07/15/17 04:00 81 07/15/17 04:00 97.2 81 19 99/59 (72) 99 07/15/17 03:49 96 35 07/15/17 02:00 64 07/15/17 00:11 100 35 07/15/17 00:00 97.5 65 18 90/55 (67) 99 07/15/17 00:00 65 07/14/17 22:00 84 07/14/17 21:18 99 35 07/14/17 20:00 98.4 84 25 112/63 (79) 95 07/14/17 20:00 87 I/O 07/14/17 07/14/17 07/14/17 07/15/17 07/15/17 07/15/17 07:00 15:00 23:00 07:00 15:00 23:00 Intake Total 393 ml 402 ml 1275 ml 391 ml 839 ml 800 ml Output Total 575 ml 525 ml 950 ml Balance -182 ml 402 ml 750 ml 391 ml 839 ml -150 ml IV Total 393 ml 402 ml 664 ml 839 ml 800 ml Tube Feeding 191 ml 331 ml Other 420 ml 60 ml Output Urine Total 350 ml 525 ml 950 ml Gastric Drainage Total 225 ml 0 ml # Bowel Movements 0 0 1 2 Result Diagram: 07/15/1740907/15/17409 Objective Remarks GENERAL: This averagely built elderly man who is alert confused. HEENT: Head normocephalic. Pupils are reactive. Sclerae are clear Throat is clear. Tongue was moist. Neck: No thyromegaly or lymphadenopathy. CHEST: Decreased breath sounds at the periphery. Expiratory wheezes in the upper chest with occasional crackles at bases HEART: The heart sounds are regular S1-S2 with no murmur. No S3, gallop. ABDOMEN: The abdomen is soft and protuberant without masses or organomegaly or tenderness. Bowel sounds active. EXTREMITIES: No peripheral edema, has decreased peripheral pulses. NEURO: Reflexes 1+. The patient move all extremities. Babinski negative. SKIN: Skin was dry and cool. Assessment and Plan Assessment and Plan IMPRESSION 1. Acute respiratory failure. 2. Metabolic encephalopathy and hepatic encephalopathy. 3. Dehydration. 4. Possible sepsis. 5. Left basilar pneumonia. 6. COPD. 7. Cirrhosis. Plan: 1. O2 2 L. 2. Use BiPap if he desats <90 % 3. Psych Evaluation 4. Continue antibiotics as ordered. 5. BMP,CBC in am 6. PO Diet after swallow test 7. Nebkendall barnes , Kristina. Sobeida Barillas MD Jul 15, 2017 19:41
[2017-07-16] VITALS (14 sets, daily range): BP systolic 127–168; BP diastolic 59–80; PULSE 85–114; RESP 13–28; TEMP 97.6–98.7; O2SAT 90–96
[2017-07-16] MEDS: LORazepam 2 MG/ML VIAL IV PUSH PRN ×4 (00:58→20:28)
[2017-07-16] MEDS: HALOPERIDOL LACTATE 5 MG/ML AMP IM PRN ×4 (00:58→20:28)
[2017-07-16 04:43] LABS: AUTOMATED NEUTROPHIL # 7.7 TH/MM3 (1.8-7.7); BASOPHIL % 0.2 % (0.0-2.0); HEMATOCRIT 33.6 % (39.0-51.0); HEMO FLAGS DIFF FINAL; LYMPH % 20.1 % (9.0-44.0); MEAN CORPUSCULAR HEMOGLOBIN 31.2 PG (27.0-34.0); MEAN CORPUSCULAR HGB CONC 33.2 % (32.0-36.0); MONO % 4.7 % (0.0-8.0); PLATELET COUNT 291 TH/MM3 (150-450); RED BLOOD COUNT 3.57 MIL/MM3 (4.50-5.90); RED CELL DISTRIBUTION WIDTH 14.7 % (11.6-17.2); WHITE BLOOD COUNT 10.2 TH/MM3 (4.0-11.0)
[2017-07-16] MEDS: RIFAXIMIN 200 MG TAB PO SCH (04:47)
[2017-07-16] MEDS: HEPARIN SODIUM - SQ 10,000 UNITS/ML VIAL SQ SCH (04:47)
[2017-07-16] MEDS: metroNIDAZOLE 500 MG INJ 100 ML IV SCH (04:47)
[2017-07-16] MEDS: NS + KCL 20 MEQ INJ 1,000 ML IV SCH (04:49)
[2017-07-16 05:03] LABS: POTASSIUM 3.7 MEQ/L (3.5-5.1)
[2017-07-16] MEDS: LACTULOSE SYRUP 20 GM/30 ML CUP PO SCH ×4 (09:00→20:27)
[2017-07-16] MEDS: methylPREDNISolone SOD SUCC 40 MG/1 ML VIAL IV PUSH SCH (09:04)
[2017-07-16] MEDS: FUROSEMIDE 20 MG/2 ML VIAL IV PUSH SCH (09:04)
[2017-07-16] MEDS: SODIUM CHLORIDE 0.9% FLUSH 10 ML FLUSH IV FLUSH SCH ×2 (09:05→21:00)
[2017-07-16] MEDS: CHLORHEXIDINE 0.12% (ORAL KIT) 15 ML CUP MT SCH ×2 (09:05→20:00)
[2017-07-16] MEDS: BENZTROPINE MESYLATE 1 MG TAB PO SCH ×2 (09:12→20:27)
[2017-07-16] MEDS: SERTRALINE HCL 100 MG TAB PO SCH (09:13)
[2017-07-16] MEDS: cloZAPine 100 MG TAB PO SCH (09:13)
[2017-07-16] MEDS: DOCUSATE SODIUM 50 MG/SENNA 8.6 MG TAB PO SCH ×2 (09:14→21:00)
[2017-07-16] MEDS: VALPROIC ACID SYRUP 250 MG/5 ML UDC PO SCH ×2 (09:14→20:27)
--- NOTE | 2017-07-16 10:13 | HHI.CCPN ---
Subjective Remarks/Hospital Course 72 y/o homeless man arrived disheveled with numerous abrasions of various ages. Came to ICU as Halicat after worsening encephalopathy associated with elevated ammonia and PCO2. I have elected to not reverse his narcotic or benzo for fear of inciting untoward other events - seizures, vomiting, etc. 07/13: Confused and agitated. Ammonia 90. Bandemia, continue abx coverage. Generalized edema. Worsening respiratory failure with increased secretions. Required intubation and mechanical ventilation today for deteriorating lung function. 07/14: His psychiatric illness complicates medical care. Will ask Psychiatry, who know him well, to consult after he is extubated. S-M FACT visited today, know him well. His POA is brother Jc in [place] (age 83). They called him today and started talk about end-of-life issues. He called me and explained that he is not ready to make him DNR status yet. He says he [facility] in [place] and the man told him about a man who was in the morgue at another hospital with a toe tag on but then awakened and was normal. Jc has a son who is an alcoholic in [place] who he cares for and another family member who is addicted to opioid drugs. It will take him awhile to get here because [place] like [place] But he says he will come in a day or two. 07/15: Meets criteria for extubation today. Will ask Psychiatry to assist us with suitable medications for his agitation. 07/16: Extubated for 24 hours, breathing comfortably. Plan to transfer to Psychiatry in-patient. Objective Vital Signs Date Time Temp Pulse Resp B/P (MAP) Pulse Ox O2 Delivery O2 Flow Rate FiO2 07/16/17 08:00 98.3 114 28 143/68 (93) 95 07/16/17 07:31 Nasal Cannula 2.00 07/15/17 10:02 35 Intake and Output 07/16/17 07/16/17 07/17/17 08:00 16:00 00:00 Output Total 400 ml Balance -400 ml Result Diagram: 07/16/17 0419 07/16/17 0419 Other Results Microbiology Date/Time Source Procedure Growth Status 07/13/17 12:30 Sputum Endotracheal Gram Stain - Final Complete 07/13/17 12:30 Sputum Endotracheal Sputum Culture - Final HEAVY GROWTH NORMAL RESPIRATORY AMANDA Complete Objective Remarks Head: Numerous old abrasions forehead. Dry, clean. Neck: Supple, orally intubated. Lungs: Strong cough, good mely air entry. Rate 16, deep excursions. Heart: NL S1S2, RRR, no m,r. No JVD. Abdomen: Soft, no guarding. BS present. No tenderness. Extremities: Trace edema all 4 limbs. Cast left arm. Well perfused. Neuro: Pupils 2 mm, react. Moves 4 limbs to stimulation. Cough, gag intact. Active, confused, agitated. A/P Assessment and Plan Assessment: 1. Toxic encephalopathy (Multiple sedatives) -> resolved. 2. Metabolic encephalopathy (Elevated ammonia) -> resolved. 3. Rhabdomyolysis -> resolved. 4. Hepatic failure with elevated ammonia. 5. Fluid overload -> resolved. 6. Pneumonia, left lung -> resolved. 7. Hypoxemic respiratory failure -> resolved. Plan: 1. HOB up 30 degrees. 2. Stress coughing exercises. 3. D/C iv fluid. 4. Decrease diuretics. 5. D/C iv ABX coverage. 6. NPO -> start TFs. 7. Low protein diet. 10. Increase lactulose. Overall impression: Breathing comfortably. Will convert to PO levaquin and d/c abx if no pathologic growth by day 2 after sputum C&S. Sandor Pascual MD Jul 16, 2017 10:13
--- NOTE | 2017-07-16 11:24 | HHI.FPPN ---
Subjective Remarks CALLED HS W AGITATION FOR HALDOL ETC EXTUBATED AGITATED D/W RN Objective Vitals Vital Signs Date Time Temp Pulse Resp B/P (MAP) Pulse Ox O2 Delivery O2 Flow Rate FiO2 07/16/17 10:16 105 07/16/17 08:00 98.3 114 28 143/68 (93) 95 07/16/17 08:00 103 07/16/17 07:31 93 Nasal Cannula 2.00 07/16/17 07:00 97 Nasal Cannula 2.00 07/16/17 06:00 85 07/16/17 04:00 85 07/16/17 04:00 98.7 85 16 134/62 (86) 95 07/16/17 02:00 94 07/16/17 00:00 98.2 96 13 127/62 (83) 95 07/16/17 00:00 106 07/15/17 23:00 26 07/15/17 22:00 101 07/15/17 20:51 94 Nasal Cannula 2.00 07/15/17 20:00 109 07/15/17 20:00 99.6 106 27 110/64 (79) 94 07/15/17 19:00 95 Nasal Cannula 2.00 07/15/17 18:00 102 07/15/17 16:00 100 07/15/17 16:00 98.3 100 18 124/63 (83) 96 07/15/17 15:14 97 Nasal Cannula 2.00 07/15/17 14:03 100 Nasal Cannula 3.00 07/15/17 14:00 76 07/15/17 12:00 98.2 107 24 107/59 (75) 95 07/15/17 12:00 107 I/O 07/15/17 07/15/17 07/15/17 07/16/17 07/16/17 07/16/17 07:00 15:00 23:00 07:00 15:00 23:00 Intake Total 391 ml 839 ml 800 ml Output Total 950 ml 400 ml Balance 391 ml 839 ml -150 ml -400 ml IV Total 839 ml 800 ml Tube Feeding 331 ml Other 60 ml Output Urine Total 950 ml 400 ml # Bowel Movements 1 2 1 Result Diagram: 07/16/17 0419 07/16/17418 Objective Remarks GENERAL: ON VENT, ALERT SKIN: Warm and dry. numerous abrasions. HEAD: Atraumatic. Normocephalic. EYES: Pupils equal and round. No scleral icterus. No injection or drainage. ENT: No nasal bleeding or discharge. Mucous membranes pink and moist. NECK: Trachea midline. No JVD. CARDIOVASCULAR: Regular rate and rhythm. RESPIRATORY: No accessory muscle use. Clear to auscultation. Breath sounds equal bilaterally. GASTROINTESTINAL: Abdomen soft, non-tender, nondistended. Hepatic and splenic margins not palpable. MUSCULOSKELETAL: Extremities without clubbing, cyanosis, or edema. No obvious deformities. NEUROLOGICAL: Awake and alert. No obvious cranial nerve deficits. Motor grossly within normal limits. 1 out of 5 muscle strength in the arms and legs. PSYCHIATRIC: A/P Problem List: (1) Altered mental status ICD Codes: R41.82 - Altered mental status, unspecified Status: Acute (2) Hyperammonemia ICD Codes: E72.20 - Disorder of urea cycle metabolism, unspecified Status: Acute (3) Hypokalemia ICD Codes: E87.6 - Hypokalemia Status: Acute (4) Community acquired pneumonia ICD Codes: J18.9 - Pneumonia, unspecified organism Status: Acute (5) Rhabdomyolysis ICD Codes: M62.82 - Rhabdomyolysis Status: Acute (6) Fracture ICD Codes: T14.8XXA - Other injury of unspecified body region, initial encounter Status: Acute (7) Intellectual disability ICD Codes: F79 - Unspecified intellectual disabilities Status: Acute (8) Fall ICD Codes: W19.XXXA - Fall Status: Acute (9) Schizoaffective disorder ICD Codes: F25.9 - Schizoaffective disorder, unspecified Status: Acute (10) Pneumonia ICD Codes: J18.9 - Pneumonia, unspecified organism Status: Acute (11) Weakness ICD Codes: R53.1 - Weakness Status: Acute (12) Facial abrasion ICD Codes: S00.81XA - Facial abrasion Status: Acute (13) Head injury due to trauma ICD Codes: S09.90XA - Unspecified injury of head, initial encounter Status: Acute (14) Abnormal CT scan, lung ICD Codes: R91.8 - Abnormal computed tomography of lung Status: Acute (15) Schizoaffective disorder, bipolar type ICD Codes: F25.0 - Schizoaffective disorder, bipolar type Status: Acute Plan: A/P: AMS: haldol and ativan prn. Transfer to psych ordered. VDRF: extubated, TF'S PNA: dc IV ABX HEPATIC ENCEPH CIRRHOSIS: LACTULOSE PNGT FALLS Neck lymphadenopathy. Lung mass. Asthma. Schizophrenia. Mental retardation. Rhabdomyolysis. Hypokalemia. Hypernatremia. Hyperglycemia. DVT prophylaxis, heparin 5000 units b.i.d. GI PROPHYLAXIS- IV PROTONIX Problem Qualifiers (1) Altered mental status: Qualified Codes: R40.0 - Somnolence (2) Community acquired pneumonia: Qualified Codes: J18.1 - Lobar pneumonia, unspecified organism (3) Rhabdomyolysis: Qualified Codes: M62.82 - Rhabdomyolysis Min Hebert MD Jul 16, 2017 11:24
[2017-07-16] MEDS: BUDESONIDE-FORMOTEROL 160/4.5 MCG INHALER INH SCH ×2 (11:53→21:00)
--- NOTE | 2017-07-16 14:29 | HHI.PYPN ---
Subjective Remarks Patient was seen today for psychiatric reevaluation, patient restrained in 4 points, but more aware alert and yesterday, however, disorganized, confused, not making much sense and unable to provide any meaningful information for psychiatric assessment at this moment. I know the patient for the past and I know that he has marked aphasia and he is very difficult to understand. Patient is just oriented in person, he knows the hospital, but disoriented in time. As per conversation with nursing charge, patient has been agitated, difficult to manage in the floor, but compliant with medications. Review of Systems Except as stated in HPI: all other systems reviewed are Neg Mental Status Examination Appearance: Dirty Consciousness: Alert Orientation: Person Motor Activity: Other (agitated) Speech: Incoherent Fund of Knowledge: Poor Memory: Impaired Mood: Angry, Irritable Affect: Irritable Thought Process & Associations: Loose associations Thought Content: Thought blocking Hallucination Type: None Delusion Type: None Suicidal Ideation: No Suicidal Plan: No Suicidal Intention: No Homicidal Ideation: No Homicidal Plan: No Homicidal Intention: No Insight: Poor Judgment: Poor Results Labs Test 07/16/17 04:19 White Blood Count 10.2 TH/MM3 Red Blood Count 3.57 MIL/MM3 Hemoglobin 11.2 GM/DL Hematocrit 33.6 % Mean Corpuscular Volume 94.0 FL Mean Corpuscular Hemoglobin 31.2 PG Mean Corpuscular Hemoglobin Concent 33.2 % Red Cell Distribution Width 14.7 % Platelet Count 291 TH/MM3 Mean Platelet Volume 8.1 FL Neutrophils (%) (Auto) 75.0 % Lymphocytes (%) (Auto) 20.1 % Monocytes (%) (Auto) 4.7 % Eosinophils (%) (Auto) 0.0 % Basophils (%) (Auto) 0.2 % Neutrophils # (Auto) 7.7 TH/MM3 Lymphocytes # (Auto) 2.0 TH/MM3 Monocytes # (Auto) 0.5 TH/MM3 Eosinophils # (Auto) 0.0 TH/MM3 Basophils # (Auto) 0.0 TH/MM3 CBC Comment DIFF FINAL Differential Comment Blood Urea Nitrogen 47 MG/DL Creatinine 0.56 MG/DL Random Glucose 109 MG/DL Calcium Level 8.3 MG/DL Sodium Level 146 MEQ/L Potassium Level 3.7 MEQ/L Chloride Level 110 MEQ/L Carbon Dioxide Level 32.0 MEQ/L Anion Gap 4 MEQ/L Estimat Glomerular Filtration Rate 143 ML/MIN Date/Time Source Procedure Growth Status 07/10/17 11:55 Blood Peripheral Aerobic Blood Culture - Final NO GROWTH IN 5 DAYS Complete 07/10/17 11:55 Blood Peripheral Anaerobic Blood Culture - Final NO GROWTH IN 5 DAYS Complete 07/13/17 12:30 Sputum Endotracheal Gram Stain - Final Complete 07/13/17 12:30 Sputum Endotracheal Sputum Culture - Final HEAVY GROWTH NORMAL RESPIRATORY AMANDA Complete Vitals/IOs Vital Signs Date Time Temp Pulse Resp B/P (MAP) Pulse Ox O2 Delivery O2 Flow Rate FiO2 07/16/17 12:00 97.7 98 22 140/59 (86) 90 07/16/17 07:31 Nasal Cannula 2.00 07/15/17 10:02 35 Intake and Output 07/16/17 07/16/17 07/17/17 08:00 16:00 00:00 Output Total 400 ml Balance -400 ml Assessment & Plan Problem List: (1) Schizoaffective disorder Status: Chronic Assessment & Plan: Continue current psychotropic regimen. Patient is too confused and disoriented in order to perform a full psychiatric evaluation. I know that the patient at baseline is disorganized and at times incoherent. Patient might benefit of hospitalization and med psych unit for stabilization of psychosis was medically appropriate. Assessment & Plan Estimated LOS: days Justification for Cont. Inpt. He might need psychiatric admission for stabilization. We'll follow-up. Jason Alfred MD Jul 16, 2017 14:29
--- NOTE | 2017-07-16 18:51 | HHI.PR ---
Subjective Remarks Off the vent and on N/C 3 L. Confused and agitated. Tolerates Po feeds. On Lactulose . .CXR shows mild effusions Objective Vital Signs Date Time Temp Pulse Resp B/P (MAP) Pulse Ox O2 Delivery O2 Flow Rate FiO2 07/16/17 18:00 87 07/16/17 16:00 87 07/16/17 16:00 97.9 101 25 168/80 (109) 90 07/16/17 14:00 92 07/16/17 12:00 97.7 98 22 140/59 (86) 90 07/16/17 12:00 98 07/16/17 10:16 105 07/16/17 08:00 98.3 114 28 143/68 (93) 95 07/16/17 08:00 103 07/16/17 07:31 93 Nasal Cannula 2.00 07/16/17 07:00 97 Nasal Cannula 2.00 07/16/17 06:00 85 07/16/17 04:00 85 07/16/17 04:00 98.7 85 16 134/62 (86) 95 07/16/17 02:00 94 07/16/17 00:00 98.2 96 13 127/62 (83) 95 07/16/17 00:00 106 07/15/17 23:00 26 07/15/17 22:00 101 07/15/17 20:51 94 Nasal Cannula 2.00 07/15/17 20:00 109 07/15/17 20:00 99.6 106 27 110/64 (79) 94 07/15/17 19:00 95 Nasal Cannula 2.00 I/O 07/15/17 07/15/17 07/15/17 07/16/17 07/16/17 07/16/17 07:00 15:00 23:00 07:00 15:00 23:00 Intake Total 391 ml 839 ml 800 ml 360 ml Output Total 950 ml 400 ml 1050 ml Balance 391 ml 839 ml -150 ml -400 ml -690 ml Intake Oral 360 ml IV Total 839 ml 800 ml Tube Feeding 331 ml Other 60 ml Output Urine Total 950 ml 400 ml 1050 ml # Bowel Movements 1 2 1 3 Result Diagram: 07/16/17 0419 07/16/17 041 Objective Remarks GENERAL: This averagely built elderly man who is confused. HEENT: Head normocephalic. Pupils are reactive. Sclerae are clear Throat is clear. Tongue was moist. Neck: No thyromegaly or lymphadenopathy. CHEST: Decreased breath sounds at the periphery. Expiratory wheezes in the upper chest with occasional crackles at bases HEART: The heart sounds are regular S1-S2 with no murmur. No S3, gallop. ABDOMEN: The abdomen is soft and protuberant without masses or organomegaly or tenderness. Bowel sounds active. EXTREMITIES: 1+ peripheral edema, has decreased peripheral pulses. NEURO: Reflexes 1+. The patient moves all extremities. Babinski negative. SKIN: Skin was dry and warm. Assessment and Plan Assessment and Plan IMPRESSION 1. Acute respiratory failure. 2. Metabolic encephalopathy and hepatic encephalopathy. 3. Dehydration. 4. Possible sepsis. 5. Left basilar pneumonia. 6. COPD. 7. Cirrhosis. Plan: 1. O2 2 L. N/C 2. Use BiPap if he desats <90 % 3. Psych Evaluation 4. Continue antibiotics as ordered. 5. BMP,CXR CBC in am 6. PO Diet as tolerated. 7. Kristina Moore. Sobeida Barillas MD Jul 16, 2017 18:51
[2017-07-17] VITALS (9 sets, daily range): BP systolic 105–131; BP diastolic 62–86; PULSE 70–96; RESP 13–27; TEMP 97.5–98.1; O2SAT 92–100
[2017-07-17] MEDS: HALOPERIDOL LACTATE 5 MG/ML AMP IM PRN ×2 (02:04→05:41)
[2017-07-17] MEDS: LORazepam 2 MG/ML VIAL IV PUSH PRN ×2 (02:04→05:42)
--- NOTE | 2017-07-17 06:33 | RADRPT ---
EXAM DATE/TIME: 07/17/2017 05:53 [facility] COMPARISON: CHEST SINGLE AP, July 13, 2017, 12:49. INDICATIONS : Infiltrate. Short of breath. MEDICAL HISTORY : None. SURGICAL HISTORY : None. ENCOUNTER: Subsequent ACUITY: 1 week PAIN SCORE: Non-responsive. LOCATION: Bilateral chest FINDINGS: The cardiac silhouette is enlarged in transverse diameter. There is prominence of the aortic knob is with calcification characteristic of atherosclerotic vascular disease. There is prominence of the keena tral pulmonary vasculature with indistinct vascular margins compatible with vascular congestion but n o evidence of overt failure. No pleural effusions are identified. CONCLUSION: 1. Cardiomegaly and findings of vascular congestion without overt failure. The findings are improved when compared with the prior exam. Ford Darling MD on July 17, 2017 at 6:31 Board Certified Radiologist. This report was verified electronically.
[2017-07-17] MEDS: CHLORHEXIDINE 0.12% (ORAL KIT) 15 ML CUP MT SCH (08:00)
[2017-07-17] MEDS ORDERED: FUROSEMIDE 20 MG TAB PO SCH (09:00)
[2017-07-17] MEDS ORDERED: LEVOFLOXACIN 750 MG TAB PO SCH (09:00)
--- NOTE | 2017-07-17 10:13 | HHI.CCPN ---
Subjective Remarks/Hospital Course 72 y/o homeless man arrived disheveled with numerous abrasions of various ages. Came to ICU as Halicat after worsening encephalopathy associated with elevated ammonia and PCO2. I have elected to not reverse his narcotic or benzo for fear of inciting untoward other events - seizures, vomiting, etc. 07/13: Confused and agitated. Ammonia 90. Bandemia, continue abx coverage. Generalized edema. Worsening respiratory failure with increased secretions. Required intubation and mechanical ventilation today for deteriorating lung function. 07/14: His psychiatric illness complicates medical care. Will ask Psychiatry, who know him well, to consult after he is extubated. [facility] visited today, know him well. His POA is brother Jc in [place] (age 83). They called him today and started talk about end-of-life issues. He called me and explained that he is not ready to make him DNR status yet. He says he [facility] in [place] and the man told him about a man who was in the morgue at another hospital with a toe tag on but then awakened and was normal. Jc has a son who is an alcoholic in [place] who he cares for and another family member who is addicted to opioid drugs. It will take him awhile to get here [place] But he says he will come in a day or two. 07/15: Meets criteria for extubation today. Will ask Psychiatry to assist us with suitable medications for his agitation. 07/16: Extubated for 24 hours, breathing comfortably. Plan to transfer to Psychiatry in-patient. 07/17: Medically clear for discharge to in patient Psychiatry. Protects airway well, strong cough, lungs clear. Objective Vital Signs Date Time Temp Pulse Resp B/P (MAP) Pulse Ox O2 Delivery O2 Flow Rate FiO2 07/17/17 08:32 70 07/17/17 08:31 98.1 27 131/76 (94) 92 07/17/17 08:19 21 07/17/17 07:00 Nasal Cannula 2.00 Intake and Output 07/17/17 07/17/17 07/17/17 07:59 15:59 23:59 Output Total 450 ml Balance -450 ml Result Diagram: 07/16/17 0419 07/16/17 0419 Objective Remarks Head: Numerous old abrasions forehead. Dry, clean. Neck: Supple, no obstruction. Lungs: Strong cough, good mely air entry, deep excursions. Heart: NL S1S2, RRR, no m,r. No JVD. Abdomen: Soft, no guarding. BS present. No tenderness. Extremities: Trace edema all 4 limbs. Cast left arm. Well perfused. Neuro: Pupils 2 mm, react. Moves 4 limbs to stimulation. Active, confused, agitated. A/P Assessment and Plan Assessment: 1. Toxic encephalopathy (Multiple sedatives) -> resolved. 2. Metabolic encephalopathy (Elevated ammonia) -> resolved. 3. Rhabdomyolysis -> resolved. 4. Hepatic failure with elevated ammonia. 5. Fluid overload -> resolved. 6. Pneumonia, left lung -> resolved. 7. Hypoxemic respiratory failure -> resolved. Plan: 1. HOB up 30 degrees. 2. Stress coughing exercises. 3. D/C iv fluid. 4. Decrease diuretics. 5. D/C iv ABX coverage. 6. NPO -> start TFs. 7. Low protein diet. 10. Increase lactulose. Overall impression: Breathing comfortably. Will convert to PO levaquin and d/c abx if no pathologic growth by day 2 after sputum C&S. Sandor Pascual MD Jul 17, 2017 10:13
[2017-07-17] MEDS: BENZTROPINE MESYLATE 1 MG TAB PO SCH (10:34)
[2017-07-17] MEDS: VALPROIC ACID SYRUP 250 MG/5 ML UDC PO SCH (10:34)
[2017-07-17] MEDS: LACTULOSE SYRUP 20 GM/30 ML CUP PO SCH (10:35)
[2017-07-17] MEDS: DOCUSATE SODIUM 50 MG/SENNA 8.6 MG TAB PO SCH (10:35)
[2017-07-17] MEDS: cloZAPine 100 MG TAB PO SCH (10:35)
[2017-07-17] MEDS: SERTRALINE HCL 100 MG TAB PO SCH (10:35)
[2017-07-17] MEDS: SODIUM CHLORIDE 0.9% FLUSH 10 ML FLUSH IV FLUSH SCH (10:36)
[2017-07-17] MEDS: BUDESONIDE-FORMOTEROL 160/4.5 MCG INHALER INH SCH (10:36)
--- NOTE | 2017-07-17 12:33 | HHI.PYPN ---
Subjective Remarks Patient was seen today for psychiatric reevaluation, patient is more alert, a little more cooperative, he is disorganized, but he can answer some questions. Patient says that he is not happy to be here, he doesn't remember the reason his in the hospital. Is very difficult to understand the patient due to aphasia and incoherent speech, he is also tangential and disorganized he reports to be sad, denies suicidal or homicidal ideation, denies visual and auditory hallucinations. Compliance with medications, no significant side effects. Mental Status Examination Appearance: Dirty Consciousness: Alert Orientation: Person, Place Motor Activity: Other (agitated) Speech: Incoherent Language: Other (incoherent) Fund of Knowledge: Poor Memory: Impaired Mood: Angry, Irritable Affect: Irritable Thought Process & Associations: Loose associations Thought Content: Thought blocking Hallucination Type: None Delusion Type: None Suicidal Ideation: No Suicidal Plan: No Suicidal Intention: No Homicidal Ideation: No Homicidal Plan: No Homicidal Intention: No Insight: Poor Judgment: Poor Results Labs Date/Time Source Procedure Growth Status 07/10/17 11:55 Blood Peripheral Aerobic Blood Culture - Final NO GROWTH IN 5 DAYS Complete 07/10/17 11:55 Blood Peripheral Anaerobic Blood Culture - Final NO GROWTH IN 5 DAYS Complete 07/13/17 12:30 Sputum Endotracheal Gram Stain - Final Complete 07/13/17 12:30 Sputum Endotracheal Sputum Culture - Final HEAVY GROWTH NORMAL RESPIRATORY AMANDA Complete Vitals/IOs Vital Signs Date Time Temp Pulse Resp B/P (MAP) Pulse Ox O2 Delivery O2 Flow Rate FiO2 07/17/17 10:00 75 07/17/17 08:31 98.1 27 131/76 (94) 92 07/17/17 08:19 21 07/17/17 07:00 Nasal Cannula 2.00 Intake and Output 07/17/17 07/17/17 07/18/17 08:00 16:00 00:00 Output Total 450 ml Balance -450 ml Assessment & Plan Problem List: (1) Schizoaffective disorder Status: Chronic Assessment & Plan: Patient continues to be disorganized, agitated, poorly cooperative. He will be transferred to psychiatry to continue medical treatment and psychiatric stabilization. Continue current psychotropic regimen. Assessment & Plan Estimated LOS: days Justification for Cont. Inpt. Patient will be transferred to psychiatry. Jason Alfred MD Jul 17, 2017 12:32
--- NOTE | 2017-07-17 12:52 | HHI.PR ---
Subjective Remarks On O2 3L and sats 95. Confused and agitated. Tolerates Po feeds. On Lactulose . .CXR shows mild effusions. Overall stable. Objective Vital Signs Date Time Temp Pulse Resp B/P (MAP) Pulse Ox O2 Delivery O2 Flow Rate FiO2 07/17/17 10:00 75 07/17/17 08:32 70 07/17/17 08:31 98.1 71 27 131/76 (94) 92 07/17/17 08:19 95 21 07/17/17 08:00 75 07/17/17 07:00 95 Nasal Cannula 2.00 07/17/17 06:00 82 07/17/17 04:00 97.5 96 13 105/62 (76) 100 07/17/17 04:00 82 07/17/17 02:00 82 07/17/17 00:00 86 07/17/17 00:00 97.7 92 25 119/86 (97) 95 07/16/17 22:00 106 07/16/17 20:15 96 Nasal Cannula 4.00 07/16/17 20:00 106 07/16/17 20:00 97.6 106 24 148/76 (100) 95 07/16/17 19:00 95 Nasal Cannula 2.00 07/16/17 18:00 87 07/16/17 16:00 87 07/16/17 16:00 97.9 101 25 168/80 (109) 90 07/16/17 14:00 92 I/O 07/16/17 07/16/17 07/16/17 07/17/17 07/17/17 07/17/17 07:00 15:00 23:00 07:00 15:00 23:00 Intake Total 360 ml Output Total 400 ml 1050 ml 450 ml Balance -400 ml -690 ml -450 ml Intake Oral 360 ml Output Urine Total 400 ml 1050 ml 450 ml # Bowel Movements 1 3 1 Result Diagram: 07/16/1741807/16/17418 Objective Remarks GENERAL: This averagely built elderly man who is confused. HEENT: Head normocephalic. Pupils are reactive. Sclerae are clear Throat is clear. Tongue was moist. Neck: No thyromegaly or lymphadenopathy. CHEST: Decreased breath sounds at the periphery. Expiratory wheezes in the upper chest with crackles at bases HEART: The heart sounds are regular S1-S2 with no murmur. No S3, gallop. ABDOMEN: The abdomen is soft and protuberant without masses or organomegaly or tenderness. Bowel sounds active. EXTREMITIES: No peripheral edema, has decreased peripheral pulses. NEURO: Reflexes 1+. The patient moves all extremities. Babinski negative. SKIN: Skin was dry and warm. Assessment and Plan Assessment and Plan IMPRESSION 1. Acute respiratory failure. 2. Metabolic encephalopathy and hepatic encephalopathy. 3. Dehydration. 4. Possible sepsis. 5. Left basilar pneumonia. 6. COPD. 7. Cirrhosis. Plan: 1. O2 2 L. N/C PRN. 2. Ativan 1 mg qid prn. 3. Psych Evaluation 4. Continue antibiotics as ordered. 5. BMP, CBC in am 6. PO Diet as tolerated. 7. Nebs qid , Duoneb. 8. Transfer to Med floor . Sobeida Barillas MD Jul 17, 2017 12:52
== END 2017-07-17 14:11 | DRG 208 ==
LOC: NEPC 11:15 → NEDA 14:17 → N04B 17:44 → N03A 07-12 09:12 → N06A 07-12 16:47 → N03A 07-12 20:56 → N03B 07-13 07:15
PROVIDERS: ADMIT Family Medicine; ATTEND Family Medicine
PROC: 5A09357 Assistance with Respiratory Ventilation, Less than 24 Consecutive Hours, Continuous Positive Airway Pressure (ICD-10-PCS; 2017-07-12)
PROC: 5A1945Z Respiratory Ventilation, 24-96 Consecutive Hours (ICD-10-PCS; principal; 2017-07-13)
PROC: 0BH17EZ Insertion of Endotracheal Airway into Trachea, Via Natural or Artificial Opening (ICD-10-PCS; 2017-07-13)
DX: J18.9 Pneumonia, unspecified organism (principal); G93.41 Metabolic encephalopathy; G92 Toxic encephalopathy; A41.9 Sepsis, unspecified organism; J96.02 Acute respiratory failure with hypercapnia; J96.01 Acute respiratory failure with hypoxia; I95.9 Hypotension, unspecified; J44.0 Chronic obstructive pulmonary disease with (acute) lower respiratory infection; E87.0 Hyperosmolality and hypernatremia; E87.2 Acidosis; M62.82 Rhabdomyolysis; E87.1 Hypo-osmolality and hyponatremia; K74.60 Unspecified cirrhosis of liver; E87.70 Fluid overload, unspecified; E87.6 Hypokalemia; S62.317A Displaced fracture of base of fifth metacarpal bone, left hand, initial encounter for closed fracture; R73.9 Hyperglycemia, unspecified; F79 Unspecified intellectual disabilities; K70.40 Alcoholic hepatic failure without coma; F25.0 Schizoaffective disorder, bipolar type; E86.0 Dehydration; I10 Essential (primary) hypertension; F17.210 Nicotine dependence, cigarettes, uncomplicated; R29.6 Repeated falls; R62.7 Adult failure to thrive; R59.0 Localized enlarged lymph nodes; S00.81XA Abrasion of other part of head, initial encounter; Z59.0 Homelessness; Z78.1 Physical restraint status; Z86.73 Personal history of transient ischemic attack (TIA), and cerebral infarction without residual deficits; Z91.14 Patient's other noncompliance with medication regimen; Z87.01 Personal history of pneumonia (recurrent)
CPT/HCPCS: 36600; 70450; 71010; 72125; 73130; 73560; 80048; 80053; 80307; 81001; 82140; 82550; 82552; 82805; 82948; 83605; 83874; 84484; 85007; 85025; 85027; 85610; 85652; 85730; 86140; 87040; 87070; 87205; 87641; 93005; 94002; 94003; 94640; 94664; 96361; 96365; C9113; J1120; J1630; J1644; J1940; J1956; J2060; J2250; J2270; J2405; J2543; J2920; J3370; J3480; J7030; J7040; J7050

== ENCOUNTER 2017-07-17 14:33 | Inpatient (IN) | payer MEDICARE, OTHER ==
--- NOTE | 2017-07-17 16:49 | MH ---
cc: MIN SANDOVAL MD DATE OF ADMISSION 07/17/2017 CHIEF COMPLAINT Medical management. HISTORY OF PRESENT ILLNESS Cayden Spencer is a 72-year-old male who was initially admitted to acute care with altered mental status. He was found to have pneumonia and hepatic encephalopathy. His respiratory status worsened and he was subsequently intubated. He was extubated on approximately July 16. He immediately was severely agitated and required Haldol and Ativan. He was given Lactulose and electrolytes were replaced. He was found to be in severe rhabdomyolysis and was subsequently corrected. He was maintained on heparin b.i.d. and IV Protonix. Psychiatry was consulted and they accepted him back to inpatient psychiatry unit. The patient was transferred there in stable condition still with a Vale. He looks somewhat improved, however, remained agitated. PAST MEDICAL HISTORY 1. Cirrhosis 2. Pneumonia 3. Respiratory failure. 4. Neck lymphadenopathy. 5. Lung mass 6. Asthma 7. Schizophrenia 8. Mental retardation 9. Rhabdomyolysis 10. Hypokalemia 11. Hypernatremia 12. Hyperglycemia FAMILY HISTORY Noncontributory. SOCIAL HISTORY He had been living in a garage apartment alone. He apparently has a court appointed guardian. There is report of alcohol use and tobaccoism. Unable to obtain any history from the patient. PAST SURGICAL HISTORY None reported. REVIEW OF SYSTEMS Ongoing agitation and encephalopathy. Unable to discern much more review of systems. Review of systems negative 14-point review of systems otherwise. PHYSICAL EXAMINATION VITAL SIGNS: Temperature 98.1, pulse 70, respirations are 27, blood pressure 131/76, pulse ox 92. GENERAL: He is an alert male. He is laying flat. He is being cleaned. Skin looks clear. He is bronzed however. There are numerous abrasions on his face and extremities. HEENT: Oropharynx is clear. PERRLA. No photophobia. CHEST: Clear. CARDIOVASCULAR: Regular rate and rhythm. ABDOMEN: Soft, nontender. No rebound or guarding. No masses. EXTREMITIES: Trace edema in the feet. SKIN: Numerous scabbed abrasions NEUROLOGIC: Alert and oriented times zero. He moans and is speaking nonsensically. He is very agitated, unable to obtain any further neurological examination. He does move all of his extremities randomly. ASSESSMENT 1. Altered mental status due to hepatic encephalopathy 2. Pneumonia status post respiratory failure and extubation. 3. Hepatic encephalopathy. 4. Cirrhosis 5. Falls 6. Neck lymphadenopathy. 7. Lung mass 8. Asthma 9. Schizophrenia 10. Mental retardation 11. Rhabdomyolysis 12. Hypokalemia 13. Hypernatremia 14. Hyperglycemia. PLAN Admission to inpatient psychiatry per psychiatry attending. The patient has already been transferred. We will check CK level, ammonia level, CBC and CMP. Continue medications as ordered, Lactulose 30 mL b.i.d. Thank you for the medical consultation. I will follow him closely. Mni Sandoval MD RP/ /4:12 PM /4:30 PM
[2017-07-17] MEDS ORDERED: chlorproMAZINE HCL 25 MG TAB PO PRN (17:45)
[2017-07-17] MEDS: SERTRALINE HCL 100 MG TAB PO SCH (17:45)
[2017-07-17] MEDS: LACTULOSE SYRUP 20 GM/30 ML CUP PO SCH (18:00)
[2017-07-17] MEDS: HALOPERIDOL LACTATE 5 MG/ML AMP IM PRN (18:30)
[2017-07-17] MEDS ORDERED: MAGNESIUM HYDROXIDE SUSP 30 ML CUP PO PRN (19:30)
[2017-07-17] MEDS ORDERED: ACETAMINOPHEN 325 MG TAB PO PRN (19:30)
[2017-07-17] MEDS ORDERED: ALUMINUM/MAGNESIUM/SIMETH 30 ML CUP PO PRN (19:30)
[2017-07-17] MEDS ORDERED: DIVALPROEX SODIUM E.R. 500 MG TAB PO SCH (21:00)
[2017-07-17] MEDS: cloZAPine 100 MG TAB PO SCH (21:00)
[2017-07-17] MEDS: REMOVE OLD NICOTINE PATCH T-DERMAL SCH (21:00)
[2017-07-17 23:38] VITALS: BP 103/66; PULSE 94; RESP 17; TEMP 97.9; O2SAT 93
[2017-07-18] MEDS: HALOPERIDOL LACTATE 5 MG/ML AMP IM PRN (02:18)
[2017-07-18 05:14] VITALS: BP 122/61; PULSE 79; RESP 16; TEMP 98; O2SAT 93
[2017-07-18] MEDS: NICOTINE 21 MG/24 HR PATCH T-DERMAL SCH (09:00)
[2017-07-18] MEDS: SERTRALINE HCL 100 MG TAB PO SCH (09:00)
[2017-07-18] MEDS: LACTULOSE SYRUP 20 GM/30 ML CUP PO SCH (09:00)
--- NOTE | 2017-07-18 10:21 | HHI.FPPN ---
Subjective Remarks ALERT, AGITATED LOOKS BETTER D/W RN Objective Vitals Vital Signs Date Time Temp Pulse Resp B/P (MAP) Pulse Ox O2 Delivery O2 Flow Rate FiO2 07/18/17 05:14 98.0 79 16 122/61 (81) 93 07/17/17 23:38 97.9 94 17 103/66 (78) 93 I/O 07/17/17 07/17/17 07/17/17 07/18/17 07/18/17 07/18/17 07:00 15:00 23:00 07:00 15:00 23:00 Intake Total 480 ml 240 ml Output Total 800 ml Balance -320 ml 240 ml Intake Oral 480 ml 240 ml Output Urine Total 800 ml # Bowel Movements 4 Objective Remarks GENERAL: SKIN: Warm and dry. HEAD: Atraumatic. Normocephalic. EYES: Pupils equal and round. No scleral icterus. No injection or drainage. ENT: No nasal bleeding or discharge. Mucous membranes pink and moist. NECK: Trachea midline. No JVD. CARDIOVASCULAR: Regular rate and rhythm. RESPIRATORY: No accessory muscle use. Clear to auscultation. Breath sounds equal bilaterally. GASTROINTESTINAL: Abdomen soft, non-tender, nondistended. Hepatic and splenic margins not palpable. MUSCULOSKELETAL: Extremities without clubbing, cyanosis, or edema. No obvious deformities. NEUROLOGICAL: Awake and alert. No obvious cranial nerve deficits. Motor grossly within normal limits. 2 out of 5 muscle strength in the arms and legs. Normal speech. PSYCHIATRIC: Appropriate mood and affect; insight and judgment normal. Medications and IVs Current Medications Medications (Trade) Dose Ordered Sig/Alpesh Route Start Time Stop Time Status Last Admin (Lactulose Liq) 30 ml DAILY PO 07/17/17 18:00 (Thorazine) 50 mg TID PRN PO 07/17/17 17:45 (Clozaril) 200 mg HS PO 07/17/17 21:00 (Depakote Er) 500 mg HS PO 07/17/17 21:00 (Zoloft) 100 mg DAILY PO 07/17/17 17:45 (Haldol Inj) 2 mg Q6H PRN IM 07/17/17 17:45 07/18/17 02:18 (Tylenol) 650 mg Q4H PRN PO 07/17/17 19:30 (Milk Of Magnesia Liq) 30 ml DAILY PRN PO 07/17/17 19:30 (Mag-Al Plus Susp Liq) 30 ml Q6H PRN PO 07/17/17 19:30 (Habitrol 21 Mg Patch.24 Hr) 1 patch DAILY T-DERMAL 07/18/17 09:00 Miscellaneous Information 1 HS T-DERMAL 07/17/17 21:00 A/P Assessment and Plan ASSESSMENT- 1. Altered mental status due to hepatic encephalopathy 2. Pneumonia status post respiratory failure and extubation. 3. Hepatic encephalopathy. 4. Cirrhosis 5. Falls 6. Neck lymphadenopathy. 7. Lung mass 8. Asthma 9. Schizophrenia 10. Mental retardation 11. Rhabdomyolysis 12. Hypokalemia 13. Hypernatremia 14. Hyperglycemia. PLAN- LEVAQUIN FOR FIVE MORE DAYS LASIX QD. AM LABS. Admission to inpatient psychiatry per psychiatry attending. Lactulose 30 mL b.i.d. Min Hebert MD Jul 18, 2017 10:21
[2017-07-18 10:48] LABS: AUTOMATED NEUTROPHIL # 10.3 TH/MM3 (1.8-7.7); BASOPHIL # 0.1 TH/MM3 (0-0.2); BASOPHIL % 0.4 % (0.0-2.0); EOSINOPHIL # 0.1 TH/MM3 (0-0.4); EOSINOPHIL % 0.8 % (0.0-4.0); HEMATOCRIT 34.3 % (39.0-51.0); LYMPH % 35.3 % (9.0-44.0); LYMPHOCYTE # 6.3 TH/MM3 (1.0-4.8); MEAN CELL VOLUME 93.7 FL (80.0-100.0); MEAN CORPUSCULAR HEMOGLOBIN 31.3 PG (27.0-34.0); MEAN CORPUSCULAR HGB CONC 33.3 % (32.0-36.0); MONO % 6.1 % (0.0-8.0); NEUT % 57.4 % (16.0-70.0); PLATELET COUNT 278 TH/MM3 (150-450); RED BLOOD COUNT 3.66 MIL/MM3 (4.50-5.90); RED CELL DISTRIBUTION WIDTH 14.1 % (11.6-17.2)
[2017-07-18 10:50] LABS: HEMO FLAGS AUTO DIFF
[2017-07-18 11:23] LABS: ANION GAP 7 MEQ/L (5-15); AST (GOT) 22 U/L (15-37); BICARBONATE 28.4 MEQ/L (21.0-32.0); BLOOD UREA NITROGEN 24 MG/DL (7-18); CHLORIDE 106 MEQ/L (98-107); GLOMERULAR FILTRATION RATE 184 ML/MIN (>89); POTASSIUM 3.8 MEQ/L (3.5-5.1); SODIUM (NA) 141 MEQ/L (136-145)
[2017-07-18 11:26] LABS: ALKALINE PHOSPHATASE 65 U/L (45-117); ALT (GPT) 32 U/L (12-78); CREATINE KINASE 188 U/L (39-308); HDL CHOLESTEROL 36.4 MG/DL (40.0-60.0); LDL CHOLESTEROL 26 MG/DL (0-99); TOTAL BILIRUBIN ADULT 0.4 MG/DL (0.2-1.0)
[2017-07-18] MEDS ORDERED: SODIUM CHLOR 0.9% 250 ML INJ 250 ML IV ONE (11:45)
[2017-07-18] MEDS ORDERED: NALOXONE HCL 0.4 MG/ML AMP IV PUSH ONE (11:45)
[2017-07-18] MEDS: FUROSEMIDE 20 MG TAB PO SCH (12:00)
[2017-07-18 12:50] LABS: BANDS 2 % (0-6); EOSINOPHILS 2 % (0-4); NEUTROPHIL # MANUAL DIFF 9.9 TH/MM3 (1.8-7.7); PLATELET ESTIMATE SMEAR NORMAL (NORMAL); PLATELET MORPHOLOGY NORMAL (NORMAL); POLYS (SEG NEUTROPHILS) 53 % (16-70); SCAN/DIFF FINAL DIFF MANUAL; WBC DIFF SAMPLE 100
[2017-07-18] MEDS: BUDESONIDE-FORMOTEROL 160/4.5 MCG INHALER INH SCH ×2 (13:00→21:00)
[2017-07-18] MEDS: LEVOFLOXACIN 750 MG TAB PO SCH (13:04)
[2017-07-18 13:09] VITALS: BP 112/63; PULSE 83; O2SAT 94
[2017-07-18 14:42] LABS: HEMOGLOBIN A1a 1.3 %; HEMOGLOBIN A1b 0.8 %; HEMOGLOBIN Ao 83.1 %; HEMOGLOBIN F 1.9 %; HEMOGLOBIN LA1C 2.1 %; HEMOGLOBIN P3 4.2 %
--- NOTE | 2017-07-18 14:48 | HHI.HP ---
Provisional Diagnosis Admission Date Jul 17, 2017 at 14:33 [place] I. Schizophrenia Certification of Person's Competence To Provide Express and Informed Consent I have personally examined Cayden Spencer , a person being served at [facility] on, Jul 18, 2017 14:45. Express and informed consent means consent voluntarily given in writing, by a competent person, after sufficient explanation and disclosure of the subject matter involved to enable the person to make a knowing and willful decision without any element of force, fraud, deceit, duress, or other form of constraint or coercion. This person is 18 years of age or older, is not now known to be incompetent to consent to treatment with a guardian advocate, and does not have a health care surrogate or proxy currently making medical treatment decisions. I have found this person to be one of the following: [] Competent to provide express and informed consent, as defined above, for voluntary admission to this facility and is competent to provide express and informed consent for treatment. He/she has the consistent capacity to make well reasoned, willful, and knowing decisions concerning his or her medical or mental health treatment. The person fully and consistently understands the purpose of the admission for examination/placement and is fully capable of personally exercising all rights [place] [X] Incompetent to provide express and informed consent to voluntary admission, and this is incompetent to provide express and informed consent to treatment. The person must be transferred to involuntary status and a petition for a guardian advocate filed with the Circuit Court. [] Refusing to provide express and informed consent to voluntary admission but is competent to provide express and informed consent for treatment. The person must be discharged or transferred to involuntary status. Form shall be completed within 24 hours of a person's arrival at the receiving facility and filed in the clinical record of each person: 1. Admitted on a voluntary basis 2. Permitted to provide express and informed consent to his/her own treatment 3. Allowed to transfer from involuntary to voluntary status 4. Prior to permitting a person to consent to his or her own treatment after having been previously found incompetent to consent to treatment. History of Present Illness Capacity: Lacks Capacity HPI Patient is a 72-year-old man, with psychiatric history of schizoaffective disorder, previous psychiatric hospitalizations, he is known by this service, he had a previous psychiatric hospitalizations here at [facility] at the beginning of the year under the care of Dr. Hernandez, documentation review, as per medication reconciliation patient is in Clozaril 200 mg, Depakote 500 mg , Zoloft 100 mg, medical history of liver cirrhosis, who presents emergency Department by [facility] with altered mental status, multiple abrasions to body, and unknown time down. Patient was seen today for psychiatric evaluation, he was agitated, restrained in 4 points, disorganized, unable to provide any meaningful information for the psychiatric assessment. Patient denies pain, shortness of breath or abdominal pain. Endorsing being "very hungry" and asking for food. Patient remains afebrile, stable hemodynamically. Currently tolerating O2 via nasal cannula 3 L. Oxygen saturation in the high 90s. Laboratory work Today revealing WBC 11.1, Hgb 11.1, platelet count 265. Sodium 142, potassium 3.6, BUN/creatinine 55/0.72. Ammonia as of yesterday less than 10. Patient was seen today for psychiatric reevaluation, patient is more alert, a little more cooperative, he is disorganized, but he can answer some questions. Patient says that he is not happy to be here, he doesn't remember the reason his in the hospital. Is very difficult to understand the patient due to aphasia and incoherent speech, he is also tangential and disorganized he reports to be sad, denies suicidal or homicidal ideation, denies visual and auditory hallucinations. Compliance with medications, no significant side effects. Past Family Social History Coded Allergies: No Known Allergies (Verified , 07/10/17) Active Scripts Doxycycline Hyclate (Doxycycline Hyclate) 100 Mg Cap, 100 MG PO BID for Infection for 7 Days, CAP 0 Refills Prov:Josue Olivas MD 03/03/17 Budesonide-Formoterol Inh (Symbicort Inh) 160-4.5 Mcg/Act Aero, 1 PUFF INH Q12HR for health, #1 INHALER 0 Refills Prov:Nitin Esapña MD R3 11/18/16 Fluticasone 12 GM Inh (Flovent Hfa 12 GM Inh) 220 Mcg/Act Inh, 1 PUFF INH BID for health, #1 INHALER 0 Refills Prov:Nitin España MD R3 11/18/16 Sertraline (Zoloft) 100 Mg Tab, 100 MG PO DAILY for health, #30 TAB 0 Refills Prov:Derrick Hernandez MD 10/15/16 Divalproex ER (Depakote ER) 500 Mg Waldo, 500 MG PO 1 am 3hs for health, #120 TAB 0 Refills Prov:Derrick Hernandez MD 10/15/16 Clozapine (Clozaril) 100 Mg Tab, 200 MG PO 1 am 2 hs for health, #90 TAB 0 Refills Prov:Derrick Hernandez MD 10/15/16 Reported Medications Chlorpromazine (Chlorpromazine) 25 Mg Tab, 50 MG PO TID Y for NAUSEA OR VOMITING , TAB 0 Refills 03/03/17 Benztropine (Benztropine) 0.5 Mg Tab, 1 MG PO BID, #60 TAB 0 Refills 03/03/17 Current Medications Medications (Trade) Dose Ordered Sig/Alpesh Route Start Time Stop Time Status Last Admin (Lactulose Liq) 30 ml DAILY PO 07/17/17 18:00 (Thorazine) 50 mg TID PRN PO 07/17/17 17:45 (Clozaril) 200 mg HS PO 07/17/17 21:00 (Depakote Er) 500 mg HS PO 07/17/17 21:00 (Zoloft) 100 mg DAILY PO 07/17/17 17:45 07/18/17 09:00 (Haldol Inj) 2 mg Q6H PRN IM 07/17/17 17:45 07/18/17 02:18 (Tylenol) 650 mg Q4H PRN PO 07/17/17 19:30 (Milk Of Magnesia Liq) 30 ml DAILY PRN PO 07/17/17 19:30 (Mag-Al Plus Susp Liq) 30 ml Q6H PRN PO 07/17/17 19:30 (Habitrol 21 Mg Patch.24 Hr) 1 patch DAILY T-DERMAL 07/18/17 09:00 07/18/17 09:00 Miscellaneous Information 1 HS T-DERMAL 07/17/17 21:00 (Lasix) 20 mg DAILY PO 07/18/17 12:00 07/18/17 12:00 (Symbicort 160-4.5 Inh) 1 puff Q12HR INH 07/18/17 13:00 (Levaquin) 750 mg DAILY PO 07/18/17 12:00 07/22/17 09:01 07/18/17 13:04 Physical Exam Vital Signs Vital Signs Date Time Temp Pulse Resp B/P (MAP) Pulse Ox O2 Delivery O2 Flow Rate FiO2 07/18/17 13:09 83 112/63 (79) 94 07/18/17 05:14 98.0 16 I/O 07/18/17 07/18/17 07/19/17 08:00 16:00 00:00 Intake Total 240 ml 120 ml Output Total 800 ml Balance -560 ml 120 ml Lab Results Test 07/18/17 10:11 White Blood Count 18.0 TH/MM3 Red Blood Count 3.66 MIL/MM3 Hemoglobin 11.4 GM/DL Hematocrit 34.3 % Mean Corpuscular Volume 93.7 FL Mean Corpuscular Hemoglobin 31.3 PG Mean Corpuscular Hemoglobin Concent 33.3 % Red Cell Distribution Width 14.1 % Platelet Count 278 TH/MM3 Mean Platelet Volume 7.8 FL Neutrophils (%) (Auto) 57.4 % Lymphocytes (%) (Auto) 35.3 % Monocytes (%) (Auto) 6.1 % Eosinophils (%) (Auto) 0.8 % Basophils (%) (Auto) 0.4 % Neutrophils # (Auto) 10.3 TH/MM3 Lymphocytes # (Auto) 6.3 TH/MM3 Monocytes # (Auto) 1.1 TH/MM3 Eosinophils # (Auto) 0.1 TH/MM3 Basophils # (Auto) 0.1 TH/MM3 CBC Comment AUTO DIFF Differential Total Cells Counted 100 Neutrophils % (Manual) 53 % Band Neutrophils % 2 % Lymphocytes % 40 % Monocytes % 3 % Eosinophils % 2 % Neutrophils # (Manual) 9.9 TH/MM3 Differential Comment FINAL DIFF MANUAL Platelet Estimate NORMAL Platelet Morphology Comment NORMAL Blood Urea Nitrogen 24 MG/DL Creatinine 0.45 MG/DL Random Glucose 102 MG/DL Total Protein 5.1 GM/DL Albumin 2.2 GM/DL Calcium Level 8.5 MG/DL Alkaline Phosphatase 65 U/L Aspartate Amino Transf (AST/SGOT) 22 U/L Alanine Aminotransferase (ALT/SGPT) 32 U/L Total Bilirubin 0.4 MG/DL Sodium Level 141 MEQ/L Potassium Level 3.8 MEQ/L Chloride Level 106 MEQ/L Carbon Dioxide Level 28.4 MEQ/L Anion Gap 7 MEQ/L Estimat Glomerular Filtration Rate 184 ML/MIN Ammonia 40 MCMOL/L Total Creatine Kinase 188 U/L Triglycerides Level 119 MG/DL Cholesterol Level 86 MG/DL LDL Cholesterol 26 MG/DL HDL Cholesterol 36.4 MG/DL Cholesterol/HDL Ratio 2.36 RATIO Mental Status Examination Appearance: Dirty, Disheveled Consciousness: Alert Orientation: Person Motor Activity: Abnormal gait Speech: Incoherent Memory: Impaired Mood: Angry Affect: Irritable Thought Process & Associations: Loose associations Thought Content: Racing thoughts Hallucination Type: None Delusion Type: None Suicidal Ideation: No Suicidal Plan: No Suicidal Intention: No Homicidal Ideation: No Homicidal Plan: No Homicidal Intention: No Insight: Adequate Judgment: Adequate Assessment & Plan Problem List: (1) Schizophrenia ICD Codes: F20.9 - Schizophrenia Status: Chronic Assessment & Plan: Patient is to continue psychiatric hospitalization for stabilization. Continue current psychotropic regimen. culinary worker intervention to contact family coordinating discharge planning. Assessment & Plan Estimated LOS: days Jason Alfred MD Jul 18, 2017 14:48
[2017-07-18 19:38] VITALS: BP 100/59; PULSE 79; RESP 16; TEMP 98.1; O2SAT 94
[2017-07-18] MEDS: REMOVE OLD NICOTINE PATCH T-DERMAL SCH (21:00)
[2017-07-18] MEDS: cloZAPine 100 MG TAB PO SCH (21:36)
[2017-07-18] MEDS: VALPROIC ACID SYRUP 250 MG/5 ML UDC PO SCH (21:37)
[2017-07-19 05:49] VITALS: BP 118/59; PULSE 79; RESP 16; TEMP 98.6; O2SAT 93
--- NOTE | 2017-07-19 07:09 | PD.PSY.CON ---
Provisional Diagnosis Admission Date Jul 17, 2017 at 14:33 [place] I. 1. Schizoaffective disorder, bipolar type [place] II. 1. Intellectual disability, suspected History of Present Illness Service Psychiatry Consult Requested By Dr. Alfred Reason for Consult Second opinion for involuntary psychiatric hospitalization Primary Care Physician Unknown HPI From Dr. Alfred's H&P: Patient is a 72-year-old man, with psychiatric history of schizoaffective disorder, previous psychiatric hospitalizations, he is known by this service, he had a previous psychiatric hospitalizations here at [facility] at the beginning of the year under the care of Dr. Hernandez, documentation review, as per medication reconciliation patient is in Clozaril 200 mg, Depakote 500 mg , Zoloft 100 mg, medical history of liver cirrhosis, who presents emergency Department by [facility] with altered mental status, multiple abrasions to body, and unknown time down. Patient was seen today for psychiatric evaluation, he was agitated, restrained in 4 points, disorganized, unable to provide any meaningful information for the psychiatric assessment. Patient denies pain, shortness of breath or abdominal pain. Endorsing being "very hungry" and asking for food. Patient remains afebrile, stable hemodynamically. Currently tolerating O2 via nasal cannula 3 L. Oxygen saturation in the high 90s. Laboratory work Today revealing WBC 11.1, Hgb 11.1, platelet count 265. Sodium 142, potassium 3.6, BUN/creatinine 55/0.72. Ammonia as of yesterday less than 10. Patient was seen today for psychiatric reevaluation, patient is more alert, a little more cooperative, he is disorganized, but he can answer some questions. Patient says that he is not happy to be here, he doesn't remember the reason his in the hospital. Is very difficult to understand the patient due to aphasia and incoherent speech, he is also tangential and disorganized he reports to be sad, denies suicidal or homicidal ideation, denies visual and auditory hallucinations. Compliance with medications, no significant side effects. On my examination today: Patient seen and examined with nurse in weekend coverage. Chart reviewed. Case discussed with nursing staff. On my examination today, the patient presents as somewhat irascible when bothered. He is fairly childlike, and I suspect some degree of intellectual disability. Speech is garbled as at baseline. Mood is dysphoric and affect is consistent with stated mood. Unable to provide much detail as to why he was brought to the hospital. Denies AVH. No delusions. Denies SI/HI but does not appear reliable to contract for safety. Follows with the FACT team, and nurse remembers the patient from her previous work at [facility]. Psychiatric interview is limited, I suspect as a consequence of his intellectual disability and current mental state. I am unable to obtain any meaningful past psychiatric, family, chemical dependency or social history from this patient at this time as a consequence. No physical complaints this morning. Review of Systems ROS Limitations: Poor Historian Except as stated in HPI: all other systems reviewed are Neg Past Family Social History Coded Allergies: No Known Allergies (Verified , 07/10/17) Past Medical History See electronic medical record Active Scripts Doxycycline Hyclate (Doxycycline Hyclate) 100 Mg Cap, 100 MG PO BID for Infection for 7 Days, CAP 0 Refills Prov:Josue Olivas MD 03/03/17 Budesonide-Formoterol Inh (Symbicort Inh) 160-4.5 Mcg/Act Aero, 1 PUFF INH Q12HR for health, #1 INHALER 0 Refills Prov:Nitin España MD R3 11/18/16 Fluticasone 12 GM Inh (Flovent Hfa 12 GM Inh) 220 Mcg/Act Inh, 1 PUFF INH BID for health, #1 INHALER 0 Refills Prov:Nitin España MD R3 11/18/16 Sertraline (Zoloft) 100 Mg Tab, 100 MG PO DAILY for health, #30 TAB 0 Refills Prov:Derrick Hernandez MD 10/15/16 Divalproex ER (Depakote ER) 500 Mg Waldo, 500 MG PO 1 am 3hs for health, #120 TAB 0 Refills Prov:Derrick Hernandez MD 10/15/16 Clozapine (Clozaril) 100 Mg Tab, 200 MG PO 1 am 2 hs for health, #90 TAB 0 Refills Prov:Derrick Hernandez MD 10/15/16 Reported Medications Chlorpromazine (Chlorpromazine) 25 Mg Tab, 50 MG PO TID Y for NAUSEA OR VOMITING , TAB 0 Refills 03/03/17 Benztropine (Benztropine) 0.5 Mg Tab, 1 MG PO BID, #60 TAB 0 Refills 03/03/17 Current Medications Medications (Trade) Dose Ordered Sig/Alpesh Route Start Time Stop Time Status Last Admin (Lactulose Liq) 30 ml DAILY PO 07/17/17 18:00 (Thorazine) 50 mg TID PRN PO 07/17/17 17:45 (Clozaril) 200 mg HS PO 07/17/17 21:00 07/18/17 21:36 (Zoloft) 100 mg DAILY PO 07/17/17 17:45 07/18/17 09:00 (Haldol Inj) 2 mg Q6H PRN IM 07/17/17 17:45 07/18/17 02:18 (Tylenol) 650 mg Q4H PRN PO 07/17/17 19:30 (Milk Of Magnesia Liq) 30 ml DAILY PRN PO 07/17/17 19:30 (Mag-Al Plus Susp Liq) 30 ml Q6H PRN PO 07/17/17 19:30 (Habitrol 21 Mg Patch.24 Hr) 1 patch DAILY T-DERMAL 07/18/17 09:00 07/18/17 09:00 Miscellaneous Information 1 HS T-DERMAL 07/17/17 21:00 07/18/17 21:00 (Lasix) 20 mg DAILY PO 07/18/17 12:00 07/18/17 12:00 (Symbicort 160-4.5 Inh) 1 puff Q12HR INH 07/18/17 13:00 07/18/17 21:00 (Levaquin) 750 mg DAILY PO 07/18/17 12:00 07/22/17 09:01 07/18/17 13:04 (Depakene Liq) 250 mg BID PO 07/18/17 21:00 07/18/17 21:37 Family Psych History See above Social History See above Patient's Strengths (min. 2) In a monitored setting. Verbally fluent. Physical Exam Physical exam completed by hospitalist lifestyle consultant. On my examination today, the patient has scattered healing abrasions. He is in no acute physical distress. No motor abnormalities noted. Labs and vitals reviewed: Vital Signs Vital Signs Date Time Temp Pulse Resp B/P (MAP) Pulse Ox O2 Delivery O2 Flow Rate FiO2 07/19/17 05:49 98.6 79 16 118/59 ( 93 Lab Results Test 07/18/17 10:11 White Blood Count 18.0 TH/MM3 Red Blood Count 3.66 MIL/MM3 Hemoglobin 11.4 GM/DL Hematocrit 34.3 % Mean Corpuscular Volume 93.7 FL Mean Corpuscular Hemoglobin 31.3 PG Mean Corpuscular Hemoglobin Concent 33.3 % Red Cell Distribution Width 14.1 % Platelet Count 278 TH/MM3 Mean Platelet Volume 7.8 FL Neutrophils (%) (Auto) 57.4 % Lymphocytes (%) (Auto) 35.3 % Monocytes (%) (Auto) 6.1 % Eosinophils (%) (Auto) 0.8 % Basophils (%) (Auto) 0.4 % Neutrophils # (Auto) 10.3 TH/MM3 Lymphocytes # (Auto) 6.3 TH/MM3 Monocytes # (Auto) 1.1 TH/MM3 Eosinophils # (Auto) 0.1 TH/MM3 Basophils # (Auto) 0.1 TH/MM3 CBC Comment AUTO DIFF Differential Total Cells Counted 100 Neutrophils % (Manual) 53 % Band Neutrophils % 2 % Lymphocytes % 40 % Monocytes % 3 % Eosinophils % 2 % Neutrophils # (Manual) 9.9 TH/MM3 Differential Comment FINAL DIFF MANUAL Platelet Estimate NORMAL Platelet Morphology Comment NORMAL Blood Urea Nitrogen 24 MG/DL Creatinine 0.45 MG/DL Random Glucose 102 MG/DL Total Protein 5.1 GM/DL Albumin 2.2 GM/DL Calcium Level 8.5 MG/DL Alkaline Phosphatase 65 U/L Aspartate Amino Transf (AST/SGOT) 22 U/L Alanine Aminotransferase (ALT/SGPT) 32 U/L Total Bilirubin 0.4 MG/DL Sodium Level 141 MEQ/L Potassium Level 3.8 MEQ/L Chloride Level 106 MEQ/L Carbon Dioxide Level 28.4 MEQ/L Anion Gap 7 MEQ/L Estimat Glomerular Filtration Rate 184 ML/MIN Hemoglobin A1c 6.3 % Ammonia 40 MCMOL/L Total Creatine Kinase 188 U/L Triglycerides Level 119 MG/DL Cholesterol Level 86 MG/DL LDL Cholesterol 26 MG/DL HDL Cholesterol 36.4 MG/DL Cholesterol/HDL Ratio 2.36 RATIO Labs reviewed. Leukocytosis and anemia noted. Hyperammonemia noted. Dr. Hebert has ordered a follow-up CBC and CMP this morning, and these are presently in process. Mental Status Examination Appearance: Disheveled Consciousness: Alert Orientation: Person, Place, Date/Time (June,) Motor Activity: Other (no motor abnormalities noted) Speech: Speech impediment, Other (rambling) Language: Other (impaired) Fund of Knowledge: Inadequate Attention and Concentration: Easily Distracted Memory: Impaired (seem somewhat impaired on clinical exam) Mood: Irritable Affect: Other (restricted and consistent with stated mood) Thought Process & Associations: Loose associations Thought Content: Racing thoughts Hallucination Type: None Delusion Type: None Suicidal Ideation: No (unreliable to contract for safety) Suicidal Plan: No Suicidal Intention: No Homicidal Ideation: No Homicidal Plan: No Homicidal Intention: No Insight: Adequate Judgment: Adequate Assessment & Plan Problem List: (1) Schizoaffective disorder, bipolar type ICD Codes: F25.0 - Schizoaffective disorder, bipolar type Status: Acute (2) Intellectual disability ICD Codes: F79 - Unspecified intellectual disabilities Status: Acute Assessment & Plan Continue Zoloft, Clozaril and Depakote as ordered. Continue to monitor on the inpatient unit. Follow-up laboratories. Hospitalist input noted and appreciated. Continue other medications and care as ordered. Given the circumstances of patient's presentation here and his presentation on my examination today, I concur with Dr. Alfred that the patient meets criteria for involuntary psychiatric hospitalization under the [place] act. I've completed the second opinion paperwork. I will follow-up tomorrow for weekend coverage. Discharge Planning Per Ford John MD Jul 19, 2017 07:09
--- NOTE | 2017-07-19 08:23 | HHI.PR ---
Subjective Remarks weekend coverage for . resting comfortably with no distress. no sob. afebrile. d/w the RN and no acute issues over night. Objective Vitals Vital Signs Date Time Temp Pulse Resp B/P (MAP) Pulse Ox O2 Delivery O2 Flow Rate FiO2 07/19/17 05:49 98.6 79 16 118/59 (78) 93 07/18/17 19:38 98.1 79 16 100/59 (73) 94 07/18/17 13:09 83 112/63 (79) 94 I/O 07/18/17 07/18/17 07/18/17 07/19/17 07/19/17 07/19/17 07:00 15:00 23:00 07:00 15:00 23:00 Intake Total 480 ml 720 ml 840 ml Output Total 800 ml 1000 ml Balance -320 ml -280 ml 840 ml Intake Oral 480 ml 720 ml 840 ml Output Urine Total 800 ml 1000 ml # Voids 1 3 # Bowel Movements 4 3 1 Result Diagram: 07/18/17 1011 07/18/17 1011 Objective Remarks GENERAL: This is a well-nourished, well-developed patient, in no apparent distress. CARDIOVASCULAR: Regular rate and regular rhythm without murmurs, gallops, or rubs. RESPIRATORY: Clear to auscultation. Breath sounds equal bilaterally. No wheezes , rales, or rhonchi. GASTROINTESTINAL: Abdomen soft, non-tender, nondistended. Normal, active bowel sounds MUSCULOSKELETAL: Extremities without clubbing, cyanosis, or edema. NEURO: Awake and alert. Medications and IVs Current Medications Lactulose (Lactulose Liq) 30 ml DAILY PO ; Start 07/17/17 at 18:00 Chlorpromazine (Thorazine) 50 mg TID PRN PO NAUSEA OR VOMITING; Start at 17:45 Clozapine (Clozaril) 200 mg HS PO Last administered on 07/18/17 21:36; Start 07/17/17 at 21:00 Divalproex Sodium (Depakote Er) 500 mg HS PO ; Start 07/17/17 at 21:00; Stop 07/18/17 at 19:43; Status DC Sertraline HCl (Zoloft) 100 mg DAILY PO Last administered on 07/18/17 09:00; Start 07/17/17 at 17:45 Haloperidol Lactate (Haldol Inj) 2 mg Q6H PRN IM agitation Last administered on 07/18/17 02:18; Start 07/17/17 at 17:45 Acetaminophen (Tylenol) 650 mg Q4H PRN PO Pain 1-5 or Temp >101F; Start at 19:30 Magnesium Hydroxide (Milk Of Magnesia Liq) 30 ml DAILY PRN PO CONSTIPATION; Start 07/17/17 at 19:30 Al Hydrox/Mg Hydrox/Simethicone (Mag-Al Plus Susp Liq) 30 ml Q6H PRN PO DYSPEPSIA; Start 07/17/17 at 19:30 Nicotine (Habitrol 21 Mg Patch.24 Hr) 1 patch DAILY T-DERMAL Last administered on 07/18/17 09:00; Start 07/18/17 at 09:00 Miscellaneous Information 1 HS T-DERMAL Last administered on 07/18/17 21:00; Start 07/17/17 at 21:00 Furosemide (Lasix) 20 mg DAILY PO Last administered on 07/18/17 12:00; Start 07/18/17 at 12:00 Budesonide/ Formoterol Fumarate (Symbicort 160-4.5 Inh) 1 puff Q12HR INH Last administered on 07/18/17 21:00; Start 07/18/17 at 13:00 Sodium Chloride 250 ml @ 0 mls/hr BOLUS ONCE IV ; Start 07/18/17 at 11:45; Stop 07/18/17 at 11:46; Status Cancel Naloxone HCl (Narcan Inj) 0.4 mg STAT ONCE IV PUSH ; Start 07/18/17 at 11:45; Stop 07/18/17 at 11:46; Status Cancel Levofloxacin (Levaquin) 750 mg DAILY PO Last administered on 07/18/17 13:04; Start 07/18/17 at 12:00; Stop 07/22/17 at 09:01 Valproic Acid (Depakene Liq) 250 mg BID PO Last administered on 07/18/17 21: 37; Start 07/18/17 at 21:00 A/P Assessment and Plan A/P 1.cirrhosis with hepatic encephalopathy continue lactulose and will monitor. 2. Pneumonia status post respiratory failure and extubation. continue levaquin to finish the course of treatment. 3. leukocytosis- afebrile- will monitor temps- continue antibiotic- repeat CBC tomorrow. 4.schizoaffective disorder with intellectual disability; management per psych. 5. Lung mass; f/u as outpatient. 6. Asthma; continue symbicort. Jc Schumacher MD Jul 19, 2017 08:23
[2017-07-19 08:42] LABS: HEMATOCRIT 39.2 % (39.0-51.0); MEAN CORPUSCULAR HEMOGLOBIN 31.3 PG (27.0-34.0); PLATELET COUNT 201 TH/MM3 (150-450); RED BLOOD COUNT 4.12 MIL/MM3 (4.50-5.90); RED CELL DISTRIBUTION WIDTH 14.5 % (11.6-17.2); WHITE BLOOD COUNT 18.6 TH/MM3 (4.0-11.0)
[2017-07-19 08:49] LABS: REVIEW FLAG FINAL
[2017-07-19] MEDS: NICOTINE 21 MG/24 HR PATCH T-DERMAL SCH (09:00)
[2017-07-19] MEDS: BUDESONIDE-FORMOTEROL 160/4.5 MCG INHALER INH SCH ×2 (09:00→19:55)
[2017-07-19 09:07] LABS: ALKALINE PHOSPHATASE 66 U/L (45-117); ALT (GPT) 29 U/L (12-78); ANION GAP 7 MEQ/L (5-15); AST (GOT) 23 U/L (15-37); BICARBONATE 28.7 MEQ/L (21.0-32.0); BLOOD UREA NITROGEN 14 MG/DL (7-18); CHLORIDE 107 MEQ/L (98-107); GLOMERULAR FILTRATION RATE 149 ML/MIN (>89); SODIUM (NA) 143 MEQ/L (136-145); TOTAL BILIRUBIN ADULT 0.3 MG/DL (0.2-1.0)
[2017-07-19 09:08] LABS: POTASSIUM 4.7 MEQ/L (3.5-5.1)
[2017-07-19] MEDS: FUROSEMIDE 20 MG TAB PO SCH (09:24)
[2017-07-19] MEDS: VALPROIC ACID SYRUP 250 MG/5 ML UDC PO SCH ×2 (09:25→19:55)
[2017-07-19] MEDS: SERTRALINE HCL 100 MG TAB PO SCH (09:27)
[2017-07-19] MEDS: LEVOFLOXACIN 750 MG TAB PO SCH (09:27)
[2017-07-19] MEDS: LACTULOSE SYRUP 20 GM/30 ML CUP PO SCH (09:37)
[2017-07-19 14:42] VITALS: BP 112/59; PULSE 87; RESP 18
[2017-07-19 17:35] VITALS: BP 113/65; PULSE 90; RESP 16; TEMP 98.4; O2SAT 94
[2017-07-19] MEDS: cloZAPine 100 MG TAB PO SCH (19:55)
[2017-07-19] MEDS: REMOVE OLD NICOTINE PATCH T-DERMAL SCH (21:00)
[2017-07-20 04:00] VITALS: BP 134/64; PULSE 88; RESP 22; TEMP 97.8; O2SAT 95
[2017-07-20 06:02] LABS: AUTOMATED NEUTROPHIL # 12.9 TH/MM3 (1.8-7.7); BASOPHIL # 0.1 TH/MM3 (0-0.2); BASOPHIL % 0.4 % (0.0-2.0); EOSINOPHIL # 0.2 TH/MM3 (0-0.4); EOSINOPHIL % 1.3 % (0.0-4.0); HEMATOCRIT 33.6 % (39.0-51.0); LYMPH % 28.6 % (9.0-44.0); LYMPHOCYTE # 5.6 TH/MM3 (1.0-4.8); MEAN CELL VOLUME 93.3 FL (80.0-100.0); MEAN CORPUSCULAR HEMOGLOBIN 31.4 PG (27.0-34.0); MEAN CORPUSCULAR HGB CONC 33.6 % (32.0-36.0); MONO % 4.2 % (0.0-8.0); NEUT % 65.5 % (16.0-70.0); PLATELET COUNT 236 TH/MM3 (150-450); RED CELL DISTRIBUTION WIDTH 13.8 % (11.6-17.2); WHITE BLOOD COUNT 19.7 TH/MM3 (4.0-11.0)
[2017-07-20 06:07] LABS: HEMO FLAGS AUTO DIFF
[2017-07-20 06:41] LABS: EOSINOPHILS 4 % (0-4); MYELOCYTES 1 % (0-0); NEUTROPHIL # MANUAL DIFF 16.4 TH/MM3 (1.8-7.7); POLYS (SEG NEUTROPHILS) 82 % (16-70); WBC DIFF SAMPLE 100
[2017-07-20 06:42] LABS: PLATELET ESTIMATE SMEAR NORMAL (NORMAL); PLATELET MORPHOLOGY NORMAL (NORMAL); SCAN/DIFF FINAL DIFF MANUAL
--- NOTE | 2017-07-20 07:34 | HHI.PR ---
Subjective Remarks weekend coverage for ; patient is resting comfortably. denies abdominal pain or nausea. had one episode of emesis yesterday. had a loose BM last night. no fever. d/w the RN. Objective Vitals Vital Signs Date Time Temp Pulse Resp B/P (MAP) Pulse Ox O2 Delivery O2 Flow Rate FiO2 07/20/17 04:00 97.8 88 22 134/64 (87) 95 07/19/17 17:35 98.4 90 16 113/65 (81) 94 I/O 07/19/17 07/19/17 07/19/17 07/20/17 07/20/17 07/20/17 07:00 15:00 23:00 07:00 15:00 23:00 Intake Total 480 ml 980 ml Balance 480 ml 980 ml Intake Oral 480 ml 980 ml # Voids 3 6 # Bowel Movements 1 Result Diagram: 07/20/17 0546 07/19/17 0810 Objective Remarks GENERAL: This is a well-nourished, well-developed patient, in no apparent distress. CARDIOVASCULAR: Regular rate and regular rhythm without murmurs, gallops, or rubs. RESPIRATORY: Clear to auscultation. Breath sounds equal bilaterally. No wheezes , rales, or rhonchi. GASTROINTESTINAL: Abdomen soft, non-tender, nondistended. Normal, active bowel sounds MUSCULOSKELETAL: Extremities without clubbing, cyanosis, or edema. NEURO: Awake and alert. Medications and IVs Current Medications Lactulose (Lactulose Liq) 30 ml DAILY PO Last administered on 07/19/17 09:37 ; Start 07/17/17 at 18:00 Chlorpromazine (Thorazine) 50 mg TID PRN PO NAUSEA OR VOMITING Last administered on 07/19/17 17:42; Start 07/17/17 at 17:45 Clozapine (Clozaril) 200 mg HS PO Last administered on 07/19/17 19:55; Start 07/17/17 at 21:00 Divalproex Sodium (Depakote Er) 500 mg HS PO ; Start 07/17/17 at 21:00; Stop 07/18/17 at 19:43; Status DC Sertraline HCl (Zoloft) 100 mg DAILY PO Last administered on 07/19/17 09:27; Start 07/17/17 at 17:45 Haloperidol Lactate (Haldol Inj) 2 mg Q6H PRN IM agitation Last administered on 07/18/17 02:18; Start 07/17/17 at 17:45 Acetaminophen (Tylenol) 650 mg Q4H PRN PO Pain 1-5 or Temp >101F; Start at 19:30 Magnesium Hydroxide (Milk Of Magnesia Liq) 30 ml DAILY PRN PO CONSTIPATION; Start 07/17/17 at 19:30 Al Hydrox/Mg Hydrox/Simethicone (Mag-Al Plus Susp Liq) 30 ml Q6H PRN PO DYSPEPSIA; Start 07/17/17 at 19:30 Nicotine (Habitrol 21 Mg Patch.24 Hr) 1 patch DAILY T-DERMAL Last administered on 07/19/17 09:00; Start 07/18/17 at 09:00 Miscellaneous Information 1 HS T-DERMAL Last administered on 07/19/17 21:00; Start 07/17/17 at 21:00 Furosemide (Lasix) 20 mg DAILY PO Last administered on 07/19/17 09:24; Start 07/18/17 at 12:00 Budesonide/ Formoterol Fumarate (Symbicort 160-4.5 Inh) 1 puff Q12HR INH Last administered on 07/19/17 19:55; Start 07/18/17 at 13:00 Sodium Chloride 250 ml @ 0 mls/hr BOLUS ONCE IV ; Start 07/18/17 at 11:45; Stop 07/18/17 at 11:46; Status Cancel Naloxone HCl (Narcan Inj) 0.4 mg STAT ONCE IV PUSH ; Start 07/18/17 at 11:45; Stop 07/18/17 at 11:46; Status Cancel Levofloxacin (Levaquin) 750 mg DAILY PO Last administered on 07/19/17 09:27; Start 07/18/17 at 12:00; Stop 07/22/17 at 09:01 Valproic Acid (Depakene Liq) 250 mg BID PO Last administered on 07/19/17 19: 55; Start 07/18/17 at 21:00 A/P Assessment and Plan A/P 1.cirrhosis with hepatic encephalopathy continue lactulose and will monitor. 2. Pneumonia status post respiratory failure and extubation. continue levaquin to finish the course of treatment. 3. leukocytosis with some diarrhea-need to r/o C-diff colitis in light of being on antibiotic- check the stool for C-diff- check UA- monitor temps- CBC tomorrow. 4.schizoaffective disorder with intellectual disability; management per psych. 5. Lung mass; f/u as outpatient. 6. Asthma; continue symbicort. d/w the RN and . Jc Schumacher MD Jul 20, 2017 07:34
--- NOTE | 2017-07-20 07:52 | HHI.PYPN ---
Subjective Remarks Patient seen and examined in weekend coverage. Chart reviewed. Case discussed with nursing staff. Several episodes of emesis yesterday evening, none this morning. Case discussed with Dr. Schumacher from the hospitalist service. Concern for possible C. difficile as the patient has also been having diarrhea. On my examination today, thought process somewhat disorganized. Makes seemingly irrelevant responses to my questions. For example, when I ask about suicidal or homicidal ideation he says "I'll tell you one thing, Rob saves." Asks at one point "the people ever swim in [place]?" He denies side effects from medications. Denies subjective fever. Review of Systems ROS Limitations: Poor Historian Except as stated in HPI: all other systems reviewed are Neg Mental Status Examination Appearance: Disheveled Consciousness: Alert Orientation: Person, Place (at least) Motor Activity: Other (no motor abnormalities noted) Speech: Speech impediment, Other (rambling) Language: Other (impaired) Fund of Knowledge: Inadequate Attention and Concentration: Easily Distracted Memory: Impaired (on clinical exam) Mood: Irritable Affect: Other (restricted and consistent with stated mood) Thought Process & Associations: Loose associations, Disorganized Hallucination Type: None Delusion Type: None Suicidal Ideation: No Suicidal Plan: No Suicidal Intention: No Homicidal Ideation: No Homicidal Plan: No Homicidal Intention: No Insight: Poor Judgment: Poor Results Labs Test 07/19/17 08:10 07/20/17 05:46 White Blood Count 18.6 TH/MM3 19.7 TH/MM3 Red Blood Count 4.12 MIL/MM3 3.60 MIL/MM3 Hemoglobin 12.9 GM/DL 11.3 GM/DL Hematocrit 39.2 % 33.6 % Mean Corpuscular Volume 95.0 FL 93.3 FL Mean Corpuscular Hemoglobin 31.3 PG 31.4 PG Mean Corpuscular Hemoglobin Concent 33.0 % 33.6 % Red Cell Distribution Width 14.5 % 13.8 % Platelet Count 201 TH/MM3 236 TH/MM3 Mean Platelet Volume 8.6 FL 7.8 FL Blood Urea Nitrogen 14 MG/DL Creatinine 0.54 MG/DL Random Glucose 94 MG/DL Total Protein 5.3 GM/DL Albumin 2.2 GM/DL Calcium Level 8.6 MG/DL Alkaline Phosphatase 66 U/L Aspartate Amino Transf (AST/SGOT) 23 U/L Alanine Aminotransferase (ALT/SGPT) 29 U/L Total Bilirubin 0.3 MG/DL Sodium Level 143 MEQ/L Potassium Level 4.7 MEQ/L Chloride Level 107 MEQ/L Carbon Dioxide Level 28.7 MEQ/L Anion Gap 7 MEQ/L Estimat Glomerular Filtration Rate 149 ML/MIN Neutrophils (%) (Auto) 65.5 % Lymphocytes (%) (Auto) 28.6 % Monocytes (%) (Auto) 4.2 % Eosinophils (%) (Auto) 1.3 % Basophils (%) (Auto) 0.4 % Neutrophils # (Auto) 12.9 TH/MM3 Lymphocytes # (Auto) 5.6 TH/MM3 Monocytes # (Auto) 0.8 TH/MM3 Eosinophils # (Auto) 0.2 TH/MM3 Basophils # (Auto) 0.1 TH/MM3 CBC Comment AUTO DIFF Differential Total Cells Counted 100 Neutrophils % (Manual) 82 % Lymphocytes % 12 % Monocytes % 1 % Eosinophils % 4 % Neutrophils # (Manual) 16.4 TH/MM3 Myelocytes 1 % Differential Comment FINAL DIFF MANUAL Platelet Estimate NORMAL Platelet Morphology Comment NORMAL Red Cell Morphology Comment NORMAL Labs reviewed. Worsening leukocytosis noted. Anemia noted. CMP fairly unremarkable except for low protein and hypoalbuminemia. Vitals/IOs Vital Signs Date Time Temp Pulse Resp B/P (MAP) Pulse Ox O2 Delivery O2 Flow Rate FiO2 07/20/17 04:00 97.8 88 22 134/64 (87) 95 Assessment & Plan Problem List: (1) Schizoaffective disorder, bipolar type ICD Codes: F25.0 - Schizoaffective disorder, bipolar type Status: Acute (2) Intellectual disability ICD Codes: F79 - Unspecified intellectual disabilities Status: Acute Assessment & Plan Continue with current psychotropics as ordered. I will replace Thorazine with Zofran for nausea. Continue to monitor on the medical psychiatric unit. Hospitalist input appreciated. Follow-up labs as ordered by the hospitalist. Continue other medications and care as ordered. Justification for Cont. Inpt. Complicating condition. Risk for decompensation in less restrictive environment. Ford Kelly MD Jul 20, 2017 07:52
[2017-07-20] MEDS ORDERED: ONDANSETRON ODT 4 MG TAB PO PRN (08:15)
[2017-07-20] MEDS: VALPROIC ACID SYRUP 250 MG/5 ML UDC PO SCH ×2 (08:22→21:24)
[2017-07-20] MEDS: FUROSEMIDE 20 MG TAB PO SCH (08:22)
[2017-07-20] MEDS: LEVOFLOXACIN 750 MG TAB PO SCH (08:22)
[2017-07-20] MEDS: BUDESONIDE-FORMOTEROL 160/4.5 MCG INHALER INH SCH ×2 (08:22→21:23)
[2017-07-20] MEDS: LACTULOSE SYRUP 20 GM/30 ML CUP PO SCH (08:22)
[2017-07-20] MEDS: SERTRALINE HCL 100 MG TAB PO SCH (08:22)
[2017-07-20] MEDS: NICOTINE 21 MG/24 HR PATCH T-DERMAL SCH (08:22)
[2017-07-20 12:41] LABS: C. DIFF EPI 027 PRESUMPTIVE NEGATIVE (NEGATIVE)
--- NOTE | 2017-07-20 13:49 | EKG ---
Date Performed: 07/20/2017 Time Performed: 08:57:47 PTAGE: 72 years EKG: Sinus rhythm NONSPECIFIC T-WAVE ABNORMALITY BORDERLINE ECG PREVIOUS TRACING : 07/12/2017 08.15 Compared to prior tracing no significant change DOCTOR: Samantha Byrne Interpretating Date/Time 07/20/2017 13:49:03
[2017-07-20 17:00] VITALS: BP 116/65; PULSE 81; RESP 17; TEMP 97.9; O2SAT 96
[2017-07-20 17:39] LABS: BLOOD, URINE NEG (NEG); COMMENT (UR) CULT NOT INDICATED; CULTURE IF INDICATED CULT NOT INDICATED; GLUCOSE,URINE NEG (NEG); HYALINE CAST, URINE 1 /lpf (RARE); KETONE, URINE NEG (NEG); MUCUS URINE FEW /lpf (OCC); NITRITE,URINE NEG (NEG); URINE COLOR YELLOW (YELLW/STRAW)
[2017-07-20] MEDS: REMOVE OLD NICOTINE PATCH T-DERMAL SCH (21:00)
[2017-07-20] MEDS: cloZAPine 100 MG TAB PO SCH (21:23)
[2017-07-21 05:55] LABS: AUTOMATED NEUTROPHIL # 10.3 TH/MM3 (1.8-7.7); BASOPHIL # 0.1 TH/MM3 (0-0.2); BASOPHIL % 0.3 % (0.0-2.0); EOSINOPHIL # 0.2 TH/MM3 (0-0.4); EOSINOPHIL % 1.4 % (0.0-4.0); HEMATOCRIT 35.8 % (39.0-51.0); HEMO FLAGS DIFF FINAL; LYMPH % 29.3 % (9.0-44.0); LYMPHOCYTE # 4.7 TH/MM3 (1.0-4.8); MEAN CORPUSCULAR HEMOGLOBIN 31.3 PG (27.0-34.0); MEAN CORPUSCULAR HGB CONC 33.3 % (32.0-36.0); MONO % 4.9 % (0.0-8.0); NEUT % 64.1 % (16.0-70.0); PLATELET COUNT 260 TH/MM3 (150-450); RED BLOOD COUNT 3.81 MIL/MM3 (4.50-5.90); RED CELL DISTRIBUTION WIDTH 13.9 % (11.6-17.2); WHITE BLOOD COUNT 16.1 TH/MM3 (4.0-11.0)
[2017-07-21 06:09] VITALS: BP 125/65; PULSE 88; RESP 16; TEMP 97.7; O2SAT 94
[2017-07-21 06:24] LABS: BICARBONATE 28.7 MEQ/L (21.0-32.0); POTASSIUM 4.1 MEQ/L (3.5-5.1)
[2017-07-21 08:10] VITALS: BP 108/64; PULSE 88
[2017-07-21] MEDS: NICOTINE 21 MG/24 HR PATCH T-DERMAL SCH (08:11)
[2017-07-21] MEDS: SERTRALINE HCL 100 MG TAB PO SCH (08:11)
[2017-07-21] MEDS: VALPROIC ACID SYRUP 250 MG/5 ML UDC PO SCH ×2 (08:12→20:28)
[2017-07-21] MEDS: FUROSEMIDE 20 MG TAB PO SCH (08:12)
[2017-07-21] MEDS: LEVOFLOXACIN 750 MG TAB PO SCH (08:12)
[2017-07-21] MEDS: BUDESONIDE-FORMOTEROL 160/4.5 MCG INHALER INH SCH ×2 (08:12→20:28)
[2017-07-21] MEDS: LACTULOSE SYRUP 20 GM/30 ML CUP PO SCH (08:12)
--- NOTE | 2017-07-21 10:03 | HHI.FPPN ---
Objective Vitals Vital Signs Date Time Temp Pulse Resp B/P (MAP) Pulse Ox O2 Delivery O2 Flow Rate FiO2 07/21/17 08:10 88 108/64 (79) 07/21/17 06:09 97.7 88 16 125/65 (85) 94 07/20/17 17:00 97.9 81 17 116/65 (82) 96 I/O 07/20/17 07/20/17 07/20/17 07/21/17 07/21/17 07/21/17 07:00 15:00 23:00 07:00 15:00 23:00 Intake Total 240 ml 340 ml 120 ml Balance 240 ml 340 ml 120 ml Intake Oral 240 ml 340 ml 120 ml # Voids 2 3 Result Diagram: 07/21/1751207/21/17512 Objective Remarks GENERAL: SKIN: Warm and dry. HEAD: Atraumatic. Normocephalic. EYES: Pupils equal and round. No scleral icterus. No injection or drainage. ENT: No nasal bleeding or discharge. Mucous membranes pink and moist. NECK: Trachea midline. No JVD. CARDIOVASCULAR: Regular rate and rhythm. RESPIRATORY: No accessory muscle use. Clear to auscultation. Breath sounds equal bilaterally. GASTROINTESTINAL: Abdomen soft, non-tender, nondistended. Hepatic and splenic margins not palpable. MUSCULOSKELETAL: Extremities without clubbing, cyanosis, or edema. No obvious deformities. NEUROLOGICAL: Awake and alert. No obvious cranial nerve deficits. Motor grossly within normal limits. 2 out of 5 muscle strength in the arms and legs. Normal speech. PSYCHIATRIC: Appropriate mood and affect; insight and judgment normal. A/P Assessment and Plan ASSESSMENT- 1. Altered mental status due to hepatic encephalopathy 2. Pneumonia status post respiratory failure and extubation. 3. Hepatic encephalopathy. 4. Cirrhosis 5. Falls 6. Neck lymphadenopathy. 7. Lung mass 8. Asthma 9. Schizophrenia 10. Mental retardation 11. Rhabdomyolysis 12. Hypokalemia 13. Hypernatremia 14. Hyperglycemia. PLAN- LEVAQUIN po LASIX QD. AM LABS. Admission to inpatient psychiatry per psychiatry attending. Lactulose 30 mL b.i.d. DISPOSITION: PT IS MEDICALLY CLEARED FOR DISCHARGE, 3008 IN CHART, PLACEMENT TO [facility]. Min Hebert MD Jul 21, 2017 10:03
[2017-07-21] MEDS ORDERED: LEVA750T9 PO (10:06)
--- NOTE | 2017-07-21 10:06 | HHI.DCPOC ---
Discharge Care Plan Diagnosis: (1) Aspiration pneumonia (2) Nondependent alcohol abuse in remission (3) Unexplained weight loss (4) Acute psychosis (5) Dyspnea and respiratory abnormalities (6) Schizoaffective disorder, bipolar type (7) Leukocytosis (8) Encephalopathy (9) Sepsis Goals to Promote Your Health * To prevent worsening of your condition and complications * To maintain your health at the optimal level Directions to Meet Your Goals Take your medications as prescribed Follow your dietary instruction Follow activity as directed Keep your appointments as scheduled Take your immunizations and boosters as scheduled If your symptoms worsen call your PCP, if no PCP go to Urgent Care Center or Emergency Room Smoking is Dangerous to Your Health. Avoid second hand smoke Call the 24-hour hour crisis hotline for domestic abuse at Min Hebert MD Jul 21, 2017 10:06
--- NOTE | 2017-07-21 10:09 | HHI.DS ---
Discharge Summary Admission Date Jul 17, 2017 at 14:33 Discharge Date: Jul 21, 2017 Admitting Diagnosis SCHIZOAFFECTIVE DISORDER (1) Acute psychosis ICD Codes: F23 - Brief psychotic disorder Status: Acute (2) Sepsis ICD Codes: A41.9 - Sepsis, unspecified organism Status: Acute (3) Encephalopathy ICD Codes: G93.40 - Encephalopathy, unspecified Status: Acute (4) Aspiration pneumonia ICD Codes: J69.0 - Pneumonitis due to inhalation of food and vomit Status: Acute (5) Leukocytosis ICD Codes: D72.829 - Elevated white blood cell count, unspecified Status: Acute (6) Tobacco dependence in remission Status: Chronic (7) Altered mental status ICD Codes: R41.82 - Altered mental status, unspecified Status: Acute (8) Rhabdomyolysis ICD Codes: M62.82 - Rhabdomyolysis Status: Acute CBC/BMP: 07/21/17 0513 07/21/17 0513 Significant Findings Laboratory Tests Test 07/18/17 10:11 07/19/17 08:10 07/20/17 05:46 07/20/17 09:52 White Blood Count 18.0 TH/MM3 (4.0-11.0) 18.6 TH/MM3 (4.0-11.0) 19.7 TH/MM3 (4.0-11.0) Red Blood Count 3.66 MIL/MM3 (4.50-5.90) 4.12 MIL/MM3 (4.50-5.90) 3.60 MIL/MM3 (4.50-5.90) Hemoglobin 11.4 GM/DL (13.0-17.0) 12.9 GM/DL (13.0-17.0) 11.3 GM/DL (13.0-17.0) Hematocrit 34.3 % (39.0-51.0) 33.6 % (39.0-51.0) Neutrophils # (Auto) 10.3 TH/MM3 (1.8-7.7) 12.9 TH/MM3 (1.8-7.7) Lymphocytes # (Auto) 6.3 TH/MM3 (1.0-4.8) 5.6 TH/MM3 (1.0-4.8) Monocytes # (Auto) 1.1 TH/MM3 (0-0.9) Neutrophils # (Manual) 9.9 TH/MM3 (1.8-7.7) 16.4 TH/MM3 (1.8-7.7) Blood Urea Nitrogen 24 MG/DL (7-18) Creatinine 0.45 MG/DL (0.60-1.30) 0.54 MG/DL (0.60-1.30) Total Protein 5.1 GM/DL (6.4-8.2) 5.3 GM/DL (6.4-8.2) Albumin 2.2 GM/DL (3.4-5.0) 2.2 GM/DL (3.4-5.0) Hemoglobin A1c 6.3 % (4.3-6.0) Ammonia 40 MCMOL/L (11-32) Cholesterol Level 86 MG/DL (120-200) HDL Cholesterol 36.4 MG/DL (40.0-60.0) Neutrophils % (Manual) 82 % (16-70) Myelocytes 1 % (0-0) Test 07/20/17 17:05 07/21/17 05:13 Urine Mucus FEW /lpf (OCC) White Blood Count 16.1 TH/MM3 (4.0-11.0) Red Blood Count 3.81 MIL/MM3 (4.50-5.90) Hemoglobin 11.9 GM/DL (13.0-17.0) Hematocrit 35.8 % (39.0-51.0) Neutrophils # (Auto) 10.3 TH/MM3 (1.8-7.7) Creatinine 0.44 MG/DL (0.60-1.30) PE at Discharge GENERAL: SKIN: Warm and dry. L HAND WRAPPED IN SPLINT HEAD: Atraumatic. Normocephalic. EYES: Pupils equal and round. No scleral icterus. No injection or drainage. ENT: No nasal bleeding or discharge. Mucous membranes pink and moist. NECK: Trachea midline. No JVD. CARDIOVASCULAR: Regular rate and rhythm. RESPIRATORY: No accessory muscle use. Clear to auscultation. Breath sounds equal bilaterally. GASTROINTESTINAL: Abdomen soft, non-tender, nondistended. Hepatic and splenic margins not palpable. MUSCULOSKELETAL: Extremities without clubbing, cyanosis, or edema. No obvious deformities. NEUROLOGICAL: Awake and alert. No obvious cranial nerve deficits. Motor grossly within normal limits. Five out of 5 muscle strength in the arms and legs. Normal speech. PSYCHIATRIC: Appropriate mood and affect; insight and judgment normal. Hospital Course 72 Y CM. FOUND DOWN. ADMIT TO ER. TREATED FOR PNA AND RHABDO. PT INTUBATED, EXTUBATED AND TRANSFERRED TO PSYCH. ON PO ABX. PT NOW AT BASELINE. DISCUSSED WITH DR ROBERTSON AND REQUESTS DC IF MEDICALLY STABLE. PT CLEAR FOR SNF DC/ Discharge Instructions New Medications: Levofloxacin (Levaquin) 750 Mg Tablet 750 MG PO DAILY for PNEUMO for 5 Days, #5 CAP Continued Medications: Benztropine (Benztropine) 0.5 Mg Tab 1 MG PO BID, #60 TAB 0 Refills Budesonide-Formoterol Inh (Symbicort Inh) 160-4.5 Mcg/Act Aero 1 PUFF INH Q12HR for health, #1 INHALER 0 Refills Chlorpromazine (Chlorpromazine) 25 Mg Tab 50 MG PO TID PRN for NAUSEA OR VOMITING, TAB 0 Refills Clozapine (Clozaril) 100 Mg Tab 200 MG PO 1 am 2 hs for health, #90 TAB 0 Refills Divalproex ER (Depakote ER) 500 Mg Waldo 500 MG PO 1 am 3hs for health, #120 TAB 0 Refills Doxycycline Hyclate (Doxycycline Hyclate) 100 Mg Cap 100 MG PO BID for Infection for 7 Days, CAP 0 Refills Fluticasone 12 GM Inh (Flovent Hfa 12 GM Inh) 220 Mcg/Act Inh 1 PUFF INH BID for health, #1 INHALER 0 Refills Sertraline (Zoloft) 100 Mg Tab 100 MG PO DAILY for health, #30 TAB 0 Refills Min Hebert MD Jul 21, 2017 10:08
[2017-07-21] MEDS: HALOPERIDOL LACTATE 5 MG/ML AMP IM PRN ×2 (14:08→22:15)
--- NOTE | 2017-07-21 15:11 | HHI.PYPN ---
Subjective Remarks Patient was seen today for psychiatric reevaluation along with nurse in charge and hospital social worker Yudy. I also discussed the condition of the patient, prognosis and discharge planning with Dr. Hebert. On psychiatric evaluation patient is at baseline, which is disorganized, he can answer many of the questions, but he becomes easily tangential. Patient says that he was to go home because he wants to take beers and smoke. He reports good mood, denies suicidal and homicidal ideation, he denies visual and auditory hallucinations. She has been compliant with medications,side effects. Review of Systems Except as stated in HPI: all other systems reviewed are Neg Mental Status Examination Appearance: Disheveled Consciousness: Alert Orientation: Person, Place (at least) Motor Activity: Other (no motor abnormalities noted) Speech: Speech impediment, Other (rambling) Language: Other (impaired) Fund of Knowledge: Inadequate Attention and Concentration: Easily Distracted Memory: Impaired (on clinical exam) Mood: Irritable Affect: Other (restricted and consistent with stated mood) Thought Process & Associations: Loose associations, Disorganized Hallucination Type: None Delusion Type: None Suicidal Ideation: No Suicidal Plan: No Suicidal Intention: No Homicidal Ideation: No Homicidal Plan: No Homicidal Intention: No Insight: Poor Judgment: Poor Results Labs Test 07/20/17 17:05 07/21/17 05:13 Urine Color YELLOW Urine Turbidity CLEAR Urine pH 8.0 Urine Specific [place] 1.009 Urine Protein NEG mg/dL Urine Glucose (UA) NEG mg/dL Urine Ketones NEG mg/dL Urine Occult Blood NEG Urine Nitrite NEG Urine Bilirubin NEG Urine Urobilinogen LESS THAN 2.0 MG/DL Urine Leukocyte Esterase NEG Urine RBC LESS THAN 1 /hpf Urine WBC 1 /hpf Urine Amorphous Sediment RARE Urine Hyaline Casts 1 /lpf Urine Mucus FEW /lpf Microscopic Urinalysis Comment CULT NOT INDICATED White Blood Count 16.1 TH/MM3 Red Blood Count 3.81 MIL/MM3 Hemoglobin 11.9 GM/DL Hematocrit 35.8 % Mean Corpuscular Volume 94.0 FL Mean Corpuscular Hemoglobin 31.3 PG Mean Corpuscular Hemoglobin Concent 33.3 % Red Cell Distribution Width 13.9 % Platelet Count 260 TH/MM3 Mean Platelet Volume 8.0 FL Neutrophils (%) (Auto) 64.1 % Lymphocytes (%) (Auto) 29.3 % Monocytes (%) (Auto) 4.9 % Eosinophils (%) (Auto) 1.4 % Basophils (%) (Auto) 0.3 % Neutrophils # (Auto) 10.3 TH/MM3 Lymphocytes # (Auto) 4.7 TH/MM3 Monocytes # (Auto) 0.8 TH/MM3 Eosinophils # (Auto) 0.2 TH/MM3 Basophils # (Auto) 0.1 TH/MM3 CBC Comment DIFF FINAL Differential Comment Blood Urea Nitrogen 11 MG/DL Creatinine 0.44 MG/DL Random Glucose 94 MG/DL Calcium Level 9.0 MG/DL Sodium Level 142 MEQ/L Potassium Level 4.1 MEQ/L Chloride Level 105 MEQ/L Carbon Dioxide Level 28.7 MEQ/L Anion Gap 8 MEQ/L Estimat Glomerular Filtration Rate 189 ML/MIN Vitals/IOs Vital Signs Date Time Temp Pulse Resp B/P (MAP) Pulse Ox O2 Delivery O2 Flow Rate FiO2 07/21/17 08:10 88 108/64 (79) 07/21/17 06:09 97.7 16 94 Intake and Output 07/21/17 07/21/17 07/22/17 08:00 16:00 00:00 Intake Total 120 ml 120 ml Balance 120 ml 120 ml Assessment & Plan Problem List: (1) Schizoaffective disorder, bipolar type ICD Codes: F25.0 - Schizoaffective disorder, bipolar type Status: Acute Assessment & Plan: Continue current psychotropic regimen (2) Intellectual disability ICD Codes: F79 - Unspecified intellectual disabilities Status: Acute Assessment & Plan Estimated LOS: days Justification for Cont. Inpt. Patient has an elevated risk to decompensate out of an structure environment. Jason Alfred MD Jul 21, 2017 15:11
[2017-07-21 18:49] VITALS: BP 130/97; PULSE 95; RESP 17; TEMP 97.4; O2SAT 95
[2017-07-21] MEDS: REMOVE OLD NICOTINE PATCH T-DERMAL SCH (20:28)
[2017-07-21] MEDS: cloZAPine 100 MG TAB PO SCH (20:28)
[2017-07-21] MEDS ORDERED: ZIPRASIDONE MESYLATE 20 MG VIAL IM ONE (23:30)
[2017-07-21] MEDS ORDERED: LORazepam 2 MG/ML VIAL IM ONE (23:30)
[2017-07-21] MEDS ORDERED: diphenhydrAMINE HCL 50 MG/ML VIAL IM ONE (23:30)
[2017-07-22 06:04] VITALS: BP 90/60; PULSE 108; RESP 17; TEMP 97.1; O2SAT 92
[2017-07-22 06:33] VITALS: BP 112/59; PULSE 98; RESP 18
[2017-07-22 10:00] VITALS: BP 124/66; PULSE 89
--- NOTE | 2017-07-22 10:03 | HHI.PYPN ---
Subjective Remarks Patient was seen today for psychiatric reevaluation, patient case was discussed in treatment team. On reevaluation today patient is a sleepy, but arousable. He says that he feels fine. He is compliant with his medications, no significant side effects. Last night he became a little bit agitated and demanding he was given an ETO. Other that that patient is described a baseline. Review of Systems Except as stated in HPI: all other systems reviewed are Neg Mental Status Examination Appearance: Disheveled Consciousness: Alert Orientation: Person, Place (at least) Motor Activity: Other (no motor abnormalities noted) Speech: Speech impediment, Other (rambling) Language: Other (impaired) Fund of Knowledge: Inadequate Attention and Concentration: Easily Distracted Memory: Impaired (on clinical exam) Mood: Irritable Affect: Other (restricted and consistent with stated mood) Thought Process & Associations: Loose associations, Disorganized Hallucination Type: None Delusion Type: None Suicidal Ideation: No Suicidal Plan: No Suicidal Intention: No Homicidal Ideation: No Homicidal Plan: No Homicidal Intention: No Insight: Poor Judgment: Poor Results Vitals/IOs Vital Signs Date Time Temp Pulse Resp B/P (MAP) Pulse Ox O2 Delivery O2 Flow Rate FiO2 07/22/17 06:33 98 18 112/59 (76) 07/22/17 06:04 97.1 92 Intake and Output 07/22/17 07/22/17 07/23/17 08:00 16:00 00:00 Intake Total 240 ml Balance 240 ml Assessment & Plan Problem List: (1) Schizoaffective disorder, bipolar type ICD Codes: F25.0 - Schizoaffective disorder, bipolar type Status: Acute Assessment & Plan: Continue current psychotropics. Patient is in the process to be transferred to a rehabilitation program. (2) Intellectual disability ICD Codes: F79 - Unspecified intellectual disabilities Status: Acute Assessment & Plan: Patient has an increased risk to decompensate at a lower level of care. Assessment & Plan Estimated LOS: days Justification for Cont. Inpt. Patient has an increased risk to decompensate at a lower level of care. Jason Alfred MD Jul 22, 2017 10:03
--- NOTE | 2017-07-22 10:06 | HHI.FPPN ---
Subjective Remarks STABLE D/W RN Objective Vitals Vital Signs Date Time Temp Pulse Resp B/P (MAP) Pulse Ox O2 Delivery O2 Flow Rate FiO2 07/22/17 06:33 98 18 112/59 (76) 07/22/17 06:04 97.1 108 17 90/60 (70) 92 07/21/17 18:49 97.4 95 17 130/97 (108) 95 I/O 07/21/17 07/21/17 07/21/17 07/22/17 07/22/17 07/22/17 07:00 15:00 23:00 07:00 15:00 23:00 Intake Total 120 ml 120 ml 720 ml 240 ml Balance 120 ml 120 ml 720 ml 240 ml Intake Oral 120 ml 120 ml 720 ml 240 ml # Voids 3 4 1 # Bowel Movements 1 Result Diagram: 07/21/1751207/21/17512 Objective Remarks GENERAL: SKIN: Warm and dry. HEAD: Atraumatic. Normocephalic. EYES: Pupils equal and round. No scleral icterus. No injection or drainage. ENT: No nasal bleeding or discharge. Mucous membranes pink and moist. NECK: Trachea midline. No JVD. CARDIOVASCULAR: Regular rate and rhythm. RESPIRATORY: No accessory muscle use. Clear to auscultation. Breath sounds equal bilaterally. GASTROINTESTINAL: Abdomen soft, non-tender, nondistended. Hepatic and splenic margins not palpable. MUSCULOSKELETAL: Extremities without clubbing, cyanosis, or edema. No obvious deformities. NEUROLOGICAL: Awake and alert. No obvious cranial nerve deficits. Motor grossly within normal limits. 2 out of 5 muscle strength in the arms and legs. Normal speech. PSYCHIATRIC: Appropriate mood and affect; insight and judgment normal. Medications and IVs Current Medications Medications (Trade) Dose Ordered Sig/Alpesh Route Start Time Stop Time Status Last Admin (Lactulose Liq) 30 ml DAILY PO 07/17/17 18:00 07/21/17 08:12 (Clozaril) 200 mg HS PO 07/17/17 21:00 07/21/17 20:28 (Zoloft) 100 mg DAILY PO 07/17/17 17:45 07/21/17 08:11 (Haldol Inj) 2 mg Q6H PRN IM 07/17/17 17:45 07/21/17 22:15 (Tylenol) 650 mg Q4H PRN PO 07/17/17 19:30 (Milk Of Magnesia Liq) 30 ml DAILY PRN PO 07/17/17 19:30 (Mag-Al Plus Susp Liq) 30 ml Q6H PRN PO 07/17/17 19:30 (Habitrol 21 Mg Patch.24 Hr) 1 patch DAILY T-DERMAL 07/18/17 09:00 07/21/17 08:11 Miscellaneous Information 1 HS T-DERMAL 07/17/17 21:00 07/21/17 20:28 (Lasix) 20 mg DAILY PO 07/18/17 12:00 07/21/17 08:12 (Symbicort 160-4.5 Inh) 1 puff Q12HR INH 07/18/17 13:00 07/21/17 20:28 (Depakene Liq) 250 mg BID PO 07/18/17 21:00 07/21/17 20:28 (Zofran Odt) 4 mg Q4H PRN PO 07/20/17 08:15 07/20/17 21:24 A/P Assessment and Plan ASSESSMENT- 1. Altered mental status due to hepatic encephalopathy 2. Pneumonia status post respiratory failure and extubation. 3. Hepatic encephalopathy. 4. Cirrhosis 5. Falls 6. Neck lymphadenopathy. 7. Lung mass 8. Asthma 9. Schizophrenia 10. Mental retardation 11. Rhabdomyolysis 12. Hypokalemia 13. Hypernatremia 14. Hyperglycemia. PLAN- PT IN NEED OF INPATIENT REHAB PLACEMENT FOR ENCEPHALOPATHY, WEAKNESS, FTT, UNABLE TO CARE FOR HIMSELF AT HOME. NEDRA WOODY EVALUATING PT LEVAQUIN po LASIX QD. AM LABS. Admission to inpatient psychiatry per psychiatry attending. Lactulose 30 mL b.i.d. DISPOSITION: PT IS MEDICALLY CLEARED FOR DISCHARGE, 3008 IN CHART, PLACEMENT TO [facility]. Min Hebert MD Jul 22, 2017 10:06
[2017-07-22] MEDS: LEVOFLOXACIN 750 MG TAB PO SCH (10:13)
[2017-07-22] MEDS: VALPROIC ACID SYRUP 250 MG/5 ML UDC PO SCH ×2 (10:13→21:04)
[2017-07-22] MEDS: LACTULOSE SYRUP 20 GM/30 ML CUP PO SCH (10:13)
[2017-07-22] MEDS: SERTRALINE HCL 100 MG TAB PO SCH (10:13)
[2017-07-22] MEDS: NICOTINE 21 MG/24 HR PATCH T-DERMAL SCH (10:15)
[2017-07-22] MEDS: BUDESONIDE-FORMOTEROL 160/4.5 MCG INHALER INH SCH ×2 (10:16→21:03)
[2017-07-22] MEDS: FUROSEMIDE 20 MG TAB PO SCH (10:20)
--- NOTE | 2017-07-22 12:56 | PD.TTN ---
Patient Problems 1. Discharge planning 2. Medication compliance 3. Knowledge deficit 4. Lack of coping skills Progress Toward Goals Provider Present: Dr. Ryan Alfred Provider Input: Per doctor Tima, patient has reached a baseline, will need to be dc to health and Rehab Psychiatric Counselors Present: Yudy Hatch [facility] Psych Therapist Input: [facility] will be faxed if [facility] decline patient Group Spec/RT/OT/HALL Present: Dm Paniagua OT Group Spec/RT/OT/HALL Input: Patient lacks ability, poor judgment and insight to participate with groups Discharge Plan SMA (Patient is linked with FACT team, for casemanagement who will be notified prior to discharge) Yudy Hatch [facility] Jul 22, 2017 12:56
[2017-07-22 16:29] VITALS: BP 105/59; PULSE 101; RESP 18; TEMP 98.4; O2SAT 95
[2017-07-22] MEDS: cloZAPine 100 MG TAB PO SCH (21:03)
[2017-07-22] MEDS: REMOVE OLD NICOTINE PATCH T-DERMAL SCH (21:05)
[2017-07-23 06:25] VITALS: BP 110/66; PULSE 88; RESP 16; TEMP 97.9; O2SAT 97
[2017-07-23] MEDS: BUDESONIDE-FORMOTEROL 160/4.5 MCG INHALER INH SCH ×2 (08:31→20:44)
[2017-07-23] MEDS: VALPROIC ACID SYRUP 250 MG/5 ML UDC PO SCH ×2 (08:31→20:41)
[2017-07-23] MEDS: LACTULOSE SYRUP 20 GM/30 ML CUP PO SCH (08:31)
[2017-07-23] MEDS: SERTRALINE HCL 100 MG TAB PO SCH (08:32)
[2017-07-23] MEDS: FUROSEMIDE 20 MG TAB PO SCH (08:32)
[2017-07-23] MEDS: NICOTINE 21 MG/24 HR PATCH T-DERMAL SCH (09:00)
--- NOTE | 2017-07-23 09:35 | HHI.FPPN ---
Subjective Remarks stable D/W RN D/W CM Objective Vitals Vital Signs Date Time Temp Pulse Resp B/P (MAP) Pulse Ox O2 Delivery O2 Flow Rate FiO2 07/23/17 06:25 97.9 88 16 110/66 (81) 97 07/22/17 16:29 98.4 101 18 105/59 (74) 95 07/22/17 10:00 89 124/66 (85) I/O 07/22/17 07/22/17 07/22/17 07/23/17 07/23/17 07/23/17 07:00 15:00 23:00 07:00 15:00 23:00 Intake Total 240 ml 360 ml 580 ml 0 ml Balance 240 ml 360 ml 580 ml 0 ml Intake Oral 240 ml 360 ml 580 ml 0 ml # Voids 1 3 2 1 # Bowel Movements 3 0 Result Diagram: 07/21/1751207/21/17512 Objective Remarks GENERAL: SKIN: Warm and dry. HEAD: Atraumatic. Normocephalic. EYES: Pupils equal and round. No scleral icterus. No injection or drainage. ENT: No nasal bleeding or discharge. Mucous membranes pink and moist. NECK: Trachea midline. No JVD. CARDIOVASCULAR: Regular rate and rhythm. RESPIRATORY: No accessory muscle use. Clear to auscultation. Breath sounds equal bilaterally. GASTROINTESTINAL: Abdomen soft, non-tender, nondistended. Hepatic and splenic margins not palpable. MUSCULOSKELETAL: Extremities without clubbing, cyanosis, or edema. No obvious deformities. NEUROLOGICAL: Awake and alert. No obvious cranial nerve deficits. Motor grossly within normal limits. 2 out of 5 muscle strength in the arms and legs. Normal speech. PSYCHIATRIC: Appropriate mood and affect; insight and judgment normal. Medications and IVs Current Medications Medications (Trade) Dose Ordered Sig/Alpesh Route Start Time Stop Time Status Last Admin (Lactulose Liq) 30 ml DAILY PO 07/17/17 18:00 07/23/17 08:31 (Clozaril) 200 mg HS PO 07/17/17 21:00 07/22/17 21:03 (Zoloft) 100 mg DAILY PO 07/17/17 17:45 07/23/17 08:32 (Haldol Inj) 2 mg Q6H PRN IM 07/17/17 17:45 07/21/17 22:15 (Tylenol) 650 mg Q4H PRN PO 07/17/17 19:30 (Milk Of Magnesia Liq) 30 ml DAILY PRN PO 07/17/17 19:30 (Mag-Al Plus Susp Liq) 30 ml Q6H PRN PO 07/17/17 19:30 (Habitrol 21 Mg Patch.24 Hr) 1 patch DAILY T-DERMAL 07/18/17 09:00 07/22/17 10:15 Miscellaneous Information 1 HS T-DERMAL 07/17/17 21:00 07/22/17 21:05 (Lasix) 20 mg DAILY PO 07/18/17 12:00 07/23/17 08:32 (Symbicort 160-4.5 Inh) 1 puff Q12HR INH 07/18/17 13:00 07/23/17 08:31 (Depakene Liq) 250 mg BID PO 07/18/17 21:00 07/23/17 08:31 (Zofran Odt) 4 mg Q4H PRN PO 07/20/17 08:15 07/20/17 21:24 A/P Assessment and Plan ASSESSMENT- 1. Altered mental status due to hepatic encephalopathy 2. Pneumonia status post respiratory failure and extubation. 3. Hepatic encephalopathy. 4. Cirrhosis 5. Falls 6. Neck lymphadenopathy. 7. Lung mass 8. Asthma 9. Schizophrenia 10. Mental retardation 11. Rhabdomyolysis 12. Hypokalemia 13. Hypernatremia 14. Hyperglycemia. PLAN- DC HELD AGAIN, [facility] LOOKING AT PT TODAY PT IN NEED OF REHAB PLACEMENT FOR ENCEPHALOPATHY, WEAKNESS, FTT, UNABLE TO CARE FOR HIMSELF AT HOME. LEVAQUIN po LASIX QD. AM LABS. Admission to inpatient psychiatry per psychiatry attending. Lactulose 30 mL b.i.d. DISPOSITION: PT IS MEDICALLY CLEARED FOR DISCHARGE, 3008 IN CHART, PLACEMENT TO [facility]. Min Hebert MD Jul 23, 2017 09:35
--- NOTE | 2017-07-23 14:55 | HHI.PYPN ---
Subjective Remarks Patient seen today for psychiatric reevaluation, patient is found sitting in the marie, he is calm, superficially cooperative, in a very good spirit. He reports good mood, he says that he is ready to go home, denies depressive symptoms, denies anxiety, denies suicidal and homicidal ideation, denies visual and auditory hallucinations. As per nurses, patient has been doing actually very good, no agitation or aggressive behavior reported. He has been compliant with medications, no significant side effects reported. Review of Systems Except as stated in HPI: all other systems reviewed are Neg Mental Status Examination Appearance: Disheveled Consciousness: Alert Orientation: Person, Place (at least) Motor Activity: Other (no motor abnormalities noted) Speech: Speech impediment, Other (rambling) Language: Other (impaired) Fund of Knowledge: Inadequate Attention and Concentration: Adequate Memory: Impaired (on clinical exam) Mood: Irritable Affect: Other (restricted and consistent with stated mood) Thought Process & Associations: Loose associations, Disorganized Thought Content: Bizarre thinking Hallucination Type: None Delusion Type: None Suicidal Ideation: No Suicidal Plan: No Suicidal Intention: No Homicidal Ideation: No Homicidal Plan: No Homicidal Intention: No Insight: Fair Judgment: Impulsive Results Vitals/IOs Vital Signs Date Time Temp Pulse Resp B/P (MAP) Pulse Ox O2 Delivery O2 Flow Rate FiO2 07/23/17 06:25 97.9 88 16 110/66 (81) 97 Intake and Output 07/23/17 07/23/17 07/24/17 08:00 16:00 00:00 Intake Total 120 ml 240 ml Balance 120 ml 240 ml Assessment & Plan Problem List: (1) Schizoaffective disorder, bipolar type ICD Codes: F25.0 - Schizoaffective disorder, bipolar type Status: Acute Assessment & Plan: Continue current psychotropic regimen. Brief supportive psychotherapy provided. (2) Intellectual disability ICD Codes: F79 - Unspecified intellectual disabilities Status: Acute Assessment & Plan Estimated LOS: days Justification for Cont. Inpt. Patient has an elevated risk to decompensate at a lower level of care. Jason Alfred MD Jul 23, 2017 14:55
[2017-07-23 16:44] VITALS: BP 112/55; PULSE 92; RESP 17; TEMP 98.4; O2SAT 93
[2017-07-23] MEDS: cloZAPine 100 MG TAB PO SCH (20:41)
[2017-07-23] MEDS: REMOVE OLD NICOTINE PATCH T-DERMAL SCH (20:45)
[2017-07-24 05:51] VITALS: BP 113/61; PULSE 79; RESP 16; TEMP 97.5; O2SAT 93
[2017-07-24] MEDS: NICOTINE 21 MG/24 HR PATCH T-DERMAL SCH (08:04)
[2017-07-24] MEDS: VALPROIC ACID SYRUP 250 MG/5 ML UDC PO SCH (08:04)
[2017-07-24] MEDS: SERTRALINE HCL 100 MG TAB PO SCH (08:04)
[2017-07-24] MEDS: FUROSEMIDE 20 MG TAB PO SCH (08:04)
[2017-07-24] MEDS: BUDESONIDE-FORMOTEROL 160/4.5 MCG INHALER INH SCH (08:05)
[2017-07-24] MEDS: LACTULOSE SYRUP 20 GM/30 ML CUP PO SCH (08:05)
[2017-07-24] MEDS ORDERED: ZOLO100T PO (10:52)
[2017-07-24] MEDS ORDERED: VALP250UDC PO (10:52)
[2017-07-24] MEDS ORDERED: BENZ0.5T PO (10:52)
[2017-07-24] MEDS ORDERED: CLOZ100 PO (10:52)
[2017-07-24] MEDS: HALOPERIDOL LACTATE 5 MG/ML AMP IM PRN (11:09)
--- NOTE | 2017-07-24 14:23 | HHI.DS ---
Psychiatry Discharge Summary Inpatient Psychiatric care?: Yes Advance Directive: No Reason Not Provided: Due to Patient Condition Mental Health AdvanceDirective: No Health Care Proxy: No Admission Admission Date Jul 17, 2017 at 14:33 Admission Diagnosis: (1) Schizoaffective disorder ICD Code: F25.9 - Schizoaffective disorder, unspecified Brief History From Dr. Alfred's H&P: Patient is a 72-year-old man, with psychiatric history of schizoaffective disorder, previous psychiatric hospitalizations, he is known by this service, he had a previous psychiatric hospitalizations here at [place] [facility] at the beginning of the year under the care of Dr. Hernandez, documentation review, as per medication reconciliation patient is in Clozaril 200 mg, Depakote 500 mg , Zoloft 100 mg, medical history of liver cirrhosis, who presents emergency Department by [facility] with altered mental status, multiple abrasions to body, and unknown time down. Patient was seen today for psychiatric evaluation, he was agitated, restrained in 4 points, disorganized, unable to provide any meaningful information for the psychiatric assessment. Patient denies pain, shortness of breath or abdominal pain. Endorsing being "very hungry" and asking for food. Patient remains afebrile, stable hemodynamically. Currently tolerating O2 via nasal cannula 3 L. Oxygen saturation in the high 90s. Laboratory work Today revealing WBC 11.1, Hgb 11.1, platelet count 265. Sodium 142, potassium 3.6, BUN/creatinine 55/0.72. Ammonia as of yesterday less than 10. Patient was seen today for psychiatric reevaluation, patient is more alert, a little more cooperative, he is disorganized, but he can answer some questions. Patient says that he is not happy to be here, he doesn't remember the reason his in the hospital. Is very difficult to understand the patient due to aphasia and incoherent speech, he is also tangential and disorganized he reports to be sad, denies suicidal or homicidal ideation, denies visual and auditory hallucinations. Compliance with medications, no significant side effects. On my examination today: Patient seen and examined with nurse in weekend coverage. Chart reviewed. Case discussed with nursing staff. On my examination today, the patient presents as somewhat irascible when bothered. He is fairly childlike, and I suspect some degree of intellectual disability. Speech is garbled as at baseline. Mood is dysphoric and affect is consistent with stated mood. Unable to provide much detail as to why he was brought to the hospital. Denies AVH. No delusions. Denies SI/HI but does not appear reliable to contract for safety. Follows with the FACT team, and nurse remembers the patient from her previous work at [facility]. Psychiatric interview is limited, I suspect as a consequence of his intellectual disability and current mental state. I am unable to obtain any meaningful past psychiatric, family, chemical dependency or social history from this patient at this time as a consequence. No physical complaints this morning. Tobacco Use In Past 30 Days: No Tobacco Past 30 Days Alcohol Use: Never Hospital Course The patient was transfer to [facility] from medical floor for treatment of psychosis. Once the patient is in the med psych unit psychosocial a psychiatric assessment a performed. Safety measures taken. Patient at the beginning is disorganized, disinhibited, tangential, no providing any meaningful information for the psychiatric assessment. He was restarted on his medications, Clozaril 200 mg, Depakote 250 twice a day, clonazepam 0.5 mg twice a day. Patient showed a significant positive response to psychotropic regimen in a few days. Patient reached his baseline which is kind of Disorganized and Loud. Once the patient reached baseline a safe discharge plan was coordinated with his healthcare by proxy, which is his brother. At the moment of discharge patient is a baseline, a little bit disorganized and tangential, no agitation or aggressive behavior reported, no depression, no anxiety, no delirium, he denies suicidal and homicidal ideation, he denies visual and auditory hallucinations. Patient is compliant with medications, no significant side effects Results Blood Pressure 113 / 61 Vital Signs Date Time Temp Pulse Resp B/P (MAP) Pulse Ox O2 Delivery O2 Flow Rate FiO2 07/24/17 05:51 97.5 79 16 113/61 (78) 93 Laboratory Results Test 07/18/17 10:11 Cholesterol Level 86 MG/DL (120-200) HDL Cholesterol 36.4 MG/DL (40.0-60.0) Hemoglobin A1c 6.3 % (4.3-6.0) LDL Cholesterol 26 MG/DL (0-99) Triglycerides Level 119 MG/DL (42-150) Summary of Major Lab Results reviewed Summary of Procedures NOne Pending results at discharge: No Medications # of Antipsychotic meds at D/C: 1 Approp Antipsych med options 1 - Minimum of three failed multiple trials of monotherapy. 2 - Documented plan to taper to monotherapy due to previous use of multiple meds OR cross-taper in progress at D/C. 3 - Documentation of augmentation of Clozapine. 4 - Justification other than those listed in allowable values 1-3, document here : Discharge Discharge Date: Jul 24, 2017 Discharge Diagnosis: (1) Schizoaffective disorder Status: Chronic Pt Condition on Discharge: Fair Discharge Disposition: Discharge Home Discharge Instructions Diet Instructions: As Tolerated, No Restrictions Activities you can perform: Weight Bearing as Alycia Scheduled Appointment: Roe Aviles Appointment Date: Jul 25, 2017 Appointment Time: 11:30am Discharge Time > 30 minutes Mental Status Examination Appearance: Disheveled Consciousness: Alert Orientation: Person, Place (at least) Motor Activity: Other (no motor abnormalities noted) Speech: Speech impediment, Other (rambling) Language: Other (impaired) Fund of Knowledge: Inadequate Attention and Concentration: Adequate Memory: Impaired (on clinical exam) Mood: Irritable Affect: Other (restricted and consistent with stated mood) Thought Process & Associations: Loose associations, Disorganized Thought Content: Bizarre thinking Hallucination Type: None Delusion Type: None Suicidal Ideation: No Suicidal Plan: No Suicidal Intention: No Homicidal Ideation: No Homicidal Plan: No Homicidal Intention: No Insight: Fair Judgment: Impulsive Discharge/Advance Care Plan Health Problems: (1) Schizoaffective disorder, bipolar type (2) Intellectual disability Goals to promote your health * To prevent worsening of your condition and complications * To maintain your health at the optimal level Directions to meet your goals Take your medications as prescribed Follow your dietary instruction Follow activity as directed Keep your appointments as scheduled Take your immunizations and boosters as scheduled If your symptoms worsen call your PCP, if no PCP go to Urgent Care Center or Emergency Room For 21/04 questions related to your inpatient stay or results of tests pending at discharge, please contact Dr. Jason Alfred at Smoking is Dangerous to Your Health. Avoid second hand smoking Jason Alfred MD Jul 24, 2017 14:23
== END 2017-07-24 12:30 | disposition home or self-care (01) | DRG 885 ==
LOC: H4EA 14:33
PROVIDERS: ADMIT Psychiatry & Neurology Psychiatry; ATTEND Psychiatry & Neurology Psychiatry
DX: F25.0 Schizoaffective disorder, bipolar type (principal); J69.0 Pneumonitis due to inhalation of food and vomit; K74.60 Unspecified cirrhosis of liver; K72.90 Hepatic failure, unspecified without coma; F79 Unspecified intellectual disabilities; J45.909 Unspecified asthma, uncomplicated; F10.11 Alcohol abuse, in remission; F17.210 Nicotine dependence, cigarettes, uncomplicated; R11.2 Nausea with vomiting, unspecified; R19.7 Diarrhea, unspecified
CPT/HCPCS: 80048; 80053; 80061; 81001; 82140; 82550; 83036; 85007; 85025; 85027; 87493; 93005; J1200; J1630; J2060; J3486

== ENCOUNTER 2018-09-16 09:32 | Inpatient (IN) ==
[2018-09-16] MEDS ORDERED: Azithromycin Inj 500 MG in Sodium Chlor 0.9% Inj 250 ML IV.SIG STA (09:44)
--- NOTE | 2018-09-16 09:53 | ED ---
HPI General Chief Complaint: Shortness of Breath/Dyspnea Stated Complaint: Poss AMS Time Seen by Provider: 09/16/18 09:44 Source: patient and EMS Mode of arrival: EMS Limitations: altered mental status History of Present Illness 73-year-old male patient with history of schizophrenia, bipolar disorder, coming from facility complaining currently of coughing, shortness of breath, looking more lethargic according to facility staff, and respiratory distress, low saturations, fevers of 102. He is a poor historian and not able to give me much further history. However, he denies any vomiting, diarrhea, abdominal pains. Modifying Factors: None Associated Signs & Symptoms: Shortness of breath, lethargy, hypoxia, fever Risk Factors: None Related Data Home Medications Medication Instructions Recorded Confirmed budesonide-formoterol [Symbicort] 2 puff INHALATION BID 09/16/18 09/16/18 clozapine 200 mg PO HS 09/16/18 09/16/18 clozapine [Clozaril] 100 mg PO DAILY 09/16/18 09/16/18 ferrous sulfate 325 mg PO DAILY 09/16/18 09/16/18 furosemide 20 mg PO DAILY 09/16/18 09/16/18 lactulose 10 g PO TID 09/16/18 09/16/18 sertraline 100 mg PO DAILY 09/16/18 09/16/18 valproic acid 250 mg PO BID 09/16/18 09/16/18 Allergies Allergy/AdvReac Type Severity Reaction Status Date / Time No Known Allergies Allergy Unknown Uncoded 11/03/17 10:30 Review of Systems ROS Unobtainable ROS Unobtainable: unobtainable due to mental status PMFSH History History Provided By: Patient Medical History Medical History Anxiety (Acute) Dementia (Acute) Dysphagia (Acute) Hypertension (Acute) Muscle weakness (generalized) (Acute) Schizophrenia (Acute) Social History Social History Substance History: Unable to Obtain Smoking Status: Unknown if ever smoked How Often Do You Have a Drink Containing Alcohol: Unable to Obtain Recent Travel in [facility] within the Last 8 Weeks: No Recent Out of Country Travel within the Last 8 Weeks: No Exam Narrative Exam Narrative: GENERAL: Well-developed elderly male patient currently in moderate distress. Awake, alert, not oriented. SKIN: Focused skin assessment warm/dry. HEAD: Atraumatic. Normocephalic. EYES: Pupils equal and round. No scleral icterus. No injection or drainage. ENT: No nasal bleeding or discharge. Mucous membranes pink and moist. NECK: Trachea midline. No JVD. CARDIOVASCULAR: Regular rate and rhythm. No murmur appreciated. RESPIRATORY: Mild accessory muscle use. Coarse breath sounds throughout bilaterally. Breath sounds equal bilaterally. GASTROINTESTINAL: Abdomen soft, non-tender, nondistended. Hepatic and splenic margins not palpable. MUSCULOSKELETAL: No obvious deformities. No clubbing. No cyanosis. No edema. NEUROLOGICAL: Awake and alert. No obvious cranial nerve deficits. Motor grossly within normal limits. Normal speech. PSYCHIATRIC: Appropriate mood and affect; insight and judgment poor. Course Initial Documented Vital Signs Temperature 99.2 F 09/16/18 09:37 Pulse Rate 123 H 09/16/18 09:37 Respiratory Rate 25 H 09/16/18 09:37 Blood Pressure 149/75 H 09/16/18 09:37 Pulse Oximetry 87 L 09/16/18 09:37 Last Documented Vital Signs Temperature 99.2 F 09/16/18 09:37 Pulse Rate 115 H 09/16/18 10:02 Respiratory Rate 26 H 09/16/18 10:02 Blood Pressure 136/70 09/16/18 10:02 Pulse Oximetry 90 L 09/16/18 10:02 Medical Decision Making MDM Narrative Medical decision making narrative: Chest x-ray and symptoms concerning for underlying pneumonia. IV antibiotics, IV fluids were initiated after cultures were drawn. Lab work is showing significant leukocytosis as well. BNP is within normal limits. At this point, plan would be to admit the patient for further treatment. Case is discussed with family practice resident service for admission. Medical Screen Exam Complete: Yes Emergency Medical Condition: Yes Differential Diagnosis Differential Diagnosis: Sepsis versus pneumonia versus exacerbation versus lateral dysrhythmias Lab Data Lab results reviewed: Yes I reviewed the patient's lab results. Result diagrams: 09/16/18 09:45 09/16/18 09:45 Lab Results 09/16/18 09/16/18 09/16/18 Range/Units 09:45 09:45 09:45 WBC 18.5 H (4.0-11.0) th/mm3 RBC 3.69 L (4.50-5.90) mil/mm3 Hgb 11.7 L (13.0-17.0) gm/dL Hct 34.8 L (39.0-51.0) % MCV 94.3 (80.0-100.0) fL MCH 31.6 (27.0-34.0) pg MCHC 33.5 (32.0-36.0) % RDW 14.3 (11.6-17.2) % Plt Count 140 L (150-450) th/mm3 MPV 9.6 (7.0-11.0) fL Prelim Diff (Auto) Slide review pending Neut % (Auto) 33.4 (16.0-70.0) % Lymph % (Auto) 61.3 H (9.0-44.0) % [place] % (Auto) 4.8 (0.0-8.0) % Eos % (Auto) 0.1 (0.0-4.0) % Baso % (Auto) 0.4 (0.0-2.0) % Neut # (Auto) 6.2 (1.8-7.7) th/mm3 Lymph # (Auto) 11.3 H (1.0-4.8) th/mm3 [place] # (Auto) 0.9 (0.0-0.9) th/mm3 Eos # (Auto) 0.0 (0.0-0.4) th/mm3 Baso # (Auto) 0.1 (0.0-0.2) th/mm3 WBC Differential Manual diff final Seg Neuts % (Manual) 15 L (16-70) % Band Neuts % (Manual) 16 H (0-6) % Lymphocytes % (Manual) 63 H (9-44) % Monocytes % (Manual) 6 (0-8) % Abs Neuts (Manual) 5.7 (1.8-7.7) th/mm3 Differential Comment . Platelet Estimate Low L (Normal) Platelet Morphology Normal (Normal) Stomatocytes 1+ H (None) PT 10.7 (9.8-11.6) sec INR 1.1 Ratio APTT 23.1 L (23.4-31.7) sec Sodium 139 (136-145) meq/L Potassium 4.2 (3.5-5.1) meq/L Chloride 101 (98-107) meq/L Carbon Dioxide 31.2 (21.0-32.0) meq/L Anion Gap 7 (5-15) meq/L BUN 38 H (7-18) mg/dL Creatinine 0.93 (0.60-1.30) mg/dL Estimated GFR 79 L (>89) mL/min POC Glucose (68-110) mg/dl Random Glucose 123 H (74-106) mg/dL Lactic Acid (0.4-2.0) mmol/L Calcium 8.1 L (8.5-10.1) mg/dL Magnesium 2.5 (1.5-2.5) mg/dL Total Bilirubin 0.5 (0.2-1.0) mg/dL AST 70 H (15-37) U/L ALT 52 (12-78) U/L Alkaline Phosphatase 79 (45-117) U/L B-Natriuretic Peptide (0-100) pg/mL Total Protein 7.2 (6.4-8.2) g/dL Albumin 2.9 L (3.4-5.0) g/dL Urine Color (Yellw/Straw) Urine Clarity (Clear) Urine pH (5.0-8.5) Ur Specific [place] (1.002-1.035) Urine Protein (Neg-Trace) mg/dL Urine Glucose (UA) (Negative) mg/dL Urine Ketones (Negative) mg/dL Urine Occult Blood (Negative) Urine Nitrate (Negative) Urine Bilirubin (Negative) Urine Urobilinogen (Less than 2) mg/dL Ur Leukocyte Esterase (Negative) Urine RBC (0-3) /hpf Urine WBC (0-5) /hpf Urine Mucus (Occasional) /lpf Micro UA Comment Ur Microscopic Review Urine Culture Comments 09/16/18 09/16/18 09/16/18 Range/Units 09:45 09:45 09:50 WBC (4.0-11.0) th/mm3 RBC (4.50-5.90) mil/mm3 Hgb (13.0-17.0) gm/dL Hct (39.0-51.0) % MCV (80.0-100.0) fL MCH (27.0-34.0) pg MCHC (32.0-36.0) % RDW (11.6-17.2) % Plt Count (150-450) th/mm3 MPV (7.0-11.0) fL Prelim Diff (Auto) Neut % (Auto) (16.0-70.0) % Lymph % (Auto) (9.0-44.0) % [place] % (Auto) (0.0-8.0) % Eos % (Auto) (0.0-4.0) % Baso % (Auto) (0.0-2.0) % Neut # (Auto) (1.8-7.7) th/mm3 Lymph # (Auto) (1.0-4.8) th/mm3 [place] # (Auto) (0.0-0.9) th/mm3 Eos # (Auto) (0.0-0.4) th/mm3 Baso # (Auto) (0.0-0.2) th/mm3 WBC Differential Seg Neuts % (Manual) (16-70) % Band Neuts % (Manual) (0-6) % Lymphocytes % (Manual) (9-44) % Monocytes % (Manual) (0-8) % Abs Neuts (Manual) (1.8-7.7) th/mm3 Differential Comment Platelet Estimate (Normal) Platelet Morphology (Normal) Stomatocytes (None) PT (9.8-11.6) sec INR Ratio APTT (23.4-31.7) sec Sodium (136-145) meq/L Potassium (3.5-5.1) meq/L Chloride (98-107) meq/L Carbon Dioxide (21.0-32.0) meq/L Anion Gap (5-15) meq/L BUN (7-18) mg/dL Creatinine (0.60-1.30) mg/dL Estimated GFR (>89) mL/min POC Glucose 126 H (68-110) mg/dl Random Glucose (74-106) mg/dL Lactic Acid 0.9 (0.4-2.0) mmol/L Calcium (8.5-10.1) mg/dL Magnesium (1.5-2.5) mg/dL Total Bilirubin (0.2-1.0) mg/dL AST (15-37) U/L ALT (12-78) U/L Alkaline Phosphatase (45-117) U/L B-Natriuretic Peptide 60 (0-100) pg/mL Total Protein (6.4-8.2) g/dL Albumin (3.4-5.0) g/dL Urine Color (Yellw/Straw) Urine Clarity (Clear) Urine pH (5.0-8.5) Ur Specific [place] (1.002-1.035) Urine Protein (Neg-Trace) mg/dL Urine Glucose (UA) (Negative) mg/dL Urine Ketones (Negative) mg/dL Urine Occult Blood (Negative) Urine Nitrate (Negative) Urine Bilirubin (Negative) Urine Urobilinogen (Less than 2) mg/dL Ur Leukocyte Esterase (Negative) Urine RBC (0-3) /hpf Urine WBC (0-5) /hpf Urine Mucus (Occasional) /lpf Micro UA Comment Ur Microscopic Review Urine Culture Comments 09/16/18 Range/Units 09:55 WBC (4.0-11.0) th/mm3 RBC (4.50-5.90) mil/mm3 Hgb (13.0-17.0) gm/dL Hct (39.0-51.0) % MCV (80.0-100.0) fL MCH (27.0-34.0) pg MCHC (32.0-36.0) % RDW (11.6-17.2) % Plt Count (150-450) th/mm3 MPV (7.0-11.0) fL Prelim Diff (Auto) Neut % (Auto) (16.0-70.0) % Lymph % (Auto) (9.0-44.0) % [place] % (Auto) (0.0-8.0) % Eos % (Auto) (0.0-4.0) % Baso % (Auto) (0.0-2.0) % Neut # (Auto) (1.8-7.7) th/mm3 Lymph # (Auto) (1.0-4.8) th/mm3 [place] # (Auto) (0.0-0.9) th/mm3 Eos # (Auto) (0.0-0.4) th/mm3 Baso # (Auto) (0.0-0.2) th/mm3 WBC Differential Seg Neuts % (Manual) (16-70) % Band Neuts % (Manual) (0-6) % Lymphocytes % (Manual) (9-44) % Monocytes % (Manual) (0-8) % Abs Neuts (Manual) (1.8-7.7) th/mm3 Differential Comment Platelet Estimate (Normal) Platelet Morphology (Normal) Stomatocytes (None) PT (9.8-11.6) sec INR Ratio APTT (23.4-31.7) sec Sodium (136-145) meq/L Potassium (3.5-5.1) meq/L Chloride (98-107) meq/L Carbon Dioxide (21.0-32.0) meq/L Anion Gap (5-15) meq/L BUN (7-18) mg/dL Creatinine (0.60-1.30) mg/dL Estimated GFR (>89) mL/min POC Glucose (68-110) mg/dl Random Glucose (74-106) mg/dL Lactic Acid (0.4-2.0) mmol/L Calcium (8.5-10.1) mg/dL Magnesium (1.5-2.5) mg/dL Total Bilirubin (0.2-1.0) mg/dL AST (15-37) U/L ALT (12-78) U/L Alkaline Phosphatase (45-117) U/L B-Natriuretic Peptide (0-100) pg/mL Total Protein (6.4-8.2) g/dL Albumin (3.4-5.0) g/dL Urine Color Yellow (Yellw/Straw) Urine Clarity Hazy H (Clear) Urine pH 5.0 (5.0-8.5) Ur Specific [place] 1.024 (1.002-1.035) Urine Protein 30 H (Neg-Trace) mg/dL Urine Glucose (UA) Negative (Negative) mg/dL Urine Ketones Trace H (Negative) mg/dL Urine Occult Blood Negative (Negative) Urine Nitrate Negative (Negative) Urine Bilirubin Negative (Negative) Urine Urobilinogen Less than 2 (Less than 2) mg/dL Ur Leukocyte Esterase Negative (Negative) Urine RBC 2 (0-3) /hpf Urine WBC 1 (0-5) /hpf Urine Mucus Few H (Occasional) /lpf Micro UA Comment Cath-culture not ind Ur Microscopic Review Not Reportable Urine Culture Comments Cath-cult not ind Imaging Data Attestation: I personally reviewed and interpreted this imaging study as follows : Radiologist's impression: Chest X-Ray 09/16/18 09:44 CONCLUSION: Increasing bibasilar parental changes suspicious for inflammatory process Discharge Plan Discharge Disposition Patient Disposition: ED Admit(ED Internal Use Only) Discharge Condition Condition: Fair Discharge Order Discharge Orders: ED Use Only Admit Order (Routine); Ordered 09/16/18 Ordered By: Caitlin Storm Discharge Details Anticipated Discharge Date: 09/16/18 Diagnosis: Pneumonia, Sepsis Physicians Team ED Provider: Caitlin Storm Primary Care Provider: UNKNOWN, Rxs /Orders / Referrals /Forms Prescriptions: No Action clozapine [Clozaril] 100 mg Tablet 100 mg PO DAILY RF: 0 sertraline 100 mg Tablet 100 mg PO DAILY RF: 0 valproic acid 250 mg Capsule 250 mg PO BID RF: 0 ferrous sulfate 325 mg (65 mg iron) Tablet 325 mg PO DAILY RF: 0 furosemide 20 mg Tablet 20 mg PO DAILY RF: 0 lactulose 10 gram/15 mL Solution 10 g PO TID RF: 0 clozapine 200 mg Tablet 200 mg PO HS RF: 0 budesonide-formoterol [Symbicort] 160-4.5 mcg/actuation Hfa Aerosol Inhaler 2 puff INHALATION BID RF: 0 Discharge Interventions Interventions: Vital Signs Last Done: 09/16/18 10:02 Status ED Status: With Doctor
[2018-09-16] MEDS ORDERED: Sod Chloride 0.9% Inj 1,000 ML IV.SIG SCH ×2 (10:15→11:15)
[2018-09-16 10:16] LABS: Baso # (Auto) 0.1 th/mm3 (0.0-0.2); Baso % (Auto) 0.4 % (0.0-2.0); Eos % (Auto) 0.1 % (0.0-4.0); Hematocrit 34.8 % (39.0-51.0); Hemoglobin 11.7 gm/dL (13.0-17.0); Lymph # (Auto) 11.3 th/mm3 (1.0-4.8); Lymph % (Auto) 61.3 % (9.0-44.0); Mean Corpuscular HGB Conc 33.5 % (32.0-36.0); Mean Corpuscular Hemoglobin 31.6 pg (27.0-34.0); Mean Corpuscular Volume 94.3 fL (80.0-100.0); Mean Platelet Volume 9.6 fL (7.0-11.0); Mono # (Auto) 0.9 th/mm3 (0.0-0.9); Mono % (Auto) 4.8 % (0.0-8.0); Neut # (Auto) 6.2 th/mm3 (1.8-7.7); Neut % (Auto) 33.4 % (16.0-70.0); Platelet Count 140 th/mm3 (150-450); Red Blood Count 3.69 mil/mm3 (4.50-5.90); Red Cell Distribution Width 14.3 % (11.6-17.2); White Blood Count 18.5 th/mm3 (4.0-11.0)
[2018-09-16 10:24] LABS: Activated Partial Thrombo Time 23.1 sec (23.4-31.7); INR 1.1 Ratio; Prothrombin Time 10.7 sec (9.8-11.6)
[2018-09-16 10:44] LABS: Lymphocytes 63 % (9-44); Monocytes 6 % (0-8)
[2018-09-16 10:45] LABS: Bilirubin,Urine Negative (Negative); Clarity,Urine Hazy (Clear); Color,Urine Yellow (Yellw/Straw); Glucose,Urine (UA) Negative (Negative); Leukocyte Esterase,Urine Negative (Negative); Mucus,Urine Few /lpf (Occasional); Nitrite,Urine Negative (Negative); Specific Gravity,Urine 1.024 (1.002-1.035)
[2018-09-16 10:47] LABS: Platelet Morphology Normal (Normal); Stomatocytes 1+
--- NOTE | 2018-09-16 10:50 | XR ---
EXAM DATE: 09/16/2018 10:36 AM EST AGE/SEX: 73 years / Male INDICATIONS: Fever. CLINICAL DATA: This is the patient's initial encounter. Patient reports that signs and symptoms have been present for 1 day and indicates a pain score of 0/10. MEDICAL/SURGICAL HISTORY: . Seizures. None. COMPARISON: [facility] [place]ST SING[place] AP, 07/17/2017. . FINDINGS: Increasing bibasilar parenchymal changes in both lung bases. This is associated with some early air b ronchograms in the left base. The heart is minimally enlarged. The portion of the bony skeleton visualized is unremarkable. CONCLUSION: Increasing bibasilar parental changes suspicious for inflammatory process Electronically signed by: Cole Crane MD Board Certified Radiologist 09/16/2018 10:49 AM EST
[2018-09-16 10:51] LABS: Alkaline Phosphatase 79 U/L (45-117); Total Protein 7.2 g/dL (6.4-8.2)
[2018-09-16 10:54] LABS: Alanine Aminotransferase 52 U/L (12-78); Albumin 2.9 g/dL (3.4-5.0); Anion Gap 7 meq/L (5-15); Aspartate Aminotransferase 70 U/L (15-37); Blood Urea Nitrogen 38 mg/dL (7-18); Calcium 8.1 mg/dL (8.5-10.1); Carbon Dioxide 31.2 meq/L (21.0-32.0); Chloride 101 meq/L (98-107); Glomerular Filtration Rate 79 mL/min (>89); Glucose,Random 123 mg/dL (74-106); Magnesium 2.5 mg/dL (1.5-2.5); Sodium 139 meq/L (136-145)
[2018-09-16 10:57] LABS: Potassium 4.2 meq/L (3.5-5.1)
[2018-09-16] MEDS ORDERED: Acetaminophen 325 MG Tablet PO PRN (11:34)
[2018-09-16] MEDS ORDERED: Bisacodyl 10 MG Supp RECTAL PRN (11:34)
--- NOTE | 2018-09-16 12:17 | P.HPFP ---
History of Present Illness Primary Care Physician: UNKNOWN <Rodney Sibley - 09/16/18 14:20> UNKNOWN <Ruchi Sorto N - 09/16/18 12:16> Chief Complaint: delirium <Ruchi Sorto N - 09/16/18 12:16> History of Present Illness: 73-year-old male presenting to the emergency department with mental status changes and found to have a pneumonia. He has a history significant for schizophrenia and bipolar disorder, and he is unable to provide his own version of the history. HPI was obtained from nursing and the ER physician. He is a resident of [facility], however was apparently having altered mental status the last 24 hours. He became febrile with a T-max of 102 F as well as respiratory distress with associated cough. In the emergency department he was found to be tachycardic in the Neck and was 90% on 4 L nasal cannula, he is not usually on oxygen. Chest x-ray was found to have bibasilar parenchymal changes consistent with pneumonia. <Rodney Sibley - 09/16/18 14:20> 73 y/o M w/hx of schizophrenia and bipolar disorder presenting w/acute encephalopathy. Came from [facility]. Patient unable to answer questions, HPI obtained from nursing and ER physician. Usually AXO x3, had become disoriented in the past few days, found to be playing with feces last night and having increased lethargy. Developed fever with Tmax 102 and respiratory distress. Tachycardic and tachypneic on admission, 90% on 4L NC. CXR found to have increasing bibasilar parental changes, suggestive on pneumonia on wet read. Given Azithromycin and Cefepime in the ED, along w/1L NS bolus. Patient is mumbling on interview, oriented x1. Wants to leave the hospital, does not seem to understand what is going on. Endorses cough, states he passed out recently. Denies pain, dysuria, constipation, vomiting, vision changes, or headache. States he has been having diarrhea. Rest of hx to be obtained from calling his facility. UPDATE: per hx from facility, Last night, started to cough and behavior changed - climbing under the bed and throwing his feces. No N/V/fevers. No hospitalizations in the last 3 months. Assistance w/all ADLs aside from toileting Baseline is calm and friendly, agitated when routine is changed. Responsive to redirection, rare for Haldol necessary PMH: CLL (not undergoing tx at this time), following w/Dr. Zazueta anxiety dysphagia HTN schizophrenia bipolar type 1 hearing trouble dysphagia (honey-thick liquids and mech soft diet) dementia PSurgH: none Allergies: none Psocial: [facility], former smoker (length of time unknown), no alcohol use, no other drug use Code: FULL, proxy is brother Michael <Ruchi Sorto 09/16/18 14:09> - Diagnosis (1) Sepsis (2) Pneumonia (3) Acute encephalopathy (4) Schizophrenia (5) Bipolar disorder (6) HTN (hypertension) <Rodney Sibley 09/16/18 14:20> (1) Sepsis (2) Pneumonia (3) Acute encephalopathy (4) Schizophrenia (5) Bipolar disorder (6) HTN (hypertension) <Ruchi Sorto 09/16/18 13:43> Inpatient Certification: I certify that the inpatient services were ordered in accordance with Medicare regulations governing the order. This includes certification that hospital inpatient services are reasonable and necessary and in the case of services not specified as inpatient-only under 42 CFR 419.22(n), that they are appropriately provided as inpatient services in accordance to with the 2-midnight benchmark under 43 CFR 412.3(e) <Rodney Sibley 09/16/18 14:20> I certify that the inpatient services were ordered in accordance with Medicare regulations governing the order. This includes certification that hospital inpatient services are reasonable and necessary and in the case of services not specified as inpatient-only under 42 CFR 419.22(n), that they are appropriately provided as inpatient services in accordance to with the 2-midnight benchmark under 43 CFR 412.3(e) <Ruchi Sorto 09/16/18 12:16> Estimated Total Length of Stay (Days): 2 <Ruchi Sorto 09/16/18 12:16> Plans for Post Hospital Care: Other <Ruchi Sorto 09/16/18 12:16> Review of Systems unobtainable due to mental condition, unobtainable due to mental status <AbiRuchi Menchaca 09/16/18 12:16> PMFSH - History History Provided By: Patient <Ruchi Sorto [facility] 09/16/18 12:16> - Medical History Medical History: Medical History (Last Reviewed 09/16/18 @ 10:04 by Gricel Noe) Anxiety Dementia Dysphagia Hypertension Muscle weakness (generalized) Schizophrenia <Rodney Sibley - 09/16/18 14:20> Medical History (Last Reviewed 09/16/18 @ 10:04 by Gricel Noe) Anxiety Dementia Dysphagia Hypertension Muscle weakness (generalized) Schizophrenia <Ruchi oSrto 09/16/18 12:16> - Tobacco History Smoking Status: Unknown if ever smoked <Ruchi Sorto [facility] 09/16/18 12:16> - Alcohol History How Often Do You Have a Drink Containing Alcohol: Unable to Obtain <Ruchi Sorto [facility] 09/16/18 12:16> - Substance Use History Substance History: Unable to Obtain <Ruchi Sorto [facility] 09/16/18 12:16> - Travel History Recent Travel in the [facility] Within the Last 8 Weeks: No <Ruchi Sorto [facility] 09/16 12:16> Recent Travel Out of the Country Within the Last 8 Weeks: No <Ruchi Sorto [facility] 09/16/18 12:16> - Immunization History Tetanus Immunization: Unable to Assess <Ruchi Sorto [facility] 09/16/18 12:16> Medications and Allergies Allergies Allergy/AdvReac Type Severity Reaction Status Date / Time No Known Allergies Allergy Verified 09/16/18 11:46 <Rodney Sibley 09/16/18 14:20> Home Medications Medication Instructions Recorded Confirmed Type budesonide-formoterol [Symbicort] 2 puff INHALATION BID 09/16/18 09/16/18 History clozapine 200 mg PO HS 09/16/18 09/16/18 History clozapine [Clozaril] 100 mg PO DAILY 09/16/18 09/16/18 History ferrous sulfate 325 mg PO DAILY 09/16/18 09/16/18 History furosemide 20 mg PO DAILY 09/16/18 09/16/18 History lactulose 10 g PO TID 09/16/18 09/16/18 History sertraline 100 mg PO DAILY 09/16/18 09/16/18 History valproic acid 250 mg PO BID 09/16/18 09/16/18 History <Rodney Sibley - 09/16/18 14:20> Active Medications: Active Medications Acetaminophen (Tylenol) 650 mg PO Q4H PRN PRN Reason: Temp > 100.4 Al Hydroxide/Mg Hydroxide (Milk Of Magnmare Liq) 30 ml PO Q12H PRN PRN Reason: Mild Constipation Albuterol (Duoneb Neb (Alpesh)) 1 ampul NEB Q8HR ALT NEB ALPESH Bisacodyl (Dulcolax Supp) 10 mg RECTAL DAILY PRN PRN Reason: SEVERE CONSITIPATION Budesonide/Formoterol Fumarate (Symbicort 160/4.5 Mcg Inh) 2 puff INH BID [facility] Clozapine (Clozaril) 150 mg PO DAILY [facility] Enoxaparin Sodium (Lovenox Inj) 40 mg SQ Q24H [facility] Last Admin: 09/16/18 13:08 Dose: 40 mg Ferrous Sulfate (Ferosul) 325 mg PO DAILY [facility] Furosemide (Lasix) 20 mg PO DAILY [facility] Haloperidol Lactate (Haldol Inj) 2 mg IV.PUSH Q6H PRN PRN Reason: AGITATION Azithromycin 500 mg/ Sodium (Chloride) 250 mls @ 250 mls/hr IV.SIG Q24H ALPESH Ceftriaxone Sodium 1,000 mg/ (Sodium Chloride) 100 mls @ 200 mls/hr IV.SIG Q24H ALPESH Metronidazole/Sodium Chloride (Flagyl 500 Mg Inj) 100 mls @ 100 mls/hr IV.SIG Q8H [facility] Last Admin: 09/16/18 13:09 Dose: 100 mls/hr Lactated Ringer's (Lr 1000 Ml Inj) 1,000 mls @ 130 mls/hr IV.CONT .Q7H42M [facility] Last Admin: 09/16/18 13:09 Dose: 130 mls/hr Non-Formulary Medication (Clozapine [Clozapine]) 200 mg PO HS [facility] Non-Formulary Medication (Lactulose [Lactulose]) 10 g PO TID ALPESH Ondansetron HCl (Zofran Inj) 4 mg IV.PUSH Q6H PRN PRN Reason: NAUSEA OR VOMITING Sennosides (Senokot) 17.2 mg PO Q12H PRN PRN Reason: Moderate Constipation Sertraline HCl (Zoloft) 100 mg PO DAILY [facility] Sodium Chloride (Ns Flush) 2 ml IV.FLUSH PRN PRN PRN Reason: FLUSH AFTER USING IV ACCESS Sodium Chloride (Ns Flush) 2 ml IV.FLUSH BID [facility] Valproic Acid (Depakene) 250 mg PO BID ALPESH <Rodney Sibley - 09/16/18 14:20> Active Medications Acetaminophen (Tylenol) 650 mg PO Q4H PRN PRN Reason: Temp > 100.4 Al Hydroxide/Mg Hydroxide (Milk Of Magnesia Liq) 30 ml PO Q12H PRN PRN Reason: Mild Constipation Bisacodyl (Dulcolax Supp) 10 mg RECTAL DAILY PRN PRN Reason: SEVERE CONSITIPATION Enoxaparin Sodium (Lovenox Inj) 40 mg SQ Q24H ALPESH Sodium Chloride (Ns Inj) 1,000 mls @ 1,000 mls/hr IV.SIG BOLUS ALPESH Stop: 09/16/18 12:14 Azithromycin 500 mg/ Sodium (Chloride) 250 mls @ 250 mls/hr IV.SIG Q24H ALPESH Ceftriaxone Sodium 1,000 mg/ (Sodium Chloride) 100 mls @ 200 mls/hr IV.SIG Q24H ALPESH Metronidazole/Sodium Chloride (Flagyl 500 Mg Inj) 100 mls @ 100 mls/hr IV.SIG Q8H ALPESH Lactated Ringer's (Lr 1000 Ml Inj) 1,000 mls @ 130 mls/hr IV.CONT .Q7H42M ALPESH Lactulose (Lactulose Liq) 30 ml PO DAILY PRN PRN Reason: SEVERE CONSITIPATION Ondansetron HCl (Zofran Inj) 4 mg IV.PUSH Q6H PRN PRN Reason: NAUSEA OR VOMITING Sennosides (Senokot) 17.2 mg PO Q12H PRN PRN Reason: Moderate Constipation Sodium Chloride (Ns Flush) 2 ml IV.FLUSH PRN PRN PRN Reason: FLUSH AFTER USING IV ACCESS Sodium Chloride (Ns Flush) 2 ml IV.FLUSH BID [facility] <Lena OrellanaRuchi N - 09/16/18 12:16> Exam Vital signs: Vital Signs 09/16/18 09:37 09/16/18 09:57 09/16/18 10:01 Temperature 99.2 F Pulse Rate 123 H 116 H Respiratory Rate 25 H Blood Pressure 149/75 H Pulse Oximetry 87 L 90 L 09/16/18 10:02 09/16/18 11:48 09/16/18 13:34 Temperature Pulse Rate 115 H 104 H 97 H Respiratory Rate 26 H 24 20 Blood Pressure 136/70 162/76 H 143/71 H Pulse Oximetry 90 L 93 L 93 L Intake & Output 09/15/18 09/16/18 09/16/18 18:59 06:59 18:59 Intake Total 2350 / 2350 Balance 2350 / 2350 Weight 84.822 kg Intake: IV 2350 / 2350 Azithromycin Inj 500 MG In NS 250 / 250 Inj 250 ML @ 250 mls/hr IV.SIG STAT STA Rx#:[id number] Maxipime Inj 2,000 MG In NS Inj 100 / 100 100 ML @ 200 mls/hr IV.SIG STAT STA Rx#:[id number] NS Inj 1,000 ML @ 1000 mls/hr 1999 IV.SIG BOLUS ALPESH Rx#:[id number] <Rodney Sibley - 09/16/18 14:20> Vital Signs 09/16/18 09:37 09/16/18 09:57 09/16/18 10:01 Temperature 99.2 F Pulse Rate 123 H 116 H Respiratory Rate 25 H Blood Pressure 149/75 H Pulse Oximetry 87 L 90 L 09/16/18 10:02 09/16/18 11:48 Temperature Pulse Rate 115 H 104 H Respiratory Rate 26 H 24 Blood Pressure 136/70 162/76 H Pulse Oximetry 90 L 93 L Intake & Output 09/15/18 09/16/18 09/16/18 18:59 06:59 18:59 Intake Total 1350 / 1350 Balance 1350 / 1350 Weight 84.822 kg Intake: IV 1350 / 1350 Azithromycin Inj 500 MG In NS 250 / 250 Inj 250 ML @ 250 mls/hr IV.SIG STAT STA Rx#:[id number] Maxipime Inj 2,000 MG In NS Inj 100 / 100 100 ML @ 200 mls/hr IV.SIG STAT STA Rx#:[id number] NS Inj 1,000 ML @ 1000 mls/hr 1000 / 1000 IV.SIG BOLUS ALPESH Rx#:[id number] <Ruchi Sorto N - 09/16/18 12:16> Narrative: General: Disheveled appearing male no obvious distress , but lying in bed coughing throughout exam Skin: Warm and dry, dry skin around the mouth HEENT: Moist mucous membranes with poor dentition CV: Regular rate and rhythm without murmur Respiratory:, Prominent rhonchi diffuse crackles with expiratory wheezes GI: Abdomen soft, nontender, mildly distended without rebound or guarding MSK: Extremities without edema <Rodney Sibley - 09/16/18 14:20> GENERAL: Tall, disheveled man laying in bed, is confused and trying to leave bed. SKIN: Warm and dry. HEAD: Atraumatic. Normocephalic. EYES: Pupils equal and round. No scleral icterus. No injection or drainage. ENT: No nasal bleeding or discharge. Mucous membranes pink and moist. Gurgling sounds coming from patient as he talks. NECK: Trachea midline. No JVD. CARDIOVASCULAR: Regular rate and rhythm. RESPIRATORY: Prominent crackles noted bilaterally at the anterior and lateral chest. GASTROINTESTINAL: Abdomen soft, non-tender. Slightly distended. MUSCULOSKELETAL: Extremities without clubbing, cyanosis, or edema. No obvious deformities. NEUROLOGICAL: Easily rousable to physical stimuli and verbal but is sleepy. Does not follow most commands. Normal ROM in the lower extremities and upper extremities, 4/5 strength. No obvious cranial nerve deficits. Speech is mumbled and slurring. PSYCHIATRIC: insight and judgment abnormal. <Ruchi Sorto N - 09/16/18 12:16> Results - Labs Result diagrams: 09/16/18 09:45 09/16/18 09:45 <Rodney Sibley - 09/16/18 14:20> Abnormal lab results 09/16/18 09/16/18 09/16/18 Range/Units 09:45 09:45 09:45 WBC 18.5 H (4.0-11.0) th/mm3 RBC 3.69 L (4.50-5.90) mil/mm3 Hgb 11.7 L (13.0-17.0) gm/dL Hct 34.8 L (39.0-51.0) % Plt Count 140 L (150-450) th/mm3 Lymph % (Auto) 61.3 H (9.0-44.0) % Lymph # (Auto) 11.3 H (1.0-4.8) th/mm3 Seg Neuts % (Manual) 15 L (16-70) % Band Neuts % (Manual) 16 H (0-6) % Lymphocytes % (Manual) 63 H (9-44) % Platelet Estimate Low L (Normal) Stomatocytes 1+ H (None) APTT 23.1 L (23.4-31.7) sec BUN 38 H (7-18) mg/dL Estimated GFR 79 L (>89) mL/min POC Glucose (68-110) mg/dl Random Glucose 123 H (74-106) mg/dL Calcium 8.1 L (8.5-10.1) mg/dL AST 70 H (15-37) U/L Albumin 2.9 L (3.4-5.0) g/dL Urine Clarity (Clear) Urine Protein (Neg-Trace) mg/dL Urine Ketones (Negative) mg/dL Urine Mucus (Occasional) /lpf 09/16/18 09/16/18 Range/Units 09:45 09:55 WBC (4.0-11.0) th/mm3 RBC (4.50-5.90) mil/mm3 Hgb (13.0-17.0) gm/dL Hct (39.0-51.0) % Plt Count (150-450) th/mm3 Lymph % (Auto) (9.0-44.0) % Lymph # (Auto) (1.0-4.8) th/mm3 Seg Neuts % (Manual) (16-70) % Band Neuts % (Manual) (0-6) % Lymphocytes % (Manual) (9-44) % Platelet Estimate (Normal) Stomatocytes (None) APTT (23.4-31.7) sec BUN (7-18) mg/dL Estimated GFR (>89) mL/min POC Glucose 126 H (68-110) mg/dl Random Glucose (74-106) mg/dL Calcium (8.5-10.1) mg/dL AST (15-37) U/L Albumin (3.4-5.0) g/dL Urine Clarity Hazy H (Clear) Urine Protein 30 H (Neg-Trace) mg/dL Urine Ketones Trace H (Negative) mg/dL Urine Mucus Few H (Occasional) /lpf Short CBC 09/16/18 Range/Units 09:45 WBC 18.5 H (4.0-11.0) th/mm3 Hgb 11.7 L (13.0-17.0) gm/dL Hct 34.8 L (39.0-51.0) % Plt Count 140 L (150-450) th/mm3 BMP 09/16/18 09:45 Sodium 139 Potassium 4.2 Chloride 101 Carbon Dioxide 31.2 BUN 38 H Creatinine 0.93 Calcium 8.1 L Liver Function 09/16/18 Range/Units 09:45 Total Bilirubin 0.5 (0.2-1.0) mg/dL AST 70 H (15-37) U/L ALT 52 (12-78) U/L Alkaline Phosphatase 79 (45-117) U/L Albumin 2.9 L (3.4-5.0) g/dL Urine 09/16/18 Range/Units 09:55 Urine Color Yellow (Yellw/Straw) Urine Clarity Hazy H (Clear) Urine pH 5.0 (5.0-8.5) Ur Specific [place] 1.024 (1.002-1.035) Urine Protein 30 H (Neg-Trace) mg/dL Urine Glucose (UA) Negative (Negative) mg/dL <Rodney Sibley - 09/16/18 14:20> Abnormal lab results 09/16/18 09/16/18 09/16/18 Range/Units 09:45 09:45 09:45 WBC 18.5 H (4.0-11.0) th/mm3 RBC 3.69 L (4.50-5.90) mil/mm3 Hgb 11.7 L (13.0-17.0) gm/dL Hct 34.8 L (39.0-51.0) % Plt Count 140 L (150-450) th/mm3 Lymph % (Auto) 61.3 H (9.0-44.0) % Lymph # (Auto) 11.3 H (1.0-4.8) th/mm3 Seg Neuts % (Manual) 15 L (16-70) % Band Neuts % (Manual) 16 H (0-6) % Lymphocytes % (Manual) 63 H (9-44) % Platelet Estimate Low L (Normal) Stomatocytes 1+ H (None) APTT 23.1 L (23.4-31.7) sec BUN 38 H (7-18) mg/dL Estimated GFR 79 L (>89) mL/min POC Glucose (68-110) mg/dl Random Glucose 123 H (74-106) mg/dL Calcium 8.1 L (8.5-10.1) mg/dL AST 70 H (15-37) U/L Albumin 2.9 L (3.4-5.0) g/dL Urine Clarity (Clear) Urine Protein (Neg-Trace) mg/dL Urine Ketones (Negative) mg/dL Urine Mucus (Occasional) /lpf 09/16/18 09/16/18 Range/Units 09:45 09:55 WBC (4.0-11.0) th/mm3 RBC (4.50-5.90) mil/mm3 Hgb (13.0-17.0) gm/dL Hct (39.0-51.0) % Plt Count (150-450) th/mm3 Lymph % (Auto) (9.0-44.0) % Lymph # (Auto) (1.0-4.8) th/mm3 Seg Neuts % (Manual) (16-70) % Band Neuts % (Manual) (0-6) % Lymphocytes % (Manual) (9-44) % Platelet Estimate (Normal) Stomatocytes (None) APTT (23.4-31.7) sec BUN (7-18) mg/dL Estimated GFR (>89) mL/min POC Glucose 126 H (68-110) mg/dl Random Glucose (74-106) mg/dL Calcium (8.5-10.1) mg/dL AST (15-37) U/L Albumin (3.4-5.0) g/dL Urine Clarity Hazy H (Clear) Urine Protein 30 H (Neg-Trace) mg/dL Urine Ketones Trace H (Negative) mg/dL Urine Mucus Few H (Occasional) /lpf Short CBC 09/16/18 Range/Units 09:45 WBC 18.5 H (4.0-11.0) th/mm3 Hgb 11.7 L (13.0-17.0) gm/dL Hct 34.8 L (39.0-51.0) % Plt Count 140 L (150-450) th/mm3 BMP 09/16/18 09:45 Sodium 139 Potassium 4.2 Chloride 101 Carbon Dioxide 31.2 BUN 38 H Creatinine 0.93 Calcium 8.1 L Liver Function 09/16/18 Range/Units 09:45 Total Bilirubin 0.5 (0.2-1.0) mg/dL AST 70 H (15-37) U/L ALT 52 (12-78) U/L Alkaline Phosphatase 79 (45-117) U/L Albumin 2.9 L (3.4-5.0) g/dL Urine 09/16/18 Range/Units 09:55 Urine Color Yellow (Yellw/Straw) Urine Clarity Hazy H (Clear) Urine pH 5.0 (5.0-8.5) Ur Specific [place] 1.024 (1.002-1.035) Urine Protein 30 H (Neg-Trace) mg/dL Urine Glucose (UA) Negative (Negative) mg/dL <Abid Ruchi Orellana - 09/16/18 12:16> - Imaging Impressions Chest X-Ray 09/16/18 09:44 CONCLUSION: Increasing bibasilar parental changes suspicious for inflammatory process <Rodney Sibley - 09/16/18 14:20> Impressions Chest X-Ray 09/16/18 09:44 CONCLUSION: Increasing bibasilar parental changes suspicious for inflammatory process <Abid Ruchi Orellana [facility] 09/16/18 12:16> Caprini VTE Risk Assessment Caprini VTE Risk Assessment: Moderate/High Risk (score >= 2) [facility]> Caprini Risk Assessment Model: Point Value = 1 Point Value = 2 Point Value = 3 Point Value = 5 Age 41-60 Minor surgery BMI > 25 kg/m2 Swollen legs Varicose veins or History of unexplained or recurrent spontaneous Oral contraceptives or hormone replacement Sepsis (< 1 month) Serious lung disease, including pneumonia (< 1 month) Abnormal pulmonary function Acute myocardial infarction Congestive heart failure (< 1 month) History of inflammatory bowel disease Medical patient at bed rest Age 61-74 Arthroscopic surgery Major open surgery (> 45 min) Laparoscopic surgery (> 45 min) Malignancy Confined to bed (> 72 hours) Immobilizing plaster cast Central venous access Age >= 75 History of VTE Family history of VTE Factor V Leiden Prothrombin [id number] Lupus anticoagulant Anticardiolipin antibodies Elevated serum homocysteine Heparin-induced thrombocytopenia Other congenital or acquired thrombophilia Stroke (< 1 month) Elective arthroplasty Hip, pelvis, or leg fracture Acute spinal cord injury (< 1 month) <Rodney Sibley - 09/16/18 14:20> Point Value = 1 Point Value = 2 Point Value = 3 Point Value = 5 Age 41-60 Minor surgery BMI > 25 kg/m2 Swollen legs Varicose veins or History of unexplained or recurrent spontaneous Oral contraceptives or hormone replacement Sepsis (< 1 month) Serious lung disease, including pneumonia (< 1 month) Abnormal pulmonary function Acute myocardial infarction Congestive heart failure (< 1 month) History of inflammatory bowel disease Medical patient at bed rest Age 61-74 Arthroscopic surgery Major open surgery (> 45 min) Laparoscopic surgery (> 45 min) Malignancy Confined to bed (> 72 hours) Immobilizing plaster cast Central venous access Age >= 75 History of VTE Family history of VTE Factor V Leiden Prothrombin [id number] Lupus anticoagulant Anticardiolipin antibodies Elevated serum homocysteine Heparin-induced thrombocytopenia Other congenital or acquired thrombophilia Stroke (< 1 month) Elective arthroplasty Hip, pelvis, or leg fracture Acute spinal cord injury (< 1 month) <Ruchi Sorto - 09/16/18 14:09> Prophylaxis Regimen: Total Risk Factor Score Risk Level Prophylaxis Regimen 0-1 Low Early ambulation 2 Moderate Order ONE of the following: *Sequential Compression Device (SCD) *Heparin 5000 units SQ BID 3-4 Higher Order ONE of the following medications: *Heparin 5000 units SQ TID *Enoxaparin/Lovenox 40 mg SQ daily (WT < 150 kg, CrCl > 30 mL/min) *Enoxaparin/Lovenox 30 mg SQ daily (WT < 150 kg, CrCl > 10-29 mL/min) *Enoxaparin/Lovenox 30 mg SQ BID (WT < 150 kg, CrCl > 30 mL/min) AND/OR *Sequential Compression Device (SCD) 5 or more Highest Order ONE of the following medications: *Heparin 5000 units SQ TID (Preferred with Epidurals) *Enoxaparin/Lovenox 40 mg SQ daily (WT < 150 kg, CrCl > 30 mL/min) *Enoxaparin/Lovenox 30 mg SQ daily (WT < 150 kg, CrCl > 10-29 mL/min) *Enoxaparin/Lovenox 30 mg SQ BID (WT < 150 kg, CrCl > 30 mL/min) AND *Sequential Compression Device (SCD) <MaryjoRodney - 09/16/18 14:20> Total Risk Factor Score Risk Level Prophylaxis Regimen 0-1 Low Early ambulation 2 Moderate Order ONE of the following: *Sequential Compression Device (SCD) *Heparin 5000 units SQ BID 3-4 Higher Order ONE of the following medications: *Heparin 5000 units SQ TID *Enoxaparin/Lovenox 40 mg SQ daily (WT < 150 kg, CrCl > 30 mL/min) *Enoxaparin/Lovenox 30 mg SQ daily (WT < 150 kg, CrCl > 10-29 mL/min) *Enoxaparin/Lovenox 30 mg SQ BID (WT < 150 kg, CrCl > 30 mL/min) AND/OR *Sequential Compression Device (SCD) 5 or more Highest Order ONE of the following medications: *Heparin 5000 units SQ TID (Preferred with Epidurals) *Enoxaparin/Lovenox 40 mg SQ daily (WT < 150 kg, CrCl > 30 mL/min) *Enoxaparin/Lovenox 30 mg SQ daily (WT < 150 kg, CrCl > 10-29 mL/min) *Enoxaparin/Lovenox 30 mg SQ BID (WT < 150 kg, CrCl > 30 mL/min) AND *Sequential Compression Device (SCD) <Ruchi Sorto - 09/16/18 12:16> Assessment and Plan - Assessment (1) Sepsis Code(s): A41.9 - Sepsis, unspecified organism Status: Acute (2) Pneumonia Code(s): J18.9 - Pneumonia, unspecified organism Status: Acute (3) Acute encephalopathy Code(s): G93.40 - Encephalopathy, unspecified Status: Acute (4) Schizophrenia Code(s): F20.9 - Schizophrenia, unspecified Status: Acute (5) Bipolar disorder Code(s): F31.9 - Bipolar disorder, unspecified Status: Acute (6) HTN (hypertension) Code(s): I10 - Essential (primary) hypertension Status: Acute <MaryjoRodney - 09/16/18 14:20> (1) Sepsis Code(s): A41.9 - Sepsis, unspecified organism Status: Acute Plan: Meets SIRS criteria, source of infection in lung - LR @ maintenance - blood cx, urinary pneumococcal and legionella - IV Rocephin 1 g daily, 500 mg Azithromycin - Add Flagyl for anaerobe coverage, given acute encephalopathy - Duonebs TID - Tylenol PRN for fever - CXR PA and LAT tomorrow AM - Avoid IS for now to due AMS, keep bed at 30 degrees to facilitate airway opening (2) Pneumonia Code(s): J18.9 - Pneumonia, unspecified organism Status: Acute Plan: See above (3) Acute encephalopathy Code(s): G93.40 - Encephalopathy, unspecified Status: Acute Plan: Likely 2/2 to infection UDS ordered Haldol for agitation 1:1 sitter May need restraints, best to reorient beforehand will call Rehab for more information and to obtain home meds (4) Schizophrenia Code(s): F20.9 - Schizophrenia, unspecified Status: Acute Plan: Home meds: clozapine (5) Bipolar disorder Code(s): F31.9 - Bipolar disorder, unspecified Status: Acute Plan: Con't home valproic acid daily and zoloft daily (6) HTN (hypertension) Code(s): I10 - Essential (primary) hypertension Status: Acute Plan: Con't home Furosemide 20 mg daily Other home meds: Lactulose TID Fluids: maintenance LR Electrolytes: monitor Nutrition: mech soft diet after beside swallow, will need more info DVT prophy: Lovanox daily (due to pt having AMS and getting out of bed when agitated) <Ruchi Sorto - 09/16/18 13:43> - Attending Attestation Patient case discussed with resident physicians I have independently examined the patient I have read the above note and agree with the assessment and plan as discussed with me I was involved in all medical decision making for this patient Pneumonia: Continue IV antibiotics with Levaquin and Flagyl as there is a concern for aspiration Blood cultures ordered and pending Urine Legionella antigens ordered Supplemental oxygen as needed breathing treatments ordered Patient is a poor historian, we will contact his assisted living center for a full problem list and medication list Rodney Sibley MD <Rodney Sibley - 09/16/18 14:20> <Abicarmela R2,Ruchi N - Last Filed: 09/16/18 13:43> (2) Pneumonia Qualifiers: Pneumonia type: due to unspecified organism <Maryjo,Rodney - Last Filed: 09/16/18 14:20> (2) Pneumonia Qualifiers: Pneumonia type: due to unspecified organism <Lena Orellana,Ruchi N - Last Filed: 09/16/18 13:43> (2) Pneumonia Qualifiers: Pneumonia type: due to unspecified organism <MaryjoRodney - Last Filed: 09/16/18 14:20> (2) Pneumonia Qualifiers: Pneumonia type: due to unspecified organism
[2018-09-16] MEDS: Enoxaparin Inj 40 MG/0.4 ML Syringe SQ SCH (13:08)
[2018-09-16 14:28] LABS: Amphetamine Screen,Urine Neg (Neg); Barbiturate Screen,Urine Neg (Neg); Cannabinoid Screen,Urine Neg (Neg); Cocaine Screen,Urine Neg (Neg)
[2018-09-16 14:31] LABS: Opiate Screen,Urine Neg (Neg)
--- NOTE | 2018-09-16 15:47 | ECG ---
Date Performed: 09/16/2018 Time Performed: 09:47:41 PTAGE: 73 years EKG: SINUS TACHYCARDIA NONSPECIFIC T-WAVE ABNORMALITY Since the previous tracing, no significant change noted ABNORMAL RHYTHM ECG PREVIOUS TRACING : 07/30/2017 13.22 DOCTOR: Samantha Byrne Interpretating Date/Time 09/16/2018 15:45:31
[2018-09-16] MEDS: Budesonide-Formoterol 160/4.5 MCG 6 GM Inhaler INH SCH (23:13)
[2018-09-17 05:54] LABS: Baso # (Auto) 0.1 th/mm3 (0.0-0.2); Baso % (Auto) 0.5 % (0.0-2.0); Hematocrit 32.9 % (39.0-51.0); Hemoglobin 10.6 gm/dL (13.0-17.0); Lymph % (Auto) 59.4 % (9.0-44.0); Mean Corpuscular HGB Conc 32.3 % (32.0-36.0); Mean Corpuscular Hemoglobin 30.7 pg (27.0-34.0); Mean Corpuscular Volume 94.9 fL (80.0-100.0); Mean Platelet Volume 9.5 fL (7.0-11.0); Mono # (Auto) 0.6 th/mm3 (0.0-0.9); Mono % (Auto) 2.9 % (0.0-8.0); Neut # (Auto) 7.5 th/mm3 (1.8-7.7); Neut % (Auto) 37.2 % (16.0-70.0); Platelet Count 136 th/mm3 (150-450); Red Blood Count 3.47 mil/mm3 (4.50-5.90); Red Cell Distribution Width 14.1 % (11.6-17.2); White Blood Count 20.2 th/mm3 (4.0-11.0)
[2018-09-17 06:24] LABS: Albumin 2.4 g/dL (3.4-5.0); Anion Gap 5 meq/L (5-15); Aspartate Aminotransferase 37 U/L (15-37); Blood Urea Nitrogen 33 mg/dL (7-18); Carbon Dioxide 29.8 meq/L (21.0-32.0); Chloride 108 meq/L (98-107); Glomerular Filtration Rate Greater Than 89 mL/min (>89); Glucose,Random 136 mg/dL (74-106); Potassium 3.5 meq/L (3.5-5.1); Sodium 143 meq/L (136-145)
[2018-09-17 06:25] LABS: Alanine Aminotransferase 39 U/L (12-78)
[2018-09-17 06:28] LABS: Alkaline Phosphatase 69 U/L (45-117)
[2018-09-17 08:41] LABS: Metamyelocytes 1 % (0-1); Myelocytes 1 % (0-0)
[2018-09-17 08:42] LABS: Lymphocytes 62 % (9-44); Platelet Morphology Normal (Normal); RBC Morphology Normal (Normal); Smudge Cells Present
[2018-09-17] MEDS ORDERED: Furosemide 20 MG Tablet PO SCH (09:00)
--- NOTE | 2018-09-17 09:17 | XR ---
EXAM DATE: 09/17/2018 9:00 AM EST AGE/SEX: 73 years / Male INDICATIONS: . Shortness of breath. CLINICAL DATA: This is the patient's subsequent encounter. Patient reports that signs and symptoms h ave been present for 3 days and indicates a pain score of 5/10. MEDICAL/SURGICAL HISTORY: Seizures. None. [place] [facility] [place] 1[place], 09/16/2018. [facility] [place] AP, 07/17/2017. [facility], CHEST SINGLE AP, 07/13/2017. . FINDINGS: Frontal and lateral views of the chest demonstrate a normal-sized cardiac silhouette with calcificati on of the aorta. There is perihilar and lower lung zone interstitial opacity. There is blunting of th e costophrenic sulci posteriorly bilaterally. No pneumothorax is visualized. Bones and soft tissues h ave a stable appearance. There is a stable ununited and displaced left proximal humerus fracture. CONCLUSION: 1. Small bilateral pleural effusions with perihilar and lower lung zone interstitial opacity similar to the prior study. The pattern is suggestive of pulmonary edema. 2. Stable chronically ununited and displaced left proximal humerus fracture. Electronically signed by: Derrick Almeida MD Board Certified Radiologist 09/17/2018 9:16 AM EST
[2018-09-17] MEDS: Sertraline 100 MG Tablet PO SCH (09:18)
[2018-09-17] MEDS: Ferrous Sulfate 325 MG Tablet PO SCH (09:19)
[2018-09-17] MEDS: Budesonide-Formoterol 160/4.5 MCG 6 GM Inhaler INH SCH ×2 (09:20→20:54)
--- NOTE | 2018-09-17 11:39 | P.PNFP ---
Subjective Interval history: Patient reports feeling well. He denies any chest pain, shortness of breath. His speech is very difficult to understand. He repeatedly pointed to the corner of his room and asked me to check his bureau for his shoes until he was yelling at me to check his bureau for his shoes. There was no bureau in the patient's room. Patient knows his name, that he is in [facility], that it is August. He ate all of his breakfast. Discussed plan of care with patient. <Albaro MartinezSlim - 09/17/18 11:39> Results - Labs Result diagrams: 09/17/18 03:57 09/17/18 03:57 <Rodney Sibley - 09/17/18 15:33> Abnormal lab results 09/17/18 09/17/18 Range/Units 03:57 03:57 WBC 20.2 H (4.0-11.0) th/mm3 RBC 3.47 L (4.50-5.90) mil/mm3 Hgb 10.6 L (13.0-17.0) gm/dL Hct 32.9 L (39.0-51.0) % Plt Count 136 L (150-450) th/mm3 Lymph % (Auto) 59.4 H (9.0-44.0) % Lymph # (Auto) 12.0 H (1.0-4.8) th/mm3 Band Neuts % (Manual) 13 H (0-6) % Lymphocytes % (Manual) 62 H (9-44) % Myelocytes % (Man) 1 H (0-0) % Smudge Cells Present H (None) Platelet Estimate Low L (Normal) Chloride 108 H (98-107) meq/L BUN 33 H (7-18) mg/dL Random Glucose 136 H (74-106) mg/dL Calcium 8.0 L (8.5-10.1) mg/dL Total Protein 6.0 L D (6.4-8.2) g/dL Albumin 2.4 L (3.4-5.0) g/dL Short CBC 09/17/18 Range/Units 03:57 WBC 20.2 H (4.0-11.0) th/mm3 Hgb 10.6 L (13.0-17.0) gm/dL Hct 32.9 L (39.0-51.0) % Plt Count 136 L (150-450) th/mm3 [facility] 09/17/18 03:57 Sodium 143 Potassium 3.5 Chloride 108 H Carbon Dioxide 29.8 BUN 33 H Creatinine 0.65 Calcium 8.0 L Liver Function 09/17/18 Range/Units 03:57 Total Bilirubin 0.3 (0.2-1.0) mg/dL AST 37 (15-37) U/L ALT 39 (12-78) U/L Alkaline Phosphatase 69 (45-117) U/L Albumin 2.4 L (3.4-5.0) g/dL <Rodney Sibley - 09/17/18 15:33> Abnormal lab results 09/17/18 09/17/18 Range/Units 03:57 03:57 WBC 20.2 H (4.0-11.0) th/mm3 RBC 3.47 L (4.50-5.90) mil/mm3 Hgb 10.6 L (13.0-17.0) gm/dL Hct 32.9 L (39.0-51.0) % Plt Count 136 L (150-450) th/mm3 Lymph % (Auto) 59.4 H (9.0-44.0) % Lymph # (Auto) 12.0 H (1.0-4.8) th/mm3 Band Neuts % (Manual) 13 H (0-6) % Lymphocytes % (Manual) 62 H (9-44) % Myelocytes % (Man) 1 H (0-0) % Smudge Cells Present H (None) Platelet Estimate Low L (Normal) Chloride 108 H (98-107) meq/L BUN 33 H (7-18) mg/dL Random Glucose 136 H (74-106) mg/dL Calcium 8.0 L (8.5-10.1) mg/dL Total Protein 6.0 L D (6.4-8.2) g/dL Albumin 2.4 L (3.4-5.0) g/dL Short CBC 09/17/18 Range/Units 03:57 WBC 20.2 H (4.0-11.0) th/mm3 Hgb 10.6 L (13.0-17.0) gm/dL Hct 32.9 L (39.0-51.0) % Plt Count 136 L (150-450) th/mm3 BMP 09/17/18 03:57 Sodium 143 Potassium 3.5 Chloride 108 H Carbon Dioxide 29.8 BUN 33 H Creatinine 0.65 Calcium 8.0 L Liver Function 09/17/18 Range/Units 03:57 Total Bilirubin 0.3 (0.2-1.0) mg/dL AST 37 (15-37) U/L ALT 39 (12-78) U/L Alkaline Phosphatase 69 (45-117) U/L Albumin 2.4 L (3.4-5.0) g/dL <Avelino Ellis - 09/17/18 11:39> - Imaging Impressions Chest X-Ray 09/17/18 08:00 CONCLUSION: 1. Small bilateral pleural effusions with perihilar and lower lung zone interstitial opacity similar to the prior study. The pattern is suggestive of pulmonary edema. 2. Stable chronically ununited and displaced left proximal humerus fracture. <Rodney Sibley - 09/17/18 15:33> Impressions Chest X-Ray 09/17/18 08:00 CONCLUSION: 1. Small bilateral pleural effusions with perihilar and lower lung zone interstitial opacity similar to the prior study. The pattern is suggestive of pulmonary edema. 2. Stable chronically ununited and displaced left proximal humerus fracture. <Avelino Ellis - 09/17/18 11:39> Physical Exam Vital signs: Vital Signs 09/16/18 19:15 09/16/18 19:16 09/16/18 20:00 Temperature 97.3 F L Pulse Rate 89 85 Respiratory Rate 22 20 Blood Pressure 104/63 Pulse Oximetry 93 L 92 L 09/17/18 00:00 09/17/18 03:47 09/17/18 04:00 Temperature 97.1 F L 97.2 F L Pulse Rate 86 70 84 Respiratory Rate 20 15 20 Blood Pressure 122/97 H 102/57 L Pulse Oximetry 91 L 94 L 92 L 09/17/18 08:00 09/17/18 10:40 09/17/18 12:00 Temperature 97.2 F L 97.2 F L Pulse Rate 82 101 H Respiratory Rate 20 Blood Pressure 121/69 132/66 Pulse Oximetry 92 L 94 L 93 L 09/17/18 14:00 Temperature Pulse Rate 97 H Respiratory Rate 16 Blood Pressure Pulse Oximetry Intake & Output 09/16/18 09/17/18 09/17/18 18:59 06:59 18:59 Intake Total 2450 / 2450 2400 / 2400 100 / 100 Output Total 250 / 250 Balance 2450 / 2450 2150 / 2150 100 / 100 Weight 84.822 kg 84.4 kg Intake: IV 2450 / 2450 2200 / 2200 100 / 100 LR 1000 mL Inj 1,000 ML @ 130 2000 / 2000 mls/hr IV.CONT .Q7H42M EMRE Rx#: [id number] Azithromycin Inj 500 MG In NS 250 / 250 Inj 250 ML @ 250 mls/hr IV.SIG STAT STA Rx#:[id number] Maxipime Inj 2,000 MG In NS Inj 100 / 100 100 ML @ 200 mls/hr IV.SIG STAT STA Rx#:[id number] NS Inj 1,000 ML @ 1000 mls/hr 2000 / 2000 IV.SIG BOLUS EMRE Rx#:[id number] Flagyl 500 MG Inj 100 ML @ 100 100 / 100 200 / 200 100 / 100 mls/hr IV.SIG Q8H EMRE Rx#: [id number] Oral 200 / 200 Output: Urine 250 / 250 Other: Date of Last Bowel Movement 09/17/18 09/17/18 # Bowel Movements 1 <Rodney Sibley - 09/17/18 15:33> Vital Signs 09/16/18 11:48 09/16/18 13:34 09/16/18 15:00 Temperature 97.3 F L Pulse Rate 104 H 97 H 91 H Respiratory Rate 24 20 18 Blood Pressure 162/76 H 143/71 H 118/64 Pulse Oximetry 93 L 93 L 91 L 09/16/18 19:15 09/16/18 19:16 09/16/18 20:00 Temperature 97.3 F L Pulse Rate 89 85 Respiratory Rate 22 20 Blood Pressure 104/63 Pulse Oximetry 93 L 92 L 09/17/18 00:00 09/17/18 03:47 09/17/18 04:00 Temperature 97.1 F L 97.2 F L Pulse Rate 86 70 84 Respiratory Rate 20 15 20 Blood Pressure 122/97 H 102/57 L Pulse Oximetry 91 L 94 L 92 L 09/17/18 08:00 09/17/18 10:40 Temperature 97.2 F L Pulse Rate 82 Respiratory Rate Blood Pressure 121/69 Pulse Oximetry 93 L 94 L Intake & Output 09/16/18 09/17/18 09/17/18 18:59 06:59 18:59 Intake Total 2450 / 2450 2400 / 2400 Output Total 250 / 250 Balance 2450 / 2450 2150 / 2150 Weight 84.822 kg 84.4 kg Intake: IV 2450 / 2450 2200 / 2200 LR 1000 mL Inj 1,000 ML @ 130 2000 / 2000 mls/hr IV.CONT .Q7H42M EMRE Rx#: [id number] Azithromycin Inj 500 MG In NS 250 / 250 Inj 250 ML @ 250 mls/hr IV.SIG STAT STA Rx#:[id number] Maxipime Inj 2,000 MG In NS Inj 100 / 100 100 ML @ 200 mls/hr IV.SIG STAT STA Rx#:[id number] NS Inj 1,000 ML @ 1000 mls/hr 2000 / 2000 IV.SIG BOLUS EMRE Rx#:[id number] Flagyl 500 MG Inj 100 ML @ 100 100 / 100 200 / 200 mls/hr IV.SIG Q8H EMRE Rx#: [id number] Oral 200 / 200 Output: Urine 250 / 250 Other: Date of Last Bowel Movement 09/17/18 # Bowel Movements 1 <Albaro Avelino Martinez - 09/17/18 11:39> Narrative: GENERAL: Disheveled appearing male no obvious distress, lying in bed SKIN: Warm and dry. HEAD: Atraumatic. Normocephalic. EYES: Pupils equal and round. No scleral icterus. No injection or drainage. ENT: No nasal bleeding or discharge. Mucous membranes pink and moist. Poor dentition NECK: Trachea midline. No JVD. CARDIOVASCULAR: Regular rate and rhythm. RESPIRATORY: Diffuse wheezing bilaterally. GASTROINTESTINAL: Abdomen soft, non-tender. Slightly distended. MUSCULOSKELETAL: Extremities without clubbing, cyanosis, or edema. No obvious deformities. NEUROLOGICAL: Patient is alert and oriented to person place and time but does not seem to follow our conversation. Spontaneously moving lower extremities and upper extremities. No obvious cranial nerve deficits. Speech is mumbled and slurring. PSYCHIATRIC: insight and judgment abnormal. <Albaro MartinezAvelino Solares - 09/17/18 11:39> Assessment and Plan - Assessment (1) Sepsis Code(s): A41.9 - Sepsis, unspecified organism Status: Acute (2) Pneumonia Code(s): J18.9 - Pneumonia, unspecified organism Status: Acute (3) Acute encephalopathy Code(s): G93.40 - Encephalopathy, unspecified Status: Acute (4) Schizophrenia Code(s): F20.9 - Schizophrenia, unspecified Status: Acute (5) Bipolar disorder Code(s): F31.9 - Bipolar disorder, unspecified Status: Acute (6) HTN (hypertension) Code(s): I10 - Essential (primary) hypertension Status: Acute <Rodney Sibley - 09/17/18 15:33> (1) Sepsis Code(s): A41.9 - Sepsis, unspecified organism Status: Acute Plan: Empirically treating for both community-acquired and aspiration pneumonias. - Stop LR @ maintenance as patient is tolerating po - blood cx NGTD, urinary pneumococcal and legionella negative - IV Rocephin 1 g IV daily, change Azithromycin 500 mg from IV to po - Add Flagyl 500mg IV q8h for anaerobe coverage, given acute encephalopathy - Increased frequency of Duonebs from every 8 hours to every 4 hours - Tylenol PRN for fever - CXR PA and Lateral from this morning showed: 1. Small bilateral pleural effusions with perihilar and lower lung zone interstitial opacity similar to the prior study. The pattern is suggestive of pulmonary edema. 2. Stable chronically ununited and displaced left proximal humerus fracture. - Thus, stop IVF, increase diuresis as below (2) Pneumonia Code(s): J18.9 - Pneumonia, unspecified organism Status: Acute Plan: See above (3) Acute encephalopathy Code(s): G93.40 - Encephalopathy, unspecified Status: Acute Plan: Likely 2/2 to infection UDS ordered Haldol PRN for agitation Try to reorient before restraints (4) Schizophrenia Code(s): F20.9 - Schizophrenia, unspecified Status: Acute Plan: Continue home med of clozapine (5) Bipolar disorder Code(s): F31.9 - Bipolar disorder, unspecified Status: Acute Plan: Con't home valproic acid daily and Zoloft daily (6) HTN (hypertension) Code(s): I10 - Essential (primary) hypertension Status: Acute Plan: Increase home Furosemide 20 mg po bid given today's CXR Other home meds: Lactulose TID Fluids: stop maintenance LR Electrolytes: monitor Nutrition: mech soft, honey thick liquid diet DVT prophy: Lovenox daily <Avelino Ellis 09/17/18 11:19> - Assessment and Plan Patient is a 73 year old man with a h/o schizophrenia, bipolar disorder, hypertension who presented septic with a likely Pneumonia: Continue IV antibiotics with ceftriaxone, azithromycin, and Flagyl as there is a concern for aspiration Blood cultures NGTD Urine Legionella antigens negative Supplemental oxygen as needed breathing treatments ordered <Avelino Ellis - 09/17/18 11:39> Discussed Condition With: Dr. Sibley <Avelino Ellis 09/17/18 11:39> Discharge Planning: -CM consulted and appreciated <Avelino Ellis 09/17/18 11:39> - Attending Attestation Patient case discussed with resident physicians I have independently examined the patient I have read the above note and agree with the assessment and plan as discussed with me I was involved in all medical decision making for this patient Rodney Sibley MD <Rodney Sibley - 09/17/18 15:33> <Avelino Ellis Filed: 09/17/18 11:19> (2) Pneumonia Qualifiers: Pneumonia type: due to unspecified organism <Rodney Sibley - Filed: 09/17/18 15:33> (2) Pneumonia Qualifiers: Pneumonia type: due to unspecified organism <Avelino Ellis - Last Filed: 09/17/18 11:19> (2) Pneumonia Qualifiers: Pneumonia type: due to unspecified organism <Rodney Sibley - Last Filed: 09/17/18 15:33> (2) Pneumonia Qualifiers: Pneumonia type: due to unspecified organism
[2018-09-17] MEDS: Furosemide 20 MG Tablet PO SCH ×2 (11:42→20:55)
[2018-09-17] MEDS ORDERED: Azithromycin Inj 500 MG in Sodium Chlor 0.9% Inj 250 ML IV.SIG SCH (12:00)
[2018-09-17] MEDS: Enoxaparin Inj 40 MG/0.4 ML Syringe SQ SCH (12:10)
[2018-09-17] MEDS: Haloperidol Inj 5 MG/ML Ampul IV.PUSH PRN ×2 (14:26→22:03)
[2018-09-18] MEDS: Haloperidol Inj 5 MG/ML Ampul IV.PUSH PRN (03:53)
[2018-09-18 05:17] LABS: Hematocrit 30.9 % (39.0-51.0); Hemoglobin 10.3 gm/dL (13.0-17.0); Mean Corpuscular HGB Conc 33.4 % (32.0-36.0); Mean Corpuscular Hemoglobin 31.2 pg (27.0-34.0); Mean Corpuscular Volume 93.2 fL (80.0-100.0); Mean Platelet Volume 9.4 fL (7.0-11.0); Platelet Count 185 th/mm3 (150-450); Red Blood Count 3.32 mil/mm3 (4.50-5.90); White Blood Count 24.4 th/mm3 (4.0-11.0)
[2018-09-18 05:36] LABS: Albumin 2.5 g/dL (3.4-5.0); Anion Gap 7 meq/L (5-15); Aspartate Aminotransferase 40 U/L (15-37); Blood Urea Nitrogen 23 mg/dL (7-18); Carbon Dioxide 29.5 meq/L (21.0-32.0); Chloride 107 meq/L (98-107); Glomerular Filtration Rate Greater Than 89 mL/min (>89); Glucose,Random 89 mg/dL (74-106); Potassium 3.1 meq/L (3.5-5.1); Sodium 143 meq/L (136-145)
[2018-09-18 05:38] LABS: Alanine Aminotransferase 36 U/L (12-78)
[2018-09-18 05:40] LABS: Alkaline Phosphatase 74 U/L (45-117); Total Protein 5.9 g/dL (6.4-8.2)
[2018-09-18 08:04] LABS: Monocytes 4 % (0-8); Myelocytes 1 % (0-0)
[2018-09-18 08:05] LABS: Lymphocytes 69 % (9-44)
[2018-09-18 08:07] LABS: Platelet Estimate Normal (Normal); Platelet Morphology Normal (Normal)
[2018-09-18 08:08] LABS: RBC Morphology Normal (Normal); Smudge Cells Present
[2018-09-18] MEDS: Sertraline 100 MG Tablet PO SCH (09:35)
[2018-09-18] MEDS: Ferrous Sulfate 325 MG Tablet PO SCH (09:35)
[2018-09-18] MEDS: Furosemide 20 MG Tablet PO SCH ×2 (09:35→20:15)
[2018-09-18] MEDS: Budesonide-Formoterol 160/4.5 MCG 6 GM Inhaler INH SCH ×2 (09:37→20:15)
--- NOTE | 2018-09-18 10:27 | P.PNFP ---
Subjective Interval history: Satting 91-92% on 5 L NC O2. Patient seems to be at baseline (dementia) but is alert x2 (knows his name and where he is, able to answer some questions, though not always accurate). Denies pain, difficulty breathing, edema. No acute events overnight. Seen by PT, but did not cooperate w/ exercises. <Abid EstebanRuchi N - 09/18/18 11:38> Results - Labs Result diagrams: 09/18/18 03:53 09/18/18 03:53 <Rodney Sibley - 09/18/18 13:54> Abnormal lab results 09/18/18 09/18/18 Range/Units 03:53 03:53 WBC 24.4 H (4.0-11.0) th/mm3 RBC 3.32 L (4.50-5.90) mil/mm3 Hgb 10.3 L (13.0-17.0) gm/dL Hct 30.9 L (39.0-51.0) % Lymphocytes % (Manual) 69 H (9-44) % Myelocytes % (Man) 1 H (0-0) % Smudge Cells Present H (None) Potassium 3.1 L (3.5-5.1) meq/L BUN 23 H (7-18) mg/dL Calcium 8.0 L (8.5-10.1) mg/dL AST 40 H (15-37) U/L Total Protein 5.9 L (6.4-8.2) g/dL Albumin 2.5 L (3.4-5.0) g/dL Short CBC 09/18/18 Range/Units 03:53 WBC 24.4 H (4.0-11.0) th/mm3 Hgb 10.3 L (13.0-17.0) gm/dL Hct 30.9 L (39.0-51.0) % Plt Count 185 D (150-450) th/mm3 BMP 09/18/18 03:53 Sodium 143 Potassium 3.1 L Chloride 107 Carbon Dioxide 29.5 BUN 23 H Creatinine 0.71 Calcium 8.0 L Liver Function 09/18/18 Range/Units 03:53 Total Bilirubin 0.2 (0.2-1.0) mg/dL AST 40 H (15-37) U/L ALT 36 (12-78) U/L Alkaline Phosphatase 74 (45-117) U/L Albumin 2.5 L (3.4-5.0) g/dL <Rodney Sibley - 09/18/18 13:54> Abnormal lab results 09/18/18 09/18/18 Range/Units 03:53 03:53 WBC 24.4 H (4.0-11.0) th/mm3 RBC 3.32 L (4.50-5.90) mil/mm3 Hgb 10.3 L (13.0-17.0) gm/dL Hct 30.9 L (39.0-51.0) % Lymphocytes % (Manual) 69 H (9-44) % Myelocytes % (Man) 1 H (0-0) % Smudge Cells Present H (None) Potassium 3.1 L (3.5-5.1) meq/L BUN 23 H (7-18) mg/dL Calcium 8.0 L (8.5-10.1) mg/dL AST 40 H (15-37) U/L Total Protein 5.9 L (6.4-8.2) g/dL Albumin 2.5 L (3.4-5.0) g/dL Short CBC 09/18/18 Range/Units 03:53 WBC 24.4 H (4.0-11.0) th/mm3 Hgb 10.3 L (13.0-17.0) gm/dL Hct 30.9 L (39.0-51.0) % Plt Count 185 D (150-450) th/mm3 BMP 09/18/18 03:53 Sodium 143 Potassium 3.1 L Chloride 107 Carbon Dioxide 29.5 BUN 23 H Creatinine 0.71 Calcium 8.0 L Liver Function 09/18/18 Range/Units 03:53 Total Bilirubin 0.2 (0.2-1.0) mg/dL AST 40 H (15-37) U/L ALT 36 (12-78) U/L Alkaline Phosphatase 74 (45-117) U/L Albumin 2.5 L (3.4-5.0) g/dL <Abid EstebanRobertoRuchi N - 09/18/18 10:27> Physical Exam Vital signs: Vital Signs 09/17/18 14:00 09/17/18 16:00 09/17/18 20:00 Temperature 97.8 F 97.8 F Pulse Rate 97 H 82 88 Respiratory Rate 16 20 20 Blood Pressure 114/58 L 104/61 Pulse Oximetry 93 L 91 L 09/17/18 20:09 09/17/18 23:51 09/18/18 03:20 Temperature 97.7 F Pulse Rate 89 93 H 93 H Respiratory Rate 21 22 20 Blood Pressure 133/70 Pulse Oximetry 95 92 L 09/18/18 04:00 09/18/18 07:38 09/18/18 08:00 Temperature 97.8 F 97.8 F Pulse Rate 94 H 97 H Respiratory Rate 22 18 Blood Pressure 132/70 147/85 H Pulse Oximetry 91 L 93 L 95 09/18/18 11:00 09/18/18 12:00 Temperature 97.7 F Pulse Rate 90 92 H Respiratory Rate 24 19 Blood Pressure 138/79 Pulse Oximetry 94 L Intake & Output 09/17/18 09/18/18 09/18/18 18:59 06:59 18:59 Intake Total 2265 / 2265 1640 / 1640 100 / 100 Balance 2265 / 2265 1640 / 1640 100 / 100 Weight 86 kg Intake: IV 1100 / 1100 200 / 200 100 / 100 LR 1000 mL Inj 1,000 ML @ 130 650 / 650 mls/hr IV.CONT .Q7H42M EMRE Rx#: [id number] Azithromycin Inj 500 MG In NS 250 / 250 Inj 250 ML @ 250 mls/hr IV.SIG Q24H EMRE Rx#:[id number] Rocephin Inj 1,000 MG In NS Inj 100 / 100 100 ML @ 200 mls/hr IV.SIG Q24H EMRE Rx#:[id number] Flagyl 500 MG Inj 100 ML @ 100 100 / 100 200 / 200 100 / 100 mls/hr IV.SIG Q8H EMRE Rx#: [id number] Oral 1440 / 1440 Other 1165 / 1165 Other: # Voids 4 # Urine Diapers 4 Date of Last Bowel Movement 09/18/18 09/17/18 # Bowel Movements 0 Weight On Admission 87 kg <Rodney Sibley - 09/18/18 13:54> Vital Signs 09/17/18 10:40 09/17/18 12:00 09/17/18 14:00 Temperature 97.2 F L Pulse Rate 101 H 97 H Respiratory Rate 20 16 Blood Pressure 132/66 Pulse Oximetry 94 L 93 L 09/17/18 16:00 09/17/18 20:00 09/17/18 20:09 Temperature 97.8 F 97.8 F Pulse Rate 82 88 89 Respiratory Rate 20 20 21 Blood Pressure 114/58 L 104/61 Pulse Oximetry 93 L 91 L 95 09/17/18 23:51 09/18/18 03:20 09/18/18 04:00 Temperature 97.7 F 97.8 F Pulse Rate 93 H 93 H 94 H Respiratory Rate Blood Pressure 133/70 132/70 Pulse Oximetry 92 L 91 L 09/18/18 07:38 09/18/18 08:00 Temperature 97.8 F Pulse Rate 97 H Respiratory Rate 18 Blood Pressure 147/85 H Pulse Oximetry 93 L 95 Intake & Output 09/17/18 09/18/18 09/18/18 18:59 06:59 18:59 Intake Total 2265 / 2265 1640 / 1640 Balance 2265 / 2265 1640 / 1640 Weight 86 kg Intake: IV 1100 / 1100 200 / 200 LR 1000 mL Inj 1,000 ML @ 130 650 / 650 mls/hr IV.CONT .Q7H42M EMRE Rx#: [id number] Azithromycin Inj 500 MG In NS 250 / 250 Inj 250 ML @ 250 mls/hr IV.SIG Q24H EMRE Rx#:[id number] Rocephin Inj 1,000 MG In NS Inj 100 / 100 100 ML @ 200 mls/hr IV.SIG Q24H EMRE Rx#:[id number] Flagyl 500 MG Inj 100 ML @ 100 100 / 100 200 / 200 mls/hr IV.SIG Q8H EMRE Rx#: [id number] Oral 1440 / 1440 Other 1165 / 1165 Other: # Voids 4 # Urine Diapers 4 Date of Last Bowel Movement 09/18/18 09/17/18 # Bowel Movements 0 Weight On Admission 87 kg <Abid R2Ruchi N - 09/18/18 10:27> Narrative: GENERAL: Older gentleman who appears calm and content, no obvious distress, quite talkative SKIN: Warm and dry. HEAD: Atraumatic. Normocephalic. CARDIOVASCULAR: Regular rate and rhythm. RESPIRATORY: Rhonchi in the lower lobes noted bilaterally with occasional crackles. Slight use of accessory muscles. GASTROINTESTINAL: Abdomen soft, non-tender. Distended. MUSCULOSKELETAL: Edema noted in the upper extremities and slightly in the lower. NEUROLOGICAL: Patient is alert and oriented to person place. Mumbling speech. PSYCHIATRIC: insight and judgment abnormal. <Lena OrellanaRuchi Drew - 09/18/18 11:38> Assessment and Plan - Assessment (1) Pulmonary edema Code(s): J81.1 - Chronic pulmonary edema Status: Acute (2) Pneumonia Code(s): J18.9 - Pneumonia, unspecified organism Status: Acute (3) Dementia Code(s): F03.90 - Unspecified dementia without behavioral disturbance Status: Acute (4) Schizophrenia Code(s): F20.9 - Schizophrenia, unspecified Status: Acute (5) Bipolar disorder Code(s): F31.9 - Bipolar disorder, unspecified Status: Acute (6) HTN (hypertension) Code(s): I10 - Essential (primary) hypertension Status: Acute (7) Sepsis Code(s): A41.9 - Sepsis, unspecified organism Status: Resolved <Rodney Sibley - 09/18/18 13:54> (1) Pulmonary edema Code(s): J81.1 - Chronic pulmonary edema Status: Acute Plan: May be 2/2 to fluid overload v recent sepsis One time dose Lasix 40 mg in addition to 20 mg Lasix BID IS Keep head of bed elevated at 30 degrees Con't to monitor clinically (2) Pneumonia Code(s): J18.9 - Pneumonia, unspecified organism Status: Acute Plan: Empirically treating for both community-acquired and aspiration pneumonias. WBC count increasing, requiring 4-5 L O2 to sat above 92% (baseline is 2 L) CXR from 09/17 suggests pulmonary edema with lower lung opacity - blood cx NGTD, urinary pneumococcal and legionella negative - Con't IV Rocephin, Flagyl, and PO Azithro - Duonebs every 4 hours - IS - order sputum cx (3) Dementia Code(s): F03.90 - Unspecified dementia without behavioral disturbance Status: Acute Plan: Reorient for delirium Haldol PRN for agitation Health proxy is brother Michael (4) Schizophrenia Code(s): F20.9 - Schizophrenia, unspecified Status: Acute Plan: Continue home med of clozapine (5) Bipolar disorder Code(s): F31.9 - Bipolar disorder, unspecified Status: Acute Plan: Con't home valproic acid daily and Zoloft daily (6) HTN (hypertension) Code(s): I10 - Essential (primary) hypertension Status: Acute Plan: Furosemide 20 mg po bid Add one time dose 40 mg Lasix Other home meds: Lactulose TID Fluids: stop maintenance LR Electrolytes: monitor Nutrition: mech soft, honey thick liquid diet DVT prophy: Lovenox daily (7) Sepsis Code(s): A41.9 - Sepsis, unspecified organism Status: Resolved <Ruchi Sorto - 09/18/18 11:24> - Assessment and Plan Patient is a 73 year old man with a h/o schizophrenia, bipolar disorder, hypertension who presented septic with a likely Pneumonia: Continue IV antibiotics with ceftriaxone, azithromycin, and Flagyl as there is a concern for aspiration Blood cultures NGTD Urine Legionella antigens negative Supplemental oxygen as needed breathing treatments ordered <Ruchi Sorto - 09/18/18 10:27> - Attending Attestation Patient case discussed with resident physicians I have independently examined the patient I have read the above note and agree with the assessment and plan as discussed with me I was involved in all medical decision making for this patient Rodney Sibley MD <Rodney Sibley - 09/18/18 13:54> <Ruchi Sorto - Last Filed: 09/18/18 11:24> (2) Pneumonia Qualifiers: Pneumonia type: due to unspecified organism <Rodney Sibley - Last Filed: 09/18/18 13:54> (2) Pneumonia Qualifiers: Pneumonia type: due to unspecified organism <Ruchi Sorto - Last Filed: 09/18/18 11:24> (2) Pneumonia Qualifiers: Pneumonia type: due to unspecified organism <Rodney Sibley - Last Filed: 09/18/18 13:54> (2) Pneumonia Qualifiers: Pneumonia type: due to unspecified organism
[2018-09-18] MEDS: Enoxaparin Inj 40 MG/0.4 ML Syringe SQ SCH (11:47)
[2018-09-18] MEDS: Azithromycin 250 MG Tablet PO SCH (12:57)
[2018-09-19 06:01] LABS: Anion Gap 8 meq/L (5-15); Blood Urea Nitrogen 12 mg/dL (7-18); Calcium 7.9 mg/dL (8.5-10.1); Carbon Dioxide 31.1 meq/L (21.0-32.0); Chloride 105 meq/L (98-107); Glomerular Filtration Rate Greater Than 89 mL/min (>89); Glucose,Random 122 mg/dL (74-106); Potassium 3.2 meq/L (3.5-5.1); Sodium 144 meq/L (136-145)
--- NOTE | 2018-09-19 08:39 | P.PNFP ---
Subjective Interval history: Patient was seen at bedside this morning. Patient reports breathing much more easily overnight. He denies any chest pain or new swelling. The treatment plan was discussed with him as well as plan for chest x -ray. He agrees with plan, and thanked us for our care. <Doe Rajinder Hunt - 09/19/18 08:38> Results - Labs Result diagrams: 09/19/18 08:30 09/19/18 04:02 <Rodney Sibley - 09/19/18 17:51> Abnormal lab results 09/19/18 09/19/18 Range/Units 04:02 08:30 WBC 22.0 H (4.0-11.0) th/mm3 RBC 3.59 L (4.50-5.90) mil/mm3 Hgb 11.3 L (13.0-17.0) gm/dL Hct 33.4 L (39.0-51.0) % Lymph % (Auto) 63.9 H (9.0-44.0) % Lymph # (Auto) 14.1 H (1.0-4.8) th/mm3 Clarke # (Auto) 1.0 H (0.0-0.9) th/mm3 Band Neuts % (Manual) 7 H (0-6) % Lymphocytes % (Manual) 61 H (9-44) % Myelocytes % (Man) 2 H (0-0) % Smudge Cells Present H (None) Toxic Granulation 1+ H (None) Potassium 3.2 L (3.5-5.1) meq/L Random Glucose 122 H (74-106) mg/dL Calcium 7.9 L (8.5-10.1) mg/dL Short CBC 09/19/18 Range/Units 08:30 WBC 22.0 H (4.0-11.0) th/mm3 Hgb 11.3 L (13.0-17.0) gm/dL Hct 33.4 L (39.0-51.0) % Plt Count 225 (150-450) th/mm3 [facility] 09/19/18 04:02 Sodium 144 Potassium 3.2 L Chloride 105 Carbon Dioxide 31.1 BUN 12 Creatinine 0.66 Calcium 7.9 L <Rodney Sibley - 09/19/18 17:51> Abnormal lab results 09/19/18 Range/Units 04:02 Potassium 3.2 L (3.5-5.1) meq/L Random Glucose 122 H (74-106) mg/dL Calcium 7.9 L (8.5-10.1) mg/dL BMP 09/19/18 04:02 Sodium 144 Potassium 3.2 L Chloride 105 Carbon Dioxide 31.1 BUN 12 Creatinine 0.66 Calcium 7.9 L <Rajinder Mcmillan - 09/19/18 08:38> - Imaging Impressions Chest X-Ray 09/19/18 00:00 CONCLUSION: Diffuse increased interstitial markings likely related to diffuse processes such as edema or diffuse infection. <Rodney Sibley - 09/19/18 17:51> Physical Exam Vital signs: Vital Signs 09/18/18 19:45 09/18/18 20:00 09/18/18 23:11 Temperature 98 F Pulse Rate 93 H 91 H 97 H Respiratory Rate 18 20 16 Blood Pressure 143/85 H Pulse Oximetry 93 L 94 L 09/18/18 23:23 09/19/18 03:22 09/19/18 03:40 Temperature 98.0 F 97.6 F Pulse Rate 96 H 92 H 93 H Respiratory Rate 20 22 18 Blood Pressure 145/87 H 137/82 Pulse Oximetry 92 L 94 L 09/19/18 08:00 09/19/18 08:23 09/19/18 12:00 Temperature 97.3 F L 97.9 F Pulse Rate 92 H 90 99 H Respiratory Rate 18 18 18 Blood Pressure 154/84 H 116/75 Pulse Oximetry 94 L 95 95 Intake & Output 09/18/18 09/19/18 09/19/18 18:59 06:59 18:59 Intake Total 680 / 680 680 / 680 200 / 200 Balance 680 / 680 680 / 680 200 / 200 Weight 85.2 kg Intake: IV 200 / 200 200 / 200 200 / 200 Rocephin Inj 1,000 MG In NS Inj 100 / 100 100 / 100 100 ML @ 200 mls/hr IV.SIG Q24H EMRE Rx#:[id number] Flagyl 500 MG Inj 100 ML @ 100 100 / 100 200 / 200 100 / 100 mls/hr IV.SIG Q8H EMRE Rx#: [id number] Oral 480 / 480 480 / 480 Other: # Voids 3 # Incontinent Voids 4 # Urine Diapers 2 Date of Last Bowel Movement 09/18/18 09/19/18 # Bowel Movements 0 1 <Rodney Sibley - 09/19/18 17:51> Vital Signs 09/18/18 11:00 09/18/18 12:00 09/18/18 15:00 Temperature 97.7 F Pulse Rate 90 92 H 92 H Respiratory Rate 24 19 52 H Blood Pressure 138/79 Pulse Oximetry 94 L 09/18/18 16:00 09/18/18 19:45 09/18/18 20:00 Temperature 97.9 F 98 F Pulse Rate 93 H 93 H 91 H Respiratory Rate 19 18 20 Blood Pressure 134/80 143/85 H Pulse Oximetry 95 93 L 94 L 09/18/18 23:11 09/18/18 23:23 09/19/18 03:22 Temperature 98.0 F 97.6 F Pulse Rate 97 H 96 H 92 H Respiratory Rate 16 20 22 Blood Pressure 145/87 H 137/82 Pulse Oximetry 92 L 94 L 09/19/18 03:40 09/19/18 08:23 Temperature Pulse Rate 93 H 90 Respiratory Rate 18 18 Blood Pressure Pulse Oximetry 95 Intake & Output 09/18/18 09/19/18 09/19/18 18:59 06:59 18:59 Intake Total 680 / 680 680 / 680 Balance 680 / 680 680 / 680 Weight 85.2 kg Intake: IV 200 / 200 200 / 200 Rocephin Inj 1,000 MG In NS Inj 100 / 100 100 ML @ 200 mls/hr IV.SIG Q24H EMRE Rx#:[id number] Flagyl 500 MG Inj 100 ML @ 100 100 / 100 200 / 200 mls/hr IV.SIG Q8H EMRE Rx#: [id number] Oral 480 / 480 480 / 480 Other: # Voids 3 # Incontinent Voids 4 # Urine Diapers 2 Date of Last Bowel Movement 09/18/18 09/19/18 # Bowel Movements 0 1 <Rajinder Mcmillan - 09/19/18 08:38> Narrative: GENERAL: Older gentleman who appears calm and content, no obvious distress, quite talkative about Roberto SKIN: Warm and dry. HEAD: Atraumatic. Normocephalic. CARDIOVASCULAR: Regular rate and rhythm. RESPIRATORY: Rhonchi in the lower lobes noted bilaterally without crackles. No use of accessory muscles. GASTROINTESTINAL: Abdomen soft, non-tender. Distended. MUSCULOSKELETAL: No edema or cyanosis noted in the lower extremities bilaterally. NEUROLOGICAL: Patient is pleasant and engaging. Currently at baseline from admission. PSYCHIATRIC: insight and judgment abnormal per the patient's baseline. <Rajinder Mcmillan - 09/19/18 11:21> Assessment and Plan - Assessment (1) Pneumonia Code(s): J18.9 - Pneumonia, unspecified organism Status: Acute (2) Pulmonary edema Code(s): J81.1 - Chronic pulmonary edema Status: Acute (3) Dementia Code(s): F03.90 - Unspecified dementia without behavioral disturbance Status: Acute (4) Schizophrenia Code(s): F20.9 - Schizophrenia, unspecified Status: Acute (5) Bipolar disorder Code(s): F31.9 - Bipolar disorder, unspecified Status: Acute (6) HTN (hypertension) Code(s): I10 - Essential (primary) hypertension Status: Acute (7) Sepsis Code(s): A41.9 - Sepsis, unspecified organism Status: Resolved <Rodney Sibley - 09/19/18 17:51> (1) Pneumonia Code(s): J18.9 - Pneumonia, unspecified organism Status: Acute Plan: Empirically treating for both community-acquired and aspiration pneumonias. WBC count improved from yesterday Requires 4-5 L O2 to sat above 92% (baseline is 2 L) CXR from 09/17 suggests pulmonary edema with lower lung opacity - Repeat chest x-ray 09/19 - Blood cx NGTD, urinary pneumococcal and legionella negative - Con't IV Rocephin (09/17), Flagyl (09/16), and PO Azithro (09/18) - Duonebs every 4 hours - IS (2) Pulmonary edema Code(s): J81.1 - Chronic pulmonary edema Status: Acute Plan: May be 2/2 to fluid overload v recent sepsis. No crackles appreciated on auscultation. -Repeat CXR 09/19 -Continue 20 mg Lasix BID Keep head of bed elevated at 30 degrees Con't to monitor clinically (3) Dementia Code(s): F03.90 - Unspecified dementia without behavioral disturbance Status: Acute Plan: Reorient for delirium Haldol PRN for agitation Health proxy is brother Michael (4) Schizophrenia Code(s): F20.9 - Schizophrenia, unspecified Status: Acute Plan: Continue home med of clozapine (5) Bipolar disorder Code(s): F31.9 - Bipolar disorder, unspecified Status: Acute Plan: Con't home valproic acid daily and Zoloft daily (6) HTN (hypertension) Code(s): I10 - Essential (primary) hypertension Status: Acute Plan: Furosemide 20 mg po bid Other home meds: Lactulose TID Fluids: stop maintenance LR Electrolytes: monitor Nutrition: mech soft, honey thick liquid diet DVT prophy: Lovenox daily (7) Sepsis Code(s): A41.9 - Sepsis, unspecified organism Status: Resolved Plan: Improving, please see plan above for pneumonia <Rajinder Mcmillan - 09/19/18 11:10> - Assessment and Plan Patient is a 73 year old man with a h/o schizophrenia, bipolar disorder, hypertension who presented septic with a likely Pneumonia: Continue IV antibiotics with ceftriaxone, azithromycin, and Flagyl as there is a concern for aspiration Blood cultures NGTD Urine Legionella antigens negative Supplemental oxygen as needed breathing treatments ordered <Rajinder Mcmillan - 09/19/18 08:38> - Attending Attestation Pt. examined with medical biller coder during medical rounds this morning I have read the above note and agree with the assessment/plan as discussed with me I was involved in all medical decision making for this patient Rodney Sibley MD <Rodney Sibley - 09/19/18 17:51> <Rajinder Mcmillan - Last Filed: 09/19/18 11:10> (1) Pneumonia Qualifiers: Pneumonia type: due to unspecified organism <Rodney Sibley - Last Filed: 09/19/18 17:51> (1) Pneumonia Qualifiers: Pneumonia type: due to unspecified organism <Rajinder Mcmillan Filed: 09/19/18 11:10> (1) Pneumonia Qualifiers: Pneumonia type: due to unspecified organism <Rodney Sibley Filed: 09/19/18 17:51> (1) Pneumonia Qualifiers: Pneumonia type: due to unspecified organism
[2018-09-19 09:04] LABS: Baso # (Auto) 0.1 th/mm3 (0.0-0.2); Baso % (Auto) 0.6 % (0.0-2.0); Eos # (Auto) 0.1 th/mm3 (0.0-0.4); Eos % (Auto) 0.6 % (0.0-4.0); Hematocrit 33.4 % (39.0-51.0); Hemoglobin 11.3 gm/dL (13.0-17.0); Lymph # (Auto) 14.1 th/mm3 (1.0-4.8); Lymph % (Auto) 63.9 % (9.0-44.0); Mean Corpuscular HGB Conc 33.9 % (32.0-36.0); Mean Corpuscular Hemoglobin 31.6 pg (27.0-34.0); Mean Corpuscular Volume 93.2 fL (80.0-100.0); Mean Platelet Volume 8.7 fL (7.0-11.0); Mono % (Auto) 4.5 % (0.0-8.0); Neut # (Auto) 6.7 th/mm3 (1.8-7.7); Neut % (Auto) 30.4 % (16.0-70.0); Platelet Count 225 th/mm3 (150-450); Red Blood Count 3.59 mil/mm3 (4.50-5.90); Red Cell Distribution Width 14.2 % (11.6-17.2)
--- NOTE | 2018-09-19 09:45 | XR ---
EXAM DATE: 09/19/2018 9:40 AM EST AGE/SEX: 73 years / Male INDICATIONS: . Chest pain and shortness of breath, evaluate for pneumonia. CLINICAL DATA: This is the patient's subsequent encounter. Patient reports that signs and symptoms h ave been present for 2 days and indicates a pain score of 0/10. MEDICAL/SURGICAL HISTORY: Seizures. None. COMPARISON: [facility] – [place], [place]ST 2V PA&LAT, 09/17/2018. . FINDINGS: The heart size is normal. The lungs demonstrate diffuse increased interstitial markings. A significan t effusion is not clearly identified. There is chronic fracture deformity seen at the proximal left h umerus. CONCLUSION: Diffuse increased interstitial markings likely related to diffuse processes such as edema or diffuse infection. Electronically signed by: Derrick Lambert MD Board Certified Radiologist 09/19/2018 9:44 AM EST
[2018-09-19 10:34] LABS: Eosinophils 1 % (0-4); Monocytes 3 % (0-8); Myelocytes 2 % (0-0)
[2018-09-19] MEDS: Sertraline 100 MG Tablet PO SCH (10:34)
[2018-09-19 10:35] LABS: Lymphocytes 61 % (9-44); Platelet Estimate Normal (Normal); Platelet Morphology Normal (Normal); Smudge Cells Present
[2018-09-19] MEDS: Ferrous Sulfate 325 MG Tablet PO SCH (10:35)
[2018-09-19 10:36] LABS: Toxic Granulation 1+
[2018-09-19] MEDS: Furosemide 20 MG Tablet PO SCH ×2 (10:36→21:13)
[2018-09-19] MEDS: Budesonide-Formoterol 160/4.5 MCG 6 GM Inhaler INH SCH ×2 (10:36→21:14)
[2018-09-19] MEDS: Enoxaparin Inj 40 MG/0.4 ML Syringe SQ SCH (11:46)
[2018-09-19] MEDS: Azithromycin 250 MG Tablet PO SCH (11:46)
[2018-09-19 18:36] LABS: ABG Base Excess 6.1 mmol/L (-2-2); ABG PCO2 53 mmHg (38-42); ABG PO2 73 mmHg (61-120)
--- NOTE | 2018-09-19 18:59 | P.PNADD ---
Addendum to Inpatient Note Reason for Addendum: Additional Documentation Additional information: Subjective: [facility]. Nurse reported that the patient had an acute change in mental status. The nurse reported that the patient had wet breath sounds and was somnolent when he was administering the patient's lactulose. Nurse held lactulose due to aspiration risk. He refused his last 2 albuterol treatments this afternoon. The patient reports that he is tired. He is difficult to arouse and only responds that he is tired. Objective: Heart rate 88 Respiratory rate 18 Blood pressure 131/80 O2 saturation 94 General: Patient lying in bed, somnolent, difficult to arouse Cardiovascular: Regular rate and rhythm Respiratory: diminished breath sounds at bases bilaterally Extremities: No LE edema noted Assessment and Plan: -Depakote level -Ammonia level -Lasix 20 mg IV -CT head -ABG -Will adjust antibiotic regimen: Vancomycin, cefepime, flagyl -N.p.o. except meds -Speech therapy consult for evaluation
[2018-09-19] MEDS ORDERED: Vancomycin Consult Pharmacy OTHER PRN (19:28)
[2018-09-19] MEDS ORDERED: Vancomycin Inj 2,000 MG in Sodium Chlor 0.9% Inj 500 ML IV.SIG ONE (20:00)
--- NOTE | 2018-09-19 20:00 | CT ---
EXAM DATE: 09/19/2018 7:54 PM EST AGE/SEX: 73 years / Male INDICATIONS: Altered mental status. CLINICAL DATA: This is the patient's initial encounter. Patient reports that signs and symptoms have been present for 1 day and indicates a pain score of 0/10. MEDICAL/SURGICAL HISTORY: Dementia. Hypertension. None. RADIATION DOSE: 50.46 CTDI (mGy) [place] [facility] [place] [facility] [place] [facility] [place]. . TECHNIQUE: CT of the head without contrast. Using automated exposure control and adjustment of the mA and/or kV according to patient size, radiation dose was kept as low as reasonably achievable to ob tain optimal diagnostic quality images. DICOM format image data is available electronically for revi ew and comparison. FINDINGS: Cerebrum: Mild cerebral atrophy is noted. No evidence of midline shift, mass lesion, hemorrhage or a cute infarction. No extraaxial fluid collections are seen. Posterior Fossa: The cerebellum and brainstem are intact. The 4th ventricle is midline. The cerebe llopontine angle is unremarkable. Extracranial: The visualized portion of the orbits is intact. Mucosal thickening is noted within the right sphenoid sinus. Skull: The calvaria is intact. No evidence of skull fracture. CONCLUSION: 1. Mild cerebral atrophy. 2. No acute infarct, acute hemorrhage, midline shift or extra-axial fluid collections. 3. Mucosal thickening involving the right sphenoid sinus. . Electronically signed by: Raleigh Calderón MD Board Certified Radiologist 09/19/2018 7:58 PM EST
[2018-09-20] MEDS ORDERED: Water Sterile for Irr Bot 700 ML, Lactulose Liq 300 ML RECTAL ONE ×2 (01:36)
[2018-09-20] MEDS ORDERED: Vancomycin Inj 1,000 MG in Sodium Chlor 0.9% Inj 250 ML IV.SIG SCH (08:00)
[2018-09-20 08:26] LABS: Baso # (Auto) 0.1 th/mm3 (0.0-0.2); Baso % (Auto) 0.6 % (0.0-2.0); Eos # (Auto) 0.1 th/mm3 (0.0-0.4); Eos % (Auto) 0.7 % (0.0-4.0); Hematocrit 35.5 % (39.0-51.0); Hemoglobin 12.1 gm/dL (13.0-17.0); Lymph # (Auto) 11.4 th/mm3 (1.0-4.8); Lymph % (Auto) 57.5 % (9.0-44.0); Mean Corpuscular HGB Conc 34.2 % (32.0-36.0); Mean Corpuscular Hemoglobin 31.9 pg (27.0-34.0); Mean Corpuscular Volume 93.2 fL (80.0-100.0); Mean Platelet Volume 8.4 fL (7.0-11.0); Mono # (Auto) 0.6 th/mm3 (0.0-0.9); Mono % (Auto) 3.3 % (0.0-8.0); Neut # (Auto) 7.5 th/mm3 (1.8-7.7); Neut % (Auto) 37.9 % (16.0-70.0); Platelet Count 250 th/mm3 (150-450); Red Blood Count 3.81 mil/mm3 (4.50-5.90); Red Cell Distribution Width 14.5 % (11.6-17.2); White Blood Count 19.8 th/mm3 (4.0-11.0)
[2018-09-20 08:30] LABS: Anion Gap 5 meq/L (5-15); Blood Urea Nitrogen 16 mg/dL (7-18); Calcium 7.9 mg/dL (8.5-10.1); Carbon Dioxide 32.7 meq/L (21.0-32.0); Chloride 110 meq/L (98-107); Glomerular Filtration Rate Greater Than 89 mL/min (>89); Glucose,Random 119 mg/dL (74-106); Sodium 148 meq/L (136-145)
[2018-09-20] MEDS: Vancomycin Inj 1,500 MG in Sodium Chlor 0.9% Inj 500 ML IV.SIG SCH ×2 (08:39→21:32)
--- NOTE | 2018-09-20 08:51 | P.PNFP ---
Subjective Interval history: Patient seen at bedside this morning. Overnight patient did have a Halicat after being found to be difficult to arouse found to have high ammonia level. Patient currently back to baseline this morning. Per patient he is currently breathing well and has experienced no chest or abdominal pain. He denies any cough. Patient however does continue to ask for water as he was put n.p.o. last night. Plan to evaluate his swallowing as well as continue treatment were discussed with him in length. Patient reports understanding and agrees with plan. Had no further questions at this time. <Rajinder Mcmillan - 09/20/18 10:55> Results - Labs Result diagrams: 09/20/18 07:57 09/20/18 07:57 <Rodney Sibley - 09/20/18 22:15> Abnormal lab results 09/20/18 09/20/18 09/20/18 Range/Units 07:57 07:57 07:57 WBC 19.8 H (4.0-11.0) th/mm3 RBC 3.81 L (4.50-5.90) mil/mm3 Hgb 12.1 L (13.0-17.0) gm/dL Hct 35.5 L (39.0-51.0) % Lymph % (Auto) 57.5 H (9.0-44.0) % Lymph # (Auto) 11.4 H (1.0-4.8) th/mm3 Lymphocytes % (Manual) 58 H (9-44) % Myelocytes % (Man) 2 H (0-0) % Smudge Cells Present H (None) Sodium 148 H (136-145) meq/L Chloride 110 H (98-107) meq/L Carbon Dioxide 32.7 H (21.0-32.0) meq/L Creatinine 0.54 L (0.60-1.30) mg/dL Random Glucose 119 H (74-106) mg/dL Calcium 7.9 L (8.5-10.1) mg/dL Ammonia 57 H (11-32) mcmol/L Short CBC 09/20/18 Range/Units 07:57 WBC 19.8 H (4.0-11.0) th/mm3 Hgb 12.1 L (13.0-17.0) gm/dL Hct 35.5 L (39.0-51.0) % Plt Count 250 (150-450) th/mm3 [facility] 09/20/18 07:57 Sodium 148 H Potassium 4.0 D Chloride 110 H Carbon Dioxide 32.7 H BUN 16 Creatinine 0.54 L Calcium 7.9 L <Rodney Sibley - 09/20/18 22:15> Abnormal lab results 09/19/18 09/19/18 09/19/18 Range/Units 08:30 18:22 18:27 WBC 22.0 H (4.0-11.0) th/mm3 RBC 3.59 L (4.50-5.90) mil/mm3 Hgb 11.3 L (13.0-17.0) gm/dL Hct 33.4 L (39.0-51.0) % Lymph % (Auto) 63.9 H (9.0-44.0) % Lymph # (Auto) 14.1 H (1.0-4.8) th/mm3 [place] # (Auto) 1.0 H (0.0-0.9) th/mm3 Band Neuts % (Manual) 7 H (0-6) % Lymphocytes % (Manual) 61 H (9-44) % Myelocytes % (Man) 2 H (0-0) % Smudge Cells Present H (None) Toxic Granulation 1+ H (None) ABG pCO2 53 H* (38-42) mmHg ABG HCO3 31 H (22-26) mmol/L ABG Base Excess 6.1 H (-2-2) mmol/L Hemoglobin 11.2 L (12.0-16.0) G/DL Sodium (136-145) meq/L Chloride (98-107) meq/L Carbon Dioxide (21.0-32.0) meq/L Creatinine (0.60-1.30) mg/dL POC Glucose 112 H (68-110) mg/dl Random Glucose (74-106) mg/dL Calcium (8.5-10.1) mg/dL Ammonia (11-32) mcmol/L Valproic Acid (50-100) mcg/mL 09/19/18 09/19/18 09/20/18 Range/Units 19:07 19:07 07:57 WBC 19.8 H (4.0-11.0) th/mm3 RBC 3.81 L (4.50-5.90) mil/mm3 Hgb 12.1 L (13.0-17.0) gm/dL Hct 35.5 L (39.0-51.0) % Lymph % (Auto) 57.5 H (9.0-44.0) % Lymph # (Auto) 11.4 H (1.0-4.8) th/mm3 [place] # (Auto) (0.0-0.9) th/mm3 Band Neuts % (Manual) (0-6) % Lymphocytes % (Manual) (9-44) % Myelocytes % (Man) (0-0) % Smudge Cells (None) Toxic Granulation (None) ABG pCO2 (38-42) mmHg ABG HCO3 (22-26) mmol/L ABG Base Excess (-2-2) mmol/L Hemoglobin (12.0-16.0) G/DL Sodium (136-145) meq/L Chloride (98-107) meq/L Carbon Dioxide (21.0-32.0) meq/L Creatinine (0.60-1.30) mg/dL POC Glucose (68-110) mg/dl Random Glucose (74-106) mg/dL Calcium (8.5-10.1) mg/dL Ammonia 63 H (11-32) mcmol/L Valproic Acid 36 L (50-100) mcg/mL 09/20/18 Range/Units 07:57 WBC (4.0-11.0) th/mm3 RBC (4.50-5.90) mil/mm3 Hgb (13.0-17.0) gm/dL Hct (39.0-51.0) % Lymph % (Auto) (9.0-44.0) % Lymph # (Auto) (1.0-4.8) th/mm3 [place] # (Auto) (0.0-0.9) th/mm3 Band Neuts % (Manual) (0-6) % Lymphocytes % (Manual) (9-44) % Myelocytes % (Man) (0-0) % Smudge Cells (None) Toxic Granulation (None) ABG pCO2 (38-42) mmHg ABG HCO3 (22-26) mmol/L ABG Base Excess (-2-2) mmol/L Hemoglobin (12.0-16.0) G/DL Sodium 148 H (136-145) meq/L Chloride 110 H (98-107) meq/L Carbon Dioxide 32.7 H (21.0-32.0) meq/L Creatinine 0.54 L (0.60-1.30) mg/dL POC Glucose (68-110) mg/dl Random Glucose 119 H (74-106) mg/dL Calcium 7.9 L (8.5-10.1) mg/dL Ammonia (11-32) mcmol/L Valproic Acid (50-100) mcg/mL Short CBC 09/19/18 09/20/18 Range/Units 08:30 07:57 WBC 22.0 H 19.8 H (4.0-11.0) th/mm3 Hgb 11.3 L 12.1 L (13.0-17.0) gm/dL Hct 33.4 L 35.5 L (39.0-51.0) % Plt Count 225 250 (150-450) th/mm3 BMP 09/20/18 07:57 Sodium 148 H Potassium 4.0 D Chloride 110 H Carbon Dioxide 32.7 H BUN 16 Creatinine 0.54 L Calcium 7.9 L <Rajinder Mcmillan - 09/20/18 08:51> - Imaging Impressions Chest X-Ray 09/19/18 00:00 CONCLUSION: Diffuse increased interstitial markings likely related to diffuse processes such as edema or diffuse infection. Head CT 09/19/18 00:00 CONCLUSION: 1. Mild cerebral atrophy. 2. No acute infarct, acute hemorrhage, midline shift or extra-axial fluid collections. 3. Mucosal thickening involving the right sphenoid sinus. . <Rajinder Mcmillan 09/20/18 08:51> Physical Exam Vital signs: Vital Signs 09/19/18 23:58 09/20/18 00:00 09/20/18 03:35 Temperature 97.4 F L Pulse Rate 93 H 90 98 H Respiratory Rate 21 18 18 Blood Pressure 129/75 Pulse Oximetry 93 L 93 L 95 09/20/18 04:00 09/20/18 07:18 09/20/18 07:27 Temperature 97.7 F Pulse Rate 107 H 99 H Respiratory Rate 17 18 20 Blood Pressure 118/60 Pulse Oximetry 98 94 L 09/20/18 08:00 09/20/18 12:00 09/20/18 12:33 Temperature 97.9 F 97.9 F Pulse Rate 96 H 96 H 101 H Respiratory Rate 18 18 18 Blood Pressure 135/88 126/89 Pulse Oximetry 97 97 09/20/18 15:10 09/20/18 15:11 09/20/18 16:00 Temperature 97.3 F L Pulse Rate 103 H 95 H Respiratory Rate 20 18 Blood Pressure 140/82 Pulse Oximetry 95 97 09/20/18 19:50 Temperature Pulse Rate 95 H Respiratory Rate 18 Blood Pressure Pulse Oximetry Intake & Output 09/20/18 09/20/18 09/21/18 06:59 18:59 06:59 Intake Total 920 / 920 715 / 715 200 / 200 Output Total 600 / 600 300 / 300 Balance 320 / 320 415 / 415 200 / 200 Weight 86.8 kg Intake: IV 920 / 920 715 / 715 200 / 200 Maxipime Inj 2,000 MG In NS Inj 200 / 200 100 / 100 100 / 100 100 ML @ 200 mls/hr IV.SIG Q8H EMRE Rx#:[id number] Vancomycin Inj 1,500 MG In NS 520 / 520 515 / 515 Inj 500 ML @ 250 mls/hr IV.SIG Q12H EMRE Rx#:[id number] Flagyl 500 MG Inj 100 ML @ 100 200 / 200 100 / 100 100 / 100 mls/hr IV.SIG Q8H EMRE Rx#: [id number] Oral 0 / 0 Output: Urine 600 / 600 300 / 300 Other: Date of Last Bowel Movement 09/20/18 <Rodney Sibley - 09/20/18 22:15> Vital Signs 09/19/18 12:00 09/19/18 18:43 09/19/18 20:00 Temperature 97.9 F 97.4 F L Pulse Rate 99 H 83 Respiratory Rate 18 16 Blood Pressure 116/75 133/77 Pulse Oximetry 95 93 L 94 L 09/19/18 20:40 09/19/18 23:58 09/20/18 00:00 Temperature 97.4 F L Pulse Rate 90 93 H 90 Respiratory Rate 20 21 18 Blood Pressure 129/75 Pulse Oximetry 95 93 L 93 L 09/20/18 03:35 09/20/18 04:00 09/20/18 07:18 Temperature 97.7 F Pulse Rate 98 H 107 H Respiratory Rate 18 17 18 Blood Pressure 118/60 Pulse Oximetry 95 98 09/20/18 07:27 Temperature Pulse Rate 99 H Respiratory Rate 20 Blood Pressure Pulse Oximetry 94 L Intake & Output 09/19/18 09/20/18 09/20/18 18:59 06:59 18:59 Intake Total 200 / 200 920 / 920 Output Total 600 / 600 Balance 200 / 200 320 / 320 Weight 86.8 kg Intake: IV 200 / 200 920 / 920 Maxipime Inj 2,000 MG In NS Inj 200 / 200 100 ML @ 200 mls/hr IV.SIG Q8H EMRE Rx#:[id number] Vancomycin Inj 2,000 MG In NS 520 / 520 Inj 500 ML @ 250 mls/hr IV.SIG ONCE ONE Rx#:[id number] Rocephin Inj 1,000 MG In NS Inj 100 / 100 100 ML @ 200 mls/hr IV.SIG Q24H EMRE Rx#:[id number] Flagyl 500 MG Inj 100 ML @ 100 100 / 100 200 / 200 mls/hr IV.SIG Q8H EMRE Rx#: [id number] Output: Urine 600 / 600 Other: Date of Last Bowel Movement 09/20/18 <Brook Rajinder Hunt Jason - 09/20/18 08:51> Narrative: GENERAL: Older gentleman who appears calm and content, no obvious distress, asking for water multiple times SKIN: Warm and dry. HEAD: Atraumatic. Normocephalic. CARDIOVASCULAR: Regular rate and rhythm. RESPIRATORY: Minor coarse lung sounds in all lung gonzalez with minimal expiratory wheeze most notably in the upper left and right lung gonzalez. No crackles appreciated. No use of accessory muscles. GASTROINTESTINAL: Abdomen soft, non-tender. Distended. MUSCULOSKELETAL: No edema or cyanosis noted in the lower extremities bilaterally. NEUROLOGICAL: A and O x3. Patient is pleasant and engaging. Currently at baseline from admission. PSYCHIATRIC: Insight and judgment abnormal but currently at the patient's baseline. <Brook Rajinder Hunt Jason - 09/20/18 08:51> Assessment and Plan - Assessment (1) Pneumonia Code(s): J18.9 - Pneumonia, unspecified organism Status: Acute (2) Pulmonary edema Code(s): J81.1 - Chronic pulmonary edema Status: Acute (3) Acute metabolic encephalopathy Code(s): G93.41 - Metabolic encephalopathy Status: Acute (4) Sepsis Code(s): A41.9 - Sepsis, unspecified organism Status: Resolved (5) Dementia Code(s): F03.90 - Unspecified dementia without behavioral disturbance Status: Acute (6) Bipolar disorder Code(s): F31.9 - Bipolar disorder, unspecified Status: Acute (7) Schizophrenia Code(s): F20.9 - Schizophrenia, unspecified Status: Acute (8) HTN (hypertension) Code(s): I10 - Essential (primary) hypertension Status: Acute <Rodney Sibley - 09/20/18 22:15> (1) Pneumonia Code(s): J18.9 - Pneumonia, unspecified organism Status: Acute Plan: Empirically treating for both community-acquired, aspiration pneumonias and HCAP. -WBC count downtrending -Requires 4 O2 to sat above 92% (baseline is 2 L) -CXR from 09/17 suggests pulmonary edema with lower lung opacity -CXR from 09/19 showed diffuse increased interstitial markings likely related to diffuse processes such as edema or diffuse infection. -Blood cx NGTD, urinary pneumococcal and legionella negative Plan: - Con't Flagyl (09/16), Vancomycin (09/19) , Cefepime (09/19) - Duonebs every 4 hours/ - IS (2) Pulmonary edema Code(s): J81.1 - Chronic pulmonary edema Status: Acute Plan: May be 2/2 to fluid overload vs recent sepsis. No crackles appreciated on auscultation. -Repeat CXR 09/19 showed diffuse increased interstitial markings likely related to a diffuse process such as edema or diffuse infection -Continue 20 mg Lasix BID -Keep head of bed elevated at 30 degrees Con't to monitor clinically (3) Acute metabolic encephalopathy Code(s): G93.41 - Metabolic encephalopathy Status: Acute Plan: Resolved: A halicat was called on this patient on 09/19 for acute altered mental status. Patient was found difficult to arouse at bedside. Status change most likely related to his pneumonia as patient not taking lactulose. Patient regained baseline mental status after administration of rectal lactulose. Plan: Continue lactulose 10 mL p.o. 3 times daily Halicat work up on 01/18 as follows: -CXR: Diffuse increased interstitial markings likely related to diffuse processes such as edema or diffuse infection -Depakote level 36, low -Ammonia level 63 -CT head, no acute intracranial process -ABG 7.39/53/73/31 Patient was given rectal lactulose and responded well. Ammonia on 09/20 now improved at 57 (4) Sepsis Code(s): A41.9 - Sepsis, unspecified organism Status: Resolved Plan: Improving, please see plan above for pneumonia (5) Dementia Code(s): F03.90 - Unspecified dementia without behavioral disturbance Status: Acute Plan: Reorient for delirium Haldol PRN for agitation Health proxy is brother Michael (6) Bipolar disorder Code(s): F31.9 - Bipolar disorder, unspecified Status: Acute Plan: Con't home valproic acid daily and Zoloft daily (7) Schizophrenia Code(s): F20.9 - Schizophrenia, unspecified Status: Acute Plan: Continue home med of clozapine (8) HTN (hypertension) Code(s): I10 - Essential (primary) hypertension Status: Acute Plan: Patient currently normotensive -Continue home furosemide 20 mg po bid FEN: Fluids: none Electrolytes: monitor Nutrition: mech soft, honey thick liquid diet DVT prophy: Lovenox daily <Rajinder Mcmillan - 09/20/18 17:54> - Assessment and Plan Patient is a 73 year old man with a h/o schizophrenia, bipolar disorder, hypertension who presented septic with a likely Pneumonia: Continue IV antibiotics with ceftriaxone, azithromycin, and Flagyl as there is a concern for aspiration Blood cultures NGTD Urine Legionella antigens negative Supplemental oxygen as needed breathing treatments ordered <Rajinder Mcmillan - 09/20/18 08:51> - Attending Attestation Pt. examined independently of resident physicians during rounds today I have read the above note and agree with the assessment/plan as discussed with me I was involved in all medical decision making for this patient Rodney Sibley MD <Rodney Sibley - 09/20/18 22:15> <Rajinder Mcmillan Filed: 09/20/18 17:54> (1) Pneumonia Qualifiers: Pneumonia type: due to unspecified organism <Rodney Sibley Filed: 09/20/18 22:15> (1) Pneumonia Qualifiers: Pneumonia type: due to unspecified organism <Rajinder Mcmillan Filed: 09/20/18 17:54> (1) Pneumonia Qualifiers: Pneumonia type: due to unspecified organism <Rodney Sibley Filed: 09/20/18 22:15> (1) Pneumonia Qualifiers: Pneumonia type: due to unspecified organism
[2018-09-20] MEDS: Sertraline 100 MG Tablet PO SCH (08:54)
[2018-09-20] MEDS: Furosemide 20 MG Tablet PO SCH ×2 (08:55→20:13)
[2018-09-20] MEDS: Ferrous Sulfate 325 MG Tablet PO SCH (08:55)
[2018-09-20] MEDS: Budesonide-Formoterol 160/4.5 MCG 6 GM Inhaler INH SCH ×2 (08:56→20:14)
[2018-09-20 09:05] LABS: Lymphocytes 58 % (9-44); Metamyelocytes 1 % (0-1); Monocytes 3 % (0-8); Myelocytes 2 % (0-0)
[2018-09-20 09:06] LABS: Platelet Estimate Normal (Normal); Platelet Morphology Normal (Normal); Smudge Cells Present
[2018-09-20] MEDS: Enoxaparin Inj 40 MG/0.4 ML Syringe SQ SCH (11:15)
[2018-09-21] MEDS ORDERED: Pharmacy Ordered Lab Info OTHER ONE (07:45)
[2018-09-21] MEDS: Vancomycin Inj 1,500 MG in Sodium Chlor 0.9% Inj 500 ML IV.SIG SCH (09:01)
[2018-09-21] MEDS: Ferrous Sulfate 325 MG Tablet PO SCH (09:09)
[2018-09-21] MEDS: Furosemide 20 MG Tablet PO SCH ×2 (09:09→20:56)
[2018-09-21] MEDS: Sertraline 100 MG Tablet PO SCH (09:09)
[2018-09-21] MEDS: Budesonide-Formoterol 160/4.5 MCG 6 GM Inhaler INH SCH ×2 (09:10→20:57)
[2018-09-21 10:28] LABS: Baso % (Auto) 0.1 % (0.0-2.0); Eos # (Auto) 0.2 th/mm3 (0.0-0.4); Eos % (Auto) 0.8 % (0.0-4.0); Hemoglobin 11.1 gm/dL (13.0-17.0); Lymph # (Auto) 14.3 th/mm3 (1.0-4.8); Lymph % (Auto) 60.6 % (9.0-44.0); Mean Corpuscular HGB Conc 32.8 % (32.0-36.0); Mean Corpuscular Volume 94.5 fL (80.0-100.0); Mono % (Auto) 4.4 % (0.0-8.0); Neut % (Auto) 34.1 % (16.0-70.0); Platelet Count 267 th/mm3 (150-450); Red Blood Count 3.59 mil/mm3 (4.50-5.90); Red Cell Distribution Width 14.6 % (11.6-17.2); White Blood Count 23.6 th/mm3 (4.0-11.0)
[2018-09-21 10:53] LABS: Anion Gap 6 meq/L (5-15); Blood Urea Nitrogen 16 mg/dL (7-18); Calcium 7.8 mg/dL (8.5-10.1); Carbon Dioxide 32.2 meq/L (21.0-32.0); Chloride 107 meq/L (98-107); Glomerular Filtration Rate Greater Than 89 mL/min (>89); Glucose,Random 158 mg/dL (74-106); Potassium 3.5 meq/L (3.5-5.1); Sodium 145 meq/L (136-145)
--- NOTE | 2018-09-21 11:23 | P.PNFP ---
Subjective Interval history: Patient was seen at bedside this morning. Patient reports overall doing well no difficulty breathing. He denies any chest pain or abdominal pain at this time. However the patient does endorse some diarrhea that started yesterday. He describes as mostly watery but [id number]. Patient reports wanting to stay in the hospital but could not explain why he wanted to stay. Previously wanted to go home due to Roberto. The plan to discharge patient on antibiotics was discussed as well as the importance of completion entire course. He reported understanding and had no further questions. <Rajinder Mcmillan - 09/21/18 11:23> Results - Labs Result diagrams: 09/22/18 08:03 09/21/18 09:50 <Rodney Sibley - 09/22/18 13:46> Abnormal lab results 09/22/18 Range/Units 08:03 WBC 24.3 H (4.0-11.0) th/mm3 RBC 3.70 L (4.50-5.90) mil/mm3 Hgb 11.3 L (13.0-17.0) gm/dL Hct 34.8 L (39.0-51.0) % Lymph % (Auto) 62.6 H (9.0-44.0) % Lymph # (Auto) 15.2 H (1.0-4.8) th/mm3 [place] # (Auto) 1.1 H (0.0-0.9) th/mm3 Lymphocytes % (Manual) 61 H (9-44) % Myelocytes % (Man) 1 H (0-0) % Smudge Cells Present H (None) Dimorphic RBCs Present H (None) Short CBC 09/22/18 Range/Units 08:03 WBC 24.3 H (4.0-11.0) th/mm3 Hgb 11.3 L (13.0-17.0) gm/dL Hct 34.8 L (39.0-51.0) % Plt Count 287 (150-450) th/mm3 <Rodney Sibley - 09/22/18 13:46> Abnormal lab results 09/21/18 09/21/18 09/21/18 Range/Units 07:38 09:50 09:50 WBC 23.6 H (4.0-11.0) th/mm3 RBC 3.59 L (4.50-5.90) mil/mm3 Hgb 11.1 L (13.0-17.0) gm/dL Hct 34.0 L (39.0-51.0) % Lymph % (Auto) 60.6 H (9.0-44.0) % Neut # (Auto) 8.0 H (1.8-7.7) th/mm3 Lymph # (Auto) 14.3 H (1.0-4.8) th/mm3 [place] # (Auto) 1.0 H (0.0-0.9) th/mm3 Carbon Dioxide 32.2 H (21.0-32.0) meq/L Creatinine 0.57 L (0.60-1.30) mg/dL Random Glucose 158 H (74-106) mg/dL Calcium 7.8 L (8.5-10.1) mg/dL Ammonia (11-32) mcmol/L Vancomycin Trough 17.3 H (5.0-10.0) mcg/mL 09/21/18 Range/Units 09:50 WBC (4.0-11.0) th/mm3 RBC (4.50-5.90) mil/mm3 Hgb (13.0-17.0) gm/dL Hct (39.0-51.0) % Lymph % (Auto) (9.0-44.0) % Neut # (Auto) (1.8-7.7) th/mm3 Lymph # (Auto) (1.0-4.8) th/mm3 [place] # (Auto) (0.0-0.9) th/mm3 Carbon Dioxide (21.0-32.0) meq/L Creatinine (0.60-1.30) mg/dL Random Glucose (74-106) mg/dL Calcium (8.5-10.1) mg/dL Ammonia 61 H (11-32) mcmol/L Vancomycin Trough (5.0-10.0) mcg/mL Short CBC 09/21/18 Range/Units 09:50 WBC 23.6 H (4.0-11.0) th/mm3 Hgb 11.1 L (13.0-17.0) gm/dL Hct 34.0 L (39.0-51.0) % Plt Count 267 (150-450) th/mm3 BMP 09/21/18 09:50 Sodium 145 Potassium 3.5 Chloride 107 Carbon Dioxide 32.2 H BUN 16 Creatinine 0.57 L Calcium 7.8 L <Brook Rajinder Hunt O - 09/21/18 11:23> Physical Exam Vital signs: Vital Signs 09/21/18 15:00 09/21/18 16:00 09/21/18 20:00 Temperature 98.0 F 97.9 F Pulse Rate 84 73 91 H Respiratory Rate 16 19 17 Blood Pressure 135/79 130/59 L Pulse Oximetry 95 93 L 09/21/18 20:21 09/22/18 00:00 09/22/18 04:00 Temperature 98.9 F 97.4 F L Pulse Rate 99 H 107 H Respiratory Rate 18 20 Blood Pressure 110/52 L 133/76 Pulse Oximetry 92 L 94 L 93 L 09/22/18 04:26 09/22/18 07:00 09/22/18 07:33 Temperature Pulse Rate 99 H 88 Respiratory Rate 18 16 Blood Pressure Pulse Oximetry 92 L 09/22/18 08:00 09/22/18 10:58 09/22/18 12:00 Temperature 98.0 F 97.7 F Pulse Rate 92 H 84 77 Respiratory Rate 20 16 20 Blood Pressure 137/72 131/78 Pulse Oximetry 93 L 95 Intake & Output 09/21/18 09/22/18 09/22/18 18:59 06:59 18:59 Intake Total 715 / 715 420 / 420 Output Total 750 / 750 Balance 715 / 715 -330 / -330 Weight 86.9 kg Intake: IV 715 / 715 Maxipime Inj 2,000 MG In NS Inj 100 / 100 100 ML @ 200 mls/hr IV.SIG Q8H EMRE Rx#:[id number] Vancomycin Inj 1,500 MG In NS 515 / 515 Inj 500 ML @ 250 mls/hr IV.SIG Q12H EMRE Rx#:[id number] Flagyl 500 MG Inj 100 ML @ 100 100 / 100 mls/hr IV.SIG Q8H EMRE Rx#: [id number] Oral 420 / 420 Output: Urine 750 / 750 Other: # Incontinent Voids 1 Date of Last Bowel Movement 09/21/18 09/21/18 09/22/18 # Incontinent Bowel Movements 4 2 <Rodney Sibley - 09/22/18 13:46> Vital Signs 09/20/18 12:00 09/20/18 12:33 09/20/18 15:10 Temperature 97.9 F Pulse Rate 96 H 101 H 103 H Respiratory Rate 18 18 20 Blood Pressure 126/89 Pulse Oximetry 97 09/20/18 15:11 09/20/18 16:00 09/20/18 19:50 Temperature 97.3 F L Pulse Rate 95 H 95 H Respiratory Rate 18 18 Blood Pressure 140/82 Pulse Oximetry 95 97 09/20/18 20:00 09/21/18 00:00 09/21/18 00:31 Temperature 97.9 F 99.1 F Pulse Rate 97 H 92 H 95 H Respiratory Rate 16 17 14 Blood Pressure 116/72 114/75 Pulse Oximetry 93 L 98 97 09/21/18 02:56 09/21/18 04:00 09/21/18 07:00 Temperature 97.9 F Pulse Rate 85 95 H 81 Respiratory Rate 30 H 15 24 Blood Pressure 109/82 Pulse Oximetry 99 09/21/18 08:00 09/21/18 08:17 Temperature 97.8 F Pulse Rate 86 Respiratory Rate 20 Blood Pressure 141/85 H Pulse Oximetry 93 L 92 L Intake & Output 09/20/18 09/21/18 09/21/18 18:59 06:59 18:59 Intake Total 715 / 715 915 / 915 Output Total 300 / 300 450 / 450 Balance 415 / 415 465 / 465 Weight 86.6 kg Intake: IV 715 / 715 915 / 915 Maxipime Inj 2,000 MG In NS Inj 100 / 100 200 / 200 100 ML @ 200 mls/hr IV.SIG Q8H EMRE Rx#:[id number] Vancomycin Inj 1,500 MG In NS 515 / 515 515 / 515 Inj 500 ML @ 250 mls/hr IV.SIG Q12H EMRE Rx#:[id number] Flagyl 500 MG Inj 100 ML @ 100 100 / 100 200 / 200 mls/hr IV.SIG Q8H EMRE Rx#: [id number] Oral 0 / 0 Output: Urine 300 / 300 450 / 450 <Rajinder Mcmillan O - 09/21/18 11:23> Narrative: GENERAL: Older gentleman who appears calm and content, no obvious distress SKIN: Warm and dry HEAD: Atraumatic. Normocephalic. CARDIOVASCULAR: Regular rate and rhythm. RESPIRATORY: Clear to auscultation the lung gonzalez bilaterally. No wheezes. No crackles appreciated. No use of accessory muscles. GASTROINTESTINAL: Abdomen soft, non-tender. Distended. MUSCULOSKELETAL: No edema or cyanosis noted in the lower extremities bilaterally. NEUROLOGICAL: A and O x3. Patient is pleasant and engaging. Currently at baseline from admission. PSYCHIATRIC: Insight and judgment abnormal but currently at the patient's baseline. <Rajinder Mcmillan - 09/21/18 15:13> Assessment and Plan - Assessment (1) Pneumonia Code(s): J18.9 - Pneumonia, unspecified organism Status: Acute (2) Pulmonary edema Code(s): J81.1 - Chronic pulmonary edema Status: Acute (3) Sepsis Code(s): A41.9 - Sepsis, unspecified organism Status: Resolved (4) Dementia Code(s): F03.90 - Unspecified dementia without behavioral disturbance Status: Acute (5) Bipolar disorder Code(s): F31.9 - Bipolar disorder, unspecified Status: Acute (6) Schizophrenia Code(s): F20.9 - Schizophrenia, unspecified Status: Acute (7) HTN (hypertension) Code(s): I10 - Essential (primary) hypertension Status: Acute (8) Acute metabolic encephalopathy Code(s): G93.41 - Metabolic encephalopathy Status: Resolved <Rodney Sibley - 09/22/18 13:46> (1) Pneumonia Code(s): J18.9 - Pneumonia, unspecified organism Status: Acute Plan: Empirically treating for both community-acquired, aspiration pneumonias and HCAP. -Requires 5 O2 to sat above 92% (baseline is 2 L) -CXR from 09/17 suggests pulmonary edema with lower lung opacity -CXR from 09/19 showed diffuse increased interstitial markings likely related to diffuse processes such as edema or diffuse infection. -Blood cx NGTD, urinary pneumococcal and legionella negative Plan: - Discontinue Flagyl (09/16), Vancomycin (09/19) , Cefepime (09/19) - Begin Augmentin 875 twice daily 09/21 - Duonebs every 4 hours - IS (2) Pulmonary edema Code(s): J81.1 - Chronic pulmonary edema Status: Acute Plan: May be 2/2 to fluid overload vs recent sepsis. No crackles appreciated on auscultation. -Repeat CXR 09/19 showed diffuse increased interstitial markings likely related to a diffuse process such as edema or diffuse infection -Continue home 20 mg Lasix BID -Keep head of bed elevated at 30 degrees -Clinically stable (3) Acute metabolic encephalopathy Code(s): G93.41 - Metabolic encephalopathy Status: Resolved Plan: Resolved: A halicat was called on this patient on 09/19 for acute altered mental status. Patient was found difficult to arouse at bedside. Status change most likely related to his pneumonia as patient not taking lactulose. Patient regained baseline mental status after administration of rectal lactulose. Plan: Continue lactulose 10 mL p.o. 3 times daily Halicat work up on 01/18 as follows: -CXR: Diffuse increased interstitial markings likely related to diffuse processes such as edema or diffuse infection -Depakote level 36, low -Ammonia level 63 -CT head, no acute intracranial process -ABG 7.39/53/73/31 Patient was given rectal lactulose and responded well. Ammonia on 09/20 now improved at 57 (4) Sepsis Code(s): A41.9 - Sepsis, unspecified organism Status: Resolved Plan: Improving, please see plan above for pneumonia (5) Dementia Code(s): F03.90 - Unspecified dementia without behavioral disturbance Status: Acute Plan: Reorient for delirium Haldol PRN for agitation Health proxy is brother Michael (6) Bipolar disorder Code(s): F31.9 - Bipolar disorder, unspecified Status: Acute Plan: Con't home valproic acid daily and Zoloft daily (7) Schizophrenia Code(s): F20.9 - Schizophrenia, unspecified Status: Acute Plan: Continue home med of clozapine (8) HTN (hypertension) Code(s): I10 - Essential (primary) hypertension Status: Acute Plan: Patient currently normotensive -Continue home furosemide 20 mg po bid FEN: Fluids: none Electrolytes: monitor Nutrition: mech soft, honey thick liquid diet DVT prophy: Lovenox daily <Rajinder Mcmillan - 09/21/18 15:10> - Assessment and Plan Patient is a 73 year old man with a h/o schizophrenia, bipolar disorder, hypertension who presented septic with a likely Pneumonia: Continue IV antibiotics with ceftriaxone, azithromycin, and Flagyl as there is a concern for aspiration Blood cultures NGTD Urine Legionella antigens negative Supplemental oxygen as needed breathing treatments ordered <Rajinder Mcmillan - 09/21/18 11:23> - Attending Attestation Pt. examined independently during medical rounds on the morning of 09/21/2018 I have read the above resident note and agree with the assessment/plan as discussed with me I was involved in all medical decision making for this patient Rodney Sibley MD <Rodney Sibley - 09/22/18 13:46> <Rajinder Mcmillan Filed: 09/21/18 15:10> (1) Pneumonia Qualifiers: Pneumonia type: due to unspecified organism <Rajinder Mcmillan Filed: 09/21/18 15:10> (1) Pneumonia Qualifiers: Pneumonia type: due to unspecified organism
[2018-09-21] MEDS: Enoxaparin Inj 40 MG/0.4 ML Syringe SQ SCH (11:27)
[2018-09-21 11:47] LABS: Metamyelocytes 4 % (0-1); Monocytes 1 % (0-8)
[2018-09-21 11:48] LABS: Platelet Estimate Normal (Normal); Platelet Morphology Normal (Normal)
[2018-09-21 11:49] LABS: Smudge Cells Present
[2018-09-21 11:50] LABS: Lymphocytes 63 % (9-44)
[2018-09-21] MEDS: Amoxicillin/Clavulanate 875/125 MG Tablet PO SCH (20:56)
[2018-09-21] MEDS: Haloperidol Inj 5 MG/ML Ampul IV.PUSH PRN (20:57)
[2018-09-22] MEDS: Ferrous Sulfate 325 MG Tablet PO SCH (08:29)
[2018-09-22] MEDS: Amoxicillin/Clavulanate 875/125 MG Tablet PO SCH ×2 (08:29→21:27)
[2018-09-22] MEDS: Furosemide 20 MG Tablet PO SCH (08:30)
[2018-09-22] MEDS: Sertraline 100 MG Tablet PO SCH (08:30)
[2018-09-22] MEDS: Budesonide-Formoterol 160/4.5 MCG 6 GM Inhaler INH SCH ×2 (08:34→21:28)
[2018-09-22 08:35] LABS: Baso # (Auto) 0.1 th/mm3 (0.0-0.2); Baso % (Auto) 0.2 % (0.0-2.0); Eos # (Auto) 0.2 th/mm3 (0.0-0.4); Eos % (Auto) 0.8 % (0.0-4.0); Hematocrit 34.8 % (39.0-51.0); Hemoglobin 11.3 gm/dL (13.0-17.0); Lymph # (Auto) 15.2 th/mm3 (1.0-4.8); Lymph % (Auto) 62.6 % (9.0-44.0); Mean Corpuscular HGB Conc 32.6 % (32.0-36.0); Mean Corpuscular Hemoglobin 30.7 pg (27.0-34.0); Mean Platelet Volume 8.4 fL (7.0-11.0); Mono # (Auto) 1.1 th/mm3 (0.0-0.9); Mono % (Auto) 4.6 % (0.0-8.0); Neut # (Auto) 7.7 th/mm3 (1.8-7.7); Neut % (Auto) 31.8 % (16.0-70.0); Platelet Count 287 th/mm3 (150-450); Red Cell Distribution Width 14.6 % (11.6-17.2); White Blood Count 24.3 th/mm3 (4.0-11.0)
--- NOTE | 2018-09-22 10:28 | P.PNFP ---
Subjective Interval history: Patient seen at bedside this morning. Upon entering the room patient became very tearful saying "please on do not send me home Doc, I don't want to go home ". When asked why he did not want to go home patient looked around and eventually responded "because I feel weak Doc. Can I go home in just a few more days please". Patient reports weakness but no associated pain. Patient denies any chest pain shortness of breath or abdominal pain. <Rajinder Mcmillan - 09/22/18 10:28> Results - Labs Result diagrams: 09/22/18 08:03 09/21/18 09:50 <Rodney Sibley - 09/22/18 14:27> Abnormal lab results 09/22/18 Range/Units 08:03 WBC 24.3 H (4.0-11.0) th/mm3 RBC 3.70 L (4.50-5.90) mil/mm3 Hgb 11.3 L (13.0-17.0) gm/dL Hct 34.8 L (39.0-51.0) % Lymph % (Auto) 62.6 H (9.0-44.0) % Lymph # (Auto) 15.2 H (1.0-4.8) th/mm3 [place] # (Auto) 1.1 H (0.0-0.9) th/mm3 Lymphocytes % (Manual) 61 H (9-44) % Myelocytes % (Man) 1 H (0-0) % Smudge Cells Present H (None) Dimorphic RBCs Present H (None) Short CBC 09/22/18 Range/Units 08:03 WBC 24.3 H (4.0-11.0) th/mm3 Hgb 11.3 L (13.0-17.0) gm/dL Hct 34.8 L (39.0-51.0) % Plt Count 287 (150-450) th/mm3 <Rodney Sibley - 09/22/18 14:27> Abnormal lab results 09/21/18 09/21/18 09/22/18 Range/Units 09:50 09:50 08:03 WBC 23.6 H 24.3 H (4.0-11.0) th/mm3 RBC 3.59 L 3.70 L (4.50-5.90) mil/mm3 Hgb 11.1 L 11.3 L (13.0-17.0) gm/dL Hct 34.0 L 34.8 L (39.0-51.0) % Lymph % (Auto) 60.6 H 62.6 H (9.0-44.0) % Neut # (Auto) 8.0 H (1.8-7.7) th/mm3 Lymph # (Auto) 14.3 H 15.2 H (1.0-4.8) th/mm3 [place] # (Auto) 1.0 H 1.1 H (0.0-0.9) th/mm3 Band Neuts % (Manual) 7 H (0-6) % Lymphocytes % (Manual) 63 H (9-44) % Metamyelocytes % (Man) 4 H (0-1) % Abs Neuts (Manual) 8.5 H (1.8-7.7) th/mm3 Smudge Cells Present H (None) Carbon Dioxide 32.2 H (21.0-32.0) meq/L Creatinine 0.57 L (0.60-1.30) mg/dL Random Glucose 158 H (74-106) mg/dL Calcium 7.8 L (8.5-10.1) mg/dL Short CBC 09/21/18 09/22/18 Range/Units 09:50 08:03 WBC 23.6 H 24.3 H (4.0-11.0) th/mm3 Hgb 11.1 L 11.3 L (13.0-17.0) gm/dL Hct 34.0 L 34.8 L (39.0-51.0) % Plt Count 267 287 (150-450) th/mm3 [facility] 09/21/18 09:50 Sodium 145 Potassium 3.5 Chloride 107 Carbon Dioxide 32.2 H BUN 16 Creatinine 0.57 L Calcium 7.8 L <Rajinder Mcmillan O - 09/22/18 10:28> Physical Exam Vital signs: Vital Signs 09/21/18 15:00 09/21/18 16:00 09/21/18 20:00 Temperature 98.0 F 97.9 F Pulse Rate 84 73 91 H Respiratory Rate 16 19 17 Blood Pressure 135/79 130/59 L Pulse Oximetry 95 93 L 09/21/18 20:21 09/22/18 00:00 09/22/18 04:00 Temperature 98.9 F 97.4 F L Pulse Rate 99 H 107 H Respiratory Rate 18 20 Blood Pressure 110/52 L 133/76 Pulse Oximetry 92 L 94 L 93 L 09/22/18 04:26 09/22/18 07:00 09/22/18 07:33 Temperature Pulse Rate 99 H 88 Respiratory Rate 18 16 Blood Pressure Pulse Oximetry 92 L 09/22/18 08:00 09/22/18 10:58 09/22/18 12:00 Temperature 98.0 F 97.7 F Pulse Rate 92 H 84 77 Respiratory Rate 20 16 20 Blood Pressure 137/72 131/78 Pulse Oximetry 93 L 95 Intake & Output 09/21/18 09/22/18 09/22/18 18:59 06:59 18:59 Intake Total 715 / 715 420 / 420 Output Total 750 / 750 Balance 715 / 715 -330 / -330 Weight 86.9 kg Intake: IV 715 / 715 Maxipime Inj 2,000 MG In NS Inj 100 / 100 100 ML @ 200 mls/hr IV.SIG Q8H EMRE Rx#:[id number] Vancomycin Inj 1,500 MG In NS 515 / 515 Inj 500 ML @ 250 mls/hr IV.SIG Q12H EMRE Rx#:[id number] Flagyl 500 MG Inj 100 ML @ 100 100 / 100 mls/hr IV.SIG Q8H EMRE Rx#: [id number] Oral 420 / 420 Output: Urine 750 / 750 Other: # Incontinent Voids 1 Date of Last Bowel Movement 09/21/18 09/21/18 09/22/18 # Incontinent Bowel Movements 4 2 <Rodney Sibley - 09/22/18 14:27> Vital Signs 09/21/18 12:00 09/21/18 15:00 09/21/18 16:00 Temperature 98.0 F 98.0 F Pulse Rate 79 84 73 Respiratory Rate 18 16 19 Blood Pressure 124/80 135/79 Pulse Oximetry 95 95 09/21/18 20:00 09/21/18 20:21 09/22/18 00:00 Temperature 97.9 F 98.9 F Pulse Rate 91 H 99 H Respiratory Rate 17 18 Blood Pressure 130/59 L 110/52 L Pulse Oximetry 93 L 92 L 94 L 09/22/18 04:00 09/22/18 04:26 09/22/18 07:00 Temperature 97.4 F L Pulse Rate 107 H 99 H 88 Respiratory Rate 20 18 16 Blood Pressure 133/76 Pulse Oximetry 93 L 09/22/18 07:33 09/22/18 08:00 Temperature 98.0 F Pulse Rate 92 H Respiratory Rate 20 Blood Pressure 137/72 Pulse Oximetry 92 L 93 L Intake & Output 09/21/18 09/22/18 09/22/18 18:59 06:59 18:59 Intake Total 715 / 715 420 / 420 Output Total 750 / 750 Balance 715 / 715 -330 / -330 Weight 86.9 kg Intake: IV 715 / 715 Maxipime Inj 2,000 MG In NS Inj 100 / 100 100 ML @ 200 mls/hr IV.SIG Q8H EMRE Rx#:[id number] Vancomycin Inj 1,500 MG In NS 515 / 515 Inj 500 ML @ 250 mls/hr IV.SIG Q12H EMRE Rx#:[id number] Flagyl 500 MG Inj 100 ML @ 100 100 / 100 mls/hr IV.SIG Q8H EMRE Rx#: [id number] Oral 420 / 420 Output: Urine 750 / 750 Other: # Incontinent Voids 1 Date of Last Bowel Movement 09/21/18 09/21/18 # Incontinent Bowel Movements 4 2 <Rajinder Mcmillan - 09/22/18 10:28> Narrative: GENERAL: Older gentleman who appears emotionally labile repeating that he does not want to go home. Denies being afraid to go home. SKIN: Warm and dry HEAD: Atraumatic. Normocephalic. CARDIOVASCULAR: Regular rate and rhythm. RESPIRATORY: Clear to auscultation the lung gonzalez bilaterally with minimal rhonchi in bases. No wheezes. No crackles appreciated. No use of accessory muscles. GASTROINTESTINAL: Abdomen soft, non-tender. Distended. MUSCULOSKELETAL: No edema or cyanosis noted in the lower extremities bilaterally. NEUROLOGICAL: A and O x3. Patient is pleasant and engaging. Currently at baseline from admission. PSYCHIATRIC: Insight and judgment abnormal but currently at the patient's baseline. <Rajinder Mcmillan - 09/22/18 10:28> Assessment and Plan - Assessment (1) Pneumonia Code(s): J18.9 - Pneumonia, unspecified organism Status: Acute (2) Pulmonary edema Code(s): J81.1 - Chronic pulmonary edema Status: Acute (3) Sepsis Code(s): A41.9 - Sepsis, unspecified organism Status: Resolved (4) Dementia Code(s): F03.90 - Unspecified dementia without behavioral disturbance Status: Acute (5) Bipolar disorder Code(s): F31.9 - Bipolar disorder, unspecified Status: Acute (6) Schizophrenia Code(s): F20.9 - Schizophrenia, unspecified Status: Acute (7) HTN (hypertension) Code(s): I10 - Essential (primary) hypertension Status: Acute (8) Acute metabolic encephalopathy Code(s): G93.41 - Metabolic encephalopathy Status: Resolved <Rodney Sibley - 09/22/18 14:27> (1) Pneumonia Code(s): J18.9 - Pneumonia, unspecified organism Status: Acute Plan: Empirically treating for both community-acquired, aspiration pneumonias and HCAP. -Requires 6 O2 to sat above 92% (baseline is 2 L) -CXR from 09/17 suggests pulmonary edema with lower lung opacity -CXR from 09/19 showed diffuse increased interstitial markings likely related to diffuse processes such as edema or diffuse infection. -Blood cx NGTD, urinary pneumococcal and legionella negative Plan: - Discharge to [facility] - Continue Augmentin 875 twice daily 09/21 - Duonebs every 4 hours - IS Antibiotic course while inpatient: - Discontinued Flagyl (09/16), Vancomycin (09/19) , Cefepime (09/19) (2) Pulmonary edema Code(s): J81.1 - Chronic pulmonary edema Status: Acute Plan: May be 2/2 to fluid overload vs recent sepsis. Minor rhonchi in lower lobes bilaterally, no crackles appreciated on auscultation. -Repeat CXR 09/19 showed diffuse increased interstitial markings likely related to a diffuse process such as edema or diffuse infection -Continue home 20 mg Lasix BID -Clinically stable (3) Sepsis Code(s): A41.9 - Sepsis, unspecified organism Status: Resolved Plan: Improving, please see plan above for pneumonia (4) Dementia Code(s): F03.90 - Unspecified dementia without behavioral disturbance Status: Acute Plan: Reorient for delirium Haldol PRN for agitation Health proxy is brother Michael (5) Bipolar disorder Code(s): F31.9 - Bipolar disorder, unspecified Status: Acute Plan: Con't home valproic acid daily and Zoloft daily (6) Schizophrenia Code(s): F20.9 - Schizophrenia, unspecified Status: Acute Plan: Continue home med of clozapine (7) HTN (hypertension) Code(s): I10 - Essential (primary) hypertension Status: Acute Plan: Patient currently normotensive -Continue home furosemide 20 mg po bid FEN: Fluids: none Electrolytes: monitor Nutrition: mech soft, honey thick liquid diet DVT prophy: Lovenox daily (8) Acute metabolic encephalopathy Code(s): G93.41 - Metabolic encephalopathy Status: Resolved Plan: Resolved: A halicat was called on this patient on 09/19 for acute altered mental status. Patient was found difficult to arouse at bedside. Status change most likely related to his pneumonia as patient not taking lactulose. Patient regained baseline mental status after administration of rectal lactulose. Plan: Continue lactulose 10 mL p.o. 3 times daily Halicat work up on 01/18 as follows: -CXR: Diffuse increased interstitial markings likely related to diffuse processes such as edema or diffuse infection -Depakote level 36, low -Ammonia level 63 -CT head, no acute intracranial process -ABG 7.39/53/73/31 Patient was given rectal lactulose and responded well. Ammonia on 09/20 now improved at 57 <Rajinder Mcmillan - 09/22/18 10:56> - Assessment and Plan Patient is a 73 year old man with a h/o schizophrenia, bipolar disorder, hypertension who presented septic with a likely Pneumonia: Continue IV antibiotics with ceftriaxone, azithromycin, and Flagyl as there is a concern for aspiration Blood cultures NGTD Urine Legionella antigens negative Supplemental oxygen as needed breathing treatments ordered <Rajinder Mcmillan - 09/22/18 10:28> - Attending Attestation Patient examined independently of resident physicians on 09/22/18 I personally reviewed daily updates with the patient and answered all questions I have read the above note by the resident physicians and agree with the assessment/plan as discussed with me I was involved in all medical decision making for this patient Rodney Sibley MD <Rodney Sibley - 09/22/18 14:27> <Rajinder Mcmillan O - Last Filed: 09/22/18 10:56> (1) Pneumonia Qualifiers: Pneumonia type: due to unspecified organism <Rodney Sibley Filed: 09/22/18 14:27> (1) Pneumonia Qualifiers: Pneumonia type: due to unspecified organism <Rajinder Mcmillan O - Last Filed: 09/22/18 10:56> (1) Pneumonia Qualifiers: Pneumonia type: due to unspecified organism <Rodney Sibley Filed: 09/22/18 14:27> (1) Pneumonia Qualifiers: Pneumonia type: due to unspecified organism
[2018-09-22 12:07] LABS: Dimorphic RBC Present; Eosinophils 1 % (0-4); Lymphocytes 61 % (9-44); Monocytes 8 % (0-8); Myelocytes 1 % (0-0)
[2018-09-22 12:08] LABS: Platelet Estimate Normal (Normal); Platelet Morphology Normal (Normal); Smudge Cells Present
[2018-09-22] MEDS: Enoxaparin Inj 40 MG/0.4 ML Syringe SQ SCH (12:27)
--- NOTE | 2018-09-22 13:28 | P.DS ---
Date of admission: 09/16/18 11:22 Primary care physician: UNKNOWN Brief History from admission: 73-year-old male presenting to the emergency department with mental status changes and found to have a pneumonia. He has a history significant for schizophrenia and bipolar disorder, and he is unable to provide his own version of the history. HPI was obtained from nursing and the ER physician. He is a resident of [facility], however was apparently having altered mental status the last 24 hours. He became febrile with a T-max of 102 F as well as respiratory distress with associated cough. In the emergency department he was found to be tachycardic in the Neck and was 90% on 4 L nasal cannula, he is not usually on oxygen. Chest x-ray was found to have bibasilar parenchymal changes consistent with pneumonia. DS: Diagnosis - Discharge Diagnosis (1) Pneumonia Status: Acute (2) Pulmonary edema Status: Acute (3) Dementia Status: Chronic (4) Bipolar disorder Status: Acute (5) Schizophrenia Status: Acute (6) HTN (hypertension) Status: Acute DS: Medications - Discharge Medications Prescriptions: amoxicillin-pot clavulanate 1 tab PO Q12HR #6 tab Lactobacillus acidoph-L.bulgar [Floranex] 1 gm PO TID #90 ea DS: Summary Hospital Course: 73-year-old male with history of CLL, schizophrenia and bipolar disorder presenting to the emergency department from assisted living facility with mental status changes and admitted for pneumonia. On admission patient met severe sepsis criteria and chest x-ray showed bibasilar inflammatory processes. Patient was begun on Rocephin and azithromycin for presumptive community- acquired pneumonia. Flagyl was then added for anaerobic coverage. On 09/19 a rapid response team was called to patient's room due to difficulty to arouse. Patient was found to have elevated ammonia level. Chest x-ray showed edema versus infiltrate. Patient regained baseline mental status after administration of rectal lactulose. During this rapid response patient was changed from previous IV antibiotics to vancomycin, cefepime and Flagyl for added coverage due to possible hospital-acquired pneumonia. Patient required increased oxygen to maintain oxygen saturations above 92%. Patient was kept on duo nebs throughout hospital course to which he responded well. On Sep 21 patient was transitioned to po Augmentin on which he was ultimately discharged. Patient continued to sat at 93% on 6L of nasal canula and was reevaluated for pulmonary edema with CXR on 09/24/18 showed probable slight interval improvement. Patient continued diuresis. On day of discharge patient was adamant that he did not want to go home and began to hit himself on the forehead. Patient was then evaluated by psychiatry who evaluated the patient and found no justification for patient's continued hospitalization based on mental status or psychiatric illness. Patient was discharged on home Augmentin with need for PT. - Time Spent with Patient Total time spent providing and/or coordinating discharge services: Greater than 30 minutes Exam Vital signs: Vital Signs 09/21/18 15:00 09/21/18 16:00 09/21/18 20:00 Temperature 98.0 F 97.9 F Pulse Rate 84 73 91 H Respiratory Rate 16 19 17 Blood Pressure 135/79 130/59 L Pulse Oximetry 95 93 L 09/21/18 20:21 09/22/18 00:00 09/22/18 04:00 Temperature 98.9 F 97.4 F L Pulse Rate 99 H 107 H Respiratory Rate 18 20 Blood Pressure 110/52 L 133/76 Pulse Oximetry 92 L 94 L 93 L 09/22/18 04:26 09/22/18 07:00 09/22/18 07:33 Temperature Pulse Rate 99 H 88 Respiratory Rate 18 16 Blood Pressure Pulse Oximetry 92 L 09/22/18 08:00 09/22/18 10:58 09/22/18 12:00 Temperature 98.0 F 97.7 F Pulse Rate 92 H 84 77 Respiratory Rate 20 16 20 Blood Pressure 137/72 131/78 Pulse Oximetry 93 L 95 Intake & Output 09/21/18 09/22/18 09/22/18 18:59 06:59 18:59 Intake Total 715 / 715 420 / 420 Output Total 750 / 750 Balance 715 / 715 -330 / -330 Weight 86.9 kg Intake: IV 715 / 715 Maxipime Inj 2,000 MG In NS Inj 100 / 100 100 ML @ 200 mls/hr IV.SIG Q8H EMRE Rx#:[id number] Vancomycin Inj 1,500 MG In NS 515 / 515 Inj 500 ML @ 250 mls/hr IV.SIG Q12H EMRE Rx#:[id number] Flagyl 500 MG Inj 100 ML @ 100 100 / 100 mls/hr IV.SIG Q8H EMRE Rx#: [id number] Oral 420 / 420 Output: Urine 750 / 750 Other: # Incontinent Voids 1 Date of Last Bowel Movement 09/21/18 09/21/18 09/22/18 # Incontinent Bowel Movements 4 2 Narrative: GENERAL: Older gentleman who appears emotionally labile repeating that he does not want to go home. SKIN: Warm and dry HEAD: Atraumatic. Normocephalic. CARDIOVASCULAR: Regular rate and rhythm. RESPIRATORY: Clear to auscultation the lung gonzalez bilaterally. No crackles appreciated. No use of accessory muscles. GASTROINTESTINAL: Abdomen soft, non-tender. Distended. MUSCULOSKELETAL: No edema or cyanosis noted in the lower extremities bilaterally. NEUROLOGICAL: No focal neurological deficits. PSYCHIATRIC: Patient very distraught when speaking about discharge. Patient hit himself in the forehead several times our conversation stating that he could not get up and out of bed and wanted to live here permanently. insight and judgment abnormal but currently at the patient's baseline. Results Procedures completed during hospitalization: None Labs on day of discharge: Labs from last 24 hours 09/22/18 09/21/18 08:03 16:45 WBC 24.3 H RBC 3.70 L Hgb 11.3 L Hct 34.8 L MCV 94.0 MCH 30.7 MCHC 32.6 RDW 14.6 Plt Count 287 MPV 8.4 Prelim Diff (Auto) Slide review pending Neut % (Auto) 31.8 Lymph % (Auto) 62.6 H [place] % (Auto) 4.6 Eos % (Auto) 0.8 Baso % (Auto) 0.2 Neut # (Auto) 7.7 Lymph # (Auto) 15.2 H [place] # (Auto) 1.1 H Eos # (Auto) 0.2 Baso # (Auto) 0.1 WBC Differential Manual diff final Seg Neuts % (Manual) 27 Band Neuts % (Manual) 2 Lymphocytes % (Manual) 61 H Monocytes % (Manual) 8 Eosinophils % (Manual) 1 Myelocytes % (Man) 1 H Abs Neuts (Manual) 7.3 Differential Comment . Smudge Cells Present H Platelet Estimate Normal Platelet Morphology Normal Dimorphic RBCs Present H Stl C.difficile DNA Amp Negative St C. diff Tox Epid 027 Negative - Impressions ITS Impressions Chest X-Ray 09/19/18 00:00 CONCLUSION: Diffuse increased interstitial markings likely related to diffuse processes such as edema or diffuse infection. Head CT 09/19/18 00:00 CONCLUSION: 1. Mild cerebral atrophy. 2. No acute infarct, acute hemorrhage, midline shift or extra-axial fluid collections. 3. Mucosal thickening involving the right sphenoid sinus. . Discharge Plan - Discharge Disposition Patient Disposition: 04 ACLF/ASSISTED - Discharge Condition Condition: Stable - Discharge Order Discharge Orders: Discharge Order (Routine); Ordered 09/24/18 Ordered By: Rajinder Doe ED Use Only Admit Order (Routine); Ordered 09/16/18 Ordered By: Caitlin Storm - Discharge Details Anticipated Discharge Date: 09/16/18 Discharge Comment: requires PT after discharge - Physicians Team Primary Care Provider: UNKNOWN, Attending Provider: Rodney Sibley Other Providers: [facility] & [facility] ; Davon Paul MD
--- NOTE | 2018-09-22 14:28 | XR ---
EXAM DATE: 09/22/2018 2:22 PM EST AGE/SEX: 73 years / Male INDICATIONS: . Cough and short of breath. CLINICAL DATA: This is the patient's subsequent encounter. Patient reports that signs and symptoms h ave been present for 4 - 6 days and indicates a pain score of 0/10. MEDICAL/SURGICAL HISTORY: . Seizures. None. COMPARISON: [facility] [place], CHEST 2V AP&LAT, 09/19/2018. . FINDINGS: The heart size is within normal limits. The lungs demonstrate diffuse increased measures markings. Th ere is some further more focal density at the right perihilar and bilateral basilar regions. 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 CONCLUSION: Diffuse increased interstitial markings likely related to edema. Alveolar consolidation or atelectasis in the right perihilar region and at the bases. Mild effusions cannot be excluded. Electronically signed by: Derrick Lambert MD Board Certified Radiologist 09/22/2018 2:27 PM EST
[2018-09-22] MEDS: Furosemide 40 MG Tablet PO SCH (17:29)
[2018-09-23 09:18] LABS: Baso # (Auto) 0.2 th/mm3 (0.0-0.2); Baso % (Auto) 0.9 % (0.0-2.0); Eos # (Auto) 0.3 th/mm3 (0.0-0.4); Eos % (Auto) 1.4 % (0.0-4.0); Hematocrit 35.6 % (39.0-51.0); Hemoglobin 11.5 gm/dL (13.0-17.0); Lymph # (Auto) 14.5 th/mm3 (1.0-4.8); Lymph % (Auto) 59.7 % (9.0-44.0); Mean Corpuscular HGB Conc 32.4 % (32.0-36.0); Mean Corpuscular Hemoglobin 30.7 pg (27.0-34.0); Mean Corpuscular Volume 94.9 fL (80.0-100.0); Mean Platelet Volume 8.6 fL (7.0-11.0); Mono # (Auto) 0.6 th/mm3 (0.0-0.9); Mono % (Auto) 2.7 % (0.0-8.0); Neut # (Auto) 8.6 th/mm3 (1.8-7.7); Neut % (Auto) 35.3 % (16.0-70.0); Platelet Count 286 th/mm3 (150-450); Red Blood Count 3.75 mil/mm3 (4.50-5.90); Red Cell Distribution Width 14.6 % (11.6-17.2); White Blood Count 24.3 th/mm3 (4.0-11.0)
--- NOTE | 2018-09-23 09:58 | P.PNFP ---
Subjective Interval history: Patient seen at bedside this morning. Patient had no acute events overnight. Patient reports that although he feels okay he does not want to go back home. Patient requests to stay inpatient longer. Otherwise patient is experiencing no shortness of breath, chest pain, abdominal pain nausea, vomiting, fevers, or chills. Results - Labs Result diagrams: 09/23/18 07:25 09/21/18 09:50 Abnormal lab results 09/22/18 09/23/18 Range/Units 08:03 07:25 WBC 24.3 H (4.0-11.0) th/mm3 RBC 3.75 L (4.50-5.90) mil/mm3 Hgb 11.5 L (13.0-17.0) gm/dL Hct 35.6 L (39.0-51.0) % Lymph % (Auto) 59.7 H (9.0-44.0) % Neut # (Auto) 8.6 H (1.8-7.7) th/mm3 Lymph # (Auto) 14.5 H (1.0-4.8) th/mm3 Lymphocytes % (Manual) 61 H (9-44) % Myelocytes % (Man) 1 H (0-0) % Smudge Cells Present H (None) Dimorphic RBCs Present H (None) Short CBC 09/23/18 Range/Units 07:25 WBC 24.3 H (4.0-11.0) th/mm3 Hgb 11.5 L (13.0-17.0) gm/dL Hct 35.6 L (39.0-51.0) % Plt Count 286 (150-450) th/mm3 - Imaging Impressions Chest X-Ray 09/22/18 00:00 CONCLUSION: Diffuse increased interstitial markings likely related to edema. Alveolar consolidation or atelectasis in the right perihilar region and at the bases. Mild effusions cannot be excluded. Physical Exam Vital signs: Vital Signs 09/22/18 10:58 09/22/18 12:00 09/22/18 15:00 Temperature 97.7 F Pulse Rate 84 77 89 Respiratory Rate 16 20 18 Blood Pressure 131/78 Pulse Oximetry 95 09/22/18 16:00 09/22/18 17:28 09/22/18 19:25 Temperature 98.3 F Pulse Rate 79 80 95 H Respiratory Rate 22 16 Blood Pressure 127/71 135/83 Pulse Oximetry 93 L 09/22/18 20:00 09/22/18 23:00 09/23/18 00:00 Temperature 97.8 F 97.2 F L Pulse Rate 96 H 88 92 H Respiratory Rate 20 20 20 Blood Pressure 128/67 132/75 Pulse Oximetry 93 L 94 L 09/23/18 04:00 09/23/18 08:00 09/23/18 09:00 Temperature 97.6 F 97.7 F Pulse Rate 94 H 100 H 99 H Respiratory Rate 20 20 18 Blood Pressure 97/53 L 114/66 Pulse Oximetry 95 93 L 91 L Intake & Output 09/22/18 09/23/18 09/23/18 18:59 06:59 18:59 Other: # Voids 2 1 Date of Last Bowel Movement 09/22/18 09/22/18 # Bowel Movements 1 # Incontinent Bowel Movements 3 Narrative: GENERAL: Older gentleman who appears emotionally labile repeating that he does not want to go home. SKIN: Warm and dry HEAD: Atraumatic. Normocephalic. CARDIOVASCULAR: Regular rate and rhythm. RESPIRATORY: Clear to auscultation the lung gonzalez bilaterally with minimal expiratory wheezing in upper lung gonzalez bilaterally. No crackles appreciated. No use of accessory muscles. GASTROINTESTINAL: Abdomen soft, non-tender. Distended. MUSCULOSKELETAL: No edema or cyanosis noted in the lower extremities bilaterally. NEUROLOGICAL: A and O x3. Patient is pleasant and engaging. Currently at baseline from admission. PSYCHIATRIC: Insight and judgment abnormal but currently at the patient's baseline. Assessment and Plan - Assessment (1) Pneumonia Code(s): J18.9 - Pneumonia, unspecified organism Status: Acute Plan: Empirically treating for both community-acquired, aspiration pneumonias and HCAP. -Requires 6 O2 to sat above 92%, according to home patient not on home oxygen at baseline -CXR from 09/17 suggests pulmonary edema with lower lung opacity -CXR from 09/19 showed diffuse increased interstitial markings likely related to diffuse processes such as edema or diffuse infection. -Blood cx NGTD, urinary pneumococcal and legionella negative Plan: - Discharge to home to [facility] - Continue Augmentin 875 twice daily for an additional 4 days after discharge - Duonebs every 4 hours as needed at home for wheezing shortness of breath - IS - We will likely need home oxygen Antibiotic course while inpatient: - Discontinued Flagyl (09/16), Vancomycin (09/19) , Cefepime (09/19) (2) Pulmonary edema Code(s): J81.1 - Chronic pulmonary edema Status: Acute Plan: May be 2/2 to fluid overload vs recent sepsis. No crackles appreciated on auscultation. -CXR 09/22: Diffuse increased interstitial markings likely related to edema. Alveolar consolidation or atelectasis in the right perihilar region and at the bases. -40 mg furosemide twice daily while inpatient -Continue home 20 mg Lasix daily after discharge -Clinically stable (3) Sepsis Code(s): A41.9 - Sepsis, unspecified organism Status: Resolved Plan: Improving, please see plan above for pneumonia (4) Dementia Code(s): F03.90 - Unspecified dementia without behavioral disturbance Status: Chronic Plan: Reorient for delirium Haldol PRN for agitation while inpatient Health proxy is franceser Michael (5) Bipolar disorder Code(s): F31.9 - Bipolar disorder, unspecified Status: Acute Plan: Con't home valproic acid daily and Zoloft daily (6) Schizophrenia Code(s): F20.9 - Schizophrenia, unspecified Status: Acute Plan: Continue home med of clozapine (7) HTN (hypertension) Code(s): I10 - Essential (primary) hypertension Status: Acute Plan: Patient currently normotensive -Continue home furosemide 20 mg po bid after discharge FEN: Fluids: none Electrolytes: monitor Nutrition: mech soft, honey thick liquid diet DVT prophy: Lovenox daily (8) Acute metabolic encephalopathy Code(s): G93.41 - Metabolic encephalopathy Status: Resolved Plan: Resolved: A halicat was called on this patient on 09/19 for acute altered mental status. Patient was found difficult to arouse at bedside. Status change most likely related to his pneumonia as patient not taking lactulose. Patient regained baseline mental status after administration of rectal lactulose. Plan: Continue lactulose 10 mL p.o. 3 times daily Halicat work up on 01/18 as follows: -CXR: Diffuse increased interstitial markings likely related to diffuse processes such as edema or diffuse infection -Depakote level 36, low -Ammonia level 63 -CT head, no acute intracranial process -ABG 7.39/53/73/31 Patient was given rectal lactulose and responded well. Ammonia on 09/20 now improved at 57 - Assessment and Plan Patient is a 73 year old man with a h/o schizophrenia, bipolar disorder, hypertension who presented septic with a likely Pneumonia: Continue IV antibiotics with ceftriaxone, azithromycin, and Flagyl as there is a concern for aspiration Blood cultures NGTD Urine Legionella antigens negative Supplemental oxygen as needed breathing treatments ordered (1) Pneumonia Qualifiers: Pneumonia type: due to unspecified organism
[2018-09-23] MEDS: Ferrous Sulfate 325 MG Tablet PO SCH (10:08)
[2018-09-23] MEDS: Furosemide 40 MG Tablet PO SCH ×2 (10:08→17:38)
[2018-09-23] MEDS: Amoxicillin/Clavulanate 875/125 MG Tablet PO SCH ×2 (10:08→21:20)
[2018-09-23] MEDS: Sertraline 100 MG Tablet PO SCH (10:09)
[2018-09-23] MEDS: Budesonide-Formoterol 160/4.5 MCG 6 GM Inhaler INH SCH ×2 (10:09→21:24)
[2018-09-23 10:35] LABS: Eosinophils 2 % (0-4); Metamyelocytes 1 % (0-1); Monocytes 2 % (0-8)
[2018-09-23 10:36] LABS: Lymphocytes 59 % (9-44); Platelet Estimate Normal (Normal); Platelet Morphology Normal (Normal); RBC Morphology Normal (Normal); Smudge Cells Present
[2018-09-23] MEDS: Enoxaparin Inj 40 MG/0.4 ML Syringe SQ SCH (13:10)
[2018-09-23] MEDS: Haloperidol Inj 5 MG/ML Ampul IV.PUSH PRN (21:23)
[2018-09-24 07:43] LABS: Baso # (Auto) 0.1 th/mm3 (0.0-0.2); Baso % (Auto) 0.3 % (0.0-2.0); Eos # (Auto) 0.5 th/mm3 (0.0-0.4); Eos % (Auto) 1.8 % (0.0-4.0); Hematocrit 35.3 % (39.0-51.0); Hemoglobin 11.3 gm/dL (13.0-17.0); Lymph % (Auto) 54.2 % (9.0-44.0); Mean Corpuscular HGB Conc 32.1 % (32.0-36.0); Mean Corpuscular Hemoglobin 30.2 pg (27.0-34.0); Mean Corpuscular Volume 94.3 fL (80.0-100.0); Mean Platelet Volume 8.4 fL (7.0-11.0); Mono # (Auto) 1.2 th/mm3 (0.0-0.9); Mono % (Auto) 4.4 % (0.0-8.0); Neut # (Auto) 10.9 th/mm3 (1.8-7.7); Neut % (Auto) 39.3 % (16.0-70.0); Platelet Count 280 th/mm3 (150-450); Red Blood Count 3.75 mil/mm3 (4.50-5.90); White Blood Count 27.7 th/mm3 (4.0-11.0)
[2018-09-24] MEDS ORDERED: Pharmacy Ordered Lab Info OTHER ONE (07:45)
--- NOTE | 2018-09-24 08:28 | P.PNFP ---
Subjective Interval history: Patient was seen at bedside this morning. There were no acute events overnight. Patient reports having no pain as well as feels like he is breathing well. Patient however, reports that he wants to stay inpatient for ever. He says that he wants to live here permanently because he is happy and has a whole room to himself. He also reports that people treat him while here and does not want to leave. During our conversation about possible discharge patient hits himself on the forehead several times stating that he cannot get out of bed. At the end of our conversation patient had no further questions and stated that he loved us. <Brook HuntRajinder Jason - 09/24/18 10:29> Results - Labs Result diagrams: 09/24/18 06:39 09/21/18 09:50 <Rodney Sibley - 09/24/18 11:22> Abnormal lab results 09/24/18 Range/Units 06:39 WBC 27.7 H (4.0-11.0) th/mm3 RBC 3.75 L (4.50-5.90) mil/mm3 Hgb 11.3 L (13.0-17.0) gm/dL Hct 35.3 L (39.0-51.0) % Lymph % (Auto) 54.2 H (9.0-44.0) % Neut # (Auto) 10.9 H (1.8-7.7) th/mm3 Lymph # (Auto) 15.0 H (1.0-4.8) th/mm3 Wheeler # (Auto) 1.2 H (0.0-0.9) th/mm3 Eos # (Auto) 0.5 H (0.0-0.4) th/mm3 Lymphocytes % (Manual) 47 H (9-44) % Abs Neuts (Manual) 14.1 H (1.8-7.7) th/mm3 Smudge Cells Present H (None) Short CBC 09/24/18 Range/Units 06:39 WBC 27.7 H (4.0-11.0) th/mm3 Hgb 11.3 L (13.0-17.0) gm/dL Hct 35.3 L (39.0-51.0) % Plt Count 280 (150-450) th/mm3 <Rodney Sibley - 09/24/18 11:22> Abnormal lab results 09/23/18 09/24/18 Range/Units 07:25 06:39 WBC 24.3 H 27.7 H (4.0-11.0) th/mm3 RBC 3.75 L 3.75 L (4.50-5.90) mil/mm3 Hgb 11.5 L 11.3 L (13.0-17.0) gm/dL Hct 35.6 L 35.3 L (39.0-51.0) % Lymph % (Auto) 59.7 H 54.2 H (9.0-44.0) % Neut # (Auto) 8.6 H 10.9 H (1.8-7.7) th/mm3 Lymph # (Auto) 14.5 H 15.0 H (1.0-4.8) th/mm3 Wheeler # (Auto) 1.2 H (0.0-0.9) th/mm3 Eos # (Auto) 0.5 H (0.0-0.4) th/mm3 Lymphocytes % (Manual) 59 H (9-44) % Abs Neuts (Manual) 9.0 H (1.8-7.7) th/mm3 Smudge Cells Present H (None) Short CBC 09/23/18 09/24/18 Range/Units 07:25 06:39 WBC 24.3 H 27.7 H (4.0-11.0) th/mm3 Hgb 11.5 L 11.3 L (13.0-17.0) gm/dL Hct 35.6 L 35.3 L (39.0-51.0) % Plt Count 286 280 (150-450) th/mm3 <Rajinder Mcmillan - 09/24/18 08:27> - Imaging Impressions Chest X-Ray 09/24/18 00:00 CONCLUSION: Probable slight interval improvement in aeration. <Rodney Sibley - 09/24/18 11:21> Physical Exam Vital signs: Vital Signs 09/23/18 11:24 09/23/18 12:00 09/23/18 16:00 Temperature 97.9 F 98.3 F Pulse Rate 98 H 68 95 H Respiratory Rate 16 20 20 Blood Pressure 119/72 113/68 Pulse Oximetry 96 92 L 09/23/18 16:06 09/23/18 20:00 09/23/18 20:16 Temperature 97.8 F Pulse Rate 96 H 94 H 94 H Respiratory Rate 16 20 22 Blood Pressure 131/73 Pulse Oximetry 93 L 94 L 09/23/18 23:29 09/24/18 00:00 09/24/18 03:09 Temperature 97.4 F L Pulse Rate 102 H 104 H 103 H Respiratory Rate 22 20 16 Blood Pressure 131/73 Pulse Oximetry 92 L 93 L 09/24/18 04:00 09/24/18 08:00 09/24/18 08:11 Temperature 98.1 F 97.6 F Pulse Rate 101 H 109 H 99 H Respiratory Rate 20 19 20 Blood Pressure 138/74 129/83 Pulse Oximetry 93 L 96 09/24/18 08:12 Temperature Pulse Rate Respiratory Rate Blood Pressure Pulse Oximetry 93 L Intake & Output 09/23/18 09/24/18 09/24/18 18:59 06:59 18:59 Intake Total 960 / 960 120 / 120 Balance 960 / 960 120 / 120 Intake: Oral 960 / 960 120 / 120 Other: # Voids 4 2 Date of Last Bowel Movement 09/23/18 09/22/18 09/24/18 # Bowel Movements 2 2 <Maryjo,Rodney - 09/24/18 11:22> Vital Signs 09/23/18 09:00 09/23/18 11:24 09/23/18 12:00 Temperature 97.9 F Pulse Rate 99 H 98 H 68 Respiratory Rate 18 16 20 Blood Pressure 119/72 Pulse Oximetry 91 L 96 09/23/18 16:00 09/23/18 16:06 09/23/18 20:00 Temperature 98.3 F 97.8 F Pulse Rate 95 H 96 H 94 H Respiratory Rate 20 16 20 Blood Pressure 113/68 131/73 Pulse Oximetry 92 L 93 L 09/23/18 20:16 09/23/18 23:29 09/24/18 00:00 Temperature 97.4 F L Pulse Rate 94 H 102 H 104 H Respiratory Rate 22 22 20 Blood Pressure 131/73 Pulse Oximetry 94 L 92 L 93 L 09/24/18 03:09 09/24/18 04:00 09/24/18 08:11 Temperature 98.1 F Pulse Rate 103 H 101 H 99 H Respiratory Rate 16 20 20 Blood Pressure 138/74 Pulse Oximetry 93 L 09/24/18 08:12 Temperature Pulse Rate Respiratory Rate Blood Pressure Pulse Oximetry 93 L Intake & Output 09/23/18 09/24/18 09/24/18 18:59 06:59 18:59 Intake Total 960 / 960 120 / 120 Balance 960 / 960 120 / 120 Intake: Oral 960 / 960 120 / 120 Other: # Voids 4 2 Date of Last Bowel Movement 09/23/18 09/22/18 # Bowel Movements 2 2 <Rajinder Mcmillan - 09/24/18 08:27> Narrative: GENERAL: Older gentleman who appears emotionally labile repeating that he does not want to go home. SKIN: Warm and dry HEAD: Atraumatic. Normocephalic. CARDIOVASCULAR: Regular rate and rhythm. RESPIRATORY: Clear to auscultation the lung gonzalez bilaterally. No crackles appreciated. No use of accessory muscles. GASTROINTESTINAL: Abdomen soft, non-tender. Distended. MUSCULOSKELETAL: No edema or cyanosis noted in the lower extremities bilaterally. NEUROLOGICAL: No focal neurological deficits. PSYCHIATRIC: Patient very distraught when speaking about discharge. Patient hit himself in the forehead several times our conversation stating that he could not get up and out of bed and wanted to live here permanently. insight and judgment abnormal but currently at the patient's baseline. <Rajinder Mcmillan - 09/24/18 08:32> Assessment and Plan - Assessment (1) Pulmonary edema Code(s): J81.1 - Chronic pulmonary edema Status: Acute (2) Evaluation by psychiatric service required Code(s): Z00.8 - Encounter for other general examination Status: Acute (3) Pneumonia Code(s): J18.9 - Pneumonia, unspecified organism Status: Acute (4) Sepsis Code(s): A41.9 - Sepsis, unspecified organism Status: Resolved (5) CLL (chronic lymphocytic leukemia) Code(s): C91.90 - Lymphoid leukemia, unspecified not having achieved remission Status: Acute (6) Dementia Code(s): F03.90 - Unspecified dementia without behavioral disturbance Status: Chronic (7) Bipolar disorder Code(s): F31.9 - Bipolar disorder, unspecified Status: Acute (8) Schizophrenia Code(s): F20.9 - Schizophrenia, unspecified Status: Acute (9) HTN (hypertension) Code(s): I10 - Essential (primary) hypertension Status: Acute (10) Acute metabolic encephalopathy Code(s): G93.41 - Metabolic encephalopathy Status: Resolved <Rodney Sibley - 09/24/18 11:22> (1) Pulmonary edema Code(s): J81.1 - Chronic pulmonary edema Status: Acute Plan: May be 2/2 to fluid overload vs recent sepsis. No crackles appreciated on auscultation. -CXR 09/24: -40 mg furosemide twice daily while inpatient -Upon discharge: Continue home 40mg Lasix BID for one week then transition to 40mg lasix daily -Clinically stable (2) Evaluation by psychiatric service required Code(s): Z00.8 - Encounter for other general examination Status: Acute Plan: This patient has a history of schizophrenia and bipolar disorder. Upon being seen this morning patient became frustrated at the idea of being discharged and began hitting himself in the forehead repeatedly. There is a concern for possible self-injurious behavior upon discharge as well as belligerent behavior. Patient is pleasant and amenable at baseline but did get frustrated at the idea of having to go home. Plan: -Discharge pending evaluation by psychiatry for current medication regimen and potential for self-harm (3) Pneumonia Code(s): J18.9 - Pneumonia, unspecified organism Status: Acute Plan: Empirically treating for both community-acquired, aspiration pneumonias and HCAP. -Requires 6 O2 to sat above 92%, according to home patient not on home oxygen at baseline -CXR from 09/17 suggests pulmonary edema with lower lung opacity -CXR from 09/19 showed diffuse increased interstitial markings likely related to diffuse processes such as edema or diffuse infection. -Blood cx NGTD, urinary pneumococcal and legionella negative Plan: - Continue Augmentin 875 twice daily for an additional 3 days after discharge - Duonebs every 4 hours as needed at home for wheezing shortness of breath - IS - We will likely need home oxygen Antibiotic course while inpatient: - Discontinued: Flagyl (09/16), Vancomycin (09/19) , Cefepime (09/19) (4) Sepsis Code(s): A41.9 - Sepsis, unspecified organism Status: Resolved Plan: Improving, please see plan above for pneumonia (5) CLL (chronic lymphocytic leukemia) Code(s): C91.90 - Lymphoid leukemia, unspecified not having achieved remission Status: Acute Plan: CLL (not undergoing tx at this time), following w/Dr. Zazueta -Peripheral smear confirmed CLL -WBC 27.7 (6) Dementia Code(s): F03.90 - Unspecified dementia without behavioral disturbance Status: Chronic Plan: Reorient for delirium Haldol PRN for agitation while inpatient Health proxy is brother Michael (7) Bipolar disorder Code(s): F31.9 - Bipolar disorder, unspecified Status: Acute Plan: Con't home valproic acid daily and Zoloft daily (8) Schizophrenia Code(s): F20.9 - Schizophrenia, unspecified Status: Acute Plan: Continue home med of clozapine (9) HTN (hypertension) Code(s): I10 - Essential (primary) hypertension Status: Acute Plan: Patient currently normotensive -Continue home furosemide 20 mg po bid after discharge FEN: Fluids: none Electrolytes: monitor Nutrition: mech soft, honey thick liquid diet DVT prophy: Lovenox daily (10) Acute metabolic encephalopathy Code(s): G93.41 - Metabolic encephalopathy Status: Resolved Plan: Resolved: A halicat was called on this patient on 09/19 for acute altered mental status. Patient was found difficult to arouse at bedside. Status change most likely related to his pneumonia as patient not taking lactulose. Patient regained baseline mental status after administration of rectal lactulose. Plan: Continue lactulose 10 mL p.o. 3 times daily Halicat work up on 01/18 as follows: -CXR: Diffuse increased interstitial markings likely related to diffuse processes such as edema or diffuse infection -Depakote level 36, low -Ammonia level 63 -CT head, no acute intracranial process -ABG 7.39/53/73/31 Patient was given rectal lactulose and responded well. Ammonia on 09/20 now improved at 57 <Rajinder Mcmillan - 09/24/18 10:25> - Assessment and Plan Patient is a 73 year old man with a h/o schizophrenia, bipolar disorder, hypertension who presented septic with a likely Pneumonia: Continue IV antibiotics with ceftriaxone, azithromycin, and Flagyl as there is a concern for aspiration Blood cultures NGTD Urine Legionella antigens negative Supplemental oxygen as needed breathing treatments ordered <Rajinder Mcmillan - 09/24/18 08:27> - Attending Attestation Patient examined independently during morning rounds and case discussed with resident physicians I have read the above note and agree with the assessment and plan as discussed with me I was involved in all medical decision making for this patient Pneumonia/CHF: Continue diuresis, patient received 40 mg of IV Lasix x1 yesterday, continuing 40 mg p.o. twice daily scheduled Lasix Continue antibiotics with Augmentin Attempting to wean oxygen as tolerated Patient's breathing appears to be much more comfortable and exam shows significant clinical improvement Psych: Patient became very agitated and began hitting himself in the head today upon discussion of his refusal to work with PT and preparation to return to his half-way facility. We will have psych evaluate patient Rodney Sibley MD <Rodney Sibley - 09/24/18 11:21> <Rajinder Mcmillan Filed: 09/24/18 10:25> (3) Pneumonia Qualifiers: Pneumonia type: due to unspecified organism <Rodney Sibley - Last Filed: 09/24/18 11:22> (3) Pneumonia Qualifiers: Pneumonia type: due to unspecified organism <Rajinder Mcmillan Filed: 09/24/18 10:25> (3) Pneumonia Qualifiers: Pneumonia type: due to unspecified organism <Rodney Sibley - Last Filed: 09/24/18 11:22> (3) Pneumonia Qualifiers: Pneumonia type: due to unspecified organism
[2018-09-24 08:44] LABS: Lymphocytes 47 % (9-44); Monocytes 2 % (0-8)
[2018-09-24 08:45] LABS: Platelet Estimate Normal (Normal); Platelet Morphology Normal (Normal); Smudge Cells Present
[2018-09-24] MEDS: Budesonide-Formoterol 160/4.5 MCG 6 GM Inhaler INH SCH (09:01)
[2018-09-24] MEDS: Amoxicillin/Clavulanate 875/125 MG Tablet PO SCH (09:01)
[2018-09-24] MEDS: Ferrous Sulfate 325 MG Tablet PO SCH (09:01)
[2018-09-24] MEDS: Sertraline 100 MG Tablet PO SCH (09:01)
[2018-09-24] MEDS: Furosemide 40 MG Tablet PO SCH (09:01)
[2018-09-24] MEDS: Haloperidol Inj 5 MG/ML Ampul IV.PUSH PRN (09:02)
--- NOTE | 2018-09-24 11:05 | XR ---
EXAM DATE: 09/24/2018 11:00 AM EST AGE/SEX: 73 years / Male INDICATIONS: . Short of breath CLINICAL DATA: This is the patient's subsequent encounter. Patient reports that signs and symptoms h ave been present for 1 week and indicates a pain score of 0/10. MEDICAL/SURGICAL HISTORY: Seizures. None. [place]PAR[place]: [facility] [place] 2[place] AP&LAT[place]. . FINDINGS: Persistent bibasilar and perihilar infiltrate. Perhaps minimal interval improvement in overall aerati on. Cardiac contours are grossly unchanged. There is significant blunting of the posterior sulcus on the lateral view indicating bilateral effusions. There is moderate accentuation of thoracic kyphosis with degenerative changes noted in the spine. Prominent posttraumatic deformity of the left shoulder again noted. CONCLUSION: Probable slight interval improvement in aeration. Electronically signed by: Derrick Dow MD Board Certified Radiologist 09/24/2018 11:03 AM EST
[2018-09-24] MEDS: Enoxaparin Inj 40 MG/0.4 ML Syringe SQ SCH (12:33)
[2018-09-24 13:30] VITALS: BP 145/94; PULSE 109; RESP 19; TEMP 97.3; O2SAT 96
--- NOTE | 2018-09-24 15:25 | P.CONPSY ---
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 The patient however is very satisfied and pleased with the accommodations and does not want to go home. He enjoys the service and a fact that he has his own room and has told the staff that he has no intention of leaving. He told them he loved them. When he was considered ready for discharge he began hitting himself in the head. The patient was interviewed and discussed with the staff nurse as well as his primary family practice hospitalist. It appears the patient is medically stable I am can be discharged. And there is a history of schizophrenia which the patient is receiving treatment and which seems quite stable. The patient has a difficult focusing on questions related to the status examination and when he does reply is almost incoherent. This seems to be a region hearing problem as much as an attention problem. That patient's response to my question what could be due to to help him was to ask for a glass of water. Patient does not appear to be responding to internal stimuli and was directing all of his comments to me without difficulty. His focus was limited to pain in the hospital and not returning to the [facility]. [facility] - History History Provided By: Patient - Medical History Medical History: Medical History (Last Reviewed 09/24/18 @ 09:20 by Tammy Carnes Medical Officer Psychiatry, ENVIRONMENTAL ASSISTANT) Anxiety Dementia Dysphagia Hypertension Muscle weakness (generalized) Schizophrenia - Tobacco History Smoking Status: Cognitive impairment - Alcohol History How Often Do You Have a Drink Containing Alcohol: Unable to Obtain - Substance Use History Substance History: Unable to Obtain - Travel History Recent Travel in the [place] Within the Last 8 Weeks: No Recent Travel Out of the Country Within the Last 8 Weeks: No - Immunization History Tetanus Immunization: Unable to Assess Hx Influenza Vaccine This Season: Yes Medications and Allergies Active Medications: Active Medications Acetaminophen (Tylenol) 650 mg PO Q4H PRN PRN Reason: Temp > 100.4 Al Hydroxide/Mg Hydroxide (Milk Of Magnesia Liq) 30 ml PO Q12H PRN PRN Reason: Mild Constipation Albuterol (Duoneb Neb (Alpesh)) 1 ampul NEB Q4HR NEB [facility] Last Admin: 09/24/18 12:55 Dose: Not Given Amoxicillin/Clavulanate Potassium (Augmentin 875/125 Mg) 1 tab PO Q12HR [facility] Last Admin: 09/24/18 09:01 Dose: 1 tab Bisacodyl (Dulcolax Supp) 10 mg RECTAL DAILY PRN PRN Reason: SEVERE CONSITIPATION Budesonide/Formoterol Fumarate (Symbicort 160/4.5 Mcg Inh) 2 puff INH BID [facility] Last Admin: 09/24/18 09:01 Dose: 2 puff Clozapine (Clozaril) 150 mg PO DAILY [facility] Last Admin: 09/24/18 09:01 Dose: 150 mg Clozapine (Clozaril) 200 mg PO HS [facility] Last Admin: 09/23/18 21:23 Dose: 200 mg Enoxaparin Sodium (Lovenox Inj) 40 mg SQ Q24H [facility] Last Admin: 09/24/18 12:33 Dose: 40 mg Ferrous Sulfate (Ferosul) 325 mg PO DAILY [facility] Last Admin: 09/24/18 09:01 Dose: 325 mg Furosemide (Lasix) 40 mg PO BID@0900,1800 [facility] Last Admin: 09/24/18 09:01 Dose: 40 mg Haloperidol Lactate (Haldol Inj) 2 mg IV.PUSH Q6H PRN PRN Reason: AGITATION Last Admin: 09/24/18 09:02 Dose: 2 mg Lactobacillus Acidophilus (Lactinex Pkt) 1 gm PO TID [facility] Last Admin: 09/24/18 12:33 Dose: 1 gm Lactulose (Lactulose Liq) 15 ml PO TID [facility] Last Admin: 09/24/18 12:33 Dose: 15 ml Ondansetron HCl (Zofran Inj) 4 mg IV.PUSH Q6H PRN PRN Reason: NAUSEA OR VOMITING Sennosides (Senokot) 17.2 mg PO Q12H PRN PRN Reason: Moderate Constipation Sertraline HCl (Zoloft) 100 mg PO DAILY [facility] Last Admin: 09/24/18 09:01 Dose: 100 mg Sodium Chloride (Ns Flush) 2 ml IV.FLUSH PRN PRN PRN Reason: FLUSH AFTER USING IV ACCESS Sodium Chloride (Ns Flush) 2 ml IV.FLUSH BID [facility] Last Admin: 09/24/18 09:01 Dose: 2 ml Valproic Acid (Depakene) 250 mg PO BID [facility] Last Admin: 09/24/18 09:01 Dose: 250 mg Allergies Allergy/AdvReac Type Severity Reaction Status Date / Time No Known Allergies Allergy Verified 09/16/18 11:46 Home Medications Medication Instructions Recorded Confirmed Type budesonide-formoterol [Symbicort] 2 puff INHALATION BID 09/16/18 09/16/18 History clozapine 200 mg PO HS 09/16/18 09/16/18 History clozapine [Clozaril] 100 mg PO DAILY 09/16/18 09/16/18 History ferrous sulfate 325 mg PO DAILY 09/16/18 09/16/18 History furosemide 20 mg PO DAILY 09/16/18 09/16/18 History lactulose 10 g PO TID 09/16/18 09/16/18 History sertraline 100 mg PO DAILY 09/16/18 09/16/18 History valproic acid 250 mg PO BID 09/16/18 09/16/18 History Exam Vital signs: Vital Signs 09/23/18 16:00 09/23/18 16:06 09/23/18 20:00 Temperature 98.3 F 97.8 F Pulse Rate 95 H 96 H 94 H Respiratory Rate 20 16 20 Blood Pressure 113/68 131/73 Pulse Oximetry 92 L 93 L 09/23/18 20:16 09/23/18 23:29 09/24/18 00:00 Temperature 97.4 F L Pulse Rate 94 H 102 H 104 H Respiratory Rate 22 22 20 Blood Pressure 131/73 Pulse Oximetry 94 L 92 L 93 L 09/24/18 03:09 09/24/18 04:00 09/24/18 08:00 Temperature 98.1 F 97.6 F Pulse Rate 103 H 101 H 109 H Respiratory Rate 16 20 19 Blood Pressure 138/74 129/83 Pulse Oximetry 93 L 96 09/24/18 08:11 09/24/18 08:12 09/24/18 12:00 Temperature 97.3 F L Pulse Rate 99 H 109 H Respiratory Rate 20 19 Blood Pressure 145/94 H Pulse Oximetry 93 L 96 Intake & Output 09/23/18 09/24/18 09/24/18 18:59 06:59 18:59 Intake Total 960 / 960 120 / 120 Balance 960 / 960 120 / 120 Intake: Oral 960 / 960 120 / 120 Other: # Voids 4 2 Date of Last Bowel Movement 09/23/18 09/22/18 09/24/18 # Bowel Movements 2 2 Mental Status Examination Appearance: Appropriate Consciousness: Alert Orientation: x4 Speech: Incoherent Language: Perseveration (Focused on a drink of water and is seen in the hospital ) Fund of Knowledge: Poor Attention and Concentration: Adequate Mood: Appropriate Affect: Appropriate Thought Content: Other (Abscess with remaining in the hospital) Hallucination Type: None Delusion Type: None Suicidal Ideation: No Suicidal Plan: No Suicidal Intention: No Homicidal Ideation: No Homicidal Plan: No Homicidal Intention: No Insight: Poor Assessment and Plan - Plan Plan: Estimated LOS: [] days Discharged her home and outpatient follow-up for his psychiatric care Justification for Continued Inpatient Stay: There is no justification for the patient's continued hospitalization based on his mental status or psychiatric illness
== END 2018-09-24 15:22 | DRG 871 ==
LOC: NEPC 09:32 → NEDA 11:22 → N04 14:28
PROVIDERS: ADMIT Family Medicine; ATTEND Family Medicine
CPT/HCPCS: 36600; 70450; 71010; 71020; 71045; 71046; 80048; 80053; 80164; 80202; 80307; 81001; 82140; 82805; 82948; 82962; 83520; 83605; 83735; 83880; 85025; 85610; 85730; 87040; 87449; 87493; 90765; 90768; 92526; 92610; 93005; 94150; 94640; 94665; 96125; 96365; 96368; 97110; 97127; 97162; 97530; 97532; 99285; G0195; G0515; J0456; J0692; J0696; J1630; J1650; J1940; J3370; J7030; J7040; J7050; J7120